=== PATIENT | female | born 1950 | race Caucasian/White ===

== ENCOUNTER 2020-10-13 12:53 | Emergency (ER) | payer MEDICARE, SELFPAY ==
--- NOTE | ~2020-10-13 | CT_ITS ---
EXAMINATION: CT ABDOMEN AND PELVIS WITHOUT CONTRAST CLINICAL INFORMATION: Flank pain, fevers COMPARISON: 07/16/2019 TECHNIQUE: Multidetector volumetric imaging was performed from the superior aspect of the liver through the pubic symphysis. Sagittal and coronal reformatted images were obtained on the technologist's workstation. This CT examination was performed using dose optimization techniques as appropriate, variously including the following: *Automated exposure control *Adjustment of mA and/or kV according to patient size (this includes techniques or standardized protocols for targeted exams where dose is matched to indication/reason for exam; i.e. extremities or head) *Use of iterative reconstruction technique DLP [id number] FINDINGS: The lack of intravenous contrast limits evaluation of the solid visceral organs including the liver, spleen, pancreas, and kidneys. LUNG BASES: Trace bilateral pleural effusions. Bibasilar atelectasis. Normal heart size. Small circumferential pericardial effusion. Findings are similar to the prior study. LIVER, GALLBLADDER, AND BILIARY TREE: Limited non-contrast evaluation is normal. No gross focal hepatic lesion. Normal liver size and contour. No gross biliary ductal dilation. The gallbladder is unremarkable with no evidence of radiopaque gallstones, gallbladder wall thickening, or obvious pericholecystic inflammatory changes. PANCREAS: Limited non-contrast evaluation is normal. No poly-pancreatic fluid. SPLEEN: Limited non-contrast evaluation is normal. ADRENAL GLANDS: Normal; no adrenal mass. KIDNEYS AND URETERS: There is prominence of the right renal pelvis and right ureter but no calculus seen. No left hydronephrosis or hydroureter. GASTROINTESTINAL TRACT: Small bowel and colon are non-dilated. No bowel wall thickening. No pericolonic inflammatory changes to suggest colitis or diverticulitis. Normal appendix. ABDOMINAL WALL: Small fat-containing umbilical hernia. LYMPH NODES: No pathologically enlarged lymph nodes in the abdomen or pelvis. VASCULAR: Normal caliber abdominal aorta. BLADDER: Unremarkable. PELVIC VISCERA: Normal noncontrast appearance of the uterus and ovaries. OSSEOUS STRUCTURES: No acute or suspicious osseous abnormalities. CT/CT abdomen pelvis wo con IMPRESSION: There is prominence of the right renal pelvis and right ureter. No calculi seen. A recently passed calculus could give this appearance. Recommend clinical correlation. Trace bilateral pleural effusions, bibasilar atelectasis, and small circumferential pericardial effusion are again seen, similar to prior study in 2019.
--- NOTE | ~2020-10-13 | XR_ITS ---
EXAMINATION: XR CHEST CLINICAL INFORMATION: Cough and fever COMPARISON: July 16, 2019 and studies dating back to October 10, 2007 TECHNIQUE: 2 views of the chest were obtained. FINDINGS: No definite acute parenchymal disease, pneumothorax, or pleural effusion. Heart normal size. No unsupportive pulmonary edema. There is some scar seen within the mid left lung. There is some prominence of the right hilum which may be all vascular and is similar in appearance to prior studies however it appears slightly more bulky and possibility of lymphadenopathy is not excluded. CT of the chest would be of help in further evaluation of this finding if clinically indicated. No right paratracheal prominence is seen to suggest lymphadenopathy in this location. XR/XR chest 2V IMPRESSION: No acute parenchymal disease. Prominence of the right hilum as described. This is likely all vascular in nature however right hilar lymphadenopathy not excluded.
[2020-10-13 14:28] VITALS: BP 132/54; PULSE 85; RESP 22; TEMP 39; O2SAT 93; BMI 62.4
--- NOTE | 2020-10-13 14:30 | ED_ITS ---
HPI - Fever General Chief Complaint: Upper Respiratory Symptoms <INOCENCIO Pat Last Filed: 10/13/20 14:33> Stated Complaint: fever, lower back pain <INOCENCIO Pat - Last Filed: 10/13/20 14:33> Time Seen by Provider: 10/13/20 14:22 <INOCENCIO Pat - Last Filed: 10/13/20 14:33> Source: patient <Loretta Meyers DO - Last Filed: 10/13/20 20:01> Mode of arrival: ambulatory <Loretta Meyers DO - Last Filed: 10/13/20 20:01> Limitations: no limitations <Loretta Meyers DO - Last Filed: 10/13/20 20:01> History of Present Illness MD elicited complaint: fever, malaise and weakness <Loretta Meyers DO - Last Filed: 10/13/20 20:01> Pertinent past history: diabetes <Loretta Meyers DO - Last Filed: 10/13/20 20:01> Onset (ago): day(s) (3) <Loretta Meyers DO - Last Filed: 10/13/20 20:01> Exacerbating factors: nothing <Loretta Meyers DO - Last Filed: 10/13/20 20:01> Relieving factors: nothing <Loretta Meyers DO - Last Filed: 10/13/20 20:01> Associated symptoms: chills, rhinorrhea, cough and nausea <Loretta Meyers DO - Last Filed: 10/13/20 20:01> Treatments prior to arrival fever: none <Loretta Meyers DO - Last Filed: 10/13/20 20:01> Related Data Home Medications: Home Medications Medication Instructions Recorded Confirmed citalopram 1 tab PO DAILY 10/13/20 10/13/20 mirtazapine 1 tab PO BEDTIME 10/13/20 10/13/20 quetiapine 1 tab PO BEDTIME 10/13/20 10/13/20 quetiapine 1 tab PO BEDTIME 10/13/20 10/13/20 quetiapine [Seroquel] 1 tab PO BEDTIME 10/13/20 10/13/20 Previous Rx's Medication Instructions Recorded albuterol sulfate 2 puff INHALATION QID PRN #6.7 g 10/13/20 dexamethasone 6 mg PO DAILY 7 Days #7 tab 10/13/20 <INOCENCIO Pat - Last Filed: 10/13/20 14:33> Allergies/Adverse Reactions: Allergies Allergy/AdvReac Type Severity Reaction Status Date / Time lactose [Lactose] Allergy Mild DIARRHEA Verified 10/13/20 14:24 <INOCENCIO Pat - Last Filed: 10/13/20 14:33> Review of Systems Review of Systems: Constitutional : No Weight loss, pos Fever, pos Chills, No Fatigue, No Malaise ENT/Mouth : No sore throat, No Rhinorrhea Eyes: No Eye Pain, No Swelling, No Redness Cardiovascular : No Chest Pain, No SOB, No Dyspnea on Exertion, No Orthopnea, No Edema, No Palpitations Respiratory : pos Cough, No Sputum, No Wheezing Gastrointestinal : pos Nausea, No Vomiting, No Diarrhea, No Constipation, No abdominal Pain, No Hematochezia, No Melena Genitourinary : pos Dysuria, No Urinary Frequency, No Hematuria, Musculoskeletal : No joint pain, No Myalgias, No Joint Swelling Skin : No Skin Lesions, No rash Neuro : No Weakness, No Numbness, No Dizziness, No Headache Psych : No Anxiety/Panic, No Depression Heme/Lymph: No Bruising, No Bleeding,No Lymphadenopathy Endocrine : No Polyuria, No Polydipsia All other systems reviewed and are negative <Loretta Meyers DO - Last Filed: 10/13/20 20:01> [facility] Past Medical History Attestation statement: The following information was validated with the patient. <Loretta Meyers DO - Last Filed: 10/13/20 20:01> Medical History: Medical History (Updated 10/13/20 @ 20:00 by Loretta Meyers DO) Asthma Chronic pain Depression Diabetes Osteoporosis <INOCECNIO Pat - Last Filed: 10/13/20 14:33> Social History Social History: Social History (Updated 10/13/20 @ 17:13 by Loretta Meyers DO) Alcohol intake: never Smoking Status: Never smoker Use of substances other than those prescribed or required for medical reasons: No Advance Directives: No Advance Directives Information Provided: Yes <INOCENCIO Pat - Last Filed: 10/13/20 14:33> Physical Exam Vital Signs: Vital Signs: Last Vital Signs Temp 100.7 F H 10/13/20 18:32 Pulse 88 10/13/20 19:11 Resp 18 10/13/20 19:11 BP 105/79 10/13/20 18:32 Pulse Ox 95 10/13/20 19:11 Body Mass Index 62.4 <INOCENCIO Pat - Last Filed: 10/13/20 14:33> Vital Signs: Last Vital Signs Temp 100.7 F H 10/13/20 18:32 Pulse 88 10/13/20 19:11 Resp 18 10/13/20 19:11 BP 105/79 10/13/20 18:32 Pulse Ox 95 10/13/20 19:11 Body Mass Index 62.4 <Loretta Meyers DO - Last Filed: 10/13/20 20:01> Appearance: Alert. Oriented X3. No acute distress. Eyes: Pupils equal, round and reactive to light. ENT: Pharynx normal. Neck: Normal inspection. Neck supple. CVS: Normal heart rate and rhythm. Pulses normal. Respiratory: No respiratory distress. Breath sounds diminished, mild diffuse end exp wheezes Abdomen: Soft and nontender. Skin: Skin warm and dry. Normal skin color. Normal skin turgor. Extremities: No lower extremity edema. No calf ttp Neuro: Oriented X 3. No motor deficit. No sensory deficit. <Loretta Meyers DO - Last Filed: 10/13/20 20:01> Course Course Course Narrative: Rapid medical examination: 70 y/o female with history of osteoporosis, chronic back pain, depression, diabetes who presents with 3 days of lethargy, low back pain, cough and new onset fevers that started yesterday, 101.8 at home. Poor PO intake with vomiting yesterday. Dysuria in the mornings. s/p 1 COVID vaccine, next due in October. Febrile to 102.2 in Triage, limping gait w/ LBP. Given 650 mg PO Tylenol. Will get CXR, Viral PCR, UA, lactic acid, blood cultures and basic lab workup. Plan per Main ED provider. <INOCENCIO Pat - Last Filed: 10/13/20 14:33> + COVID so far no hypoxia given dexamethasone, no chest pain to suggest PE improved, stable for DC at this time, no hypoxia no pneumonia on exam, unchanged CT scan <Loretta Meyers DO - Last Filed: 10/13/20 20:01> MDM - Fever MDM Narrative Medical decision making narrative: 70 yo female with DM, asthma here with cough fevers, dysuria and low back pain x 3 days, no hypoxia but scant wheezes will need neb, IV dexamethasone, CXR for pneumonia, UA, COVID swab, empiric rocephin possible viral vs pneumonia vs UTI dispo per results and findings. <Loretta Meyers DO - Last Filed: 10/13/20 20:01> Lab Data Result diagrams: : 10/13/20 15:49 10/13/20 15:49 <INOCENCIO Pat - Last Filed: 10/13/20 14:33> Labs: Lab Results 10/13/20 10/13/20 10/13/20 Range/Units 15:49 15:49 15:49 WBC 3.5 L (4.8-10.8) X10*3/uL RBC 4.70 (4.20-5.50) X10*6/uL Hgb 13.9 (12.0-16.0) g/dl Hct 42.2 (37-47) % MCV 89.8 (80-98) fL MCH 29.6 (27.0-33.0) pg MCHC 32.9 (31.0-35.0) g/dl RDW 13.1 (11.0-16.0) % Plt Count 78 L (160-400) X10*3/uL MPV 11.9 (9.4-12.3) fL Immature Gran % (Auto) 0.6 H (0.0-0.4) % Neut % (Auto) 70.7 (45-73) % Lymph % (Auto) 21.9 (20-40) % Hubbard % (Auto) 6.8 (2-11) % Eos % (Auto) 0.0 (0-4) % Baso % (Auto) 0.0 (0-2) % Lymph # (Auto) 0.8 L (1.2-4.9) X10*3/uL Hubbard # (Auto) 0.2 (0.1-1.2) X10*3/uL Eos # (Auto) 0.0 (0.0-0.4) X10*3/uL Baso # (Auto) 0.0 (0.0-0.2) X10*3/uL Abs Immat Gran (auto) 0.02 (0.00-0.03) X10*3/uL Absolute Neuts (auto) 2.5 (2.0-8.3) X10*3/uL Absolute Nucleated RBC 0.000 (0.0-0.012) X10*3/uL Nucleated RBC % (auto) 0.0 (0.0-0.2) /100WBC Smear Tech's Comments VERIFIED Hold Blue Top SEE NOTE Sodium 131 L (135-145) mmol/L Potassium 3.8 (3.3-5.1) mmol/L Chloride 100 (96-108) mmol/L Carbon Dioxide 21 L (22-29) mmol/L Anion Gap 14 (12-20) BUN 20 H (9-16) mg/dL Creatinine 1.13 (0.5-1.4) mg/dL Estim Creat Clear Calc 66.3 Estimated GFR 47 Random Glucose 311 H (60-115) mg/dL Lactic Acid (0.5-2.0) mmol/L Lactic Acid Fup @ 2Hr (0.5-2.0) mmol/L Calcium 8.5 (8.4-10.2) mg/dL Magnesium 1.8 (1.6-2.6) mg/dL Total Bilirubin 0.7 (0.0-1.0) mg/dL Direct Bilirubin 0.3 (0.0-0.5) mg/dL AST 66 H (5-31) U/L ALT 45 H (0-31) U/L Alkaline Phosphatase 114 (39-117) U/L Total Protein 7.2 (6.5-8.0) g/dL Albumin 3.7 (3.5-5.0) g/dL Urine Color Urine Appearance Urine pH (5.0-8.0) Ur Specific [place] (1.005-1.025) Urine Protein (NEG-TRACE) MG/DL Urine Glucose (UA) (NEG) MG/DL Urine Ketones (NEG) MG/DL Urine Blood (NEG) Urine Nitrite (NEG) Ur Leukocyte Esterase (NEG) Coronavirus (PCR) (Negative) Influenza Type A (PCR) (Negative) Influenza Type B (PCR) (Negative) RSV RNA Qual (PCR) (Negative) 10/13/20 10/13/20 10/13/20 Range/Units 15:49 15:49 18:26 WBC (4.8-10.8) X10*3/uL RBC (4.20-5.50) X10*6/uL Hgb (12.0-16.0) g/dl Hct (37-47) % MCV (80-98) fL MCH (27.0-33.0) pg MCHC (31.0-35.0) g/dl RDW (11.0-16.0) % Plt Count (160-400) X10*3/uL MPV (9.4-12.3) fL Immature Gran % (Auto) (0.0-0.4) % Neut % (Auto) (45-73) % Lymph % (Auto) (20-40) % Hubbard % (Auto) (2-11) % Eos % (Auto) (0-4) % Baso % (Auto) (0-2) % Lymph # (Auto) (1.2-4.9) X10*3/uL Hubbard # (Auto) (0.1-1.2) X10*3/uL Eos # (Auto) (0.0-0.4) X10*3/uL Baso # (Auto) (0.0-0.2) X10*3/uL Abs Immat Gran (auto) (0.00-0.03) X10*3/uL Absolute Neuts (auto) (2.0-8.3) X10*3/uL Absolute Nucleated RBC (0.0-0.012) X10*3/uL Nucleated RBC % (auto) (0.0-0.2) /100WBC Smear Tech's Comments Hold Blue Top Sodium (135-145) mmol/L Potassium (3.3-5.1) mmol/L Chloride (96-108) mmol/L Carbon Dioxide (22-29) mmol/L Anion Gap (12-20) BUN (9-16) mg/dL Creatinine (0.5-1.4) mg/dL Estim Creat Clear Calc Estimated GFR Random Glucose (60-115) mg/dL Lactic Acid 2.4 H* (0.5-2.0) mmol/L Lactic Acid Fup @ 2Hr 1.9 (0.5-2.0) mmol/L Calcium (8.4-10.2) mg/dL Magnesium (1.6-2.6) mg/dL Total Bilirubin (0.0-1.0) mg/dL Direct Bilirubin (0.0-0.5) mg/dL AST (5-31) U/L ALT (0-31) U/L Alkaline Phosphatase (39-117) U/L Total Protein (6.5-8.0) g/dL Albumin (3.5-5.0) g/dL Urine Color Urine Appearance Urine pH (5.0-8.0) Ur Specific [place] (1.005-1.025) Urine Protein (NEG-TRACE) MG/DL Urine Glucose (UA) (NEG) MG/DL Urine Ketones (NEG) MG/DL Urine Blood (NEG) Urine Nitrite (NEG) Ur Leukocyte Esterase (NEG) Coronavirus (PCR) POSITIVE A (Negative) Influenza Type A (PCR) NEGATIVE (Negative) Influenza Type B (PCR) NEGATIVE (Negative) RSV RNA Qual (PCR) NEGATIVE (Negative) 10/13/20 Range/Units 19:26 WBC (4.8-10.8) X10*3/uL RBC (4.20-5.50) X10*6/uL Hgb (12.0-16.0) g/dl Hct (37-47) % MCV (80-98) fL MCH (27.0-33.0) pg MCHC (31.0-35.0) g/dl RDW (11.0-16.0) % Plt Count (160-400) X10*3/uL MPV (9.4-12.3) fL Immature Gran % (Auto) (0.0-0.4) % Neut % (Auto) (45-73) % Lymph % (Auto) (20-40) % Hubbard % (Auto) (2-11) % Eos % (Auto) (0-4) % Baso % (Auto) (0-2) % Lymph # (Auto) (1.2-4.9) X10*3/uL Hubbard # (Auto) (0.1-1.2) X10*3/uL Eos # (Auto) (0.0-0.4) X10*3/uL Baso # (Auto) (0.0-0.2) X10*3/uL Abs Immat Gran (auto) (0.00-0.03) X10*3/uL Absolute Neuts (auto) (2.0-8.3) X10*3/uL Absolute Nucleated RBC (0.0-0.012) X10*3/uL Nucleated RBC % (auto) (0.0-0.2) /100WBC Smear Tech's Comments Hold Blue Top Sodium (135-145) mmol/L Potassium (3.3-5.1) mmol/L Chloride (96-108) mmol/L Carbon Dioxide (22-29) mmol/L Anion Gap (12-20) BUN (9-16) mg/dL Creatinine (0.5-1.4) mg/dL Estim Creat Clear Calc Estimated GFR Random Glucose (60-115) mg/dL Lactic Acid (0.5-2.0) mmol/L Lactic Acid Fup @ 2Hr (0.5-2.0) mmol/L Calcium (8.4-10.2) mg/dL Magnesium (1.6-2.6) mg/dL Total Bilirubin (0.0-1.0) mg/dL Direct Bilirubin (0.0-0.5) mg/dL AST (5-31) U/L ALT (0-31) U/L Alkaline Phosphatase (39-117) U/L Total Protein (6.5-8.0) g/dL Albumin (3.5-5.0) g/dL Urine Color YELLOW Urine Appearance CLEAR Urine pH 6.0 (5.0-8.0) Ur Specific [place] <= 1.005 (1.005-1.025) Urine Protein NEG (NEG-TRACE) MG/DL Urine Glucose (UA) >=1000 H (NEG) MG/DL Urine Ketones NEG (NEG) MG/DL Urine Blood TRACE (NEG) Urine Nitrite NEG (NEG) Ur Leukocyte Esterase TRACE H (NEG) Coronavirus (PCR) (Negative) Influenza Type A (PCR) (Negative) Influenza Type B (PCR) (Negative) RSV RNA Qual (PCR) (Negative) <INOCENCIO Pat - Last Filed: 10/13/20 14:33> Lab Results 10/13/20 10/13/20 10/13/20 Range/Units 15:49 15:49 15:49 WBC 3.5 L (4.8-10.8) X10*3/uL RBC 4.70 (4.20-5.50) X10*6/uL Hgb 13.9 (12.0-16.0) g/dl Hct 42.2 (37-47) % MCV 89.8 (80-98) fL MCH 29.6 (27.0-33.0) pg MCHC 32.9 (31.0-35.0) g/dl RDW 13.1 (11.0-16.0) % Plt Count 78 L (160-400) X10*3/uL MPV 11.9 (9.4-12.3) fL Immature Gran % (Auto) 0.6 H (0.0-0.4) % Neut % (Auto) 70.7 (45-73) % Lymph % (Auto) 21.9 (20-40) % Hubbard % (Auto) 6.8 (2-11) % Eos % (Auto) 0.0 (0-4) % Baso % (Auto) 0.0 (0-2) % Lymph # (Auto) 0.8 L (1.2-4.9) X10*3/uL Hubbard # (Auto) 0.2 (0.1-1.2) X10*3/uL Eos # (Auto) 0.0 (0.0-0.4) X10*3/uL Baso # (Auto) 0.0 (0.0-0.2) X10*3/uL Abs Immat Gran (auto) 0.02 (0.00-0.03) X10*3/uL Absolute Neuts (auto) 2.5 (2.0-8.3) X10*3/uL Absolute Nucleated RBC 0.000 (0.0-0.012) X10*3/uL Nucleated RBC % (auto) 0.0 (0.0-0.2) /100WBC Smear Tech's Comments VERIFIED Hold Blue Top SEE NOTE Sodium 131 L (135-145) mmol/L Potassium 3.8 (3.3-5.1) mmol/L Chloride 100 (96-108) mmol/L Carbon Dioxide 21 L (22-29) mmol/L Anion Gap 14 (12-20) BUN 20 H (9-16) mg/dL Creatinine 1.13 (0.5-1.4) mg/dL Estim Creat Clear Calc 66.3 Estimated GFR 47 Random Glucose 311 H (60-115) mg/dL Lactic Acid (0.5-2.0) mmol/L Lactic Acid Fup @ 2Hr (0.5-2.0) mmol/L Calcium 8.5 (8.4-10.2) mg/dL Magnesium 1.8 (1.6-2.6) mg/dL Total Bilirubin 0.7 (0.0-1.0) mg/dL Direct Bilirubin 0.3 (0.0-0.5) mg/dL AST 66 H (5-31) U/L ALT 45 H (0-31) U/L Alkaline Phosphatase 114 (39-117) U/L Total Protein 7.2 (6.5-8.0) g/dL Albumin 3.7 (3.5-5.0) g/dL Urine Color Urine Appearance Urine pH (5.0-8.0) Ur Specific [place] (1.005-1.025) Urine Protein (NEG-TRACE) MG/DL Urine Glucose (UA) (NEG) MG/DL Urine Ketones (NEG) MG/DL Urine Blood (NEG) Urine Nitrite (NEG) Ur Leukocyte Esterase (NEG) Coronavirus (PCR) (Negative) Influenza Type A (PCR) (Negative) Influenza Type B (PCR) (Negative) RSV RNA Qual (PCR) (Negative) 10/13/20 10/13/20 10/13/20 Range/Units 15:49 15:49 18:26 WBC (4.8-10.8) X10*3/uL RBC (4.20-5.50) X10*6/uL Hgb (12.0-16.0) g/dl Hct (37-47) % MCV (80-98) fL MCH (27.0-33.0) pg MCHC (31.0-35.0) g/dl RDW (11.0-16.0) % Plt Count (160-400) X10*3/uL MPV (9.4-12.3) fL Immature Gran % (Auto) (0.0-0.4) % Neut % (Auto) (45-73) % Lymph % (Auto) (20-40) % Hubbard % (Auto) (2-11) % Eos % (Auto) (0-4) % Baso % (Auto) (0-2) % Lymph # (Auto) (1.2-4.9) X10*3/uL [place] # (Auto) (0.1-1.2) X10*3/uL Eos # (Auto) (0.0-0.4) X10*3/uL Baso # (Auto) (0.0-0.2) X10*3/uL Abs Immat Gran (auto) (0.00-0.03) X10*3/uL Absolute Neuts (auto) (2.0-8.3) X10*3/uL Absolute Nucleated RBC (0.0-0.012) X10*3/uL Nucleated RBC % (auto) (0.0-0.2) /100WBC Smear Tech's Comments Hold Blue Top Sodium (135-145) mmol/L Potassium (3.3-5.1) mmol/L Chloride (96-108) mmol/L Carbon Dioxide (22-29) mmol/L Anion Gap (12-20) BUN (9-16) mg/dL Creatinine (0.5-1.4) mg/dL Estim Creat Clear Calc Estimated GFR Random Glucose (60-115) mg/dL Lactic Acid 2.4 H* (0.5-2.0) mmol/L Lactic Acid Fup @ 2Hr 1.9 (0.5-2.0) mmol/L Calcium (8.4-10.2) mg/dL Magnesium (1.6-2.6) mg/dL Total Bilirubin (0.0-1.0) mg/dL Direct Bilirubin (0.0-0.5) mg/dL AST (5-31) U/L ALT (0-31) U/L Alkaline Phosphatase (39-117) U/L Total Protein (6.5-8.0) g/dL Albumin (3.5-5.0) g/dL Urine Color Urine Appearance Urine pH (5.0-8.0) Ur Specific [place] (1.005-1.025) Urine Protein (NEG-TRACE) MG/DL Urine Glucose (UA) (NEG) MG/DL Urine Ketones (NEG) MG/DL Urine Blood (NEG) Urine Nitrite (NEG) Ur Leukocyte Esterase (NEG) Coronavirus (PCR) POSITIVE A (Negative) Influenza Type A (PCR) NEGATIVE (Negative) Influenza Type B (PCR) NEGATIVE (Negative) RSV RNA Qual (PCR) NEGATIVE (Negative) 10/13/20 Range/Units 19:26 WBC (4.8-10.8) X10*3/uL RBC (4.20-5.50) X10*6/uL Hgb (12.0-16.0) g/dl Hct (37-47) % MCV (80-98) fL MCH (27.0-33.0) pg MCHC (31.0-35.0) g/dl RDW (11.0-16.0) % Plt Count (160-400) X10*3/uL MPV (9.4-12.3) fL Immature Gran % (Auto) (0.0-0.4) % Neut % (Auto) (45-73) % Lymph % (Auto) (20-40) % [place] % (Auto) (2-11) % Eos % (Auto) (0-4) % Baso % (Auto) (0-2) % Lymph # (Auto) (1.2-4.9) X10*3/uL [place] # (Auto) (0.1-1.2) X10*3/uL Eos # (Auto) (0.0-0.4) X10*3/uL Baso # (Auto) (0.0-0.2) X10*3/uL Abs Immat Gran (auto) (0.00-0.03) X10*3/uL Absolute Neuts (auto) (2.0-8.3) X10*3/uL Absolute Nucleated RBC (0.0-0.012) X10*3/uL Nucleated RBC % (auto) (0.0-0.2) /100WBC Smear Tech's Comments Hold Blue Top Sodium (135-145) mmol/L Potassium (3.3-5.1) mmol/L Chloride (96-108) mmol/L Carbon Dioxide (22-29) mmol/L Anion Gap (12-20) BUN (9-16) mg/dL Creatinine (0.5-1.4) mg/dL Estim Creat Clear Calc Estimated GFR Random Glucose (60-115) mg/dL Lactic Acid (0.5-2.0) mmol/L Lactic Acid Fup @ 2Hr (0.5-2.0) mmol/L Calcium (8.4-10.2) mg/dL Magnesium (1.6-2.6) mg/dL Total Bilirubin (0.0-1.0) mg/dL Direct Bilirubin (0.0-0.5) mg/dL AST (5-31) U/L ALT (0-31) U/L Alkaline Phosphatase (39-117) U/L Total Protein (6.5-8.0) g/dL Albumin (3.5-5.0) g/dL Urine Color YELLOW Urine Appearance CLEAR Urine pH 6.0 (5.0-8.0) Ur Specific [place] <= 1.005 (1.005-1.025) Urine Protein NEG (NEG-TRACE) MG/DL Urine Glucose (UA) >=1000 H (NEG) MG/DL Urine Ketones NEG (NEG) MG/DL Urine Blood TRACE (NEG) Urine Nitrite NEG (NEG) Ur Leukocyte Esterase TRACE H (NEG) Coronavirus (PCR) (Negative) Influenza Type A (PCR) (Negative) Influenza Type B (PCR) (Negative) RSV RNA Qual (PCR) (Negative) <Loretta Meyers DO - Last Filed: 10/13/20 20:01> Discharge Plan Discharge Clinical Impression: Acidosis, lactic, COVID-19 Fever Qualifiers: Fever type: due to other condition Qualified Code(s): R50.81 - Fever presenting with conditions classified elsewhere <INOCENCIO Pat - Last Filed: 10/13/20 14:33> Patient Disposition: Home, Self-Care <INOCENCIO Pat - Last Filed: 10/13/20 14:33> Instructions: Fever in Adults (ED), COVID-19 (Coronavirus Disease 2019) (ED) <INOCENCIO Pat - Last Filed: 10/13/20 14:33> Additional Instructions: return to ED for any worsening symptoms or concerns <INOCENCIO Pat - Last Filed: 10/13/20 14:33> Prescriptions: New dexamethasone 6 mg tablet 6 mg PO DAILY 7 Days Qty: 7 RF: 0 albuterol sulfate 90 mcg/actuation HFA aerosol inhaler 2 puff inhalation QID PRN (Reason: shortness of breath or wheezing) Qty: 6.7 RF: 0 No Action quetiapine [Seroquel] 100 mg tablet 1 tab PO BEDTIME RF: 0 quetiapine 100 mg tablet 1 tab PO BEDTIME RF: 0 citalopram 20 mg tablet 1 tab PO DAILY RF: 0 mirtazapine 30 mg tablet 1 tab PO BEDTIME RF: 0 quetiapine 400 mg tablet 1 tab PO BEDTIME RF: 0 <INOCENCIO Pat - Last Filed: 10/13/20 14:33>
[2020-10-13 15:56] LABS: Hemoglobin 13.9 g/dl (12.0-16.0); MANUAL DIFF FLAG SCAN; PLT CLUMP 1; SCAN SMEAR FLAG 1
[2020-10-13 15:58] LABS: Hematocrit 42.2 % (37-47); Imm Gran Abs Auto 0.02 X10*3/uL (0.00-0.03); Imm Gran Pct Auto 0.6 % (0.0-0.4); Lymphocytes Absolute Auto 0.8 X10*3/uL (1.2-4.9); Lymphocytes Percent Auto 21.9 % (20-40); Mean Corpuscular HGB Conc 32.9 g/dl (31.0-35.0); Mean Corpuscular Hemoglobin 29.6 pg (27.0-33.0); Mean Corpuscular Volume 89.8 fL (80-98); Mean Platelet Volume 11.9 fL (9.4-12.3); Monocytes Absolute Auto 0.2 X10*3/uL (0.1-1.2); Monocytes Percent Auto 6.8 % (2-11); Neutrophils Absolute Auto 2.5 X10*3/uL (2.0-8.3); Neutrophils Percent Auto 70.7 % (45-73); Red Cell Distribution Width 13.1 % (11.0-16.0); White Blood Count 3.5 X10*3/uL (4.8-10.8)
[2020-10-13 16:16] LABS: Platelet Count 78 X10*3/uL (160-400)
[2020-10-13 16:17] LABS: SLIDE REVIEW VERIFIED
[2020-10-13 16:22] LABS: Alanine Aminotransferase 45 U/L (0-31); Albumin Level 3.7 g/dL (3.5-5.0); Alkaline Phosphatase 114 U/L (39-117); Anion Gap 14 (12-20); Aspartate Amino Transferase 66 U/L (5-31); Bilirubin Direct 0.3 mg/dL (0.0-0.5); Bilirubin Total 0.7 mg/dL (0.0-1.0); Blood Urea Nitrogen 20 mg/dL (9-16); Calcium 8.5 mg/dL (8.4-10.2); Carbon Dioxide 21 mmol/L (22-29); Chloride 100 mmol/L (96-108); Creatinine Clr Calc Pharmacy 66.3; Estimated Glomerular Filt Rate 47; Glucose Random 311 mg/dL (60-115); Magnesium 1.8 mg/dL (1.6-2.6); Potassium 3.8 mmol/L (3.3-5.1); Sodium 131 mmol/L (135-145); Total Protein 7.2 g/dL (6.5-8.0)
[2020-10-13 16:25] LABS: Lactic Acid 2.4 mmol/L (0.5-2.0)
[2020-10-13 17:11] VITALS: BP 115/51; PULSE 79; RESP 20; TEMP 39.2; O2SAT 94
[2020-10-13] MEDS: Ibuprofen 600 MG TABLET PO (17:16)
[2020-10-13] MEDS: 0.9 % Sodium Chloride 1,000 ML 999 ML IVCONT (17:17)
[2020-10-13] MEDS: dexAMETHasone sod phosphate 4 MG/ML VIAL 6 MG IVPUSH (17:19)
[2020-10-13] MEDS: cefTRIAXone sodium 1 GM in 0.9 % Sodium Chloride 50 ML IV (17:20)
[2020-10-13] MEDS: Albuterol Sulfate (0.083%) 2.5 MG/3 ML VIAL.NEB INHALE (17:21)
[2020-10-13 17:22] VITALS: PULSE 81; O2SAT 95
[2020-10-13 17:36] LABS: Influenza A PCR NEGATIVE (Negative); Influenza B PCR NEGATIVE (Negative); Resp Syncy Virus RNA Qual PCR NEGATIVE (Negative); SARS COV2 PCR INHOUSE POSITIVE (Negative)
[2020-10-13 17:53] LABS: Reflex Lactate? Lactic Acid Added
[2020-10-13 18:32] VITALS: BP 105/79; PULSE 94; RESP 18; TEMP 38.2; O2SAT 99
[2020-10-13 18:53] LABS: ~Lactic Acid-LAB USE ONLY 1.9 mmol/L (0.5-2.0)
[2020-10-13 19:11] VITALS: PULSE 88; RESP 18; O2SAT 95
--- NOTE | 2020-10-13 19:11 | PC.NURSE ---
pt up to bedside commode
[2020-10-13 19:49] LABS: Glucose Urine UA >=1000 MG/DL (NEG); Leukocyte Esterase Urine TRACE (NEG); Nitrite Urine NEG (NEG); Specific Gravity - Urine <= 1.005 (1.005-1.025); UACC Culture Trigger YES; Urine Blood TRACE (NEG); Urine Ketones NEG (NEG); Urine Protein NEG (NEG-TRACE)
[2020-10-13 19:52] LABS: Appearance Urine CLEAR; Color Urine YELLOW
[2020-10-13 19:59] LABS: Bacteria Urine 2+ /LPF; RBC Urine 0-2 /HPF (0); Squamous Epithelial Cell Urine 2+ /LPF
[2020-10-13] MEDS: 0.9 % Sodium Chloride 500 ML IV (20:03)
--- NOTE | 2020-10-13 20:12 | PC.NURSE ---
discharge instructions given primary contact with patient permission. grand daughter will grain picker patient upon d/c/
--- NOTE | 2020-10-14 18:45 | PC.NURSE ---
LAB CALLED WITH POSITIVE BLOOD CULTURE ANEROBIC BC, GM+ COCCI IN CLUSTERS. REPORTED TO KAYLIE ARGUETA NP.
== END 2020-10-13 20:49 | disposition home or self-care (01) ==
PROVIDERS: Physician Assistant; Emergency Provider Emergency Medicine; PCP Internal Medicine
DX: U07.1 COVID-19 (principal); R50.81 Fever presenting with conditions classified elsewhere; E11.9 Type 2 diabetes mellitus without complications; J34.89 Other specified disorders of nose and nasal sinuses; M79.10 Myalgia, unspecified site; E87.2 Acidosis; Z79.899 Other long term (current) drug therapy
CPT/HCPCS: 0241U; 36415; 71046; 74176; 80048; 80076; 81001; 81003; 83605; 83735; 85025; 87040; 87086; 87147; 87205; 96361; 96365; 96375; 99285; J0696; J1100

== ENCOUNTER 2020-10-16 11:57 | Inpatient (IN) | payer MEDICARE, SELFPAY ==
[2020-10-16] VITALS (8 sets, daily range): BP systolic 108–140; BP diastolic 51–70; PULSE 71–112; RESP 20–30; TEMP 36.7–39.9; O2SAT 87–98; BMI 28.5
--- NOTE | ~2020-10-16 | XR_ITS ---
EXAMINATION: XR CHEST CLINICAL INFORMATION: Central line placement COMPARISON: Previous chest x-rays most recent from earlier the same day TECHNIQUE: Frontal view of the chest was obtained. FINDINGS: There is a new left jugular line with tip projecting over the cavoatrial junction/right atrium. There is a right jugular line with tip projecting over the SVC. There is an endotracheal tube with tip 5 cm above the yolanda. There is a nasogastric tube projects over stomach. The cardiac and mediastinal contours are stable. There is bilateral diffuse airspace disease, greatest in the left lower lobe does not appear appreciably changed from earlier exam. There is no pleural effusion or pneumothorax. There are mild degenerative changes of the spine. XR/XR chest 1V IMPRESSION: New left jugular line projects over cavoatrial junction/right atrium. Other support line and tubes are stable. No change in diffuse bilateral airspace disease.
--- NOTE | ~2020-10-16 | XR_ITS ---
EXAMINATION: XR CHEST CLINICAL INFORMATION: Line placement COMPARISON: Chest 10/28/2020 TECHNIQUE: Frontal view of the chest was obtained. FINDINGS: There is a large artifact from the backboard projecting over the mid and lower chest. Both lungs are expanded with diffuse patchy opacities with air bronchogram in the left lower lobe suggestive of large consolidation. The endotracheal tube is 3.7 cm above the yolanda. Enteric tube tip is below the diaphragm. There is a left jugular central catheter with its tip in the right atrium. A right jugular catheter has been replaced with a jugular sheath with its tip in the mid SVC. Heart size and pulmonary vascularity is normal. No gross bony abnormality seen. XR/XR chest 1V IMPRESSION: Diffuse bilateral airspace disease. Support lines and catheters are stable.
--- NOTE | ~2020-10-16 | XR_ITS ---
EXAMINATION: XR CHEST CLINICAL INFORMATION: Placement of intubation. COMPARISON: CTA chest the TECHNIQUE: Frontal view of the chest was obtained. FINDINGS: The right central venous catheter tip overlies the right atrium. There is an endotracheal tube with its tip in the right bronchus and needs to be withdrawn by at least 4 cm. Enteric tube tip is below the diaphragms stomach. The heart size is mildly enlarged. There are air bronchograms in the left lower lobe retrocardiac area. In addition there patchy opacities in both lungs. No gross bony abnormality seen. XR/XR chest 1V IMPRESSION: Endotracheal tube tip is in the right bronchus and needs be withdrawn by 4 cm. The right jugular central catheter tip overlies the right atrium. Enteric tube tip is below the diaphragm the stomach. Diffuse patchy infiltrates in both lungs are stable. Results were called to Dr. Olson in the ICU immediately by phone at 2:53 PM
--- NOTE | ~2020-10-16 | XR_ITS ---
EXAMINATION: XR CHEST CLINICAL INFORMATION: Covid follow-up COMPARISON: Chest x-ray October 18, 2020 TECHNIQUE: Frontal view of the chest was obtained. FINDINGS: The trachea to terminate approximately 5.5 cm above the level of yolanda. Enteric tube terminates well below the diaphragm. Right-sided jugular catheter in expected orientation, terminating within the distal SVC. The cardiac silhouette is at the upper limits of normal in size. Patchy bilateral airspace disease is again noted, however, appears slightly less prominent than prior imaging. There remains some retrocardiac opacity although this also appears less prominent today. No appreciable pleural effusion. No pneumothorax. XR/XR chest 1V IMPRESSION: -Support apparatus in expected orientation. -Persistent but improved patchy bilateral airspace disease.
--- NOTE | ~2020-10-16 | CT_ITS ---
EXAMINATION: CT ANGIOGRAM OF THE CHEST WITH AND WITHOUT CONTRAST (CT PULMONARY ANGIOGRAM FOR PE) CLINICAL INFORMATION: Hypoxia. Abnormal chest x-ray. COMPARISON: Chest x-ray 10/16/2020 TECHNIQUE: Prior to contrast administration, noncontrast localization images were obtained. Subsequently, multidetector volumetric imaging was performed from the thoracic inlet to below the diaphragms following the administration of 61 mL Omnipaque 350 intravenous contrast. No contrast reaction reported Sagittal, coronal, and MIP oblique sagittal reformatted images were obtained on the CT workstation, uploaded to PACS, and reviewed. This CT examination was performed using dose optimization techniques as appropriate, variously including the following: *Automated exposure control *Adjustment of mA and/or kV according to patient size (this includes techniques or standardized protocols for targeted exams where dose is matched to indication/reason for exam; i.e. extremities or head) *Use of iterative reconstruction technique Total exam dose-length product 1066 mGy-cm FINDINGS: QUALITY OF STUDY/CONTRAST BOLUS: Satisfactory. PULMONARY ARTERIES: No central or segmental pulmonary emboli. THORACIC AORTA: No aneurysm or dissection. LUNG: Multifocal airspace disease. There are multifocal peripheral groundglass opacities in the upper lobes bilateral. There is dense consolidation of the dependent right and left lung bases with air bronchograms. PLEURA: No pleural effusion or pneumothorax. MEDIASTINUM: Heart size is mildly enlarged. No pericardial effusion. As the calcifications of thoracic aortic arch. No aneurysm or dissection of aorta. No evidence of septal bowing or right heart strain. CHEST WALL/AXILLA: No axillary or internal mammary lymphadenopathy. OSSEOUS STRUCTURES: No acute or suspicious osseous abnormality. UPPER ABDOMEN: Unremarkable. No reflux of contrast into the hepatic veins to suggest elevated right heart pressures. CT/CT angio chest PE protocol IMPRESSION: 1. No evidence of pulmonary embolism. 2. Multifocal bilateral airspace disease. Inflammatory or infectious etiology would be more likely than a cardiogenic etiology given the distribution of the airspace disease. Imaging features can be seen with COVID-19 pneumonia. Although these features are nonspecific and can be occur with a variety of infectious and noninfectious processes. VTE: negative
--- NOTE | ~2020-10-16 | XR_ITS ---
EXAMINATION: XR CHEST CLINICAL INFORMATION: Cough. Shortness of breath. COMPARISON: Previous chest x-ray most recent 10/13/2020 TECHNIQUE: Frontal view of the chest was obtained. FINDINGS: The cardiac silhouette is enlarged. There is some pulmonary venous redistribution. There is increasing bilateral perihilar and right upper lobe airspace disease. Differential would include pneumonia and pulmonary edema. There is no pleural effusion appreciated. There is no pneumothorax. There are degenerative changes of the spine. XR/XR chest 1V IMPRESSION: Enlarged cardiac silhouette. Pulmonary venous redistribution and perihilar and right upper lobe airspace disease. Differential would include pneumonia and pulmonary edema. Clinical correlation recommended.
--- NOTE | ~2020-10-16 | CT_ITS ---
EXAMINATION: CT HEAD WITHOUT CONTRAST CLINICAL INFORMATION: Thrombocytopenia. COMPARISON: CT head from 02/01/2019. TECHNIQUE: Contiguous axial imaging was performed from the skull base to vertex without intravenous administration of contrast. This CT examination was performed using dose optimization techniques as appropriate, variously including the following: *Automated exposure control. *Adjustment of mA and/or kV according to patient size (this includes techniques or standardized protocols for targeted exams where dose is matched to indication/reason for exam; i.e. extremities or head). *Use of iterative reconstruction technique. DLP: 1066 mGy-cm FINDINGS: There is no evidence of acute intracranial hemorrhage or edematous territorial infarction. There is no abnormal attenuation within the brain parenchyma. Goldberg-white matter differentiation is preserved. Proportional prominence of the ventricles and sulcal spaces. No evidence for obstructive hydrocephalus. No abnormal mass effect or midline shift. No extra-axial fluid collections. No acute soft tissue or osseous abnormalities. Mild mucosal thickening of the paranasal sinuses. The mastoid air cells and middle ear cavities are clear. Mild to moderate degenerative arthropathy of the temporal mandibular joints. CT/CT head/brain wo con IMPRESSION: 1. No evidence of acute intracranial hemorrhage or edematous territorial infarction. 2. Mild underlying microangiopathy and generalized cerebral volume loss.
--- NOTE | ~2020-10-16 | US_ITS ---
EXAMINATION: US VENOUS ULTRASOUND WITH DOPPLER LOWER EXTREMITY, BILATERAL CLINICAL INFORMATION: Bilateral edema COMPARISON: None TECHNIQUE: Ultrasound of the deep veins is performed from the hip to the calf with compression sonography and color and pulse Doppler assessment. Spectral analysis with color-flow imaging is performed. FINDINGS: RIGHT: There is normal venous compression and respiratory variation and augmented flow. The visualized common femoral vein, superficial femoral vein, profunda femoral vein, popliteal vein, and the trifurcation region shows no evidence of deep venous thrombosis. There is no significant popliteal fossa cyst. Incidental pulsatile venous flow LEFT: There is normal venous compression and respiratory variation and augmented flow. The visualized common femoral vein, superficial femoral vein, profunda femoral vein, popliteal vein, and the trifurcation region shows no evidence of deep venous thrombosis. There is no significant popliteal fossa cyst. Incidental pulsatile venous flow If the patient's symptoms persist, followup ultrasound in 5 days 7 days might be of value to exclude proximal propagation from a non-visualized calf vein. US/US venous duplex LE BI IMPRESSION: No DVT demonstrated in the bilateral lower extremity. Incidental pulsatile flow seen within the lower extremity veins which could be seen in the setting of right-sided heart dysfunction.
--- NOTE | 2020-10-16 12:55 | ECG_ITS ---
Test Reason : SOB Blood Pressure : / mmHG Vent. Rate : 097 BPM Atrial Rate : 097 BPM P-R Int : 148 ms QRS Dur : 090 ms QT Int : 362 ms P-R-T Axes : 030 -20 008 degrees QTc Int : 459 ms Normal sinus rhythm Nonspecific ST and T wave abnormality Borderline ECG When compared with ECG of 16-JUL-2019 09:42, No significant change was found Referred By: Nita Ramirez Electronically Signed By:ALFREDO CHAO
--- NOTE | 2020-10-16 13:00 | ED_ITS ---
HPI - General Adult General Chief complaint: General Medical <Khalida Martinez NP - Last Filed: 10/16/20 17:08> Stated complaint: +COVID,DIARRHEA,LETHARGY,SOB 89%RA,97% ON NRB <Khalida Martinez NP - Last Filed: 10/16/20 17:08> Time Seen by Provider: 10/16/20 12:46 <Khalida Martinez NP - Last Filed: 10/16/20 17:08> Source: patient, family and EMS <Khalida Martinez NP - Last Filed: 10/16/20 17:08> Mode of arrival: EMS <Khalida Martinez NP - Last Filed: 10/16/20 17:08> Limitations: altered mental status <Khalida Martinez NP - Last Filed: 10/16/20 17:08> History of Present Illness HPI narrative: 70-year-old female with a past medical history of asthma, depression, diabetes, osteoporosis here with complaints of weakness, fever, diarrhea, shortness of breath and confusion. Per family the patient started to have symptoms of COVID on October 10. She was seen here October 13 and diagnosed with COVID-19. She has been home however yesterday she started to get more weak having increasing shortness of breath and confusion per family who live with her. First COVID vaccine 10/02. Per EMS on arrival the patient had oxygen saturations in the 80s on room air. <Khalida Martinez NP - Last Filed: 10/16/20 17:08> Related Data Home medications: Home Medications Medication Instructions Recorded Confirmed citalopram 1 tab PO DAILY 10/13/20 10/16/20 mirtazapine 1 tab PO BEDTIME 10/13/20 10/16/20 quetiapine 1 tab PO BEDTIME 10/13/20 10/16/20 quetiapine 1 tab PO BEDTIME 10/13/20 10/16/20 Previous Rx's Medication Instructions Recorded albuterol sulfate 2 puff INHALATION QID PRN #6.7 g 10/13/20 dexamethasone 6 mg PO DAILY 7 Days #7 tab 10/13/20 <Khalida Martinez NP - Last Filed: 10/16/20 17:08> Allergies/adverse reactions: Allergies Allergy/AdvReac Type Severity Reaction Status Date / Time lactose [Lactose] Allergy Mild DIARRHEA Verified 10/13/20 14:24 <Khalida Martinez NP - Last Filed: 10/16/20 17:08> Review of Systems Review of Systems: Yes Unobtainable due to mental status (Limited due to confusion) <Khalida Martinez NP - Last Filed: 10/16/20 17:08> Neurologic: Denies Abnormal speech present and Reports confusion <Khalida Martinez NP - Last Filed: 10/16/20 17:08> Psychiatric: Psychiatric: Reports confusion <Khalida Martinez NP - Last Filed: 10/16/20 17:08> [facility] Past Medical History Attestation statement: The following information was validated with the patient. <Khalida Martinez NP - Last Filed: 10/16/20 17:08> Source: old records reviewed and nursing notes reviewed <Khalida Martinez NP - Last Filed: 10/16/20 17:08> Medical History: Medical History (Updated 10/29/20 @ 18:15 by INOCENCIO Gupta) Asthma Chronic pain Depression Diabetes Hepatic steatosis Osteoporosis <Khalida Martinez NP - Last Filed: 10/16/20 17:08> Social History Social History: Social History Household Members: Children Housing: House Do you presently have visiting nurse or other home services: No Alcohol intake: never Patient Tobacco Use Status: Never used Tobacco Advance Directives Date on File: 10/17/20 service: No Current occupational status: retired <Khalida Martinez NP - Last Filed: 10/16/20 17:08> Physical Exam Vital Signs: Vital Signs: Last Vital Signs Temp 95.5 F L 11/01/20 01:47 Pulse 70 11/01/20 01:47 Resp 26 H 11/01/20 01:47 BP 98/30 L 11/01/20 01:47 Pulse Ox 97 11/01/20 01:47 Body Mass Index 28.5 <Khalida Martinez NP - Last Filed: 10/16/20 17:08> Vital Signs: Last Vital Signs Temp 95.5 F L 11/01/20 01:47 Pulse 70 11/01/20 01:47 Resp 26 H 11/01/20 01:47 BP 98/30 L 11/01/20 01:47 Pulse Ox 97 11/01/20 01:47 Body Mass Index 28.5 <Sameer Garcia MD - Last Filed: 11/20/20 16:50> Const: General: alert and confusion <Khalida Martinez NP - Last Filed: 10/16/20 17:08> Orientation/consciousness: oriented to person and confusion <Khalida Martinez NP - Last Filed: 10/16/20 17:08> Limitations: altered mental status <Khalida Martinez NP - Last Filed: 10/16/20 17:08> HENMT: Head: Yes normal to inspection <Khalida Martinez NP - Last Filed: 10/16/20 17:08> Ears: hearing grossly normal bilaterally <Khalida Martinez NP - Last Filed: 10/16/20 17:08> General nose exam: Normal external nose present <Khalida Martinez NP - Last Filed: 10/16/20 17:08> Face and sinus: Yes normal facial exam <Khalida Martinez NP - Last Filed: 10/16/20 17:08> Mouth: Normal oral and palatal mucosa present <Khalida Martinez NP - Last Filed: 10/16/20 17:08> Throat: Yes posterior oropharynx normal <Khalida Martinez NP - Last Filed: 10/16/20 17:08> Eyes: General: appearance normal, both eyes and all related structures <Khalida Martinez NP - Last Filed: 10/16/20 17:08> Pupils: Equal, round and reactive pupils present <Khalida Martinez NP - Last Filed: 10/16/20 17:08> Neck: Neck: Yes normal visual inspection, Yes full ROM and Yes no lymphadenopathy <Khalida Martinez NP - Last Filed: 10/16/20 17:08> Chest: Chest palpation & inspection: normal inspection of the chest <Khalida Martinez NP - Last Filed: 10/16/20 17:08> Resp: Other: Patient has tachypnea with a rate of 35 Accessory muscle use Speaking 1-2 word <Khalida Martinez NP - Last Filed: 10/16/20 17:08> Cardio: Rate: regular rate <Khalida Martinez NP - Last Filed: 10/16/20 17:08> Rhythm: regular rhythm <Khalida Martinez NP - Last Filed: 10/16/20 17:08> Peripheral pulses: Peripheral pulses 2+ throughout <Khalida Martinez NP - Last Filed: 10/16/20 17:08> GI: Inspection: Yes normal to inspection <Khalida Martinez NP - Last Filed: 10/16/20 17:08> Palpation (GI): Soft to palpation and nontender <Khalida Martinez NP - Last Filed: 10/16/20 17:08> Auscultation: normal bowel sounds <Khalida Martinez NP - Last Filed: 10/16/20 17:08> Rectal Exam - Female: normal sphincter tone (Brown stool) <Khalida Martinez NP - Last Filed: 10/16/20 17:08> Back/Spine/Pelvis: Thoracic/Lumbar Spine: thoracic and lumbar spine normal to inspection <Khalida Martinez NP - Last Filed: 10/16/20 17:08> Skin: General skin exam: no rashes or lesions noted <Khalida Martinez NP - Last Filed: 10/16/20 17:08> Neuro: Other: Follows simple commands <Khalida Martinez NP - Last Filed: 10/16/20 17:08> General: oriented to person, moves all extremities, normal sensation to monofilament, confusion and Unable to assess gait <Khalida Martinez NP - Last Filed: 10/16/20 17:08> Cranial nerves: Yes Equal, round and reactive pupils present <Khalida Martinez NP - Last Filed: 10/16/20 17:08> Speech: No Abnormal speech present <Khalida Martinez NP - Last Filed: 10/16/20 17:08> Gait exam (Neuro): Unable to assess gait <Khalida Martinez NP - Last Filed: 10/16/20 17:08> Extrem: General: Yes normal to inspection, Yes no pedal edema and Yes no calf tenderness <Khalida Martinez NP - Last Filed: 10/16/20 17:08> Course Course Course Narrative: 70-year-old female known COVID positive here with confusion, weakness, respiratory distress and hypoxia. Will need labs, ABG, chest x-ray, EKG. Called and spoke to next of kin, daughter regan Streeter [phone]. No advance directives and place. Does which patient to be full code. Fever, tachypnea, hypoxia from a viral infection and not from a bacterial infection. Of note, + blood culture from 10/13 gram + cocci in clusters. Second negative. Likely skin contaminant. Plan for repeat. 1345-chest x-ray concerning for pneumonia versus pulmonary vascular congestion. Add on BNP. Labs are pending. At this time infection is suspected. Antibiotics ordered. 1455-thrombocytopenia acute on chronic. Due to altered mental status will check CT head. Likely secondary to metabolic encephalopathy. CT chest to rule out PE also ordered. 1600-patient is currently requiring 15 L of oxygen with a non-rebreather with oxygen saturation 98%. Respiratory rate 24. Pending images. Discussed patient with Dr. Olson from ICU. Patient does not require ICU admit. 1630-did discuss patient with Dr. De La Torre in a period at this time requesting images to be resulted prior to admission. CT pending. 1645-Discussed patient with Dr French. Will sign out to [place] [facility] pending imaging, repeat troponin but accepted admission. 1700-Sign out to [place] [facility] pending imaging, repeat troponin. <Khalida Martinez NP - Last Filed: 10/16/20 17:08> I have reviewed the chart <Sameer Garcia MD - Last Filed: 11/20/20 16:50> Medical Decision Making Medical Records Medical records reviewed: Yes I reviewed the patient's medical records. <Khalida Martinez NP - Last Filed: 10/16/20 17:08> Lab Data Lab results reviewed: Yes I reviewed the patient's lab results. <Khalida Martinez NP - Last Filed: 10/16/20 17:08> Result diagrams: : 10/31/20 05:22 10/31/20 18:11 <Khalida Martinez NP - Last Filed: 10/16/20 17:08> Labs: Lab Results 10/16/20 10/16/20 10/16/20 Range/Units 13:26 14:04 14:06 WBC 4.5 L (4.8-10.8) X10*3/uL RBC 4.02 L (4.20-5.50) X10*6/uL Hgb 11.8 L (12.0-16.0) g/dl Hct 35.4 L (37-47) % MCV 88.1 (80-98) fL MCH 29.4 (27.0-33.0) pg MCHC 33.3 (31.0-35.0) g/dl RDW 13.3 (11.0-16.0) % Plt Count 58 L D (160-400) X10*3/uL MPV 12.3 (9.4-12.3) fL Immature Gran % (Auto) 0.7 H (0.0-0.4) % Neut % (Auto) 84.1 H (45-73) % Lymph % (Auto) 11.6 L (20-40) % Dare % (Auto) 3.6 (2-11) % Eos % (Auto) 0.0 (0-4) % Baso % (Auto) 0.0 (0-2) % Lymph # (Auto) 0.5 L (1.2-4.9) X10*3/uL Dare # (Auto) 0.2 (0.1-1.2) X10*3/uL Eos # (Auto) 0.0 (0.0-0.4) X10*3/uL Baso # (Auto) 0.0 (0.0-0.2) X10*3/uL Abs Immat Gran (auto) 0.03 (0.00-0.03) X10*3/uL Absolute Neuts (auto) 3.8 (2.0-8.3) X10*3/uL Absolute Nucleated RBC 0.000 (0.0-0.012) X10*3/uL Nucleated RBC % (auto) 0.0 (0.0-0.2) /100WBC Smear Tech's Comments VERIFIED PT (10.8-13.0) SEC INR (0.9-1.1) D-Dimer NG/ML O2 Saturation 98.0 % ABG pH at Pt Temp 7.44 (7.35-7.45) ABG pH (Temp Correct) 7.42 (7.35-7.45) ABG pCO2 at Pt Temp 28 L (32-45) mmHg ABG pCO2 (Temp Corrct 30 L (32-45) mmHg ABG pO2 at Pt Temp 94 (83-108) mmHg ABG pO2 (Temp Correct 102 (83-108) ABG HCO3 19 L (22-26) mmol/L ABG Base Excess (Actual) -3.3 mmol/L Sodium (135-145) mmol/L Potassium (3.3-5.1) mmol/L Chloride (96-108) mmol/L Carbon Dioxide (22-29) mmol/L Anion Gap (12-20) BUN (9-16) mg/dL Creatinine (0.5-1.4) mg/dL Estim Creat Clear Calc Estimated GFR Random Glucose (60-115) mg/dL Lactic Acid (0.5-2.0) mmol/L Calcium (8.4-10.2) mg/dL Magnesium (1.6-2.6) mg/dL Ferritin (10-250) ng/mL Total Bilirubin (0.0-1.0) mg/dL Direct Bilirubin (0.0-0.5) mg/dL AST (5-31) U/L ALT (0-31) U/L Alkaline Phosphatase (39-117) U/L Lactate Dehydrogenase (122-220) U/L Troponin I High Sens (<3.5-17.0) ng/L C-Reactive Protein (< or = 0.50) mg/dL B-Natriuretic Peptide (<100) pg/mL Total Protein (6.5-8.0) g/dL Albumin (3.5-5.0) g/dL Procalcitonin ng/mL Urine Color YELLOW Urine Appearance HAZY Urine pH 6.0 (5.0-8.0) Ur Specific [place] 1.025 (1.005-1.025) Urine Protein 2+ H (NEG-TRACE) MG/DL Urine Glucose (UA) 500 H (NEG) MG/DL Urine Ketones 40 (NEG) MG/DL Urine Blood 1+ H (NEG) Urine Nitrite NEG (NEG) Ur Leukocyte Esterase NEG (NEG) Urine RBC 1-4 (0) /HPF Urine WBC 0-2 (0-4) /HPF Ur Squamous Epith Cells TRACE /LPF Urine Bacteria NONE /LPF Urine Mucus TRACE /LPF Acetaminophen (<30) mcg/mL 10/16/20 10/16/20 10/16/20 Range/Units 14:06 14:06 14:06 WBC (4.8-10.8) X10*3/uL RBC (4.20-5.50) X10*6/uL Hgb (12.0-16.0) g/dl Hct (37-47) % MCV (80-98) fL MCH (27.0-33.0) pg MCHC (31.0-35.0) g/dl RDW (11.0-16.0) % Plt Count (160-400) X10*3/uL MPV (9.4-12.3) fL Immature Gran % (Auto) (0.0-0.4) % Neut % (Auto) (45-73) % Lymph % (Auto) (20-40) % Dare % (Auto) (2-11) % Eos % (Auto) (0-4) % Baso % (Auto) (0-2) % Lymph # (Auto) (1.2-4.9) X10*3/uL Dare # (Auto) (0.1-1.2) X10*3/uL Eos # (Auto) (0.0-0.4) X10*3/uL Baso # (Auto) (0.0-0.2) X10*3/uL Abs Immat Gran (auto) (0.00-0.03) X10*3/uL Absolute Neuts (auto) (2.0-8.3) X10*3/uL Absolute Nucleated RBC (0.0-0.012) X10*3/uL Nucleated RBC % (auto) (0.0-0.2) /100WBC Smear Tech's Comments PT 16.9 H (10.8-13.0) SEC INR 1.4 H (0.9-1.1) D-Dimer 390 NG/ML O2 Saturation % ABG pH at Pt Temp (7.35-7.45) ABG pH (Temp Correct) (7.35-7.45) ABG pCO2 at Pt Temp (32-45) mmHg ABG pCO2 (Temp Corrct (32-45) mmHg ABG pO2 at Pt Temp (83-108) mmHg ABG pO2 (Temp Correct (83-108) ABG HCO3 (22-26) mmol/L ABG Base Excess (Actual) mmol/L Sodium 133 L (135-145) mmol/L Potassium 3.5 (3.3-5.1) mmol/L Chloride 104 (96-108) mmol/L Carbon Dioxide 19 L (22-29) mmol/L Anion Gap 14 (12-20) BUN 19 H (9-16) mg/dL Creatinine 0.82 (0.5-1.4) mg/dL Estim Creat Clear Calc 58.0 Estimated GFR > 60 Random Glucose 294 H (60-115) mg/dL Lactic Acid 1.6 (0.5-2.0) mmol/L Calcium 7.6 L D (8.4-10.2) mg/dL Magnesium (1.6-2.6) mg/dL Ferritin (10-250) ng/mL Total Bilirubin 0.4 (0.0-1.0) mg/dL Direct Bilirubin 0.4 (0.0-0.5) mg/dL AST 55 H (5-31) U/L ALT 38 H (0-31) U/L Alkaline Phosphatase 84 D (39-117) U/L Lactate Dehydrogenase (122-220) U/L Troponin I High Sens (<3.5-17.0) ng/L C-Reactive Protein 17.15 H (< or = 0.50) mg/dL B-Natriuretic Peptide (<100) pg/mL Total Protein 5.7 L D (6.5-8.0) g/dL Albumin 2.9 L D (3.5-5.0) g/dL Procalcitonin ng/mL Urine Color Urine Appearance Urine pH (5.0-8.0) Ur Specific [place] (1.005-1.025) Urine Protein (NEG-TRACE) MG/DL Urine Glucose (UA) (NEG) MG/DL Urine Ketones (NEG) MG/DL Urine Blood (NEG) Urine Nitrite (NEG) Ur Leukocyte Esterase (NEG) Urine RBC (0) /HPF Urine WBC (0-4) /HPF Ur Squamous Epith Cells /LPF Urine Bacteria /LPF Urine Mucus /LPF Acetaminophen (<30) mcg/mL 10/16/20 10/16/20 10/16/20 Range/Units 14:06 14:06 14:06 WBC (4.8-10.8) X10*3/uL RBC (4.20-5.50) X10*6/uL Hgb (12.0-16.0) g/dl Hct (37-47) % MCV (80-98) fL MCH (27.0-33.0) pg MCHC (31.0-35.0) g/dl RDW (11.0-16.0) % Plt Count (160-400) X10*3/uL MPV (9.4-12.3) fL Immature Gran % (Auto) (0.0-0.4) % Neut % (Auto) (45-73) % Lymph % (Auto) (20-40) % Dare % (Auto) (2-11) % Eos % (Auto) (0-4) % Baso % (Auto) (0-2) % Lymph # (Auto) (1.2-4.9) X10*3/uL Dare # (Auto) (0.1-1.2) X10*3/uL Eos # (Auto) (0.0-0.4) X10*3/uL Baso # (Auto) (0.0-0.2) X10*3/uL Abs Immat Gran (auto) (0.00-0.03) X10*3/uL Absolute Neuts (auto) (2.0-8.3) X10*3/uL Absolute Nucleated RBC (0.0-0.012) X10*3/uL Nucleated RBC % (auto) (0.0-0.2) /100WBC Smear Tech's Comments PT (10.8-13.0) SEC INR (0.9-1.1) D-Dimer NG/ML O2 Saturation % ABG pH at Pt Temp (7.35-7.45) ABG pH (Temp Correct) (7.35-7.45) ABG pCO2 at Pt Temp (32-45) mmHg ABG pCO2 (Temp Corrct (32-45) mmHg ABG pO2 at Pt Temp (83-108) mmHg ABG pO2 (Temp Correct (83-108) ABG HCO3 (22-26) mmol/L ABG Base Excess (Actual) mmol/L Sodium (135-145) mmol/L Potassium (3.3-5.1) mmol/L Chloride (96-108) mmol/L Carbon Dioxide (22-29) mmol/L Anion Gap (12-20) BUN (9-16) mg/dL Creatinine (0.5-1.4) mg/dL Estim Creat Clear Calc Estimated GFR Random Glucose (60-115) mg/dL Lactic Acid (0.5-2.0) mmol/L Calcium (8.4-10.2) mg/dL Magnesium 1.7 (1.6-2.6) mg/dL Ferritin 646 H (10-250) ng/mL Total Bilirubin (0.0-1.0) mg/dL Direct Bilirubin (0.0-0.5) mg/dL AST (5-31) U/L ALT (0-31) U/L Alkaline Phosphatase (39-117) U/L Lactate Dehydrogenase 334 H (122-220) U/L Troponin I High Sens 37.0 H* (<3.5-17.0) ng/L C-Reactive Protein (< or = 0.50) mg/dL B-Natriuretic Peptide 76 (<100) pg/mL Total Protein (6.5-8.0) g/dL Albumin (3.5-5.0) g/dL Procalcitonin 2.39 ng/mL Urine Color Urine Appearance Urine pH (5.0-8.0) Ur Specific [place] (1.005-1.025) Urine Protein (NEG-TRACE) MG/DL Urine Glucose (UA) (NEG) MG/DL Urine Ketones (NEG) MG/DL Urine Blood (NEG) Urine Nitrite (NEG) Ur Leukocyte Esterase (NEG) Urine RBC (0) /HPF Urine WBC (0-4) /HPF Ur Squamous Epith Cells /LPF Urine Bacteria /LPF Urine Mucus /LPF Acetaminophen (<30) mcg/mL 10/16/20 10/16/20 Range/Units 14:06 17:08 WBC (4.8-10.8) X10*3/uL RBC (4.20-5.50) X10*6/uL Hgb (12.0-16.0) g/dl Hct (37-47) % MCV (80-98) fL MCH (27.0-33.0) pg MCHC (31.0-35.0) g/dl RDW (11.0-16.0) % Plt Count (160-400) X10*3/uL MPV (9.4-12.3) fL Immature Gran % (Auto) (0.0-0.4) % Neut % (Auto) (45-73) % Lymph % (Auto) (20-40) % Dare % (Auto) (2-11) % Eos % (Auto) (0-4) % Baso % (Auto) (0-2) % Lymph # (Auto) (1.2-4.9) X10*3/uL Dare # (Auto) (0.1-1.2) X10*3/uL Eos # (Auto) (0.0-0.4) X10*3/uL Baso # (Auto) (0.0-0.2) X10*3/uL Abs Immat Gran (auto) (0.00-0.03) X10*3/uL Absolute Neuts (auto) (2.0-8.3) X10*3/uL Absolute Nucleated RBC (0.0-0.012) X10*3/uL Nucleated RBC % (auto) (0.0-0.2) /100WBC Smear Tech's Comments PT (10.8-13.0) SEC INR (0.9-1.1) D-Dimer NG/ML O2 Saturation % ABG pH at Pt Temp (7.35-7.45) ABG pH (Temp Correct) (7.35-7.45) ABG pCO2 at Pt Temp (32-45) mmHg ABG pCO2 (Temp Corrct (32-45) mmHg ABG pO2 at Pt Temp (83-108) mmHg ABG pO2 (Temp Correct (83-108) ABG HCO3 (22-26) mmol/L ABG Base Excess (Actual) mmol/L Sodium (135-145) mmol/L Potassium (3.3-5.1) mmol/L Chloride (96-108) mmol/L Carbon Dioxide (22-29) mmol/L Anion Gap (12-20) BUN (9-16) mg/dL Creatinine (0.5-1.4) mg/dL Estim Creat Clear Calc Estimated GFR Random Glucose (60-115) mg/dL Lactic Acid (0.5-2.0) mmol/L Calcium (8.4-10.2) mg/dL Magnesium (1.6-2.6) mg/dL Ferritin (10-250) ng/mL Total Bilirubin (0.0-1.0) mg/dL Direct Bilirubin (0.0-0.5) mg/dL AST (5-31) U/L ALT (0-31) U/L Alkaline Phosphatase (39-117) U/L Lactate Dehydrogenase (122-220) U/L Troponin I High Sens 34.6 H* (<3.5-17.0) ng/L C-Reactive Protein (< or = 0.50) mg/dL B-Natriuretic Peptide (<100) pg/mL Total Protein (6.5-8.0) g/dL Albumin (3.5-5.0) g/dL Procalcitonin ng/mL Urine Color Urine Appearance Urine pH (5.0-8.0) Ur Specific [place] (1.005-1.025) Urine Protein (NEG-TRACE) MG/DL Urine Glucose (UA) (NEG) MG/DL Urine Ketones (NEG) MG/DL Urine Blood (NEG) Urine Nitrite (NEG) Ur Leukocyte Esterase (NEG) Urine RBC (0) /HPF Urine WBC (0-4) /HPF Ur Squamous Epith Cells /LPF Urine Bacteria /LPF Urine Mucus /LPF Acetaminophen 12 (<30) mcg/mL <Khalida Martinez NP - Last Filed: 10/16/20 17:08> Lab Results 10/16/20 10/16/20 10/16/20 Range/Units 13:26 14:04 14:06 WBC 4.5 L (4.8-10.8) X10*3/uL RBC 4.02 L (4.20-5.50) X10*6/uL Hgb 11.8 L (12.0-16.0) g/dl Hct 35.4 L (37-47) % MCV 88.1 (80-98) fL MCH 29.4 (27.0-33.0) pg MCHC 33.3 (31.0-35.0) g/dl RDW 13.3 (11.0-16.0) % Plt Count 58 L D (160-400) X10*3/uL MPV 12.3 (9.4-12.3) fL Immature Gran % (Auto) 0.7 H (0.0-0.4) % Neut % (Auto) 84.1 H (45-73) % Lymph % (Auto) 11.6 L (20-40) % Dare % (Auto) 3.6 (2-11) % Eos % (Auto) 0.0 (0-4) % Baso % (Auto) 0.0 (0-2) % Lymph # (Auto) 0.5 L (1.2-4.9) X10*3/uL Dare # (Auto) 0.2 (0.1-1.2) X10*3/uL Eos # (Auto) 0.0 (0.0-0.4) X10*3/uL Baso # (Auto) 0.0 (0.0-0.2) X10*3/uL Abs Immat Gran (auto) 0.03 (0.00-0.03) X10*3/uL Absolute Neuts (auto) 3.8 (2.0-8.3) X10*3/uL Absolute Nucleated RBC 0.000 (0.0-0.012) X10*3/uL Nucleated RBC % (auto) 0.0 (0.0-0.2) /100WBC Smear Tech's Comments VERIFIED PT (10.8-13.0) SEC INR (0.9-1.1) D-Dimer NG/ML O2 Saturation 98.0 % ABG pH at Pt Temp 7.44 (7.35-7.45) ABG pH (Temp Correct) 7.42 (7.35-7.45) ABG pCO2 at Pt Temp 28 L (32-45) mmHg ABG pCO2 (Temp Corrct 30 L (32-45) mmHg ABG pO2 at Pt Temp 94 (83-108) mmHg ABG pO2 (Temp Correct 102 (83-108) ABG HCO3 19 L (22-26) mmol/L ABG Base Excess (Actual) -3.3 mmol/L Sodium (135-145) mmol/L Potassium (3.3-5.1) mmol/L Chloride (96-108) mmol/L Carbon Dioxide (22-29) mmol/L Anion Gap (12-20) BUN (9-16) mg/dL Creatinine (0.5-1.4) mg/dL Estim Creat Clear Calc Estimated GFR Random Glucose (60-115) mg/dL Lactic Acid (0.5-2.0) mmol/L Calcium (8.4-10.2) mg/dL Magnesium (1.6-2.6) mg/dL Ferritin (10-250) ng/mL Total Bilirubin (0.0-1.0) mg/dL Direct Bilirubin (0.0-0.5) mg/dL AST (5-31) U/L ALT (0-31) U/L Alkaline Phosphatase (39-117) U/L Lactate Dehydrogenase (122-220) U/L Troponin I High Sens (<3.5-17.0) ng/L C-Reactive Protein (< or = 0.50) mg/dL B-Natriuretic Peptide (<100) pg/mL Total Protein (6.5-8.0) g/dL Albumin (3.5-5.0) g/dL Procalcitonin ng/mL Urine Color YELLOW Urine Appearance HAZY Urine pH 6.0 (5.0-8.0) Ur Specific [place] 1.025 (1.005-1.025) Urine Protein 2+ H (NEG-TRACE) MG/DL Urine Glucose (UA) 500 H (NEG) MG/DL Urine Ketones 40 (NEG) MG/DL Urine Blood 1+ H (NEG) Urine Nitrite NEG (NEG) Ur Leukocyte Esterase NEG (NEG) Urine RBC 1-4 (0) /HPF Urine WBC 0-2 (0-4) /HPF Ur Squamous Epith Cells TRACE /LPF Urine Bacteria NONE /LPF Urine Mucus TRACE /LPF Acetaminophen (<30) mcg/mL 10/16/20 10/16/20 10/16/20 Range/Units 14:06 14:06 14:06 WBC (4.8-10.8) X10*3/uL RBC (4.20-5.50) X10*6/uL Hgb (12.0-16.0) g/dl Hct (37-47) % MCV (80-98) fL MCH (27.0-33.0) pg MCHC (31.0-35.0) g/dl RDW (11.0-16.0) % Plt Count (160-400) X10*3/uL MPV (9.4-12.3) fL Immature Gran % (Auto) (0.0-0.4) % Neut % (Auto) (45-73) % Lymph % (Auto) (20-40) % Dare % (Auto) (2-11) % Eos % (Auto) (0-4) % Baso % (Auto) (0-2) % Lymph # (Auto) (1.2-4.9) X10*3/uL Dare # (Auto) (0.1-1.2) X10*3/uL Eos # (Auto) (0.0-0.4) X10*3/uL Baso # (Auto) (0.0-0.2) X10*3/uL Abs Immat Gran (auto) (0.00-0.03) X10*3/uL Absolute Neuts (auto) (2.0-8.3) X10*3/uL Absolute Nucleated RBC (0.0-0.012) X10*3/uL Nucleated RBC % (auto) (0.0-0.2) /100WBC Smear Tech's Comments PT 16.9 H (10.8-13.0) SEC INR 1.4 H (0.9-1.1) D-Dimer 390 NG/ML O2 Saturation % ABG pH at Pt Temp (7.35-7.45) ABG pH (Temp Correct) (7.35-7.45) ABG pCO2 at Pt Temp (32-45) mmHg ABG pCO2 (Temp Corrct (32-45) mmHg ABG pO2 at Pt Temp (83-108) mmHg ABG pO2 (Temp Correct (83-108) ABG HCO3 (22-26) mmol/L ABG Base Excess (Actual) mmol/L Sodium 133 L (135-145) mmol/L Potassium 3.5 (3.3-5.1) mmol/L Chloride 104 (96-108) mmol/L Carbon Dioxide 19 L (22-29) mmol/L Anion Gap 14 (12-20) BUN 19 H (9-16) mg/dL Creatinine 0.82 (0.5-1.4) mg/dL Estim Creat Clear Calc 58.0 Estimated GFR > 60 Random Glucose 294 H (60-115) mg/dL Lactic Acid 1.6 (0.5-2.0) mmol/L Calcium 7.6 L D (8.4-10.2) mg/dL Magnesium (1.6-2.6) mg/dL Ferritin (10-250) ng/mL Total Bilirubin 0.4 (0.0-1.0) mg/dL Direct Bilirubin 0.4 (0.0-0.5) mg/dL AST 55 H (5-31) U/L ALT 38 H (0-31) U/L Alkaline Phosphatase 84 D (39-117) U/L Lactate Dehydrogenase (122-220) U/L Troponin I High Sens (<3.5-17.0) ng/L C-Reactive Protein 17.15 H (< or = 0.50) mg/dL B-Natriuretic Peptide (<100) pg/mL Total Protein 5.7 L D (6.5-8.0) g/dL Albumin 2.9 L D (3.5-5.0) g/dL Procalcitonin ng/mL Urine Color Urine Appearance Urine pH (5.0-8.0) Ur Specific [place] (1.005-1.025) Urine Protein (NEG-TRACE) MG/DL Urine Glucose (UA) (NEG) MG/DL Urine Ketones (NEG) MG/DL Urine Blood (NEG) Urine Nitrite (NEG) Ur Leukocyte Esterase (NEG) Urine RBC (0) /HPF Urine WBC (0-4) /HPF Ur Squamous Epith Cells /LPF Urine Bacteria /LPF Urine Mucus /LPF Acetaminophen (<30) mcg/mL 10/16/20 10/16/20 10/16/20 Range/Units 14:06 14:06 14:06 WBC (4.8-10.8) X10*3/uL RBC (4.20-5.50) X10*6/uL Hgb (12.0-16.0) g/dl Hct (37-47) % MCV (80-98) fL MCH (27.0-33.0) pg MCHC (31.0-35.0) g/dl RDW (11.0-16.0) % Plt Count (160-400) X10*3/uL MPV (9.4-12.3) fL Immature Gran % (Auto) (0.0-0.4) % Neut % (Auto) (45-73) % Lymph % (Auto) (20-40) % Dare % (Auto) (2-11) % Eos % (Auto) (0-4) % Baso % (Auto) (0-2) % Lymph # (Auto) (1.2-4.9) X10*3/uL Dare # (Auto) (0.1-1.2) X10*3/uL Eos # (Auto) (0.0-0.4) X10*3/uL Baso # (Auto) (0.0-0.2) X10*3/uL Abs Immat Gran (auto) (0.00-0.03) X10*3/uL Absolute Neuts (auto) (2.0-8.3) X10*3/uL Absolute Nucleated RBC (0.0-0.012) X10*3/uL Nucleated RBC % (auto) (0.0-0.2) /100WBC Smear Tech's Comments PT (10.8-13.0) SEC INR (0.9-1.1) D-Dimer NG/ML O2 Saturation % ABG pH at Pt Temp (7.35-7.45) ABG pH (Temp Correct) (7.35-7.45) ABG pCO2 at Pt Temp (32-45) mmHg ABG pCO2 (Temp Corrct (32-45) mmHg ABG pO2 at Pt Temp (83-108) mmHg ABG pO2 (Temp Correct (83-108) ABG HCO3 (22-26) mmol/L ABG Base Excess (Actual) mmol/L Sodium (135-145) mmol/L Potassium (3.3-5.1) mmol/L Chloride (96-108) mmol/L Carbon Dioxide (22-29) mmol/L Anion Gap (12-20) BUN (9-16) mg/dL Creatinine (0.5-1.4) mg/dL Estim Creat Clear Calc Estimated GFR Random Glucose (60-115) mg/dL Lactic Acid (0.5-2.0) mmol/L Calcium (8.4-10.2) mg/dL Magnesium 1.7 (1.6-2.6) mg/dL Ferritin 646 H (10-250) ng/mL Total Bilirubin (0.0-1.0) mg/dL Direct Bilirubin (0.0-0.5) mg/dL AST (5-31) U/L ALT (0-31) U/L Alkaline Phosphatase (39-117) U/L Lactate Dehydrogenase 334 H (122-220) U/L Troponin I High Sens 37.0 H* (<3.5-17.0) ng/L C-Reactive Protein (< or = 0.50) mg/dL B-Natriuretic Peptide 76 (<100) pg/mL Total Protein (6.5-8.0) g/dL Albumin (3.5-5.0) g/dL Procalcitonin 2.39 ng/mL Urine Color Urine Appearance Urine pH (5.0-8.0) Ur Specific [place] (1.005-1.025) Urine Protein (NEG-TRACE) MG/DL Urine Glucose (UA) (NEG) MG/DL Urine Ketones (NEG) MG/DL Urine Blood (NEG) Urine Nitrite (NEG) Ur Leukocyte Esterase (NEG) Urine RBC (0) /HPF Urine WBC (0-4) /HPF Ur Squamous Epith Cells /LPF Urine Bacteria /LPF Urine Mucus /LPF Acetaminophen (<30) mcg/mL 10/16/20 10/16/20 Range/Units 14:06 17:08 WBC (4.8-10.8) X10*3/uL RBC (4.20-5.50) X10*6/uL Hgb (12.0-16.0) g/dl Hct (37-47) % MCV (80-98) fL MCH (27.0-33.0) pg MCHC (31.0-35.0) g/dl RDW (11.0-16.0) % Plt Count (160-400) X10*3/uL MPV (9.4-12.3) fL Immature Gran % (Auto) (0.0-0.4) % Neut % (Auto) (45-73) % Lymph % (Auto) (20-40) % Dare % (Auto) (2-11) % Eos % (Auto) (0-4) % Baso % (Auto) (0-2) % Lymph # (Auto) (1.2-4.9) X10*3/uL Dare # (Auto) (0.1-1.2) X10*3/uL Eos # (Auto) (0.0-0.4) X10*3/uL Baso # (Auto) (0.0-0.2) X10*3/uL Abs Immat Gran (auto) (0.00-0.03) X10*3/uL Absolute Neuts (auto) (2.0-8.3) X10*3/uL Absolute Nucleated RBC (0.0-0.012) X10*3/uL Nucleated RBC % (auto) (0.0-0.2) /100WBC Smear Tech's Comments PT (10.8-13.0) SEC INR (0.9-1.1) D-Dimer NG/ML O2 Saturation % ABG pH at Pt Temp (7.35-7.45) ABG pH (Temp Correct) (7.35-7.45) ABG pCO2 at Pt Temp (32-45) mmHg ABG pCO2 (Temp Corrct (32-45) mmHg ABG pO2 at Pt Temp (83-108) mmHg ABG pO2 (Temp Correct (83-108) ABG HCO3 (22-26) mmol/L ABG Base Excess (Actual) mmol/L Sodium (135-145) mmol/L Potassium (3.3-5.1) mmol/L Chloride (96-108) mmol/L Carbon Dioxide (22-29) mmol/L Anion Gap (12-20) BUN (9-16) mg/dL Creatinine (0.5-1.4) mg/dL Estim Creat Clear Calc Estimated GFR Random Glucose (60-115) mg/dL Lactic Acid (0.5-2.0) mmol/L Calcium (8.4-10.2) mg/dL Magnesium (1.6-2.6) mg/dL Ferritin (10-250) ng/mL Total Bilirubin (0.0-1.0) mg/dL Direct Bilirubin (0.0-0.5) mg/dL AST (5-31) U/L ALT (0-31) U/L Alkaline Phosphatase (39-117) U/L Lactate Dehydrogenase (122-220) U/L Troponin I High Sens 34.6 H* (<3.5-17.0) ng/L C-Reactive Protein (< or = 0.50) mg/dL B-Natriuretic Peptide (<100) pg/mL Total Protein (6.5-8.0) g/dL Albumin (3.5-5.0) g/dL Procalcitonin ng/mL Urine Color Urine Appearance Urine pH (5.0-8.0) Ur Specific [place] (1.005-1.025) Urine Protein (NEG-TRACE) MG/DL Urine Glucose (UA) (NEG) MG/DL Urine Ketones (NEG) MG/DL Urine Blood (NEG) Urine Nitrite (NEG) Ur Leukocyte Esterase (NEG) Urine RBC (0) /HPF Urine WBC (0-4) /HPF Ur Squamous Epith Cells /LPF Urine Bacteria /LPF Urine Mucus /LPF Acetaminophen 12 (<30) mcg/mL <Sameer Garcia MD - Last Filed: 11/20/20 16:50> Imaging Data Chest x-ray: Attestation: I personally reviewed and interpreted this imaging study as follows: <Khalida Martinez NP - Last Filed: 10/16/20 17:08> Radiologist's impression: [address] [id number] ReportSig kevin Patient: Erum Streeter#: [id number]: [id number]:[id number]/Sex: 70 / FADM Date: 10/16/20Loc: [email or web address].EDAttending Dr: Ordering Physician: KHALIDA MARTINEZ NP Date of Service: 10/16/20 Procedure(s): XR chest 1V Accession Number(s): [id number] cc: KHALIDA MARTINEZ NP~ EXAMINATION: XR CHEST CLINICAL INFORMATION: Cough. Shortness of breath. COMPARISON: Previous chest x-ray most recent 10/13/2020 TECHNIQUE: Frontal view of the chest was obtained. FINDINGS: The cardiac silhouette is enlarged. There is some pulmonary venous redistribution. There is increasing bilateral perihilar and right upper lobe airspace disease. Differential would include pneumonia and pulmonary edema. There is no pleural effusion appreciated. There is no pneumothorax. There are degenerative changes of the spine. XR/XR chest 1V IMPRESSION: Enlarged cardiac silhouette. Pulmonary venous redistribution and perihilar and right upper lobe airspace disease. Differential would include pneumonia and pulmonary edema. Clinical correlation recommended. <Khalida Martinez NP - Last Filed: 10/16/20 17:08> ECG Data Attestation: I personally reviewed and interpreted this ECG as follows: <Khalida Martinez NP - Last Filed: 10/16/20 17:08> Interpretation: NSR with rate 97, normal pr, normal qrs, normal qtc <Khalida Martinez NP - Last Filed: 10/16/20 17:08> Discharge Plan Discharge Clinical Impression: COVID-19, Hypoxia, Thrombocytopenia, Altered mental status <Kahlida Martinez NP - Last Filed: 10/16/20 17:08> Patient Disposition: Admitted As Inpatient <Khalida Martinez NP - Last Filed: 10/16/20 17:08> Discharge Date/Time: 10/16/20 20:45 <Khalida Martinez NP - Last Filed: 10/16/20 17:08>
[2020-10-16] MEDS: Acetaminophen 325 MG TABLET 650 MG PO (13:06)
[2020-10-16] MEDS: dexAMETHasone sod phosphate 4 MG/ML VIAL 6 MG IVPUSH (13:06)
[2020-10-16] MEDS: Albuterol/Iprat 2.5/0.5MG 3 ML AMPUL.NEB INHALE (13:22)
[2020-10-16 13:33] LABS: ABG Base Excess -3.3 mmol/L; ABG HCO3 19 mmol/L (22-26); ABG pCO2 28 mmHg (32-45); ABG pCO2 TC 30 mmHg (32-45); ABG pH 7.44 (7.35-7.45); ABG pH TC 7.42 (7.35-7.45); ABG pO2 94 mmHg (83-108); ABG pO2 TC 102 (83-108)
[2020-10-16 13:34] LABS: ABG Refer to POC result
--- NOTE | 2020-10-16 14:14 | HE.PHANOTE ---
Pharmacy Consult ? Medication Reconciliation Pharmacy has completed the medication reconciliation and there were no significant medication issues requiring provider attention. Yolis Garcia, PharmD [phone]
[2020-10-16 14:15] LABS: Hematocrit 35.4 % (37-47); Hemoglobin 11.8 g/dl (12.0-16.0); Imm Gran Abs Auto 0.03 X10*3/uL (0.00-0.03); Imm Gran Pct Auto 0.7 % (0.0-0.4); Lymphocytes Absolute Auto 0.5 X10*3/uL (1.2-4.9); Lymphocytes Percent Auto 11.6 % (20-40); MANUAL DIFF FLAG SCAN; Mean Corpuscular HGB Conc 33.3 g/dl (31.0-35.0); Mean Corpuscular Hemoglobin 29.4 pg (27.0-33.0); Mean Corpuscular Volume 88.1 fL (80-98); Mean Platelet Volume 12.3 fL (9.4-12.3); Monocytes Absolute Auto 0.2 X10*3/uL (0.1-1.2); Monocytes Percent Auto 3.6 % (2-11); Neutrophils Absolute Auto 3.8 X10*3/uL (2.0-8.3); Neutrophils Percent Auto 84.1 % (45-73); Red Blood Count 4.02 X10*6/uL (4.20-5.50); Red Cell Distribution Width 13.3 % (11.0-16.0); SCAN SMEAR FLAG 1; White Blood Count 4.5 X10*3/uL (4.8-10.8)
[2020-10-16] MEDS: cefTRIAXone sodium 1 GM in 0.9 % Sodium Chloride 50 ML IV (14:17)
[2020-10-16 14:18] LABS: Platelet Count 58 X10*3/uL (160-400)
[2020-10-16 14:18] LABS: Appearance Urine HAZY; Color Urine YELLOW; Glucose Urine UA 500 MG/DL (NEG); Leukocyte Esterase Urine NEG (NEG); Nitrite Urine NEG (NEG); Specific Gravity - Urine 1.025 (1.005-1.025); Urine Blood 1+ (NEG); Urine Ketones 40 MG/DL (NEG); Urine Protein 2+ MG/DL (NEG-TRACE)
[2020-10-16 14:21] LABS: INTERNATIONAL NORM RATIO 1.4 (0.9-1.1); Prothrombin Time 16.9 SEC (10.8-13.0)
[2020-10-16 14:24] LABS: D Dimer 390 NG/ML
[2020-10-16 14:28] LABS: Mucus Urine TRACE /LPF; Squamous Epithelial Cell Urine TRACE /LPF; WBC Urine 0-2 /HPF (0-4)
[2020-10-16 14:40] LABS: SLIDE REVIEW VERIFIED
[2020-10-16 14:49] LABS: Lactic Acid 1.6 mmol/L (0.5-2.0)
[2020-10-16 14:53] LABS: Lactate Dehydrogenase 334 U/L (122-220); Magnesium 1.7 mg/dL (1.6-2.6)
[2020-10-16 14:54] LABS: Acetaminophen LAB 12 mcg/mL (<30); Alanine Aminotransferase 38 U/L (0-31); Albumin Level 2.9 g/dL (3.5-5.0); Alkaline Phosphatase 84 U/L (39-117); Anion Gap 14 (12-20); Aspartate Amino Transferase 55 U/L (5-31); Bilirubin Direct 0.4 mg/dL (0.0-0.5); Bilirubin Total 0.4 mg/dL (0.0-1.0); Blood Urea Nitrogen 19 mg/dL (9-16); C Reactive Protein 17.15 mg/dL (< or = 0.50); Calcium 7.6 mg/dL (8.4-10.2); Carbon Dioxide 19 mmol/L (22-29); Chloride 104 mmol/L (96-108); Estimated Glomerular Filt Rate > 60; Glucose Random 294 mg/dL (60-115); Potassium 3.5 mmol/L (3.3-5.1); Sodium 133 mmol/L (135-145); Total Protein 5.7 g/dL (6.5-8.0)
[2020-10-16 14:58] LABS: B Type Natriuretic Peptide 76 pg/mL (<100)
[2020-10-16] MEDS: Azithromycin 500 MG in 0.9 % Sodium Chloride 250 ML 125 MG IV (15:00)
[2020-10-16 15:10] LABS: Procalcitonin 2.39 ng/mL
[2020-10-16 15:15] LABS: Ferritin 646 ng/mL (10-250)
[2020-10-16 18:04] LABS: Troponin-I High Sensitivity 34.6 ng/L (<3.5-17.0)
--- NOTE | 2020-10-16 18:06 | PM.IMHP ---
History of Present Illness Date of Service: 10/16/20 Chief Complaint: Altered mental status and shortness of breath 70-year-old female was brought in for shortness of breath and altered mental status. History is obtained from family and medical chart as patient is not answering questions at this time. Patient was diagnosed with COVID on 10/13/2020 to the ED with fever, shortness of breath, cough for 3 days prior to that presentation, she had received 1 dose of COVID vaccine earlier this month, at that time patient was not hypoxic and was discharged home. On day of presentation, patient's granddaughter noted that patient needs significantly more short of breath and was more confused therefore called EMS. EMS noted patient was hypoxic in the 80s, patient was brought to the ED and started on non-rebreather and saturation returned to the 90s, ABG did not show any CO2 retention. CT head was unremarkable, CTA without PE, lung parenchyma consistent with COVID. Review of Systems Review of Systems: Constitutional: fever, Chills Eyes: denies blurry vision ENT: denies sore throat CVS: denies chest pain Respiratory: dyspnea GI: abdominal pain : denies dysuria MSK: denies neck pain Skin: denies rash Neuro: denies specific motor weakness Psych: denies suicidal ideation Endocrine: denies heat/cold intoleratnce Hematologic: denies easy bleeding Allergy: denies hives [facility] Medical History (Updated 10/16/20 @ 18:10 by Yariel French MD) Asthma Chronic pain Depression Diabetes Hepatic steatosis Osteoporosis Family history: reviewed and not pertinent Social History Alcohol intake: never Advance Directives: Yes Advance Directives Information Provided: Yes Advance Directives on File: No Meds Allergies Allergy/AdvReac Type Severity Reaction Status Date / Time lactose [Lactose] Allergy Mild DIARRHEA Verified 10/13/20 14:24 Active Medications: Current Medications Generic Name Dose Route Start Last Admin Trade Name Freq PRN Reason Stop Dose Admin Pharmacy Consult 1 each 10/16/20 14:03 Consult Rx Perform Med Rec MISCELLANE ONCE PRN Consult order Home Medications Medication Instructions Recorded Confirmed Last Taken Type citalopram 1 tab PO DAILY 10/13/20 10/16/20 Unknown History mirtazapine 1 tab PO BEDTIME 10/13/20 10/16/20 Unknown History quetiapine 1 tab PO BEDTIME 10/13/20 10/16/20 Unknown History quetiapine 1 tab PO BEDTIME 10/13/20 10/16/20 Unknown History Physical Exam Vital Signs and Narrative: Vital Signs: Last Vital Signs Temp 98.9 F 10/16/20 15:13 Pulse 95 10/16/20 15:13 Resp 26 H 10/16/20 15:13 BP 115/59 L 10/16/20 15:13 Pulse Ox 98 10/16/20 15:13 Body Mass Index 28.5 General: Ill-appearing, tachypneic, not answering questions HEENT: atraumatic Neck: normal to visual inspection CVS: S1, S2, RRR Resp: crackles Chest: non tender GI: soft, non tender, non distended : no CVA tenderness Skin: no rashes Extremities: no edema Neuro: not following commands, moving all extremities Psych: impaired insight Results Labs CBC and Chem 7: 10/16/20 14:06 10/16/20 14:06 Labs: Laboratory Results - last 24 hr 10/16/20 10/16/20 10/16/20 13:26 14:04 14:06 MCV 88.1 MCH 29.4 MCHC 33.3 RDW 13.3 Plt Count 58 L D MPV 12.3 Immature Gran % (Auto) 0.7 H Neut % (Auto) 84.1 H Lymph % (Auto) 11.6 L [place] % (Auto) 3.6 Eos % (Auto) 0.0 Baso % (Auto) 0.0 Lymph # (Auto) 0.5 L [place] # (Auto) 0.2 Eos # (Auto) 0.0 Baso # (Auto) 0.0 Abs Immat Gran (auto) 0.03 Absolute Neuts (auto) 3.8 Absolute Nucleated RBC 0.000 Nucleated RBC % (auto) 0.0 Smear Tech's Comments VERIFIED PT INR D-Dimer O2 Saturation 98.0 ABG pH at Pt Temp 7.44 ABG pH (Temp Correct) 7.42 ABG pCO2 at Pt Temp 28 L ABG pCO2 (Temp Corrct 30 L ABG pO2 at Pt Temp 94 ABG pO2 (Temp Correct 102 ABG HCO3 19 L ABG Base Excess (Actual) -3.3 Anion Gap Estim Creat Clear Calc Estimated GFR Random Glucose Lactic Acid Calcium Magnesium Ferritin Total Bilirubin Direct Bilirubin AST ALT Alkaline Phosphatase Lactate Dehydrogenase Troponin I High Sens C-Reactive Protein B-Natriuretic Peptide Total Protein Albumin Procalcitonin Urine Color YELLOW Urine Appearance HAZY Urine pH 6.0 Ur Specific [place] 1.025 Urine Protein 2+ H Urine Glucose (UA) 500 H Urine Ketones 40 Urine Blood 1+ H Urine Nitrite NEG Ur Leukocyte Esterase NEG Urine RBC 1-4 Urine WBC 0-2 Ur Squamous Epith Cells TRACE Urine Bacteria NONE Urine Mucus TRACE Acetaminophen 10/16/20 10/16/20 10/16/20 14:06 14:06 14:06 MCV MCH MCHC RDW Plt Count MPV Immature Gran % (Auto) Neut % (Auto) Lymph % (Auto) [place] % (Auto) Eos % (Auto) Baso % (Auto) Lymph # (Auto) [place] # (Auto) Eos # (Auto) Baso # (Auto) Abs Immat Gran (auto) Absolute Neuts (auto) Absolute Nucleated RBC Nucleated RBC % (auto) Smear Tech's Comments PT 16.9 H INR 1.4 H D-Dimer 390 O2 Saturation ABG pH at Pt Temp ABG pH (Temp Correct) ABG pCO2 at Pt Temp ABG pCO2 (Temp Corrct ABG pO2 at Pt Temp ABG pO2 (Temp Correct ABG HCO3 ABG Base Excess (Actual) Anion Gap 14 Estim Creat Clear Calc 58.0 Estimated GFR > 60 Random Glucose 294 H Lactic Acid 1.6 Calcium 7.6 L D Magnesium Ferritin Total Bilirubin 0.4 Direct Bilirubin 0.4 AST 55 H ALT 38 H Alkaline Phosphatase 84 D Lactate Dehydrogenase Troponin I High Sens C-Reactive Protein 17.15 H B-Natriuretic Peptide Total Protein 5.7 L D Albumin 2.9 L D Procalcitonin Urine Color Urine Appearance Urine pH Ur Specific [place] Urine Protein Urine Glucose (UA) Urine Ketones Urine Blood Urine Nitrite Ur Leukocyte Esterase Urine RBC Urine WBC Ur Squamous Epith Cells Urine Bacteria Urine Mucus Acetaminophen 10/16/20 10/16/20 10/16/20 14:06 14:06 14:06 MCV MCH MCHC RDW Plt Count MPV Immature Gran % (Auto) Neut % (Auto) Lymph % (Auto) [place] % (Auto) Eos % (Auto) Baso % (Auto) Lymph # (Auto) [place] # (Auto) Eos # (Auto) Baso # (Auto) Abs Immat Gran (auto) Absolute Neuts (auto) Absolute Nucleated RBC Nucleated RBC % (auto) Smear Tech's Comments PT INR D-Dimer O2 Saturation ABG pH at Pt Temp ABG pH (Temp Correct) ABG pCO2 at Pt Temp ABG pCO2 (Temp Corrct ABG pO2 at Pt Temp ABG pO2 (Temp Correct ABG HCO3 ABG Base Excess (Actual) Anion Gap Estim Creat Clear Calc Estimated GFR Random Glucose Lactic Acid Calcium Magnesium 1.7 Ferritin 646 H Total Bilirubin Direct Bilirubin AST ALT Alkaline Phosphatase Lactate Dehydrogenase 334 H Troponin I High Sens 37.0 H* C-Reactive Protein B-Natriuretic Peptide 76 Total Protein Albumin Procalcitonin 2.39 Urine Color Urine Appearance Urine pH Ur Specific [place] Urine Protein Urine Glucose (UA) Urine Ketones Urine Blood Urine Nitrite Ur Leukocyte Esterase Urine RBC Urine WBC Ur Squamous Epith Cells Urine Bacteria Urine Mucus Acetaminophen 10/16/20 10/16/20 14:06 17:08 MCV MCH MCHC RDW Plt Count MPV Immature Gran % (Auto) Neut % (Auto) Lymph % (Auto) [place] % (Auto) Eos % (Auto) Baso % (Auto) Lymph # (Auto) [place] # (Auto) Eos # (Auto) Baso # (Auto) Abs Immat Gran (auto) Absolute Neuts (auto) Absolute Nucleated RBC Nucleated RBC % (auto) Smear Tech's Comments PT INR D-Dimer O2 Saturation ABG pH at Pt Temp ABG pH (Temp Correct) ABG pCO2 at Pt Temp ABG pCO2 (Temp Corrct ABG pO2 at Pt Temp ABG pO2 (Temp Correct ABG HCO3 ABG Base Excess (Actual) Anion Gap Estim Creat Clear Calc Estimated GFR Random Glucose Lactic Acid Calcium Magnesium Ferritin Total Bilirubin Direct Bilirubin AST ALT Alkaline Phosphatase Lactate Dehydrogenase Troponin I High Sens 34.6 H* C-Reactive Protein B-Natriuretic Peptide Total Protein Albumin Procalcitonin Urine Color Urine Appearance Urine pH Ur Specific [place] Urine Protein Urine Glucose (UA) Urine Ketones Urine Blood Urine Nitrite Ur Leukocyte Esterase Urine RBC Urine WBC Ur Squamous Epith Cells Urine Bacteria Urine Mucus Acetaminophen 12 Imaging Radiologist's Impressions: Impressions Chest X-Ray 10/16/20 12:55 IMPRESSION: Enlarged cardiac silhouette. Pulmonary venous redistribution and perihilar and right upper lobe airspace disease. Differential would include pneumonia and pulmonary edema. Clinical correlation recommended. Head CT 10/16/20 14:55 IMPRESSION: 1. No evidence of acute intracranial hemorrhage or edematous territorial infarction. 2. Mild underlying microangiopathy and generalized cerebral volume loss. Assessment and Plan (1) Acute respiratory failure with hypoxia: Status: Acute 70-year-old female with COVID diagnosed 10/13/2020, presented with shortness of breath and altered mental status acute hypoxic respiratory failure and metabolic encephalopathy secondary to COVID pneumonia Decadron wean O2 as tolerated monitor prognostic labs diabetes insulin depression/anxiety will hold off on sedatives hepatic steatosis likely ASIF outpatient follow-up full code
[2020-10-16 20:02] LABS: COVID-19 Test Positive (Negative)
[2020-10-16] MEDS: Enoxaparin Sodium 40 MG/0.4 ML SYRINGE SUBCUT (20:03)
[2020-10-16 20:48] LABS: Glucose, Whole Blood 274 mg/dL (60-115)
[2020-10-16] MEDS: Insulin Glargine,Hum.rec.anlog 100 UNIT/ML 10 ML VIAL 10 UNIT SUBCUT (21:18)
[2020-10-16] MEDS: Insulin Lispro 100 UNIT/ML 3 ML VIAL SUBCUT (21:18)
[2020-10-16] MEDS: 0.9 % Sodium Chloride Flush 3 ML SYRINGE IVFLUSH (21:19)
[2020-10-17] VITALS (9 sets, daily range): BP systolic 111–131; BP diastolic 54–60; PULSE 86–103; RESP 16–40; TEMP 36.8–38.9; O2SAT 85–94
[2020-10-17 07:44] LABS: Glucose, Whole Blood 203 mg/dL (60-115)
[2020-10-17] MEDS: Insulin Lispro 100 UNIT/ML 3 ML VIAL SUBCUT ×4 (08:00→20:46)
[2020-10-17] MEDS: dexAMETHasone sod phosphate 4 MG/ML VIAL 6 MG IVPUSH (08:00)
[2020-10-17] MEDS: 0.9 % Sodium Chloride Flush 3 ML SYRINGE IVFLUSH ×3 (08:00→20:46)
--- NOTE | 2020-10-17 09:06 | MHC.CM.PN ---
Patient is Covid (+) and here with AMS; CM spoke with Granddaughter/HCP/[facility]/Alexandra @ [phone]. Patient lives with 2 Sons and a Granddaughter,on the second floor of a 2 family house and she has a cane but often does not use it.Patient receives 2 hours/day M-F of [facility] services and the goal is to return home and resume these services. CM has initiated and will follow for dc planning. Patient does NOT use O2 at home and PCP is Dr. Jose Angel Hsu. IMM addressed with Alexandra and the original will be mailed out certified letter to her and a copy has been placed on the chart.
--- NOTE | 2020-10-17 09:59 | P.CDIC_ITS ---
CDI Concurrent Query Service Date: 10/17/20 Documentation Clarification: Please clarify if you are treating a proba ble/suspected/likely or confirmed: Viral Sepsis, present on admission No Viral Sepsis Provider Response: Other Other Diagnosis: viral sepsis PLEASE DO NOT DELETE/MODIFY EXISTING CONTENT Additional information is needed in order to code to the highest accuracy and appropriate Severity of Illness (SOI). Please clarify the information noted below in your progress notes and discharge summary. Risk Factors/Clinical Indicators/Treatments 70 year old female admitted with positive COVID, Acute Respiratory Failure with Hypoxia, Metabolic Encephalopathy, COVID Pneumonia T103.8, P 101, R 35, BP 115/59, SAT 89% room air WBC 4.5 CDS: Joanne Monterroso RN Contact Number: [phone] Please Review the information above and exercise your independent professional judgment in responding to the query. If you concur, pleas document in the PROGRESS NOTES and DISCHARGE SUMMARY. If you do not agree with the query, please document in the query above. THIS QUERY IS PART OF THE PERMANENT MEDICAL RECORD
[2020-10-17 10:19] LABS: Hematocrit 40.7 % (37-47); Hemoglobin 13.5 g/dl (12.0-16.0); Mean Corpuscular HGB Conc 33.2 g/dl (31.0-35.0); Mean Corpuscular Hemoglobin 29.5 pg (27.0-33.0); Mean Corpuscular Volume 89.1 fL (80-98); Mean Platelet Volume 12.6 fL (9.4-12.3); Red Blood Count 4.57 X10*6/uL (4.20-5.50); Red Cell Distribution Width 13.5 % (11.0-16.0); White Blood Count 6.7 X10*3/uL (4.8-10.8)
[2020-10-17 10:20] LABS: Platelet Count 80 X10*3/uL (160-400)
[2020-10-17 10:26] LABS: INTERNATIONAL NORM RATIO 1.3 (0.9-1.1); Prothrombin Time 14.9 SEC (10.8-13.0)
[2020-10-17 10:29] LABS: D Dimer 500 NG/ML
--- NOTE | 2020-10-17 10:44 | HO.PM.IMPN ---
Subjective Subjective Date of Service: 10/17/20 Interval History: more alert today, still sob Cardiovascular Cardiovascular: Reports no additional cardiovascular complaints Gastrointestinal Gastrointestinal: Reports no additional gastrointestinal complaints Physical Exam Vital Signs: Vital Signs: Last Vital Signs Temp 99.3 F 10/17/20 07:45 Pulse 98 10/17/20 07:45 Resp 26 H 10/17/20 07:45 BP 129/60 10/17/20 07:45 Pulse Ox 93 10/17/20 07:45 Body Mass Index 28.5 General: Alert, dyspneic Resp: Crackles CVS: S1,S2,RRR GI: soft, non tender, non distended Neuro: motor grossly intact Psych: appropriate affect Objective Data Current Medications Generic Name Dose Route Start Last Admin Trade Name Freq PRN Reason Stop Dose Admin Albuterol Sulfate 2 puff 10/16/20 19:36 Albuterol Sulfate 90 Mcg 8 Gm Inhaler INHALE QID PRN shortness of breath or wheezing Dexamethasone Sodium Phosphate 6 mg 10/17/20 09:00 10/17/20 08:00 Dexamethasone Sod Phosphate 4 Mg/Ml Vial IVPUSH 6 mg DAILY SHRUTHI Administration Enoxaparin Sodium 40 mg 10/16/20 20:00 10/16/20 20:03 Enoxaparin Sodium 40 Mg/0.4 Ml Syringe SUBCUT 40 mg Q24H SHRUTHI Administration Insulin Glargine 10 unit 10/16/20 21:00 10/16/20 21:18 Insulin Glargine,Hum.Rec.Anlog 100 Unit/Ml 10 Ml Vial SUBCUT 10 unit BEDTIME SHRUTHI Administration Insulin Human Lispro 0 unit 10/16/20 21:00 10/17/20 08:00 Insulin Lispro 100 Unit/Ml 3 Ml Vial SUBCUT 4 unit QIDACHS [facility] Administration Protocol Pharmacy Consult 1 each 10/16/20 14:03 Consult Rx Perform Med Rec MISCELLANE ONCE PRN Consult order Sodium Chloride 3 ml 10/17/20 00:00 10/17/20 08:00 0.9 % Sodium Chloride Flush 3 Ml Syringe IVFLUSH 3 ml QSHIFT [facility] Administration Labs CBC & Chem 7: 10/17/20 09:46 10/16/20 14:06 Assessment and Plan (1) Hepatic steatosis: Status: Acute (2) Metabolic encephalopathy: Status: Acute Assessment and Plan: 70-year-old female with COVID diagnosed 10/13/2020, presented with shortness of breath and altered mental status viral sepsis poa, acute hypoxic respiratory failure, and metabolic encephalopathy secondary to COVID pneumonia encephalopathy better today Decadron day 07/03 wean O2 as tolerated monitor prognostic labs diabetes insulin depression/anxiety holding off on sedatives (seroquel, remeron) hepatic steatosis likely ASIF outpatient follow-up full code
[2020-10-17 10:48] LABS: C Reactive Protein 24.73 mg/dL (< or = 0.50); Lactate Dehydrogenase 427 U/L (122-220)
[2020-10-17 10:50] LABS: Anion Gap 14 (12-20); Blood Urea Nitrogen 20 mg/dL (9-16); Calcium 7.8 mg/dL (8.4-10.2); Carbon Dioxide 22 mmol/L (22-29); Chloride 106 mmol/L (96-108); Creatinine Clr Calc Pharmacy 63.3; Estimated Glomerular Filt Rate > 60; Glucose Random 211 mg/dL (60-115); Potassium 3.1 mmol/L (3.3-5.1); Sodium 139 mmol/L (135-145)
[2020-10-17 11:35] LABS: Glucose, Whole Blood 204 mg/dL (60-115)
[2020-10-17] MEDS: Acetaminophen 325 MG TABLET 650 MG PO (11:38)
[2020-10-17 16:05] LABS: Glucose, Whole Blood 220 mg/dL (60-115)
[2020-10-17] MEDS: guaiFEN/Codeine SF 200/20/10ML 10 ML LIQUID 5 ML PO ×2 (16:28→23:36)
--- NOTE | 2020-10-17 17:34 | PC.NURSE ---
Addendum entered by Hailey Short RN 10/17/20 19:13: Patel removed at [id number], DTV [id number], passed on to next RN Addendum entered by Hailey Short RN 10/17/20 18:35: Pt on high flow and NRB, proned pt as much as tolerated, satting 88-92%. MD aware. Pt granddaughter updated of increase o2 requirements Original Note: Pt continually desatting and having coughing fits, o2 sats in mid 80s, cough syrup given per emar. some effectiveness, Respiratory called, recommends high flow, notified MD. High flow applied, pt sats up to 87-89% will continue to monitor.
[2020-10-17 20:14] LABS: Glucose, Whole Blood 257 mg/dL (60-115)
[2020-10-17] MEDS: Enoxaparin Sodium 40 MG/0.4 ML SYRINGE SUBCUT (20:45)
[2020-10-17] MEDS: Insulin Glargine,Hum.rec.anlog 100 UNIT/ML 10 ML VIAL 10 UNIT SUBCUT (20:46)
[2020-10-18] VITALS (21 sets, daily range): BP systolic 105–149; BP diastolic 44–92; PULSE 55–110; RESP 18–24; TEMP 36.3–37.3; O2SAT 77–98
[2020-10-18 07:23] LABS: Glucose, Whole Blood 213 mg/dL (60-115)
[2020-10-18] MEDS: Insulin Lispro 100 UNIT/ML 3 ML VIAL SUBCUT ×2 (08:51→14:07)
[2020-10-18] MEDS: dexAMETHasone sod phosphate 4 MG/ML VIAL 6 MG IVPUSH (08:52)
[2020-10-18] MEDS: 0.9 % Sodium Chloride Flush 3 ML SYRINGE IVFLUSH ×2 (08:53→16:05)
--- NOTE | 2020-10-18 11:06 | HO.PM.IMPN ---
Subjective Subjective Date of Service: 10/18/20 Interval History: sob, sleepy Cardiovascular Cardiovascular: Reports no additional cardiovascular complaints Gastrointestinal Gastrointestinal: Reports no additional gastrointestinal complaints Physical Exam Vital Signs: Vital Signs: Last Vital Signs Temp 97.3 F 10/18/20 07:44 Pulse 95 10/18/20 07:44 Resp 22 H 10/18/20 07:54 BP 149/69 H 10/18/20 07:44 Pulse Ox 91 L 10/18/20 07:44 Body Mass Index 28.5 General: lethargic, ill appearing Resp: Crackles CVS: S1,S2,RRR GI: soft, non tender, non distended Neuro: motor grossly intact Psych: impaired insight Objective Data Current Medications Generic Name Dose Route Start Last Admin Trade Name Freq PRN Reason Stop Dose Admin Acetaminophen 650 mg 10/17/20 11:27 10/17/20 11:38 Acetaminophen 325 Mg Tablet PO 650 mg Q4H PRN Administration Fever Albuterol Sulfate 2 puff 10/16/20 19:36 Albuterol Sulfate 90 Mcg 8 Gm Inhaler INHALE QID PRN shortness of breath or wheezing Dexamethasone Sodium Phosphate 6 mg 10/17/20 09:00 10/18/20 08:52 Dexamethasone Sod Phosphate 4 Mg/Ml Vial IVPUSH 6 mg DAILY SHRUTHI Administration Enoxaparin Sodium 40 mg 10/16/20 20:00 10/17/20 20:45 Enoxaparin Sodium 40 Mg/0.4 Ml Syringe SUBCUT 40 mg Q24H SHRUTHI Administration Guaifenesin/Codeine Phosphate 5 ml 10/17/20 15:52 10/17/20 23:36 Guaifen/Codeine Sf 200/20/10ml 10 Ml Liquid PO 5 ml Q6H PRN Administration Cough Insulin Glargine 10 unit 10/16/20 21:00 10/17/20 20:46 Insulin Glargine,Hum.Rec.Anlog 100 Unit/Ml 10 Ml Vial SUBCUT 10 unit BEDTIME SHRUTHI Administration Insulin Human Lispro 0 unit 10/16/20 21:00 10/18/20 08:51 Insulin Lispro 100 Unit/Ml 3 Ml Vial SUBCUT 4 unit QIDACHS SHRUTHI Administration Protocol Pharmacy Consult 1 each 10/16/20 14:03 Consult Rx Perform Med Rec MISCELLANE ONCE PRN Consult order Sodium Chloride 3 ml 10/17/20 00:00 10/18/20 08:53 0.9 % Sodium Chloride Flush 3 Ml Syringe IVFLUSH 3 ml QSHIFT SHRUTHI Administration Labs CBC & Chem 7: 10/17/20 09:46 10/17/20 09:46 Microbiology Microbiology Results: Microbiology 10/16/20 14:09 Blood - Venous Blood Culture - Preliminary No growth after 24 hours. 10/16/20 14:06 Blood - Venous Blood Culture - Preliminary No growth after 24 hours. 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
[2020-10-18 11:44] LABS: Glucose, Whole Blood 281 mg/dL (60-115)
[2020-10-18] MEDS: Rocuronium Bromide 50 MG/5 ML VIAL 35 MG IVPUSH ×2 (12:16→13:06)
[2020-10-18] MEDS: propofoL 1,000 MG/100 ML VIAL 21.23 MG IVCONT ×3 (12:20→20:40)
[2020-10-18] MEDS: Midazolam HCl/PF 2 MG/2 ML VIAL 5 MG IVPUSH (13:04)
[2020-10-18 14:07] LABS: Glucose, Whole Blood 265 mg/dL (60-115)
[2020-10-18] MEDS: Midazolam HCl/PF 2 MG/2 ML VIAL 3 MG IVPUSH (14:15)
--- NOTE | 2020-10-18 15:19 | P.CONCC_ITS ---
History of Present Illness Data of Consult Service Date: 10/18/20 Requesting physician: Yariel French Primary Care Provider: Yo Hsu MD HPI Reason for consult: Hypoxemic respiratory failure 70-year-old female became sick with with COVID positive test within 5 days of the 1st 5 is a vaccine and was admitted on day 8 because of marked dyspnea and worsening hypoxemic respiratory failure and today on maximum support between nasal high-flow and 100% non-rebreather oxygen saturations were falling into the low 80s which and she was breathing at maximum voluntary ventilation and brought down and intubated easily but oxygen saturations in the supine position were intractably low so she ultimately was prone with at 97% oxygen saturation and this was done with rocuronium and propofol influence and a central line was placed in the right internal jugular and it is in the right atrium Review of Systems Review of Systems: Yes Unobtainable due to mental status PMFSH Past Medical History Medical History (Updated 10/19/20 @ 10:27 by Crow Olson MD) Asthma Chronic pain Depression Diabetes Hepatic steatosis Osteoporosis Family History Family history: reviewed and not pertinent Social History Social History Household Members: Children Housing: House Do you presently have visiting nurse or other home services: No Alcohol intake: never Patient Tobacco Use Status: Never used Tobacco Use of substances other than those prescribed or required for medical reasons: No Currently Displaying Signs/Symptoms of Drug Intoxication Withdrawal: No Have you been hit, kicked, punched, or otherwise hurt by someone within the past year? If so, by whom?: No Do you feel safe in your current relationship?: No Is there a partner from a previous relationship who is making you feel unsafe now?: No Are you made to feel afraid or neglected: No Spiritual Healthcare Practices: n/a Hinduism Healthcare Practices: n/a Cultural Healthcare Practices: n/a Advance Directives: Yes Advance Directives Information Provided: Yes Advance Directives on File: No Advance Directives Date on File: 10/17/20 Do you have thoughts of harming others: None Do you have a plan to hurt others: No Plan Recently lost weight without trying: No Nutrition Risks: No Nutritional Risk Patient : No : No Poor oral hygiene: No service: No Current occupational status: retired [employer] Allergies Allergy/AdvReac Type Severity Reaction Status Date / Time lactose [Lactose] Allergy Mild DIARRHEA Verified 10/13/20 14:24 Active Medications: Current Medications Generic Name Dose Route Start Last Admin Trade Name Freq PRN Reason Stop Dose Admin Acetaminophen 650 mg 10/17/20 11:27 10/17/20 11:38 Acetaminophen 325 Mg Tablet PO 650 mg Q4H PRN Administration Fever Chlorhexidine Gluconate 15 ml 10/18/20 15:15 Chlorhexidine Gluc Oral Rinse 15 Ml Mouthwash BUCCAL TID SHRUTHI Dexamethasone Sodium Phosphate 6 mg 10/17/20 09:00 10/18/20 08:52 Dexamethasone Sod Phosphate 4 Mg/Ml Vial IVPUSH 6 mg DAILY SHRUTHI Administration Enoxaparin Sodium 40 mg 10/16/20 20:00 10/17/20 20:45 Enoxaparin Sodium 40 Mg/0.4 Ml Syringe SUBCUT 40 mg Q24H SHRUTHI Administration Propofol 1,000 mg in 100 mls @ 0 mls/hr 10/18/20 15:15 Diprivan IVCONT .Q0M [facility] Protocol Per Protocol Midazolam HCl 50 mg in 50 mls @ 2 mls/hr 10/18/20 15:15 Versed IVCONT .Q24H SHRUTHI 2 MG/HR Pantoprazole Sodium 40 mg 10/18/20 16:30 Pantoprazole Sodium 40 Mg/10 Ml Vial IVPUSH BID@0630,1630 [facility] Pharmacy Consult 1 each 10/16/20 14:03 Consult Rx Perform Med Rec MISCELLANE ONCE PRN Consult order Rocuronium [place] 35 mg 10/18/20 15:15 Rocuronium [place] 50 Mg/5 Ml Vial IVPUSH Q1H PRN Ventilator synchrony Sodium Chloride 3 ml 10/17/20 00:00 10/18/20 08:53 0.9 % Sodium Chloride Flush 3 Ml Syringe IVFLUSH 3 ml QSHIFT SHRUTHI Administration Home Medications Medication Instructions Recorded Confirmed Last Taken Type citalopram 1 tab PO DAILY 10/13/20 10/16/20 Unknown History mirtazapine 1 tab PO BEDTIME 10/13/20 10/16/20 Unknown History quetiapine 1 tab PO BEDTIME 10/13/20 10/16/20 Unknown History quetiapine 1 tab PO BEDTIME 10/13/20 10/16/20 Unknown History Physical Exam Vital Signs: Vital Signs: Last Vital Signs Temp 97.3 F 10/18/20 07:44 Pulse 110 H 10/18/20 14:00 Resp 20 10/18/20 14:00 BP 137/92 H 10/18/20 14:00 Pulse Ox 77 L 10/18/20 14:00 Body Mass Index 28.5 Presented in respiratory distress but conscious with good cognitive function and nonfocal Cardiac exam with normal S1 normal S2 no gallops murmurs Chest with scattered bilateral rales Abdomen benign with no organomegaly good bowel sounds Results Labs CBC & Chem 7: 10/19/20 05:10 10/19/20 05:10 Microbiology Microbiology Results: Microbiology 10/16/20 14:09 Blood - Venous Blood Culture - Preliminary No growth after 24 hours. 10/16/20 14:06 Blood - Venous Blood Culture - Preliminary No growth after 24 hours. Assessment and Plan (1) Hepatic steatosis: Status: Acute (2) Metabolic encephalopathy: Status: Acute (3) Acute respiratory failure with hypoxia: Status: Acute (4) Depression: Status: Acute (5) Diabetes: Status: Acute (6) COVID-19: Status: Acute (7) Acute respiratory distress syndrome (ARDS) due to 2019-nCoV: Status: Acute So she is now intubated with central line access OG tube is in place and will await the repeat of her D-dimer and she needs to be prone and in order to maintain an oxygen saturations in the 90s and we would probably prone for at le ast 24 maybe up to 36 hours
--- NOTE | 2020-10-18 15:21 | W.PM.CCHP ---
Procedures Date of Service Date of Service: 10/18/20 Intubation Intubation Comments: Intractable hypoxemic respiratory failure with COVID-19 pneumonitis Intubated with a 7.5 ET tube utilizing glide scope guidance with good visualization of the vocal cords without complication initially placed in the right mainstem and pulled back to the yolanda positive end-tidal CO2 response and chest x-ray indicating no complication Consent for Procedure: Emergent-no informed consent obtained Time out performed: Yes Sedative: propofol Paralytic: rocuronium Laryngoscope: fiber optic video scope ET tube size: 7.5 ET tube uncuffed: No Tube secured depth (cm): 21 Tube secured location: lips Tube placement confirmation: visualized tube passing through cords, equal breath sounds bilaterally, no breath sounds over epigastrium and confirmation by capnometry Patient tolerated procedure: well and no complications Intubation complications: none
--- NOTE | 2020-10-18 15:23 | W.PM.CCHP ---
Procedures Date of Service Date of Service: 10/18/20 Central Line Placement Right IJ: Central Line Comments: After sterile preparation and draping and utilizing ultrasound guidance a 616 cm triple-lumen central venous pressure catheter was placed via the right internal jugular vein without complication After entry into the vein use day at passed the guidewire down to the right atrium over that the triple-lumen catheter and confirmed placement in the right atrium by x-ray and there was no pneumothorax no complication Consent for Procedure: Emergent-no informed consent obtained Time out performed: Yes Sterile Technique Used: Yes Patient placed on monitor/pulse ox: Yes prep: mask, gown and gloves Central line prep: Chlorhexidine scrub Local anesthesia used: lidocaine 1% Ultrasound used for placement: Yes Central line lumen inserted: triple Post procedure: sutured in place, good blood return, all ports aspirated, flushed, capped and sterile dressing applied Post procedure x-ray: tip of catheter in good position and no pneumothorax seen Patient tolerated procedure: well and no complications Complications: none
[2020-10-18] MEDS: Pantoprazole Sodium 40 MG/10 ML VIAL IVPUSH (15:41)
[2020-10-18] MEDS: Chlorhexidine Gluc Oral Rinse 15 ML MOUTHWASH BUCCAL ×2 (15:41→20:40)
[2020-10-18] MEDS: Midazolam HCl/NS 50 MG/50 ML PLAST..BAG IVCONT ×3 (15:51→20:41)
[2020-10-18] MEDS: KCl 20 mEq in 5% Dex/0.45% Sod 20 MEQ/1,000 ML IV.SOLN 80 MEQ IVCONT (15:51)
[2020-10-18] MEDS: Insulin Regular/NS 100 UNIT/100 ML PLAST..BAG IVCONT (16:04)
[2020-10-18 16:06] LABS: Glucose, Whole Blood 295 mg/dL (60-115)
[2020-10-18 17:05] LABS: Glucose, Whole Blood 333 mg/dL (60-115)
[2020-10-18 18:11] LABS: Glucose, Whole Blood 328 mg/dL (60-115)
--- NOTE | 2020-10-18 18:19 | PC.NURSE ---
Pt arrived to unit for emergent intubation d/t increasing oxygen requirements. Was maxed out on high flow. Given Propofol and Doe for intubation. Placed on propofol drip at 50mcg/kg. MD decided to place central line. Attempted on Left IJ but after failed attempts d/t size of vein, unable. Successful in the right IJ. Patel placed per MD. Chest x ray verified for placement and OK to use from MD Olson. Patient not adequately sedated on propfol, added Versed drip. MD decicion to prone patient as sats were 79-80%. Sating 97% after proned. Repositioning patient frequently, skin charted. Macerated perineum related to diarrhea on IMC.
[2020-10-18 19:25] LABS: Glucose, Whole Blood 275 mg/dL (60-115)
[2020-10-18 20:20] LABS: Glucose, Whole Blood 249 mg/dL (60-115)
[2020-10-18] MEDS: Enoxaparin Sodium 40 MG/0.4 ML SYRINGE SUBCUT (20:40)
[2020-10-18 21:35] LABS: Glucose, Whole Blood 248 mg/dL (60-115)
[2020-10-18 22:28] LABS: Glucose, Whole Blood 219 mg/dL (60-115)
[2020-10-18 23:21] LABS: Glucose, Whole Blood 216 mg/dL (60-115)
[2020-10-19] VITALS (30 sets, daily range): BP systolic 102–150; BP diastolic 42–69; PULSE 50–94; RESP 18–28; TEMP 36.1–36.6; O2SAT 94–100
[2020-10-19 00:24] LABS: Glucose, Whole Blood 201 mg/dL (60-115)
[2020-10-19] MEDS: DOPamine HCL/D5W 400 MG/250 ML PLAST..BAG 7.96 MG IVCONT (01:43)
[2020-10-19] MEDS: 0.9 % Sodium Chloride Flush 3 ML SYRINGE IVFLUSH ×3 (01:43→15:03)
[2020-10-19] MEDS: propofoL 1,000 MG/100 ML VIAL 8.49 MG IVCONT ×2 (01:58→17:05)
[2020-10-19] MEDS: Rocuronium Bromide 50 MG/5 ML VIAL 35 MG IVPUSH (01:59)
--- NOTE | 2020-10-19 02:02 | PC.NURSE ---
PT HAS EXPERIENCED EMERGENCE FROM SEDATION D/T PROPOFOL BEING TEMPORARILY HELD D/T BRADYCARDIA- PT EXHIBITING DISCORDANT BREATHING PATTERN. VERSED INFUSION INCREASED TO 6 MG/HR. ECG HAS SHOWN A SLOWING BRADYCARDIA WITH HR DROPPING INTO THE 30S BPM. DOPAMINE INFUSION IMPLEMENTED WITH IMMEDIATE INCREASED OF HR INTO THE 60S BPM. LEVOPHED HAS BEEN TURNED OFF. ONCE BRADYCARDIA RESOLVED PROPOFOL RESTARTED AT 20MCG/KG/HR BUT HAS QUICKLY INCREASED TO 30MCG/KG/MIN FOR VENTILATORY MANAGEMENT. DESPITE RESUMPTION OF PROPOFOL AND INCREASED VERSED PTS SAO2 DROPPING INTO THE 87 RANGE. ROCURONIUM 35 MG IVP GIVEN WITH IMMEDIATE IMPROVEMENT OF VENTILATION. AT THIS MOMENT B/P 116/43 ECG SR APICAL HR 60 BPM SAO2 98%.
[2020-10-19 02:03] LABS: Glucose, Whole Blood 189 mg/dL (60-115)
[2020-10-19 04:03] LABS: Glucose, Whole Blood 153 mg/dL (60-115)
[2020-10-19] MEDS: KCl 20 mEq in 5% Dex/0.45% Sod 20 MEQ/1,000 ML IV.SOLN 80 MEQ IVCONT ×2 (05:32→15:28)
[2020-10-19 05:35] LABS: VBG Base Excess 1.3 mmol/L; VBG HCO3 25 mmol/L (22-26); VBG pCO2 38 mmHg; VBG pH 7.42 (7.32-7.43); VBG pO2 57 mmHg
[2020-10-19 05:55] LABS: Basophils Percent Auto 0.1 % (0-2); MANUAL DIFF FLAG SCAN; PLT CLUMP 1; SCAN SMEAR FLAG 1
[2020-10-19 05:57] LABS: Hematocrit 38.1 % (37-47); Hemoglobin 12.5 g/dl (12.0-16.0); Imm Gran Pct Auto 1.2 % (0.0-0.4); Lymphocytes Absolute Auto 1.1 X10*3/uL (1.2-4.9); Lymphocytes Percent Auto 12.8 % (20-40); Mean Corpuscular HGB Conc 32.8 g/dl (31.0-35.0); Mean Corpuscular Hemoglobin 28.8 pg (27.0-33.0); Mean Corpuscular Volume 87.8 fL (80-98); Mean Platelet Volume 11.5 fL (9.4-12.3); Monocytes Absolute Auto 0.4 X10*3/uL (0.1-1.2); Neutrophils Absolute Auto 6.8 X10*3/uL (2.0-8.3); Neutrophils Percent Auto 80.9 % (45-73); Platelet Count 144 X10*3/uL (160-400); Red Blood Count 4.34 X10*6/uL (4.20-5.50); Red Cell Distribution Width 13.4 % (11.0-16.0); White Blood Count 8.4 X10*3/uL (4.8-10.8)
[2020-10-19 06:03] LABS: INTERNATIONAL NORM RATIO 1.2 (0.9-1.1); Prothrombin Time 13.8 SEC (10.8-13.0)
[2020-10-19 06:04] LABS: Partial Thromboplastin Time 29.6 SEC (24.1-38.0)
[2020-10-19 06:12] LABS: D Dimer 1877 NG/ML
[2020-10-19] MEDS: Insulin Regular/NS 100 UNIT/100 ML PLAST..BAG 6.5 UNIT IVCONT (06:12)
[2020-10-19] MEDS: Midazolam HCl/NS 50 MG/50 ML PLAST..BAG 6 MG IVCONT ×3 (06:13→20:37)
[2020-10-19] MEDS: Pantoprazole Sodium 40 MG/10 ML VIAL IVPUSH ×2 (06:13→15:30)
[2020-10-19 06:24] LABS: SLIDE REVIEW VERIFIED
[2020-10-19 06:27] LABS: Anion Gap 11 (12-20); Blood Urea Nitrogen 26 mg/dL (9-16); C Reactive Protein 17.27 mg/dL (< or = 0.50); Carbon Dioxide 25 mmol/L (22-29); Chloride 109 mmol/L (96-108); Creatinine Clr Calc Pharmacy 69.9; Estimated Glomerular Filt Rate > 60; Glucose Random 130 mg/dL (60-115); Lactate Dehydrogenase 638 U/L (122-220); Magnesium 2.9 mg/dL (1.6-2.6); Phosphorus 1.3 mg/dL (2.7-4.5); Potassium 3.1 mmol/L (3.3-5.1); Sodium 142 mmol/L (135-145)
[2020-10-19 06:46] LABS: Ferritin 1115 ng/mL (10-250)
[2020-10-19 06:52] LABS: Venous Blood Gas Refer to POC result
[2020-10-19 07:56] LABS: Glucose, Whole Blood 140 mg/dL (60-115)
[2020-10-19] MEDS: Chlorhexidine Gluc Oral Rinse 15 ML MOUTHWASH BUCCAL ×2 (08:31→15:02)
[2020-10-19] MEDS: dexAMETHasone sod phosphate 4 MG/ML VIAL 6 MG IVPUSH (08:31)
[2020-10-19] MEDS: propofoL 1,000 MG/100 ML VIAL 12.74 MG IVCONT (08:55)
[2020-10-19 09:46] LABS: Glucose, Whole Blood 152 mg/dL (60-115)
[2020-10-19 10:27] LABS: Glucose, Whole Blood 173 mg/dL (60-115)
--- NOTE | 2020-10-19 10:29 | P.PNCC_ITS ---
Subjective Subjective Date of Service: 10/19/20 Critical Care Time (minutes): 35 Comment: 70-year-old female type 2 diabetic with ARDS due to COVID-19 pneumonitis and acute hypoxic respiratory failure intubated in prone position with oxygen saturations at 97% remains in stable sinus bradycardia with systolic pressure 140 respiratory rate 22 and minute ventilatory requirements under 11 L but today's D-dimer is significantly increased always makes me worry near 0 about a diffuse endothelial itis and embolic issue so I am going to actually stop the DVT prophylaxis with enoxaparin and switch her to fondaparinux full- dose Physical Exam Vital Signs: Vital Signs: Last Vital Signs Temp 97.3 F 10/19/20 09:34 Pulse 55 10/19/20 10:00 Resp 22 H 10/19/20 10:00 BP 137/62 10/19/20 10:00 Pulse Ox 97 10/19/20 10:00 Body Mass Index 28.5 Const: Other: Sedated and intubated Skin color is normal Good bilateral carotid upstrokes no neck vein distension no gallops Chest with scattered bilateral rales but no adventitious sounds Abdomen soft no organomegaly Objective Data Labs CBC & Chem 7: 10/19/20 05:10 10/19/20 05:10 Labs: Laboratory Results - last 24 hr 10/18/20 10/18/20 10/18/20 11:20 14:02 15:52 WBC RBC Hgb Hct MCV MCH MCHC RDW Plt Count MPV Immature Gran % (Auto) Neut % (Auto) Lymph % (Auto) [place] % (Auto) Eos % (Auto) Baso % (Auto) Lymph # (Auto) [place] # (Auto) Eos # (Auto) Baso # (Auto) Abs Immat Gran (auto) Absolute Neuts (auto) Absolute Nucleated RBC Nucleated RBC % (auto) Smear Tech's Comments PT INR APTT D-Dimer VBG pH VBG pCO2 VBG pO2 VBG HCO3 VBG O2 Saturation VBG Base Excess Sodium Potassium Chloride Carbon Dioxide Anion Gap BUN Creatinine Estim Creat Clear Calc Estimated GFR POC Glucose 281 H 265 H 295 H Random Glucose Calcium Phosphorus Magnesium Ferritin Lactate Dehydrogenase C-Reactive Protein 10/18/20 10/18/20 10/18/20 16:59 18:07 19:18 WBC RBC Hgb Hct MCV MCH MCHC RDW Plt Count MPV Immature Gran % (Auto) Neut % (Auto) Lymph % (Auto) [place] % (Auto) Eos % (Auto) Baso % (Auto) Lymph # (Auto) [place] # (Auto) Eos # (Auto) Baso # (Auto) Abs Immat Gran (auto) Absolute Neuts (auto) Absolute Nucleated RBC Nucleated RBC % (auto) Smear Tech's Comments PT INR APTT D-Dimer VBG pH VBG pCO2 VBG pO2 VBG HCO3 VBG O2 Saturation VBG Base Excess Sodium Potassium Chloride Carbon Dioxide Anion Gap BUN Creatinine Estim Creat Clear Calc Estimated GFR POC Glucose 333 H 328 H 275 H Random Glucose Calcium Phosphorus Magnesium Ferritin Lactate Dehydrogenase C-Reactive Protein 10/18/20 10/18/20 10/18/20 20:16 21:29 22:23 WBC RBC Hgb Hct MCV MCH MCHC RDW Plt Count MPV Immature Gran % (Auto) Neut % (Auto) Lymph % (Auto) [place] % (Auto) Eos % (Auto) Baso % (Auto) Lymph # (Auto) [place] # (Auto) Eos # (Auto) Baso # (Auto) Abs Immat Gran (auto) Absolute Neuts (auto) Absolute Nucleated RBC Nucleated RBC % (auto) Smear Tech's Comments PT INR APTT D-Dimer VBG pH VBG pCO2 VBG pO2 VBG HCO3 VBG O2 Saturation VBG Base Excess Sodium Potassium Chloride Carbon Dioxide Anion Gap BUN Creatinine Estim Creat Clear Calc Estimated GFR POC Glucose 249 H 248 H 219 H Random Glucose Calcium Phosphorus Magnesium Ferritin Lactate Dehydrogenase C-Reactive Protein 10/18/20 10/19/20 10/19/20 23:16 00:19 01:55 WBC RBC Hgb Hct MCV MCH MCHC RDW Plt Count MPV Immature Gran % (Auto) Neut % (Auto) Lymph % (Auto) [place] % (Auto) Eos % (Auto) Baso % (Auto) Lymph # (Auto) [place] # (Auto) Eos # (Auto) Baso # (Auto) Abs Immat Gran (auto) Absolute Neuts (auto) Absolute Nucleated RBC Nucleated RBC % (auto) Smear Tech's Comments PT INR APTT D-Dimer VBG pH VBG pCO2 VBG pO2 VBG HCO3 VBG O2 Saturation VBG Base Excess Sodium Potassium Chloride Carbon Dioxide Anion Gap BUN Creatinine Estim Creat Clear Calc Estimated GFR POC Glucose 216 H 201 H 189 H Random Glucose Calcium Phosphorus Magnesium Ferritin Lactate Dehydrogenase C-Reactive Protein 10/19/20 10/19/20 10/19/20 03:59 05:10 05:10 WBC 8.4 RBC 4.34 Hgb 12.5 Hct 38.1 MCV 87.8 MCH 28.8 MCHC 32.8 RDW 13.4 Plt Count 144 L D MPV 11.5 Immature Gran % (Auto) 1.2 H Neut % (Auto) 80.9 H Lymph % (Auto) 12.8 L [place] % (Auto) 5.0 Eos % (Auto) 0.0 Baso % (Auto) 0.1 Lymph # (Auto) 1.1 L [place] # (Auto) 0.4 Eos # (Auto) 0.0 Baso # (Auto) 0.0 Abs Immat Gran (auto) 0.10 H Absolute Neuts (auto) 6.8 Absolute Nucleated RBC 0.000 Nucleated RBC % (auto) 0.0 Smear Tech's Comments VERIFIED PT 13.8 H INR 1.2 H APTT 29.6 D-Dimer 1877 VBG pH VBG pCO2 VBG pO2 VBG HCO3 VBG O2 Saturation VBG Base Excess Sodium Potassium Chloride Carbon Dioxide Anion Gap BUN Creatinine Estim Creat Clear Calc Estimated GFR POC Glucose 153 H Random Glucose Calcium Phosphorus Magnesium Ferritin Lactate Dehydrogenase C-Reactive Protein 10/19/20 10/19/20 10/19/20 05:10 05:28 07:53 WBC RBC Hgb Hct MCV MCH MCHC RDW Plt Count MPV Immature Gran % (Auto) Neut % (Auto) Lymph % (Auto) [place] % (Auto) Eos % (Auto) Baso % (Auto) Lymph # (Auto) [place] # (Auto) Eos # (Auto) Baso # (Auto) Abs Immat Gran (auto) Absolute Neuts (auto) Absolute Nucleated RBC Nucleated RBC % (auto) Smear Tech's Comments PT INR APTT D-Dimer VBG pH 7.42 VBG pCO2 38 VBG pO2 57 VBG HCO3 25 VBG O2 Saturation 87.0 VBG Base Excess 1.3 Sodium 142 Potassium 3.1 L Chloride 109 H Carbon Dioxide 25 Anion Gap 11 L BUN 26 H Creatinine 0.68 Estim Creat Clear Calc 69.9 Estimated GFR > 60 POC Glucose 140 H Random Glucose 130 H D Calcium 8.0 L Phosphorus 1.3 L Magnesium 2.9 H Ferritin 1115 H Lactate Dehydrogenase 638 H C-Reactive Protein 17.27 H 10/19/20 10/19/20 09:30 10:22 WBC RBC Hgb Hct MCV MCH MCHC RDW Plt Count MPV Immature Gran % (Auto) Neut % (Auto) Lymph % (Auto) [place] % (Auto) Eos % (Auto) Baso % (Auto) Lymph # (Auto) [place] # (Auto) Eos # (Auto) Baso # (Auto) Abs Immat Gran (auto) Absolute Neuts (auto) Absolute Nucleated RBC Nucleated RBC % (auto) Smear Tech's Comments PT INR APTT D-Dimer VBG pH VBG pCO2 VBG pO2 VBG HCO3 VBG O2 Saturation VBG Base Excess Sodium Potassium Chloride Carbon Dioxide Anion Gap BUN Creatinine Estim Creat Clear Calc Estimated GFR POC Glucose 152 H 173 H Random Glucose Calcium Phosphorus Magnesium Ferritin Lactate Dehydrogenase C-Reactive Protein Microbiology Microbiology Results: Microbiology 10/16/20 14:09 Blood - Venous Blood Culture - Preliminary No growth after 48 hours. 10/16/20 14:06 Blood - Venous Blood Culture - Preliminary No growth after 48 hours. Progress Note: A&P Assessment and plan (1) Hypokalemia: Status: Acute (2) Hypophosphatemia: Status: Acute (3) Acute respiratory distress syndrome (ARDS) due to 2019-nCoV: Status: Acute (4) Hepatic steatosis: Status: Acute (5) Metabolic encephalopathy: Status: Acute (6) Acute respiratory failure with hypoxia: Status: Acute (7) Depression: Status: Acute (8) Diabetes: Status: Acute (9) COVID-19: Status: Acute Assessment and Plan: Continue in prone position with ventilatory support weaning FiO2 as admitted and we will replace with potassium phosphate
[2020-10-19] MEDS: Fondaparinux Sodium 7.5 MG/0.6 ML SYRINGE SUBCUT (11:23)
[2020-10-19 11:56] LABS: Glucose, Whole Blood 202 mg/dL (60-115)
[2020-10-19 13:05] LABS: Glucose, Whole Blood 200 mg/dL (60-115)
[2020-10-19 14:32] LABS: Glucose, Whole Blood 194 mg/dL (60-115)
[2020-10-19] MEDS: DOPamine HCL/D5W 400 MG/250 ML PLAST..BAG 13.27 MG IVCONT (15:03)
[2020-10-19 16:09] LABS: Glucose, Whole Blood 195 mg/dL (60-115)
[2020-10-19 16:55] LABS: Glucose, Whole Blood 208 mg/dL (60-115)
[2020-10-19 18:14] LABS: Glucose, Whole Blood 191 mg/dL (60-115)
[2020-10-19 19:02] LABS: Glucose, Whole Blood 212 mg/dL (60-115)
[2020-10-19 20:14] LABS: Glucose, Whole Blood 189 mg/dL (60-115)
[2020-10-19 21:19] LABS: Glucose, Whole Blood 200 mg/dL (60-115)
[2020-10-19 22:06] LABS: Glucose, Whole Blood 156 mg/dL (60-115)
[2020-10-20] VITALS (30 sets, daily range): BP systolic 100–138; BP diastolic 48–65; PULSE 55–86; RESP 20–31; TEMP 36.5–37.4; O2SAT 95–98
[2020-10-20 00:12] LABS: Glucose, Whole Blood 150 mg/dL (60-115)
[2020-10-20] MEDS: Rocuronium Bromide 50 MG/5 ML VIAL 35 MG IVPUSH (00:33)
[2020-10-20] MEDS: DOPamine HCL/D5W 400 MG/250 ML PLAST..BAG 13.27 MG IVCONT (01:44)
[2020-10-20] MEDS: propofoL 1,000 MG/100 ML VIAL 8.49 MG IVCONT ×2 (01:45→20:04)
[2020-10-20] MEDS: 0.9 % Sodium Chloride Flush 3 ML SYRINGE IVFLUSH ×4 (01:57→20:05)
[2020-10-20] MEDS: Midazolam HCl/NS 50 MG/50 ML PLAST..BAG 6 MG IVCONT ×2 (03:05→10:38)
[2020-10-20 03:29] LABS: Glucose, Whole Blood 113 mg/dL (60-115)
[2020-10-20 04:07] LABS: Glucose, Whole Blood 131 mg/dL (60-115)
[2020-10-20] MEDS: KCl 20 mEq in 5% Dex/0.45% Sod 20 MEQ/1,000 ML IV.SOLN 80 MEQ IVCONT ×2 (04:16→16:11)
[2020-10-20] MEDS: Insulin Regular/NS 100 UNIT/100 ML PLAST..BAG IVCONT (04:16)
[2020-10-20 05:21] LABS: VBG Base Excess -0.7 mmol/L; VBG HCO3 23 mmol/L (22-26); VBG pCO2 37 mmHg; VBG pO2 62 mmHg
[2020-10-20 05:24] LABS: Venous Blood Gas Refer to POC result
[2020-10-20 05:55] LABS: Glucose, Whole Blood 123 mg/dL (60-115)
[2020-10-20 06:21] LABS: Anion Gap 11 (12-20); Blood Urea Nitrogen 19 mg/dL (9-16); C Reactive Protein 7.07 mg/dL (< or = 0.50); Calcium 7.3 mg/dL (8.4-10.2); Carbon Dioxide 24 mmol/L (22-29); Chloride 112 mmol/L (96-108); Creatinine Clr Calc Pharmacy 80.6; Estimated Glomerular Filt Rate > 60; Glucose Random 130 mg/dL (60-115); Lactate Dehydrogenase 555 U/L (122-220); Magnesium 2.6 mg/dL (1.6-2.6); Phosphorus 1.7 mg/dL (2.7-4.5); Potassium 3.5 mmol/L (3.3-5.1); Sodium 143 mmol/L (135-145)
[2020-10-20 06:23] LABS: Basophils Percent Auto 0.1 % (0-2); Eosinophils Percent Auto 0.1 % (0-4); Hemoglobin 12.3 g/dl (12.0-16.0); Imm Gran Abs Auto 0.15 X10*3/uL (0.00-0.03); Imm Gran Pct Auto 1.6 % (0.0-0.4); Lymphocytes Absolute Auto 1.1 X10*3/uL (1.2-4.9); Lymphocytes Percent Auto 11.5 % (20-40); MANUAL DIFF FLAG SCAN; Mean Corpuscular HGB Conc 32.4 g/dl (31.0-35.0); Mean Corpuscular Hemoglobin 28.9 pg (27.0-33.0); Mean Corpuscular Volume 89.4 fL (80-98); Mean Platelet Volume 11.6 fL (9.4-12.3); Monocytes Absolute Auto 0.4 X10*3/uL (0.1-1.2); Monocytes Percent Auto 4.2 % (2-11); Neutrophils Percent Auto 82.5 % (45-73); Platelet Count 158 X10*3/uL (160-400); Red Blood Count 4.25 X10*6/uL (4.20-5.50); Red Cell Distribution Width 13.5 % (11.0-16.0); SCAN SMEAR FLAG 1; White Blood Count 9.6 X10*3/uL (4.8-10.8)
[2020-10-20 06:32] LABS: INTERNATIONAL NORM RATIO 1.1 (0.9-1.1); Prothrombin Time 13.4 SEC (10.8-13.0)
[2020-10-20 06:33] LABS: Partial Thromboplastin Time 29.1 SEC (24.1-38.0)
[2020-10-20 06:35] LABS: Ferritin 662 ng/mL (10-250)
[2020-10-20 06:39] LABS: SLIDE REVIEW VERIFIED
[2020-10-20 07:00] LABS: D Dimer 1780 NG/ML
[2020-10-20 07:55] LABS: Glucose, Whole Blood 104 mg/dL (60-115)
[2020-10-20] MEDS: dexAMETHasone sod phosphate 4 MG/ML VIAL 6 MG IVPUSH (09:03)
[2020-10-20] MEDS: Chlorhexidine Gluc Oral Rinse 15 ML MOUTHWASH BUCCAL ×3 (09:07→20:04)
[2020-10-20] MEDS: Pantoprazole Sodium 40 MG/10 ML VIAL IVPUSH ×2 (09:07→16:12)
[2020-10-20] MEDS: propofoL 1,000 MG/100 ML VIAL 12.74 MG IVCONT (10:00)
[2020-10-20 10:15] LABS: Glucose, Whole Blood 113 mg/dL (60-115)
[2020-10-20 12:04] LABS: Glucose, Whole Blood 165 mg/dL (60-115)
--- NOTE | 2020-10-20 14:56 | PM.CCPN ---
Subjective Subjective Date of Service: 10/20/20 Critical Care Time (minutes): 35 Comment: 70-year-old female with bilateral COVID-19 pneumonitis and ARDS requiring intubation for acute hypoxic respiratory failure and failure of maximum noninvasive therapy Underlying type 2 diabetic and just spent 36 hours to 40 hours in the prone position very successfully and we were safely able to return her to a supine position and an FiO2 of 60% and maintaining saturations of 97-98% Physical Exam Vital Signs: Vital Signs: Last Vital Signs Temp 99.0 F 10/20/20 14:47 Pulse 62 10/20/20 14:47 Resp 24 H 10/20/20 14:47 BP 123/54 L 10/20/20 14:47 Pulse Ox 96 10/20/20 14:47 Body Mass Index 28.5 Const: Other: Sedated and intubated but she did awaken briefly but maintained her sedation so we did not evaluate cognitive function today Cardiovascular with CVP measurement of 5-6 sinus rhythm no gallops no murmurs Chest with scattered coarse bilateral rales but no adventitious sounds Abdomen benign no significant NG drainage Skin intact no significant edema Objective Data Labs CBC & Chem 7: 10/20/20 05:03 10/20/20 05:03 Labs: Laboratory Results - last 24 hr 10/19/20 10/19/20 10/19/20 16:04 16:50 18:10 WBC RBC Hgb Hct MCV MCH MCHC RDW Plt Count MPV Immature Gran % (Auto) Neut % (Auto) Lymph % (Auto) [place] % (Auto) Eos % (Auto) Baso % (Auto) Lymph # (Auto) [place] # (Auto) Eos # (Auto) Baso # (Auto) Abs Immat Gran (auto) Absolute Neuts (auto) Absolute Nucleated RBC Nucleated RBC % (auto) Smear Tech's Comments PT INR APTT D-Dimer VBG pH VBG pCO2 VBG pO2 VBG HCO3 VBG O2 Saturation VBG Base Excess Sodium Potassium Chloride Carbon Dioxide Anion Gap BUN Creatinine Estim Creat Clear Calc Estimated GFR POC Glucose 195 H 208 H 191 H Random Glucose Calcium Phosphorus Magnesium Ferritin Lactate Dehydrogenase C-Reactive Protein 10/19/20 10/19/20 10/19/20 18:57 20:04 21:14 WBC RBC Hgb Hct MCV MCH MCHC RDW Plt Count MPV Immature Gran % (Auto) Neut % (Auto) Lymph % (Auto) [place] % (Auto) Eos % (Auto) Baso % (Auto) Lymph # (Auto) [place] # (Auto) Eos # (Auto) Baso # (Auto) Abs Immat Gran (auto) Absolute Neuts (auto) Absolute Nucleated RBC Nucleated RBC % (auto) Smear Tech's Comments PT INR APTT D-Dimer VBG pH VBG pCO2 VBG pO2 VBG HCO3 VBG O2 Saturation VBG Base Excess Sodium Potassium Chloride Carbon Dioxide Anion Gap BUN Creatinine Estim Creat Clear Calc Estimated GFR POC Glucose 212 H 189 H 200 H Random Glucose Calcium Phosphorus Magnesium Ferritin Lactate Dehydrogenase C-Reactive Protein 10/19/20 10/20/20 10/20/20 22:02 00:07 02:14 WBC RBC Hgb Hct MCV MCH MCHC RDW Plt Count MPV Immature Gran % (Auto) Neut % (Auto) Lymph % (Auto) [place] % (Auto) Eos % (Auto) Baso % (Auto) Lymph # (Auto) [place] # (Auto) Eos # (Auto) Baso # (Auto) Abs Immat Gran (auto) Absolute Neuts (auto) Absolute Nucleated RBC Nucleated RBC % (auto) Smear Tech's Comments PT INR APTT D-Dimer VBG pH VBG pCO2 VBG pO2 VBG HCO3 VBG O2 Saturation VBG Base Excess Sodium Potassium Chloride Carbon Dioxide Anion Gap BUN Creatinine Estim Creat Clear Calc Estimated GFR POC Glucose 156 H 150 H 113 Random Glucose Calcium Phosphorus Magnesium Ferritin Lactate Dehydrogenase C-Reactive Protein 10/20/20 10/20/20 10/20/20 04:02 05:03 05:03 WBC 9.6 RBC 4.25 Hgb 12.3 Hct 38.0 MCV 89.4 MCH 28.9 MCHC 32.4 RDW 13.5 Plt Count 158 L MPV 11.6 Immature Gran % (Auto) 1.6 H Neut % (Auto) 82.5 H Lymph % (Auto) 11.5 L [place] % (Auto) 4.2 Eos % (Auto) 0.1 Baso % (Auto) 0.1 Lymph # (Auto) 1.1 L [place] # (Auto) 0.4 Eos # (Auto) 0.0 Baso # (Auto) 0.0 Abs Immat Gran (auto) 0.15 H Absolute Neuts (auto) 8.0 Absolute Nucleated RBC 0.000 Nucleated RBC % (auto) 0.0 Smear Tech's Comments VERIFIED PT 13.4 H INR 1.1 APTT 29.1 D-Dimer 1780 VBG pH VBG pCO2 VBG pO2 VBG HCO3 VBG O2 Saturation VBG Base Excess Sodium Potassium Chloride Carbon Dioxide Anion Gap BUN Creatinine Estim Creat Clear Calc Estimated GFR POC Glucose 131 H Random Glucose Calcium Phosphorus Magnesium Ferritin Lactate Dehydrogenase C-Reactive Protein 10/20/20 10/20/20 10/20/20 05:03 05:15 05:46 WBC RBC Hgb Hct MCV MCH MCHC RDW Plt Count MPV Immature Gran % (Auto) Neut % (Auto) Lymph % (Auto) [place] % (Auto) Eos % (Auto) Baso % (Auto) Lymph # (Auto) [place] # (Auto) Eos # (Auto) Baso # (Auto) Abs Immat Gran (auto) Absolute Neuts (auto) Absolute Nucleated RBC Nucleated RBC % (auto) Smear Tech's Comments PT INR APTT D-Dimer VBG pH 7.40 VBG pCO2 37 VBG pO2 62 VBG HCO3 23 VBG O2 Saturation 89.0 VBG Base Excess -0.7 Sodium 143 Potassium 3.5 Chloride 112 H Carbon Dioxide 24 Anion Gap 11 L BUN 19 H Creatinine 0.59 Estim Creat Clear Calc 80.6 Estimated GFR > 60 POC Glucose 123 H Random Glucose 130 H Calcium 7.3 L D Phosphorus 1.7 L Magnesium 2.6 Ferritin 662 H Lactate Dehydrogenase 555 H C-Reactive Protein 7.07 H 10/20/20 10/20/20 10/20/20 07:50 10:02 11:56 WBC RBC Hgb Hct MCV MCH MCHC RDW Plt Count MPV Immature Gran % (Auto) Neut % (Auto) Lymph % (Auto) [place] % (Auto) Eos % (Auto) Baso % (Auto) Lymph # (Auto) [place] # (Auto) Eos # (Auto) Baso # (Auto) Abs Immat Gran (auto) Absolute Neuts (auto) Absolute Nucleated RBC Nucleated RBC % (auto) Smear Tech's Comments PT INR APTT D-Dimer VBG pH VBG pCO2 VBG pO2 VBG HCO3 VBG O2 Saturation VBG Base Excess Sodium Potassium Chloride Carbon Dioxide Anion Gap BUN Creatinine Estim Creat Clear Calc Estimated GFR POC Glucose 104 113 165 H Random Glucose Calcium Phosphorus Magnesium Ferritin Lactate Dehydrogenase C-Reactive Protein Microbiology Microbiology Results: Microbiology 10/16/20 14:09 Blood - Venous Blood Culture - Preliminary No growth after 48 hours. 10/16/20 14:06 Blood - Venous Blood Culture - Preliminary No growth after 48 hours. Progress Note: A&P Assessment and plan (1) Hypophosphatemia: Status: Acute (2) Hypokalemia: Status: Acute (3) Acute respiratory distress syndrome (ARDS) due to 2019-nCoV: Status: Acute (4) Hepatic steatosis: Status: Acute (5) Metabolic encephalopathy: Status: Acute (6) Osteoporosis: Status: Acute (7) Acute respiratory failure with hypoxia: Status: Acute (8) Depression: Status: Acute (9) Diabetes: Status: Acute (10) COVID-19: Status: Acute Assessment and Plan: So she was comfortably returned to the supine position with good maintenance of saturations minute ventilatory requirements at the 10-10.5 liters/minute FiO2 60% and doing comfortably well and at this point I will start feedings and 1 she is capable of being weaned below 50% possible pressure support trial
[2020-10-20 16:11] LABS: Glucose, Whole Blood 198 mg/dL (60-115)
[2020-10-20] MEDS: Fondaparinux Sodium 7.5 MG/0.6 ML SYRINGE SUBCUT (16:11)
[2020-10-20 16:36] LABS: Glucose, Whole Blood 213 mg/dL (60-115)
[2020-10-20 18:10] LABS: Glucose, Whole Blood 235 mg/dL (60-115)
[2020-10-20] MEDS: Midazolam HCl/NS 50 MG/50 ML PLAST..BAG IVCONT (18:19)
[2020-10-20] MEDS: DOPamine HCL/D5W 400 MG/250 ML PLAST..BAG 7.96 MG IVCONT (18:21)
--- NOTE | 2020-10-20 19:08 | PC.NURSE ---
ASSUMED CARE AT 07:00. PATIENT WAS SEDATED ON 8 OF VERSED AND 30 OF PROPOFOL AT START OF SHIFT; PROPOFOL WAS UPTITIRATED TO 50 DURING UNPRONING AT 9:15; WHICH WAS DONE WITHOUT ISSUE; PATIENT DOES BECOME DYSYNCHRONOUS OFTEN, BUT ABLE TO TITIRATE SEDATION AND PROVIDE ORAL CARE/INLINE SUCTIONING TO GOOD EFFECT. ORAL SECRETIONS THICK AND WHITISH, AND INLINE SUCTIONING WITH LARGE AMOUNT OF THICK WHITE SECRETIONS LOWERED OVER COURSE OF SHIFT. #7.5 ETT 22 CM CANDACE, AC SETTINGS 20; 450; 10; MINUTE VOLUMES ABOUT 12; TIDAL VOLUMES ABOUT 460'S-480'S, RR 27 AT TIMES WITH SEDATION IN USE; FIO2 WAS TITRATED FROM 40% PRONED TO 60% UN-PRONED; SPO2 MOSTLY IN MID-90'S, DROPS TO 86-88% WITH REPOSITINING AND SOMEWHAT FREQUENT BUCKING OF THE VENTILATOR, AND 100% FIO2 GIVEN FOR 2 MINUTE INTERVALS WITH GOOD EFFECT. PATIENT WAS SOMEWHAT BRADYCARDIC THIS MORNING, WITH HR SINUS BRADYCARDIA IN 50'S AND DIPPED TO 49; MD AWARE, AND PROPFOL SEDATION HOLIDAY WAS DONE AT 10:45 UNTIL 12:15, BUT PATIENT BECAME TACHYPNEIC RR 32, AND DYSYNCHRONOUS, AND PROPOFOL RESTARTED AT 15, AND UP TO 20 NOW; VERSED WAS TITRATED DOWN TO 5, PER MD AND ALSO BECAUSE QTC IS PROLONGED 466 MS THIS LATE MORNING. PATIENT ON INSULIN GTT, TITIRATED PER MD WITH POC Q2 HOURS. 450 CCS OF BLACK-COLORED THIN STOMACH CONTENTS WERE EMPTIED FROM THE SUCTION CANNISTER CONNECTED TO OGT, AND 200 OF THIS WERE CHARTED, PRIOR CHARTING REFLECTED 250 CCS. TUBE FEEDS WERE STARTED TODAY AT 17:00, GLUCERNA AT 20 CC/HOUR, NO RESIDUAL. SKIN WITH BRAWNY DISCOLORATION TO BILATERAL LOWER EXTREMITIES, PERINEAL MACERATION; SOME SLIGHT DISCOLORATION BLANCHABLE TO RIGHT LOWER LIP, SCATTERED BRUISING TO BILATERAL ARMS.
[2020-10-20 20:35] LABS: Glucose, Whole Blood 221 mg/dL (60-115)
[2020-10-20 22:17] LABS: Glucose, Whole Blood 169 mg/dL (60-115)
[2020-10-21] VITALS (32 sets, daily range): BP systolic 98–147; BP diastolic 44–70; PULSE 34–95; RESP 20–41; TEMP 36.4–37.6; O2SAT 88–98; BMI 28.5
[2020-10-21 00:23] LABS: Glucose, Whole Blood 172 mg/dL (60-115)
[2020-10-21] MEDS: Rocuronium Bromide 50 MG/5 ML VIAL 35 MG IVPUSH ×2 (00:47→05:55)
--- NOTE | 2020-10-21 00:52 | PC.NURSE ---
Addendum entered by Melony Wakefield RN 10/21/20 04:25: QTC 541 @ 0000, 588 @ 0400. Versed gtt turned off. Original Note: P- After turning patient to clean bm, patient became dysynchronous with vent. Increased RR, increased peak pressures, desatting, low volumes. I- PA and RT at bedside. Sedation increased. Patient bagged and suctioned. PRN rocoronium IVP. TF and insulin gtt on hold d/t paralytic admin. Vent settings switched from ACVC to ACPC . Patient repositioned to other side. E- Patient now synchrnous with vent pcv rate 20, inspiratory pressure 22, peep 10, fio2 60%. Peak pressures 30-34, etco2 32-34.
[2020-10-21 02:11] LABS: Glucose, Whole Blood 172 mg/dL (60-115)
[2020-10-21] MEDS: KCl 20 mEq in 5% Dex/0.45% Sod 20 MEQ/1,000 ML IV.SOLN 80 MEQ IVCONT (02:52)
[2020-10-21] MEDS: propofoL 1,000 MG/100 ML VIAL 12.74 MG IVCONT ×2 (02:52→06:17)
[2020-10-21 04:24] LABS: Glucose, Whole Blood 218 mg/dL (60-115)
[2020-10-21] MEDS: Albuterol/Iprat 2.5/0.5MG 3 ML AMPUL.NEB INHALE (04:39)
[2020-10-21 05:20] LABS: MANUAL DIFF FLAG NO
[2020-10-21 05:26] LABS: Basophils Percent Auto 0.1 % (0-2); Eosinophils Absolute Auto 0.1 X10*3/uL (0.0-0.4); Eosinophils Percent Auto 0.6 % (0-4); Hematocrit 36.4 % (37-47); Hemoglobin 11.9 g/dl (12.0-16.0); Imm Gran Abs Auto 0.17 X10*3/uL (0.00-0.03); Imm Gran Pct Auto 1.6 % (0.0-0.4); Lymphocytes Absolute Auto 1.1 X10*3/uL (1.2-4.9); Lymphocytes Percent Auto 10.9 % (20-40); Mean Corpuscular HGB Conc 32.7 g/dl (31.0-35.0); Mean Corpuscular Hemoglobin 29.5 pg (27.0-33.0); Mean Corpuscular Volume 90.1 fL (80-98); Mean Platelet Volume 11.5 fL (9.4-12.3); Monocytes Absolute Auto 0.3 X10*3/uL (0.1-1.2); Monocytes Percent Auto 2.8 % (2-11); Neutrophils Absolute Auto 8.8 X10*3/uL (2.0-8.3); Platelet Count 146 X10*3/uL (160-400); Red Blood Count 4.04 X10*6/uL (4.20-5.50); Red Cell Distribution Width 13.5 % (11.0-16.0); White Blood Count 10.4 X10*3/uL (4.8-10.8)
[2020-10-21 05:27] LABS: Venous Blood Gas Refer to POC result
[2020-10-21 05:27] LABS: VBG Base Excess -3.9 mmol/L; VBG HCO3 20 mmol/L (22-26); VBG pCO2 36 mmHg; VBG pH 7.36 (7.32-7.43); VBG pO2 219 mmHg
[2020-10-21 05:32] LABS: INTERNATIONAL NORM RATIO 1.2 (0.9-1.1); Prothrombin Time 14.2 SEC (10.8-13.0)
[2020-10-21 05:34] LABS: Partial Thromboplastin Time 28.5 SEC (24.1-38.0)
[2020-10-21 05:44] LABS: D Dimer 2029 NG/ML
[2020-10-21 05:48] LABS: Anion Gap 11 (12-20); Blood Urea Nitrogen 20 mg/dL (9-16); Calcium 7.1 mg/dL (8.4-10.2); Carbon Dioxide 23 mmol/L (22-29); Chloride 110 mmol/L (96-108); Creatinine Clr Calc Pharmacy 70.9; Estimated Glomerular Filt Rate > 60; Glucose Random 237 mg/dL (60-115); Lactate Dehydrogenase 494 U/L (122-220); Magnesium 2.3 mg/dL (1.6-2.6); Phosphorus 1.7 mg/dL (2.7-4.5); Potassium 4.1 mmol/L (3.3-5.1); Sodium 140 mmol/L (135-145)
[2020-10-21] MEDS: Pantoprazole Sodium 40 MG/10 ML VIAL IVPUSH ×2 (05:54→15:54)
[2020-10-21 06:08] LABS: Ferritin 692 ng/mL (10-250)
[2020-10-21 06:12] LABS: Glucose, Whole Blood 192 mg/dL (60-115)
[2020-10-21] MEDS: 0.9 % Sodium Chloride Flush 3 ML SYRINGE IVFLUSH ×2 (07:31→17:32)
[2020-10-21] MEDS: Chlorhexidine Gluc Oral Rinse 15 ML MOUTHWASH BUCCAL ×3 (07:31→20:19)
[2020-10-21] MEDS: dexAMETHasone sod phosphate 4 MG/ML VIAL 6 MG IVPUSH (07:31)
[2020-10-21] MEDS: fentaNYL citrate/NS 1,000 MCG/100 ML PLAST..BAG 10 MCG IVCONT (08:38)
[2020-10-21 08:59] LABS: Glucose, Whole Blood 197 mg/dL (60-115)
[2020-10-21] MEDS: Albumin Human 25 % 100 ML IV ×3 (09:15→20:19)
[2020-10-21] MEDS: Calcium Gluconate/NaCl,Iso-Osm 2 GM/100 ML PLAST..BAG IV (09:15)
[2020-10-21] MEDS: Furosemide 20 MG/2 ML VIAL IVPUSH (09:16)
[2020-10-21 09:53] LABS: Glucose, Whole Blood 240 mg/dL (60-115)
[2020-10-21] MEDS: Insulin Regular/NS 100 UNIT/100 ML PLAST..BAG IVCONT (10:50)
[2020-10-21] MEDS: Fondaparinux Sodium 7.5 MG/0.6 ML SYRINGE SUBCUT (10:51)
[2020-10-21] MEDS: Potassium Phosphate 30 MMOL in 0.9 % Sodium Chloride 500 ML 85 MMOL IV (10:51)
[2020-10-21 12:06] LABS: Glucose, Whole Blood 312 mg/dL (60-115)
[2020-10-21 12:06] LABS: Glucose, Whole Blood 289 mg/dL (60-115)
--- NOTE | 2020-10-21 12:42 | PM.CCPN ---
Subjective Subjective Date of Service: 10/21/20 Interval History: 70-year-old lady with underlying history of asthma, diabetes mellitus admitted on 10/16/2020 with dyspnea and confusion on the background of COVID-19, initially symptomatic around 10/10/2020. Hospital course was significant for progressive hypoxemia requiring transfer to intensive care unit and intubation with ventilatory support on 10/18/2020. No events overnight. Critical Care Time (minutes): 60 Physical Exam Vital Signs: Vital Signs: Last Vital Signs Temp 98.1 F 10/21/20 12:00 Pulse 65 10/21/20 12:00 Resp 21 H 10/21/20 12:00 BP 119/54 L 10/21/20 12:00 Pulse Ox 94 10/21/20 12:00 Body Mass Index 28.5 Const: General: no acute distress and other (Sedated on the vent) Eyes: Sclerae: sclerae normal EOM: EOMs intact bilaterally Neck: Neck: Yes no lymphadenopathy, Yes trachea midline and Yes supple Resp: Auscultation: crackles (Diffuse bilateral) Cardio: Rate: regular rate Rhythm: regular rhythm Heart sounds: no gallops, no murmurs and no rubs GI: Palpation (GI): Soft to palpation and Other GI palpation findings present ( Nontender) Auscultation: normal bowel sounds Extrem: General: Yes no pedal edema (1+ bilateral), No clubbing and No cyanosis Objective Data Labs CBC & Chem 7: 10/21/20 05:10 10/21/20 05:10 Labs: Laboratory Results - last 24 hr 10/20/20 10/20/20 10/20/20 14:17 16:22 18:07 WBC RBC Hgb Hct MCV MCH MCHC RDW Plt Count MPV Immature Gran % (Auto) Neut % (Auto) Lymph % (Auto) [place] % (Auto) Eos % (Auto) Baso % (Auto) Lymph # (Auto) [place] # (Auto) Eos # (Auto) Baso # (Auto) Abs Immat Gran (auto) Absolute Neuts (auto) Absolute Nucleated RBC Nucleated RBC % (auto) PT INR APTT D-Dimer VBG pH VBG pCO2 VBG pO2 VBG HCO3 VBG O2 Saturation VBG Base Excess Sodium Potassium Chloride Carbon Dioxide Anion Gap BUN Creatinine Estim Creat Clear Calc Estimated GFR POC Glucose 198 H 213 H 235 H Random Glucose Calcium Phosphorus Magnesium Ferritin Lactate Dehydrogenase C-Reactive Protein 10/20/20 10/20/20 10/21/20 20:29 22:09 00:09 WBC RBC Hgb Hct MCV MCH MCHC RDW Plt Count MPV Immature Gran % (Auto) Neut % (Auto) Lymph % (Auto) [place] % (Auto) Eos % (Auto) Baso % (Auto) Lymph # (Auto) [place] # (Auto) Eos # (Auto) Baso # (Auto) Abs Immat Gran (auto) Absolute Neuts (auto) Absolute Nucleated RBC Nucleated RBC % (auto) PT INR APTT D-Dimer VBG pH VBG pCO2 VBG pO2 VBG HCO3 VBG O2 Saturation VBG Base Excess Sodium Potassium Chloride Carbon Dioxide Anion Gap BUN Creatinine Estim Creat Clear Calc Estimated GFR POC Glucose 221 H 169 H 172 H Random Glucose Calcium Phosphorus Magnesium Ferritin Lactate Dehydrogenase C-Reactive Protein 10/21/20 10/21/20 10/21/20 02:05 04:15 05:10 WBC 10.4 RBC 4.04 L Hgb 11.9 L Hct 36.4 L MCV 90.1 MCH 29.5 MCHC 32.7 RDW 13.5 Plt Count 146 L MPV 11.5 Immature Gran % (Auto) 1.6 H Neut % (Auto) 84.0 H Lymph % (Auto) 10.9 L [place] % (Auto) 2.8 Eos % (Auto) 0.6 Baso % (Auto) 0.1 Lymph # (Auto) 1.1 L [place] # (Auto) 0.3 Eos # (Auto) 0.1 Baso # (Auto) 0.0 Abs Immat Gran (auto) 0.17 H Absolute Neuts (auto) 8.8 H Absolute Nucleated RBC 0.000 Nucleated RBC % (auto) 0.0 PT INR APTT D-Dimer VBG pH VBG pCO2 VBG pO2 VBG HCO3 VBG O2 Saturation VBG Base Excess Sodium Potassium Chloride Carbon Dioxide Anion Gap BUN Creatinine Estim Creat Clear Calc Estimated GFR POC Glucose 172 H 218 H Random Glucose Calcium Phosphorus Magnesium Ferritin Lactate Dehydrogenase C-Reactive Protein 10/21/20 10/21/20 10/21/20 05:10 05:10 05:18 WBC RBC Hgb Hct MCV MCH MCHC RDW Plt Count MPV Immature Gran % (Auto) Neut % (Auto) Lymph % (Auto) [place] % (Auto) Eos % (Auto) Baso % (Auto) Lymph # (Auto) [place] # (Auto) Eos # (Auto) Baso # (Auto) Abs Immat Gran (auto) Absolute Neuts (auto) Absolute Nucleated RBC Nucleated RBC % (auto) PT 14.2 H INR 1.2 H APTT 28.5 D-Dimer 2029 VBG pH 7.36 VBG pCO2 36 VBG pO2 219 VBG HCO3 20 L VBG O2 Saturation 99.0 VBG Base Excess -3.9 Sodium 140 Potassium 4.1 Chloride 110 H Carbon Dioxide 23 Anion Gap 11 L BUN 20 H Creatinine 0.67 Estim Creat Clear Calc 70.9 Estimated GFR > 60 POC Glucose Random Glucose 237 H D Calcium 7.1 L Phosphorus 1.7 L Magnesium 2.3 Ferritin 692 H Lactate Dehydrogenase 494 H C-Reactive Protein 5.90 H 10/21/20 10/21/20 10/21/20 05:56 07:48 09:20 WBC RBC Hgb Hct MCV MCH MCHC RDW Plt Count MPV Immature Gran % (Auto) Neut % (Auto) Lymph % (Auto) [place] % (Auto) Eos % (Auto) Baso % (Auto) Lymph # (Auto) [place] # (Auto) Eos # (Auto) Baso # (Auto) Abs Immat Gran (auto) Absolute Neuts (auto) Absolute Nucleated RBC Nucleated RBC % (auto) PT INR APTT D-Dimer VBG pH VBG pCO2 VBG pO2 VBG HCO3 VBG O2 Saturation VBG Base Excess Sodium Potassium Chloride Carbon Dioxide Anion Gap BUN Creatinine Estim Creat Clear Calc Estimated GFR POC Glucose 192 H 197 H 240 H Random Glucose Calcium Phosphorus Magnesium Ferritin Lactate Dehydrogenase C-Reactive Protein 10/21/20 10/21/20 11:10 11:49 WBC RBC Hgb Hct MCV MCH MCHC RDW Plt Count MPV Immature Gran % (Auto) Neut % (Auto) Lymph % (Auto) [place] % (Auto) Eos % (Auto) Baso % (Auto) Lymph # (Auto) [place] # (Auto) Eos # (Auto) Baso # (Auto) Abs Immat Gran (auto) Absolute Neuts (auto) Absolute Nucleated RBC Nucleated RBC % (auto) PT INR APTT D-Dimer VBG pH VBG pCO2 VBG pO2 VBG HCO3 VBG O2 Saturation VBG Base Excess Sodium Potassium Chloride Carbon Dioxide Anion Gap BUN Creatinine Estim Creat Clear Calc Estimated GFR POC Glucose 312 H 289 H Random Glucose Calcium Phosphorus Magnesium Ferritin Lactate Dehydrogenase C-Reactive Protein Microbiology Microbiology Results: Microbiology 10/16/20 14:09 Blood - Venous Blood Culture - Preliminary No growth after 48 hours. 10/16/20 14:06 Blood - Venous Blood Culture - Preliminary No growth after 48 hours. Progress Note: A&P Assessment and plan (1) Acute respiratory distress syndrome (ARDS) due to 2019-nCoV: Status: Acute Assessment and Plan: Assessment: 70-year-old lady with underlying asthma and diabetes mellitus admitted with acute hypoxic respiratory failure secondary to COVID-19 ARDS, now requiring ventilatory support. Plan: Neuro: No acute issues. Cardiac: No acute issues. Pulmonary: Acute hypoxic respiratory failure secondary to COVID-19 ARDS requiring ventilatory support. Continue to titrate off ventilatory support as tolerated. Underlying asthma. Renal: No acute issues. Endo: No acute issues. Underlying diabetes mellitus. GI: No acute issues. ID: COVID 19, now on dexamethasone. Heme/Onc: No acute issues. Psych: No acute issues. Miscellaneous: No acute issues. Prophylaxis: Fondaparinux, ppi Diet: Tube feeds Critical care time spent: 60 minutes (2) Acute respiratory failure with hypoxia: Status: Acute (3) Diabetes: Status: Acute (4) Asthma: Status: Acute
[2020-10-21 13:08] LABS: Glucose, Whole Blood 281 mg/dL (60-115)
[2020-10-21 14:27] LABS: Glucose, Whole Blood 230 mg/dL (60-115)
--- NOTE | 2020-10-21 14:46 | MHC.CLN ---
F/U PT RECEIVED PARALYTIC AND TF WERE ON HOLD; CURRENTLY TF GLUCERNA RUNNING AT 10CC/HR PROVIDES 240KCALS, 10G PROTEIN, 205CC FREE WATER RECOMMEND CHANGING FORMULA TO PROMOTE AT MAX GOAL RATE 55CC/HR WITH 120CC FREE WATER FLUSHES Q SHIFT TO PROVIDE 1320KCALS (1600KCALS WITH SEDATION; 28KCALS/KG BASED ON CMW), 83G PROTEIN (1.4G/KG), 1467CC TOTAL WATER FROM FORMULA AND FLUSHES (26CC/KG) MONITOR TOLERANCE, RESIDUALS AND LYTES SEE ALSO CLINICAL NUTRITION ASSESSMENT
[2020-10-21] MEDS: DOPamine HCL/D5W 400 MG/250 ML PLAST..BAG 5.31 MG IVCONT (15:54)
[2020-10-21] MEDS: propofoL 1,000 MG/100 ML VIAL 10.61 MG IVCONT ×2 (15:56→20:19)
[2020-10-21 17:15] LABS: Glucose, Whole Blood 183 mg/dL (60-115)
[2020-10-21 17:15] LABS: Glucose, Whole Blood 189 mg/dL (60-115)
[2020-10-21] MEDS: fentaNYL citrate/NS 1,000 MCG/100 ML PLAST..BAG 7.5 MCG IVCONT (17:34)
--- NOTE | 2020-10-21 19:38 | PC.NURSE ---
ASSUMED CARE AT 0700. PATIENT WAS INITIALLY SEDATED ON PROPOFOL ONLY, WITH PRN ROCURONIUM AVAILABLE, AND AFTER BEING REPOSITIONED HIGHER IN BED WITH RT, HAD RR 45, THOUGH SPO2 WAS MAINTAINED 97%. MD WAS NOTIFIED AND FENTANYL GTT STARTED AND TITRATED WITH GOOD EFFECT, INITIALLY WAS UP TO 100, NOW 75; PROPOFOL WAS TITIRATED DOWN TO 25. 2 GM CAGLU WAS GIVEN PER EMAR FOR LOW SERUM CA. PATIENT WAS GIVEN 30 MMOL FOR LOW K. PATIENT AFEBRILE. PATIENT CONTINUES ON PC SETTINGS; #7.5 ETT IS 20 CM CANDACE, DISCUSSED WITH RT; PATIENT WITH RATE 20; INSPIRATORY PRESSURE 22; FIO2 50% (TITRATED DOWN FROM 60% WITH SPO2 MAINTAINED 91-94%); AND PEEP 8 (TITIRATED DOWN FROM 10); MINUTE VOLUEMS ABOUT 11-12; TIDAL VOLUMES AROUND 418-450; LS WERE INITIALLY WITH INSPIRATORY RHONCH IN UPPERS AND DIM BASES, NOW WITH VESICULAR UPPERS DIM BASES; STILL WITH OCCASIONAL VENT DYSYNCRHONY, BUT LESS FREQUENTLY. PATIENT WAS GIVEN LASIX 20 MG IV LASIX, AND PUT OUT 1410 CCS OVER THIS 12 HOUR SHIFT. QTC INTERVAL NO LONGER PROLONGED. VERSED OFF, INSULIN TITRATED PER NON-DKA PROTOCOL; DOPAMINE TITRATED TO 2 (OK TO TITRATE TO OFF PER MD). NO BM THIS SHIFT. GLUCERNA RUNNING AT 10 CC/HOUR PER MD, NOT TO UPTITRATE AT THIS TIME PER MD R/T RECENT ROCURONIUM. DISCUSSED NEW DIET ORDER WITH LAST MODEL MAKER, WITH RESPECT TO PATIENT'S HIGH POCS (200-312 TODAY) AND ON INSULIN GTT, OK TO HOLD OFF FOR NOW.
[2020-10-21 20:29] LABS: Glucose, Whole Blood 136 mg/dL (60-115)
[2020-10-21 20:29] LABS: Glucose, Whole Blood 116 mg/dL (60-115)
[2020-10-21 22:00] LABS: Glucose, Whole Blood 117 mg/dL (60-115)
[2020-10-21] MEDS: fentaNYL citrate/NS 1,000 MCG/100 ML PLAST..BAG 15 MCG IVCONT (23:55)
[2020-10-21] MEDS: Acetaminophen 325 MG TABLET 650 MG PO (23:55)
[2020-10-22] VITALS (36 sets, daily range): BP systolic 80–156; BP diastolic 40–71; PULSE 68–104; RESP 19–37; TEMP 37.2–38.5; O2SAT 83–95
[2020-10-22 00:06] LABS: Glucose, Whole Blood 123 mg/dL (60-115)
[2020-10-22] MEDS: Cisatracurium Besylate 20 MG/10 ML VIAL 10 MG IVPUSH (00:48)
[2020-10-22] MEDS: 0.9 % Sodium Chloride Flush 3 ML SYRINGE IVFLUSH ×4 (00:54→23:57)
[2020-10-22 02:09] LABS: Glucose, Whole Blood 115 mg/dL (60-115)
[2020-10-22] MEDS: propofoL 1,000 MG/100 ML VIAL 16.98 MG IVCONT ×2 (02:55→07:58)
[2020-10-22] MEDS: Albumin Human 25 % 100 ML IV (03:00)
[2020-10-22 04:13] LABS: Glucose, Whole Blood 129 mg/dL (60-115)
[2020-10-22 05:12] LABS: VBG Base Excess 0.5 mmol/L; VBG HCO3 24 mmol/L (22-26); VBG pCO2 37 mmHg; VBG pH 7.42 (7.32-7.43); VBG pO2 63 mmHg
[2020-10-22 05:26] LABS: Venous Blood Gas Refer to POC result
[2020-10-22 05:39] LABS: MANUAL DIFF FLAG SCAN; PLT CLUMP 1; SCAN SMEAR FLAG 1
[2020-10-22 05:40] LABS: Eosinophils Absolute Auto 0.1 X10*3/uL (0.0-0.4); Eosinophils Percent Auto 1.6 % (0-4); Hematocrit 29.5 % (37-47); Hemoglobin 9.6 g/dl (12.0-16.0); Imm Gran Abs Auto 0.11 X10*3/uL (0.00-0.03); Imm Gran Pct Auto 1.4 % (0.0-0.4); Lymphocytes Absolute Auto 1.1 X10*3/uL (1.2-4.9); Lymphocytes Percent Auto 13.8 % (20-40); Mean Corpuscular HGB Conc 32.5 g/dl (31.0-35.0); Mean Corpuscular Hemoglobin 29.4 pg (27.0-33.0); Mean Corpuscular Volume 90.2 fL (80-98); Mean Platelet Volume 11.2 fL (9.4-12.3); Monocytes Absolute Auto 0.1 X10*3/uL (0.1-1.2); Monocytes Percent Auto 1.6 % (2-11); Neutrophils Absolute Auto 6.2 X10*3/uL (2.0-8.3); Neutrophils Percent Auto 81.6 % (45-73); Red Blood Count 3.27 X10*6/uL (4.20-5.50); Red Cell Distribution Width 13.8 % (11.0-16.0); White Blood Count 7.6 X10*3/uL (4.8-10.8)
[2020-10-22 06:00] LABS: Platelet Count 114 X10*3/uL (160-400)
[2020-10-22 06:07] LABS: Albumin Level 3.6 g/dL (3.5-5.0); Anion Gap 12 (12-20); Blood Urea Nitrogen 18 mg/dL (9-16); Calcium 7.7 mg/dL (8.4-10.2); Carbon Dioxide 25 mmol/L (22-29); Chloride 109 mmol/L (96-108); Creatinine Clr Calc Pharmacy 73.1; Estimated Glomerular Filt Rate > 60; Glucose Random 130 mg/dL (60-115); Magnesium 2.1 mg/dL (1.6-2.6); Phosphorus 1.5 mg/dL (2.7-4.5); Potassium 3.8 mmol/L (3.3-5.1); Sodium 142 mmol/L (135-145)
--- NOTE | 2020-10-22 06:18 | PC.NURSE ---
P- Approx 0000 patient started desatting after hygeine an repo to right side. I- FUR FEEDER and RT @ bedside. Patient repositioned to supine. Vent settings changed pcv rate 20 inspiratory pressure 22 peep 12 fio2 70%. Sedation increased. IVP nimbex 10 mg given. Tube feed and insulin gtt on hold. E- No further issues with ventilation or oxygenation this shift.
[2020-10-22 06:28] LABS: SLIDE REVIEW VERIFIED
[2020-10-22] MEDS: dexAMETHasone sod phosphate 4 MG/ML VIAL 6 MG IVPUSH (07:27)
[2020-10-22] MEDS: Chlorhexidine Gluc Oral Rinse 15 ML MOUTHWASH BUCCAL ×3 (07:27→19:24)
[2020-10-22] MEDS: fentaNYL citrate/NS 1,000 MCG/100 ML PLAST..BAG 10 MCG IVCONT (07:27)
[2020-10-22 08:02] LABS: Glucose, Whole Blood 149 mg/dL (60-115)
[2020-10-22] MEDS: Potassium Phosphate 30 MMOL in 0.9 % Sodium Chloride 500 ML 85 MMOL IV ×2 (09:10→14:52)
[2020-10-22 10:16] LABS: Glucose, Whole Blood 193 mg/dL (60-115)
[2020-10-22] MEDS: Insulin Regular/NS 100 UNIT/100 ML PLAST..BAG IVCONT (11:35)
[2020-10-22] MEDS: propofoL 1,000 MG/100 ML VIAL 21.23 MG IVCONT (12:05)
[2020-10-22 12:22] LABS: Glucose, Whole Blood 194 mg/dL (60-115)
[2020-10-22] MEDS: Enoxaparin Sodium 40 MG/0.4 ML SYRINGE SUBCUT (12:44)
--- NOTE | 2020-10-22 13:21 | PM.CCPN ---
Subjective Subjective Date of Service: 10/22/20 Interval History: 70-year-old lady with underlying history of asthma, diabetes mellitus admitted on 10/16/2020 with dyspnea and confusion on the background of COVID-19, initially symptomatic around 10/10/2020. Hospital course was significant for progressive hypoxemia requiring transfer to intensive care unit and intubation with ventilatory support on 10/18/2020. Patient with increased FiO2 requirements overnight, also poorly synchronous with the ventilator requiring several doses of paralytic agent. Critical Care Time (minutes): 60 Physical Exam Vital Signs: Vital Signs: Last Vital Signs Temp 99.3 F 10/22/20 13:00 Pulse 81 10/22/20 13:00 Resp 31 H 10/22/20 13:00 BP 101/43 L 10/22/20 13:00 Pulse Ox 88 L 10/22/20 13:00 Body Mass Index 28.5 Const: General: no acute distress and other (Sedated underwent) Eyes: Sclerae: sclerae normal EOM: EOMs intact bilaterally Neck: Neck: Yes no lymphadenopathy, Yes trachea midline and Yes supple Resp: Auscultation: crackles (Diffuse bilateral) Cardio: Rate: regular rate Rhythm: regular rhythm Heart sounds: no gallops, no murmurs and no rubs GI: Palpation (GI): Soft to palpation and Other GI palpation findings present ( Nontender) Auscultation: normal bowel sounds Extrem: General: No clubbing, No cyanosis and Yes pedal edema (Trace bilateral) Objective Data Labs CBC & Chem 7: 10/22/20 05:05 10/22/20 05:05 Labs: Laboratory Results - last 24 hr 10/21/20 10/21/20 10/21/20 14:10 16:04 16:58 WBC RBC Hgb Hct MCV MCH MCHC RDW Plt Count MPV Immature Gran % (Auto) Neut % (Auto) Lymph % (Auto) [place] % (Auto) Eos % (Auto) Baso % (Auto) Lymph # (Auto) [place] # (Auto) Eos # (Auto) Baso # (Auto) Abs Immat Gran (auto) Absolute Neuts (auto) Absolute Nucleated RBC Nucleated RBC % (auto) Smear Tech's Comments VBG pH VBG pCO2 VBG pO2 VBG HCO3 VBG O2 Saturation VBG Base Excess Sodium Potassium Chloride Carbon Dioxide Anion Gap BUN Creatinine Estim Creat Clear Calc Estimated GFR POC Glucose 230 H 189 H 183 H Random Glucose Calcium Phosphorus Magnesium Albumin 10/21/20 10/21/20 10/21/20 19:27 20:21 21:49 WBC RBC Hgb Hct MCV MCH MCHC RDW Plt Count MPV Immature Gran % (Auto) Neut % (Auto) Lymph % (Auto) [place] % (Auto) Eos % (Auto) Baso % (Auto) Lymph # (Auto) [place] # (Auto) Eos # (Auto) Baso # (Auto) Abs Immat Gran (auto) Absolute Neuts (auto) Absolute Nucleated RBC Nucleated RBC % (auto) Smear Tech's Comments VBG pH VBG pCO2 VBG pO2 VBG HCO3 VBG O2 Saturation VBG Base Excess Sodium Potassium Chloride Carbon Dioxide Anion Gap BUN Creatinine Estim Creat Clear Calc Estimated GFR POC Glucose 136 H 116 H 117 H Random Glucose Calcium Phosphorus Magnesium Albumin 10/21/20 10/22/20 10/22/20 23:58 02:05 04:08 WBC RBC Hgb Hct MCV MCH MCHC RDW Plt Count MPV Immature Gran % (Auto) Neut % (Auto) Lymph % (Auto) [place] % (Auto) Eos % (Auto) Baso % (Auto) Lymph # (Auto) [place] # (Auto) Eos # (Auto) Baso # (Auto) Abs Immat Gran (auto) Absolute Neuts (auto) Absolute Nucleated RBC Nucleated RBC % (auto) Smear Tech's Comments VBG pH VBG pCO2 VBG pO2 VBG HCO3 VBG O2 Saturation VBG Base Excess Sodium Potassium Chloride Carbon Dioxide Anion Gap BUN Creatinine Estim Creat Clear Calc Estimated GFR POC Glucose 123 H 115 129 H Random Glucose Calcium Phosphorus Magnesium Albumin 10/22/20 10/22/20 10/22/20 05:05 05:05 05:05 WBC 7.6 RBC 3.27 L Hgb 9.6 L Hct 29.5 L MCV 90.2 MCH 29.4 MCHC 32.5 RDW 13.8 Plt Count 114 L MPV 11.2 Immature Gran % (Auto) 1.4 H Neut % (Auto) 81.6 H Lymph % (Auto) 13.8 L [place] % (Auto) 1.6 L Eos % (Auto) 1.6 Baso % (Auto) 0.0 Lymph # (Auto) 1.1 L [place] # (Auto) 0.1 Eos # (Auto) 0.1 Baso # (Auto) 0.0 Abs Immat Gran (auto) 0.11 H Absolute Neuts (auto) 6.2 Absolute Nucleated RBC 0.000 Nucleated RBC % (auto) 0.0 Smear Tech's Comments VERIFIED VBG pH 7.42 VBG pCO2 37 VBG pO2 63 VBG HCO3 24 VBG O2 Saturation 92.0 VBG Base Excess 0.5 Sodium 142 Potassium 3.8 Chloride 109 H Carbon Dioxide 25 Anion Gap 12 BUN 18 H Creatinine 0.65 Estim Creat Clear Calc 73.1 Estimated GFR > 60 POC Glucose Random Glucose 130 H D Calcium 7.7 L D Phosphorus 1.5 L Magnesium 2.1 Albumin 3.6 D 10/22/20 10/22/20 10/22/20 07:43 10:11 11:38 WBC RBC Hgb Hct MCV MCH MCHC RDW Plt Count MPV Immature Gran % (Auto) Neut % (Auto) Lymph % (Auto) [place] % (Auto) Eos % (Auto) Baso % (Auto) Lymph # (Auto) [place] # (Auto) Eos # (Auto) Baso # (Auto) Abs Immat Gran (auto) Absolute Neuts (auto) Absolute Nucleated RBC Nucleated RBC % (auto) Smear Tech's Comments VBG pH VBG pCO2 VBG pO2 VBG HCO3 VBG O2 Saturation VBG Base Excess Sodium Potassium Chloride Carbon Dioxide Anion Gap BUN Creatinine Estim Creat Clear Calc Estimated GFR POC Glucose 149 H 193 H 194 H Random Glucose Calcium Phosphorus Magnesium Albumin Microbiology Microbiology Results: Microbiology 10/16/20 14:09 Blood - Venous Blood Culture - Final No growth after 5 days. 10/16/20 14:06 Blood - Venous Blood Culture - Final No growth after 5 days. Progress Note: A&P Assessment and plan (1) Asthma: Status: Acute Assessment and Plan: Assessment: 70-year-old lady with underlying asthma and diabetes mellitus admitted with acute hypoxic respiratory failure secondary to COVID-19 ARDS, now requiring ventilatory support. Plan: Neuro: No acute issues. Cardiac: No acute issues. Pulmonary: Acute hypoxic respiratory failure secondary to COVID-19 ARDS requiring ventilatory support. Continue to titrate off ventilatory support as tolerated. Underlying asthma. Renal: No acute issues. Endo: No acute issues. Underlying diabetes mellitus. GI: No acute issues. ID: COVID 19, now on dexamethasone. Heme/Onc: No acute issues. Psych: No acute issues. Miscellaneous: No acute issues. Prophylaxis: Lovenox, ppi Diet: Tube feeds Critical care time spent: 60 minutes (2) Acute respiratory distress syndrome (ARDS) due to 2019-nCoV: Status: Acute (3) Acute respiratory failure with hypoxia: Status: Acute (4) Diabetes: Status: Acute
[2020-10-22 14:02] LABS: Glucose, Whole Blood 239 mg/dL (60-115)
[2020-10-22 14:02] LABS: Glucose, Whole Blood 235 mg/dL (60-115)
[2020-10-22] MEDS: fentaNYL citrate/NS 1,000 MCG/100 ML PLAST..BAG 17.5 MCG IVCONT ×2 (14:52→19:24)
[2020-10-22 15:12] LABS: Glucose, Whole Blood 225 mg/dL (60-115)
[2020-10-22 16:13] LABS: Glucose, Whole Blood 239 mg/dL (60-115)
[2020-10-22 17:00] LABS: Glucose, Whole Blood 218 mg/dL (60-115)
[2020-10-22] MEDS: propofoL 1,000 MG/100 ML VIAL 12.74 MG IVCONT ×2 (17:37→23:58)
[2020-10-22 18:04] LABS: Glucose, Whole Blood 212 mg/dL (60-115)
[2020-10-22 18:50] LABS: Glucose, Whole Blood 218 mg/dL (60-115)
[2020-10-22] MEDS: DOPamine HCL/D5W 400 MG/250 ML PLAST..BAG 26.54 MG IVCONT (19:24)
[2020-10-22 22:29] LABS: Glucose, Whole Blood 169 mg/dL (60-115)
[2020-10-22 22:29] LABS: Glucose, Whole Blood 186 mg/dL (60-115)
[2020-10-22] MEDS: fentaNYL citrate/NS 1,000 MCG/100 ML PLAST..BAG 20 MCG IVCONT (23:58)
[2020-10-23] VITALS (36 sets, daily range): BP systolic 99–141; BP diastolic 43–65; PULSE 68–110; RESP 20–27; TEMP 37.7–38.3; O2SAT 85–96
[2020-10-23] MEDS: Rocuronium Bromide 50 MG/5 ML VIAL 35 MG IVPUSH ×2 (00:43→02:29)
[2020-10-23] MEDS: Albuterol/Iprat 2.5/0.5MG 3 ML AMPUL.NEB INHALE (01:05)
[2020-10-23 01:26] LABS: Glucose, Whole Blood 128 mg/dL (60-115)
[2020-10-23 01:26] LABS: Glucose, Whole Blood 120 mg/dL (60-115)
[2020-10-23] MEDS: Furosemide 40 MG/4 ML VIAL IVPUSH (02:51)
[2020-10-23] MEDS: fentaNYL citrate/NS 1,000 MCG/100 ML PLAST..BAG 20 MCG IVCONT ×4 (04:39→20:19)
[2020-10-23] MEDS: propofoL 1,000 MG/100 ML VIAL 12.74 MG IVCONT ×3 (04:39→18:16)
[2020-10-23 05:22] LABS: VBG Base Excess -1.8 mmol/L; VBG HCO3 24 mmol/L (22-26); VBG pCO2 46 mmHg; VBG pH 7.32 (7.32-7.43); VBG pO2 59 mmHg
[2020-10-23 05:23] LABS: Glucose, Whole Blood 177 mg/dL (60-115)
[2020-10-23 05:23] LABS: Glucose, Whole Blood 139 mg/dL (60-115)
[2020-10-23 05:39] LABS: Basophils Percent Auto 0.1 % (0-2); Imm Gran Abs Auto 0.27 X10*3/uL (0.00-0.03); MANUAL DIFF FLAG SCAN; PLT CLUMP 1; SCAN SMEAR FLAG 1
[2020-10-23 05:40] LABS: Eosinophils Percent Auto 0.3 % (0-4); Hematocrit 31.7 % (37-47); Hemoglobin 9.9 g/dl (12.0-16.0); Lymphocytes Absolute Auto 0.7 X10*3/uL (1.2-4.9); Lymphocytes Percent Auto 4.8 % (20-40); Mean Corpuscular HGB Conc 31.2 g/dl (31.0-35.0); Mean Platelet Volume 11.2 fL (9.4-12.3); Monocytes Absolute Auto 0.2 X10*3/uL (0.1-1.2); Monocytes Percent Auto 1.6 % (2-11); Neutrophils Absolute Auto 12.3 X10*3/uL (2.0-8.3); Neutrophils Percent Auto 91.2 % (45-73); Platelet Count 123 X10*3/uL (160-400); Red Blood Count 3.41 X10*6/uL (4.20-5.50); Red Cell Distribution Width 14.3 % (11.0-16.0); White Blood Count 13.5 X10*3/uL (4.8-10.8)
[2020-10-23 06:00] LABS: SLIDE REVIEW VERIFIED
[2020-10-23 06:14] LABS: Albumin Level 3.2 g/dL (3.5-5.0); Anion Gap 16 (12-20); Blood Urea Nitrogen 24 mg/dL (9-16); Calcium 7.4 mg/dL (8.4-10.2); Carbon Dioxide 23 mmol/L (22-29); Chloride 107 mmol/L (96-108); Creatinine Clr Calc Pharmacy 54.6; Estimated Glomerular Filt Rate > 60; Glucose Random 191 mg/dL (60-115); Phosphorus 4.5 mg/dL (2.7-4.5); Potassium 4.9 mmol/L (3.3-5.1); Sodium 141 mmol/L (135-145)
--- NOTE | 2020-10-23 06:31 | PC.NURSE ---
CARE ASSUMED 23:15...REMAINS TUBED/VENTED...HS= PCV MODE: AC 20 IP 22 FIO2 100% PEEP 10 PROPOFOL 30 MCG/KG & FENTANYL 200 MCG/HR....SEDATE BUT TACHYPNEIC AT HS..RR 24-28....GRIMACES AT TIMES...SAO2 88-89% THEN TRENDING DOWN TO 84-85%....SUCTIONED SCANT BLOOD TINGED SECRETIONS...LUNGS WITH FINE DIFFUSE CRACKLES ...RORCURONIUM 35MG IV PER JUL...ELEVATED ETCO2 POST PARALYTIC AND REMAINED SAO2 86-87%...AC INCREASED TO 22/IP TO 24/PEEP TO 12CM...SAO2 IMPROVED TO 93-94%...PEEP WEANED BACK TO 10CM....DOPAMINE DRIP WEANED FROM 8 TO 2 MCG/KG/MIN...2ND EPISODE OF DESATURATION...LASIX 40 MG IV AND 2ND DOSE RORCURONIUM GIVEN...DIURESED APPROX 1000ml POST-LASIX...HR DECREASED FROM 100'S-110'S TO 80'S AT PRESENT..INSULIN DRIP PER JUL
[2020-10-23 07:01] LABS: Venous Blood Gas Refer to POC result
[2020-10-23 07:08] LABS: Glucose, Whole Blood 175 mg/dL (60-115)
[2020-10-23] MEDS: 0.9 % Sodium Chloride Flush 3 ML SYRINGE IVFLUSH ×3 (07:53→23:15)
[2020-10-23] MEDS: Chlorhexidine Gluc Oral Rinse 15 ML MOUTHWASH BUCCAL ×3 (07:53→23:15)
[2020-10-23] MEDS: dexAMETHasone sod phosphate 4 MG/ML VIAL 6 MG IVPUSH (07:53)
[2020-10-23 08:14] LABS: Glucose, Whole Blood 161 mg/dL (60-115)
[2020-10-23] MEDS: Furosemide 20 MG/2 ML VIAL IVPUSH ×2 (09:41→18:08)
[2020-10-23] MEDS: Insulin Glargine,Hum.rec.anlog 100 UNIT/ML 10 ML VIAL 10 UNIT SUBCUT (09:44)
[2020-10-23 09:54] LABS: Glucose, Whole Blood 183 mg/dL (60-115)
--- NOTE | 2020-10-23 11:03 | MHC.CLN ---
F/U PT RECEIVED PARALYTIC AND TF WAS ON HOLD; RECOMMEND PROMOTE AT MAX GOAL RATE 55CC/HR WITH 120CC FREE WATER FLUSHES Q SHIFT TO PROVIDE 1320KCALS (1656KCALS WITH SEDATION; 29KCALS/KG BASED ON CMW), 83G PROTEIN (1.4G/KG), 1467CC TOTAL WATER FROM FORMULA AND FLUSHES (26CC/KG) MONITOR TOLERANCE, RESIDUALS AND LYTES
[2020-10-23] MEDS: Enoxaparin Sodium 40 MG/0.4 ML SYRINGE SUBCUT (11:34)
[2020-10-23] MEDS: DOPamine HCL/D5W 400 MG/250 ML PLAST..BAG 15.92 MG IVCONT (11:34)
[2020-10-23] MEDS: Insulin Lispro 100 UNIT/ML 3 ML VIAL SUBCUT ×2 (11:39→18:08)
[2020-10-23 11:50] LABS: Glucose, Whole Blood 243 mg/dL (60-115)
--- NOTE | 2020-10-23 13:18 | PM.CCPN ---
Subjective Subjective Date of Service: 10/23/20 Interval History: 70-year-old lady with underlying history of asthma, diabetes mellitus admitted on 10/16/2020 with dyspnea and confusion on the background of COVID-19, initially symptomatic around 10/10/2020. Hospital course was significant for progressive hypoxemia requiring transfer to intensive care unit and intubation with ventilatory support on 10/18/2020. Patient continue with fluctuating 5 O2 requirements intermittently requiring paralytic boluses. Critical Care Time (minutes): 60 Physical Exam Vital Signs: Vital Signs: Last Vital Signs Temp 100.2 F 10/23/20 13:00 Pulse 75 10/23/20 13:00 Resp 22 H 10/23/20 13:00 BP 115/51 L 10/23/20 13:00 Pulse Ox 94 10/23/20 13:00 Body Mass Index 28.5 Const: General: no acute distress and other (Sedated on the vent) Eyes: Sclerae: sclerae normal EOM: EOMs intact bilaterally Neck: Neck: Yes no lymphadenopathy, Yes trachea midline and Yes supple Resp: Effort & Inspection: normal respiratory effort and no respiratory distress Auscultation: clear to auscultation bilaterally Cardio: Rate: regular rate Rhythm: regular rhythm Heart sounds: no gallops, no murmurs and no rubs GI: Palpation (GI): Soft to palpation and Other GI palpation findings present ( Nontender) Auscultation: normal bowel sounds Extrem: General: No clubbing, No cyanosis and Yes pedal edema (1+ bilateral) Objective Data Labs CBC & Chem 7: 10/23/20 05:18 10/23/20 05:18 Labs: Laboratory Results - last 24 hr 10/22/20 10/22/20 10/22/20 12:56 13:56 14:56 WBC RBC Hgb Hct MCV MCH MCHC RDW Plt Count MPV Immature Gran % (Auto) Neut % (Auto) Lymph % (Auto) [place] % (Auto) Eos % (Auto) Baso % (Auto) Lymph # (Auto) [place] # (Auto) Eos # (Auto) Baso # (Auto) Abs Immat Gran (auto) Absolute Neuts (auto) Absolute Nucleated RBC Nucleated RBC % (auto) Smear Tech's Comments VBG pH VBG pCO2 VBG pO2 VBG HCO3 VBG O2 Saturation VBG Base Excess Sodium Potassium Chloride Carbon Dioxide Anion Gap BUN Creatinine Estim Creat Clear Calc Estimated GFR POC Glucose 235 H 239 H 225 H Random Glucose Calcium Phosphorus Magnesium Albumin 10/22/20 10/22/20 10/22/20 16:07 16:55 17:47 WBC RBC Hgb Hct MCV MCH MCHC RDW Plt Count MPV Immature Gran % (Auto) Neut % (Auto) Lymph % (Auto) [place] % (Auto) Eos % (Auto) Baso % (Auto) Lymph # (Auto) [place] # (Auto) Eos # (Auto) Baso # (Auto) Abs Immat Gran (auto) Absolute Neuts (auto) Absolute Nucleated RBC Nucleated RBC % (auto) Smear Tech's Comments VBG pH VBG pCO2 VBG pO2 VBG HCO3 VBG O2 Saturation VBG Base Excess Sodium Potassium Chloride Carbon Dioxide Anion Gap BUN Creatinine Estim Creat Clear Calc Estimated GFR POC Glucose 239 H 218 H 212 H Random Glucose Calcium Phosphorus Magnesium Albumin 10/22/20 10/22/20 10/22/20 18:45 21:14 22:00 WBC RBC Hgb Hct MCV MCH MCHC RDW Plt Count MPV Immature Gran % (Auto) Neut % (Auto) Lymph % (Auto) [place] % (Auto) Eos % (Auto) Baso % (Auto) Lymph # (Auto) [place] # (Auto) Eos # (Auto) Baso # (Auto) Abs Immat Gran (auto) Absolute Neuts (auto) Absolute Nucleated RBC Nucleated RBC % (auto) Smear Tech's Comments VBG pH VBG pCO2 VBG pO2 VBG HCO3 VBG O2 Saturation VBG Base Excess Sodium Potassium Chloride Carbon Dioxide Anion Gap BUN Creatinine Estim Creat Clear Calc Estimated GFR POC Glucose 218 H 169 H 186 H Random Glucose Calcium Phosphorus Magnesium Albumin 10/23/20 10/23/20 10/23/20 00:09 01:12 02:54 WBC RBC Hgb Hct MCV MCH MCHC RDW Plt Count MPV Immature Gran % (Auto) Neut % (Auto) Lymph % (Auto) [place] % (Auto) Eos % (Auto) Baso % (Auto) Lymph # (Auto) [place] # (Auto) Eos # (Auto) Baso # (Auto) Abs Immat Gran (auto) Absolute Neuts (auto) Absolute Nucleated RBC Nucleated RBC % (auto) Smear Tech's Comments VBG pH VBG pCO2 VBG pO2 VBG HCO3 VBG O2 Saturation VBG Base Excess Sodium Potassium Chloride Carbon Dioxide Anion Gap BUN Creatinine Estim Creat Clear Calc Estimated GFR POC Glucose 120 H 128 H 139 H Random Glucose Calcium Phosphorus Magnesium Albumin 10/23/20 10/23/20 10/23/20 04:47 05:16 05:18 WBC 13.5 H RBC 3.41 L Hgb 9.9 L Hct 31.7 L MCV 93.0 MCH 29.0 MCHC 31.2 RDW 14.3 Plt Count 123 L MPV 11.2 Immature Gran % (Auto) 2.0 H Neut % (Auto) 91.2 H Lymph % (Auto) 4.8 L [place] % (Auto) 1.6 L Eos % (Auto) 0.3 Baso % (Auto) 0.1 Lymph # (Auto) 0.7 L [place] # (Auto) 0.2 Eos # (Auto) 0.0 Baso # (Auto) 0.0 Abs Immat Gran (auto) 0.27 H Absolute Neuts (auto) 12.3 H Absolute Nucleated RBC 0.000 Nucleated RBC % (auto) 0.0 Smear Tech's Comments VERIFIED VBG pH 7.32 VBG pCO2 46 VBG pO2 59 VBG HCO3 24 VBG O2 Saturation 88.0 VBG Base Excess -1.8 Sodium Potassium Chloride Carbon Dioxide Anion Gap BUN Creatinine Estim Creat Clear Calc Estimated GFR POC Glucose 177 H Random Glucose Calcium Phosphorus Magnesium Albumin 10/23/20 10/23/20 10/23/20 05:18 06:02 08:00 WBC RBC Hgb Hct MCV MCH MCHC RDW Plt Count MPV Immature Gran % (Auto) Neut % (Auto) Lymph % (Auto) [place] % (Auto) Eos % (Auto) Baso % (Auto) Lymph # (Auto) [place] # (Auto) Eos # (Auto) Baso # (Auto) Abs Immat Gran (auto) Absolute Neuts (auto) Absolute Nucleated RBC Nucleated RBC % (auto) Smear Tech's Comments VBG pH VBG pCO2 VBG pO2 VBG HCO3 VBG O2 Saturation VBG Base Excess Sodium 141 Potassium 4.9 D Chloride 107 Carbon Dioxide 23 Anion Gap 16 BUN 24 H Creatinine 0.87 Estim Creat Clear Calc 54.6 Estimated GFR > 60 POC Glucose 175 H 161 H Random Glucose 191 H D Calcium 7.4 L Phosphorus 4.5 Magnesium 2.0 Albumin 3.2 L 10/23/20 10/23/20 09:42 11:37 WBC RBC Hgb Hct MCV MCH MCHC RDW Plt Count MPV Immature Gran % (Auto) Neut % (Auto) Lymph % (Auto) [place] % (Auto) Eos % (Auto) Baso % (Auto) Lymph # (Auto) [place] # (Auto) Eos # (Auto) Baso # (Auto) Abs Immat Gran (auto) Absolute Neuts (auto) Absolute Nucleated RBC Nucleated RBC % (auto) Smear Tech's Comments VBG pH VBG pCO2 VBG pO2 VBG HCO3 VBG O2 Saturation VBG Base Excess Sodium Potassium Chloride Carbon Dioxide Anion Gap BUN Creatinine Estim Creat Clear Calc Estimated GFR POC Glucose 183 H 243 H Random Glucose Calcium Phosphorus Magnesium Albumin Microbiology Microbiology Results: Microbiology 10/16/20 14:09 Blood - Venous Blood Culture - Final No growth after 5 days. 10/16/20 14:06 Blood - Venous Blood Culture - Final No growth after 5 days. Progress Note: A&P Assessment and plan (1) Asthma: Status: Acute Assessment and Plan: Assessment: 70-year-old lady with underlying asthma and diabetes mellitus admitted with acute hypoxic respiratory failure secondary to COVID-19 ARDS, now requiring ventilatory support. Plan: Neuro: No acute issues. Cardiac: No acute issues. Pulmonary: Acute hypoxic respiratory failure secondary to COVID-19 ARDS requiring ventilatory support. Continue to titrate off ventilatory support as tolerated. Underlying asthma. Renal: No acute issues. Endo: No acute issues. Underlying diabetes mellitus. GI: No acute issues. ID: COVID 19, now on dexamethasone. Heme/Onc: No acute issues. Psych: No acute issues. Miscellaneous: No acute issues. Prophylaxis: Lovenox, ppi Diet: Tube feeds Critical care time spent: 60 minutes (2) Acute respiratory distress syndrome (ARDS) due to 2019-nCoV: Status: Acute (3) Acute respiratory failure with hypoxia: Status: Acute (4) Diabetes: Status: Acute
[2020-10-23 18:10] LABS: Glucose, Whole Blood 258 mg/dL (60-115)
[2020-10-24] VITALS (32 sets, daily range): BP systolic 114–153; BP diastolic 46–71; PULSE 64–854; RESP 20–28; TEMP 37.7–38.5; O2SAT 87–93
[2020-10-24 00:01] LABS: Glucose, Whole Blood 140 mg/dL (60-115)
[2020-10-24] MEDS: fentaNYL citrate/NS 1,000 MCG/100 ML PLAST..BAG 20 MCG IVCONT ×6 (00:51→23:08)
[2020-10-24] MEDS: propofoL 1,000 MG/100 ML VIAL 12.74 MG IVCONT ×4 (01:31→19:57)
[2020-10-24 05:35] LABS: VBG Base Excess 1.3 mmol/L; VBG HCO3 26 mmol/L (22-26); VBG pCO2 43 mmHg; VBG pH 7.39 (7.32-7.43); VBG pO2 56 mmHg
[2020-10-24 05:36] LABS: Venous Blood Gas Refer to POC result
[2020-10-24 05:56] LABS: Basophils Percent Auto 0.1 % (0-2); Lymphocytes Absolute Auto 0.6 X10*3/uL (1.2-4.9); MANUAL DIFF FLAG SCAN; PLT CLUMP 1; SCAN SMEAR FLAG 1
[2020-10-24 05:58] LABS: Eosinophils Absolute Auto 0.1 X10*3/uL (0.0-0.4); Eosinophils Percent Auto 0.6 % (0-4); Hematocrit 32.2 % (37-47); Imm Gran Abs Auto 0.18 X10*3/uL (0.00-0.03); Imm Gran Pct Auto 1.7 % (0.0-0.4); Mean Corpuscular HGB Conc 31.1 g/dl (31.0-35.0); Mean Corpuscular Volume 93.3 fL (80-98); Mean Platelet Volume 11.4 fL (9.4-12.3); Monocytes Absolute Auto 0.2 X10*3/uL (0.1-1.2); Monocytes Percent Auto 2.1 % (2-11); Neutrophils Absolute Auto 9.5 X10*3/uL (2.0-8.3); Neutrophils Percent Auto 89.5 % (45-73); Platelet Count 139 X10*3/uL (160-400); Red Blood Count 3.45 X10*6/uL (4.20-5.50); Red Cell Distribution Width 14.4 % (11.0-16.0); White Blood Count 10.6 X10*3/uL (4.8-10.8)
[2020-10-24 06:21] LABS: Albumin Level 3.1 g/dL (3.5-5.0); Anion Gap 14 (12-20); Blood Urea Nitrogen 42 mg/dL (9-16); Calcium 7.7 mg/dL (8.4-10.2); Carbon Dioxide 28 mmol/L (22-29); Chloride 107 mmol/L (96-108); Estimated Glomerular Filt Rate 58; Glucose Random 156 mg/dL (60-115); Magnesium 2.3 mg/dL (1.6-2.6); Phosphorus 3.2 mg/dL (2.7-4.5); Potassium 4.9 mmol/L (3.3-5.1); Sodium 144 mmol/L (135-145)
[2020-10-24 06:31] LABS: SLIDE REVIEW VERIFIED
--- NOTE | 2020-10-24 06:42 | PC.NURSE ---
ogt drained 300 ml of dk bile colored gastric material.
[2020-10-24] MEDS: Furosemide 20 MG/2 ML VIAL IVPUSH ×2 (07:30→17:04)
[2020-10-24] MEDS: 0.9 % Sodium Chloride Flush 3 ML SYRINGE IVFLUSH ×3 (07:30→23:30)
[2020-10-24] MEDS: Chlorhexidine Gluc Oral Rinse 15 ML MOUTHWASH BUCCAL ×3 (07:30→19:57)
[2020-10-24] MEDS: dexAMETHasone sod phosphate 4 MG/ML VIAL 6 MG IVPUSH (07:30)
[2020-10-24] MEDS: Rocuronium Bromide 50 MG/5 ML VIAL 35 MG IVPUSH ×2 (07:30→19:50)
[2020-10-24] MEDS: Insulin Glargine,Hum.rec.anlog 100 UNIT/ML 10 ML VIAL 10 UNIT SUBCUT (07:31)
[2020-10-24] MEDS: DOPamine HCL/D5W 400 MG/250 ML PLAST..BAG 10.61 MG IVCONT (08:08)
[2020-10-24] MEDS: Enoxaparin Sodium 40 MG/0.4 ML SYRINGE SUBCUT (11:38)
[2020-10-24] MEDS: Insulin Lispro 100 UNIT/ML 3 ML VIAL SUBCUT ×3 (11:47→23:30)
[2020-10-24 11:54] LABS: Glucose, Whole Blood 252 mg/dL (60-115)
--- NOTE | 2020-10-24 12:15 | P.PNCC_ITS ---
Subjective Subjective Date of Service: 10/24/20 Interval History: 70-year-old lady with underlying history of asthma, diabetes mellitus admitted on 10/16/2020 with dyspnea and confusion on the background of COVID-19, initially symptomatic around 10/10/2020. Hospital course was significant for progressive hypoxemia requiring transfer to intensive care unit and intubation with ventilatory support on 10/18/2020. No events overnight. No significant clinical changes over the last 24 hours Critical Care Time (minutes): 60 Physical Exam Vital Signs: Vital Signs: Last Vital Signs Temp 100.9 F H 10/24/20 12:00 Pulse 94 10/24/20 12:00 Resp 26 H 10/24/20 12:00 BP 124/58 L 10/24/20 12:00 Pulse Ox 90 L 10/24/20 12:00 Body Mass Index 28.5 Const: General: no acute distress and other (Sedated on the vent) Eyes: Sclerae: sclerae normal EOM: EOMs intact bilaterally Neck: Neck: Yes no lymphadenopathy, Yes trachea midline and Yes supple Resp: Auscultation: crackles (Diffuse bilateral) Cardio: Rate: regular rate Rhythm: regular rhythm Heart sounds: no gallops, no murmurs and no rubs GI: Palpation (GI): Soft to palpation and Other GI palpation findings present ( Nontender) Auscultation: normal bowel sounds Extrem: General: No clubbing, No cyanosis and Yes pedal edema (Trace bilat eral) Objective Data Labs CBC & Chem 7: 10/24/20 05:21 10/24/20 05:25 Labs: Laboratory Results - last 24 hr 10/23/20 10/23/20 10/24/20 18:01 23:54 05:21 WBC 10.6 RBC 3.45 L Hgb 10.0 L Hct 32.2 L MCV 93.3 MCH 29.0 MCHC 31.1 RDW 14.4 Plt Count 139 L MPV 11.4 Immature Gran % (Auto) 1.7 H Neut % (Auto) 89.5 H Lymph % (Auto) 6.0 L [place] % (Auto) 2.1 Eos % (Auto) 0.6 Baso % (Auto) 0.1 Lymph # (Auto) 0.6 L [place] # (Auto) 0.2 Eos # (Auto) 0.1 Baso # (Auto) 0.0 Abs Immat Gran (auto) 0.18 H Absolute Neuts (auto) 9.5 H Absolute Nucleated RBC 0.000 Nucleated RBC % (auto) 0.0 Smear Tech's Comments VERIFIED VBG pH VBG pCO2 VBG pO2 VBG HCO3 VBG O2 Saturation VBG Base Excess Sodium Potassium Chloride Carbon Dioxide Anion Gap BUN Creatinine Estim Creat Clear Calc Estimated GFR POC Glucose 258 H 140 H Random Glucose Calcium Phosphorus Magnesium Albumin 10/24/20 10/24/20 10/24/20 05:25 05:29 11:43 WBC RBC Hgb Hct MCV MCH MCHC RDW Plt Count MPV Immature Gran % (Auto) Neut % (Auto) Lymph % (Auto) [place] % (Auto) Eos % (Auto) Baso % (Auto) Lymph # (Auto) [place] # (Auto) Eos # (Auto) Baso # (Auto) Abs Immat Gran (auto) Absolute Neuts (auto) Absolute Nucleated RBC Nucleated RBC % (auto) Smear Tech's Comments VBG pH 7.39 VBG pCO2 43 VBG pO2 56 VBG HCO3 26 VBG O2 Saturation 85.0 VBG Base Excess 1.3 Sodium 144 Potassium 4.9 Chloride 107 Carbon Dioxide 28 Anion Gap 14 BUN 42 H D Creatinine 0.95 Estim Creat Clear Calc 50.0 Estimated GFR 58 POC Glucose 252 H Random Glucose 156 H Calcium 7.7 L Phosphorus 3.2 Magnesium 2.3 Albumin 3.1 L Microbiology Microbiology Results: Microbiology 10/16/20 14:09 Blood - Venous Blood Culture - Final No growth after 5 days. 10/16/20 14:06 Blood - Venous Blood Culture - Final No growth after 5 days. Progress Note: A&P Assessment and plan (1) Asthma: Status: Acute Assessment and Plan: Assessment: 70-year-old lady with underlying asthma and diabetes mellitus admitted with acute hypoxic respiratory failure secondary to COVID-19 ARDS, now requiring ventilatory support. Plan: Neuro: No acute issues. Cardiac: No acute issues. Pulmonary: Acute hypoxic respiratory failure secondary to COVID-19 ARDS requiring ventilatory support. Continue to titrate off ventilatory support as tolerated. Underlying asthma. Renal: No acute issues. Endo: No acute issues. Underlying diabetes mellitus. GI: No acute issues. ID: COVID 19, now on dexamethasone day 12/31. Heme/Onc: No acute issues. Psych: No acute issues. Miscellaneous: No acute issues. Prophylaxis: Lovenox, ppi Diet: Tube feeds Critical care time spent: 60 minutes (2) Acute respiratory distress syndrome (ARDS) due to 2019-nCoV: Status: Acute (3) Acute respiratory failure with hypoxia: Status: Acute (4) Diabetes: Status: Acute
[2020-10-24] MEDS: Albumin Human 25 % 100 ML IV ×2 (13:40→18:07)
[2020-10-24] MEDS: Acetaminophen 325 MG TABLET 650 MG PO (13:41)
[2020-10-24 17:19] LABS: Glucose, Whole Blood 283 mg/dL (60-115)
[2020-10-24] MEDS: Albuterol/Iprat 2.5/0.5MG 3 ML AMPUL.NEB INHALE (20:06)
[2020-10-24] MEDS: DOPamine HCL/D5W 400 MG/250 ML PLAST..BAG 5.31 MG IVCONT (23:08)
[2020-10-24 23:59] LABS: Glucose, Whole Blood 215 mg/dL (60-115)
[2020-10-25] VITALS (31 sets, daily range): BP systolic 108–140; BP diastolic 42–66; PULSE 78–96; RESP 20–30; TEMP -11.8–39.2; O2SAT 91–96
[2020-10-25] MEDS: Albumin Human 25 % 100 ML IV ×2 (01:13→07:32)
[2020-10-25] MEDS: propofoL 1,000 MG/100 ML VIAL 16.98 MG IVCONT ×2 (01:14→07:35)
[2020-10-25] MEDS: Acetaminophen 325 MG TABLET 650 MG PO ×3 (01:14→20:44)
[2020-10-25] MEDS: fentaNYL citrate/NS 1,000 MCG/100 ML PLAST..BAG 20 MCG IVCONT (04:54)
[2020-10-25 05:39] LABS: VBG Base Excess 3.7 mmol/L; VBG HCO3 28 mmol/L (22-26); VBG pCO2 44 mmHg; VBG pH 7.41 (7.32-7.43); VBG pO2 53 mmHg
[2020-10-25 05:41] LABS: Venous Blood Gas Refer to POC result
[2020-10-25 06:09] LABS: Albumin Level 3.8 g/dL (3.5-5.0); Anion Gap 15 (12-20); Blood Urea Nitrogen 60 mg/dL (9-16); Carbon Dioxide 29 mmol/L (22-29); Chloride 106 mmol/L (96-108); Creatinine Clr Calc Pharmacy 37.1; Estimated Glomerular Filt Rate 41; Glucose Random 184 mg/dL (60-115); Magnesium 2.6 mg/dL (1.6-2.6); Phosphorus 2.8 mg/dL (2.7-4.5); Potassium 5.2 mmol/L (3.3-5.1); Sodium 145 mmol/L (135-145)
[2020-10-25 06:11] LABS: Hematocrit 28.9 % (37-47); Mean Corpuscular HGB Conc 31.1 g/dl (31.0-35.0); Mean Corpuscular Hemoglobin 28.8 pg (27.0-33.0); Mean Corpuscular Volume 92.6 fL (80-98); Mean Platelet Volume 11.1 fL (9.4-12.3); Platelet Count 116 X10*3/uL (160-400); Red Blood Count 3.12 X10*6/uL (4.20-5.50); Red Cell Distribution Width 14.4 % (11.0-16.0); White Blood Count 9.4 X10*3/uL (4.8-10.8)
[2020-10-25] MEDS: Insulin Lispro 100 UNIT/ML 3 ML VIAL SUBCUT ×4 (06:29→23:51)
[2020-10-25 06:33] LABS: Band Neutrophils Percent 8 % (3-5); Lymphocytes Absolute Manual 0.8 X10*3/uL (0.6-4.8); Lymphocytes Percent Manual 8 % (20-40); Neutrophils Absolute Manual 8.6 X10*3/uL (2.2-7.9); Neutrophils Percent Manual 84 % (45-73)
[2020-10-25 06:35] LABS: Platelet Estimate SLIGHTLY DECREASED (NORMAL); Platelet Morphology Comment NORMAL; RBC Morphology NORMAL; Tear Drop Cells 1+ (0-2) /OIF; Toxic Vacuolation PRESENT
[2020-10-25] MEDS: 0.9 % Sodium Chloride Flush 3 ML SYRINGE IVFLUSH ×3 (07:32→20:44)
[2020-10-25] MEDS: Chlorhexidine Gluc Oral Rinse 15 ML MOUTHWASH BUCCAL ×3 (07:33→20:44)
[2020-10-25] MEDS: dexAMETHasone sod phosphate 4 MG/ML VIAL 6 MG IVPUSH (07:34)
[2020-10-25] MEDS: Furosemide 20 MG/2 ML VIAL IVPUSH (07:35)
[2020-10-25] MEDS: Insulin Glargine,Hum.rec.anlog 100 UNIT/ML 10 ML VIAL 10 UNIT SUBCUT (09:00)
--- NOTE | 2020-10-25 09:55 | MHC.CM.PN ---
Pt continues in ICU on 100% FiO2 ventilatory support secondary to COVID. She has begun to to experience elements of renal failure: ? diuretics vs COVID etiology. Diuretics will be d/c'd today to better assess. CM has not reached out to HCP/dtr Alexandra with D/C plan updates as it remains too soon to know what pt will need d/t her tenuous status. 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 This may not be possible if pt requires a high level of skilled care. Per MD, pt continues to have a prolonged recovery from COVID and time will give the indicator of pt needs. CM to follow for changes to original d/c plan
[2020-10-25 11:45] LABS: Glucose, Whole Blood 219 mg/dL (60-115)
[2020-10-25] MEDS: fentaNYL citrate/NS 1,000 MCG/100 ML PLAST..BAG 15 MCG IVCONT ×3 (11:46→22:31)
[2020-10-25] MEDS: cefTRIAXone sodium 1 GM in 0.9 % Sodium Chloride 50 ML IV (11:46)
[2020-10-25] MEDS: Enoxaparin Sodium 40 MG/0.4 ML SYRINGE SUBCUT (11:47)
--- NOTE | 2020-10-25 13:21 | P.PNCC_ITS ---
Subjective Subjective Date of Service: 10/25/20 Interval History: 70-year-old lady with underlying history of asthma, diabetes mellitus admitted on 10/16/2020 with dyspnea and confusion on the background of COVID-19, initially symptomatic around 10/10/2020. Hospital course was significant for progressive hypoxemia requiring transfer to intensive care unit and intubation with ventilatory support on 10/18/2020. No events overnight. Critical Care Time (minutes): 60 Physical Exam Vital Signs: Vital Signs: Last Vital Signs Temp 101.7 F H 10/25/20 12:00 Pulse 91 10/25/20 12:00 Resp 29 H 10/25/20 12:00 BP 139/64 10/25/20 12:00 Pulse Ox 93 10/25/20 12:00 Body Mass Index 28.5 Const: General: no acute distress and other (Sedated on the vent) Eyes: Sclerae: sclerae normal EOM: EOMs intact bilaterally Neck: Neck: Yes no lymphadenopathy, Yes trachea midline and Yes supple Resp: Effort & Inspection: normal respiratory effort and no respiratory distress Auscultation: clear to auscultation bilaterally Cardio: Rate: regular rate Rhythm: regular rhythm Heart sounds: no gallops, no murmurs and no rubs GI: Palpation (GI): Soft to palpation and Other GI palpation findings present ( Nontender) Auscultation: normal bowel sounds Extrem: General: No clubbing, No cyanosis and Yes pedal edema (1+ bilateral) Objective Data Labs CBC & Chem 7: 10/25/20 05:30 10/25/20 05:30 Labs: Laboratory Results - last 24 hr 10/24/20 10/24/20 10/25/20 17:08 23:24 05:30 WBC 9.4 RBC 3.12 L Hgb 9.0 L Hct 28.9 L MCV 92.6 MCH 28.8 MCHC 31.1 RDW 14.4 Plt Count 116 L MPV 11.1 Immature Gran % (Auto) Cancelled Neut % (Auto) Cancelled Lymph % (Auto) Cancelled [place] % (Auto) Cancelled Eos % (Auto) Cancelled Baso % (Auto) Cancelled Lymph # (Auto) Cancelled [place] # (Auto) Cancelled Eos # (Auto) Cancelled Baso # (Auto) Cancelled Abs Immat Gran (auto) Cancelled Absolute Neuts (auto) Cancelled Absolute Nucleated RBC 0.000 Nucleated RBC % (auto) 0.0 Neutrophils % (Manual) 84 H Band Neutrophils % 8 H Lymphocytes % (Manual) 8 L Abs Neuts (Manual) 8.6 H Lymphocytes # (Manual) 0.8 Toxic Vacuolation PRESENT Platelet Estimate SLIGHTLY DECREASED Plt Morphology Comment NORMAL RBC Morphology NORMAL Tear Drop Cells 1+ (0-2) VBG pH VBG pCO2 VBG pO2 VBG HCO3 VBG O2 Saturation VBG Base Excess Sodium Potassium Chloride Carbon Dioxide Anion Gap BUN Creatinine Estim Creat Clear Calc Estimated GFR POC Glucose 283 H 215 H Random Glucose Calcium Phosphorus Magnesium Albumin 10/25/20 10/25/20 10/25/20 05:30 05:33 11:39 WBC RBC Hgb Hct MCV MCH MCHC RDW Plt Count MPV Immature Gran % (Auto) Neut % (Auto) Lymph % (Auto) [place] % (Auto) Eos % (Auto) Baso % (Auto) Lymph # (Auto) [place] # (Auto) Eos # (Auto) Baso # (Auto) Abs Immat Gran (auto) Absolute Neuts (auto) Absolute Nucleated RBC Nucleated RBC % (auto) Neutrophils % (Manual) Band Neutrophils % Lymphocytes % (Manual) Abs Neuts (Manual) Lymphocytes # (Manual) Toxic Vacuolation Platelet Estimate Plt Morphology Comment RBC Morphology Tear Drop Cells VBG pH 7.41 VBG pCO2 44 VBG pO2 53 VBG HCO3 28 H VBG O2 Saturation 83.0 VBG Base Excess 3.7 Sodium 145 Potassium 5.2 H Chloride 106 Carbon Dioxide 29 Anion Gap 15 BUN 60 H Creatinine 1.28 Estim Creat Clear Calc 37.1 Estimated GFR 41 POC Glucose 219 H Random Glucose 184 H Calcium 8.0 L Phosphorus 2.8 Magnesium 2.6 Albumin 3.8 D Microbiology Microbiology Results: Microbiology 10/16/20 14:09 Blood - Venous Blood Culture - Final No growth after 5 days. 10/16/20 14:06 Blood - Venous Blood Culture - Final No growth after 5 days. Progress Note: A&P Assessment and plan (1) Asthma: Status: Acute Assessment and Plan: Assessment: 70-year-old lady with underlying asthma and diabetes mellitus admitted with acute hypoxic respiratory failure secondary to COVID-19 ARDS, now requiring ventilatory support. Plan: Neuro: No acute issues. Cardiac: No acute issues. Pulmonary: Acute hypoxic respiratory failure secondary to COVID-19 ARDS requiring ventilatory support. Continue to titrate off ventilatory support as tolerated. Underlying asthma. Renal: Acute kidney injury, likely secondary to progressive COVID-19. Non oliguric. Continue to monitor renal indices output. Endo: No acute issues. Underlying diabetes mellitus. GI: No acute issues. ID: COVID 19, now on dexamethasone day 12/31. Heme/Onc: No acute issues. Psych: No acute issues. Miscellaneous: No acute issues. Prophylaxis: Lovenox, ppi Diet: Tube feeds Critical care time spent: 60 minutes (2) Acute respiratory distress syndrome (ARDS) due to 2019-nCoV: Status: Acute (3) Acute respiratory failure with hypoxia: Status: Acute (4) Diabetes: Status: Acute (5) Acute kidney injury: Status: Acute
[2020-10-25 18:09] LABS: Glucose, Whole Blood 238 mg/dL (60-115)
[2020-10-25] MEDS: propofoL 1,000 MG/100 ML VIAL 8.49 MG IVCONT ×2 (18:27→22:30)
--- NOTE | 2020-10-25 19:10 | PC.NURSE ---
Assumed care at 07:00. Patient started off day with propofol on hold, seemed to be tolerating this, and so fentanyl was also placed on hold from 07:40 to 0749, when patient was tachypneic, RR 35, and discussed with RT, and therefore restarted the sedation, and titrated to good effect. Patient tolerated turning, desatruated once during full bath, patient tolerated vent, no vent dysynchrony. Patient continued on PC settings, #7.5 ETT, 21 cm kandice, Pi22; Rt 20; fio2 100%; peep 12. SpO2 was 92-3% all day. Oral secretions thick and creamy; inline secretions alvarenga at times. TF was restarted this morning per MD, and this was uptitrated gradually with no residual. 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 Temp was 101.7 tmax, tylenol given per MD, T down to 101.3. Urine is malodorous and cloudy with sediment; md aware, patient medicated with ceftriaxone empirically for malodorous and sedimentous urine. mauricio outputs increased over the course of the day, despite lasix being placed on hold by MD related to increased serum Cre over last 24 hours 0.95 up to 1.28; one liter urine output this shift. Patient noted to have last BM 10/21, lactulose ordered for this evening. HCP updated with respect to patient's current condition.
[2020-10-25] MEDS: Lactulose 20 GM/30 ML SOLUTION 30 GM PO (20:43)
[2020-10-25 23:45] LABS: Glucose, Whole Blood 253 mg/dL (60-115)
[2020-10-26] VITALS (35 sets, daily range): BP systolic 119–155; BP diastolic 43–75; PULSE 81–108; RESP 20–37; TEMP 38.7–39.4; O2SAT 31–95
[2020-10-26] MEDS: fentaNYL citrate/NS 1,000 MCG/100 ML PLAST..BAG 20 MCG IVCONT ×5 (04:50→23:36)
[2020-10-26 05:25] LABS: VBG Base Excess 7.3 mmol/L; VBG HCO3 31 mmol/L (22-26); VBG pCO2 41 mmHg; VBG pH 7.48 (7.32-7.43); VBG pO2 51 mmHg
[2020-10-26 05:40] LABS: Hemoglobin 8.6 g/dl (12.0-16.0); Lymphocytes Percent Auto 6.9 % (20-40); MANUAL DIFF FLAG SCAN; Monocytes Percent Auto 3.8 % (2-11); NRBC Pct Auto 0.2 /100WBC (0.0-0.2); PLT CLUMP 1; Red Cell Distribution Width 14.6 % (11.0-16.0); SCAN SMEAR FLAG 1
[2020-10-26 05:42] LABS: Lymphocytes Absolute Auto 0.7 X10*3/uL (1.2-4.9); Mean Corpuscular HGB Conc 30.7 g/dl (31.0-35.0); Mean Corpuscular Hemoglobin 29.1 pg (27.0-33.0); Mean Corpuscular Volume 94.6 fL (80-98); Mean Platelet Volume 11.5 fL (9.4-12.3); Monocytes Absolute Auto 0.4 X10*3/uL (0.1-1.2); Neutrophils Absolute Auto 8.6 X10*3/uL (2.0-8.3); Neutrophils Percent Auto 88.3 % (45-73); Platelet Count 110 X10*3/uL (160-400); Red Blood Count 2.96 X10*6/uL (4.20-5.50); White Blood Count 9.7 X10*3/uL (4.8-10.8)
[2020-10-26 05:50] LABS: Venous Blood Gas Refer to POC result
[2020-10-26] MEDS: Lactulose 20 GM/30 ML SOLUTION 30 GM PO ×2 (06:00→21:34)
[2020-10-26 06:03] LABS: Albumin Level 3.5 g/dL (3.5-5.0); Anion Gap 16 (12-20); Blood Urea Nitrogen 71 mg/dL (9-16); Calcium 8.3 mg/dL (8.4-10.2); Carbon Dioxide 29 mmol/L (22-29); Chloride 107 mmol/L (96-108); Creatinine Clr Calc Pharmacy 38.3; Estimated Glomerular Filt Rate 43; Glucose Random 342 mg/dL (60-115); Phosphorus 1.7 mg/dL (2.7-4.5); Potassium 5.5 mmol/L (3.3-5.1); Sodium 146 mmol/L (135-145)
[2020-10-26] MEDS: Insulin Lispro 100 UNIT/ML 3 ML VIAL SUBCUT ×4 (06:14→22:48)
[2020-10-26] MEDS: propofoL 1,000 MG/100 ML VIAL 12.74 MG IVCONT ×3 (06:56→19:02)
[2020-10-26] MEDS: dexAMETHasone sod phosphate 4 MG/ML VIAL 6 MG IVPUSH (06:57)
[2020-10-26] MEDS: Chlorhexidine Gluc Oral Rinse 15 ML MOUTHWASH BUCCAL ×3 (06:58→21:35)
[2020-10-26] MEDS: 0.9 % Sodium Chloride Flush 3 ML SYRINGE IVFLUSH ×3 (07:02→21:35)
[2020-10-26 07:19] LABS: SLIDE REVIEW VERIFIED
[2020-10-26] MEDS: Sodium,Potassium Phosphates POWD.PACK 2 PACKET PO (07:54)
[2020-10-26 08:48] LABS: Glucose, Whole Blood 353 mg/dL (60-115)
[2020-10-26] MEDS: Insulin Glargine,Hum.rec.anlog 100 UNIT/ML 10 ML VIAL 15 UNIT SUBCUT (09:04)
[2020-10-26] MEDS: Acetaminophen 325 MG TABLET 650 MG PO ×2 (09:16→18:32)
--- NOTE | 2020-10-26 09:27 | P.PNCC_ITS ---
Subjective Subjective Date of Service: 10/26/20 Interval History: 70-year-old lady with underlying history of asthma, diabetes mellitus admitted on 10/16/2020 with dyspnea and confusion on the background of COVID-19, initially symptomatic around 10/10/2020. Hospital course was significant for progressive hypoxemia requiring transfer to intensive care unit and intubation with ventilatory support on 10/18/2020. No events overnight. Kidney function is slowly deteriorating. Critical Care Time (minutes): 60 Physical Exam Vital Signs: Vital Signs: Last Vital Signs Temp 102.7 F H 10/26/20 09:00 Pulse 108 H 10/26/20 09:24 Resp 36 H 10/26/20 09:24 BP 152/68 H 10/26/20 09:24 Pulse Ox 91 L 10/26/20 09:24 Body Mass Index 28.5 Const: General: no acute distress and other (Sedated on the vent) Eyes: Sclerae: sclerae normal EOM: EOMs intact bilaterally Neck: Neck: Yes no lymphadenopathy, Yes trachea midline and Yes supple Resp: Effort & Inspection: normal respiratory effort and no respiratory dist ress Auscultation: clear to auscultation bilaterally Cardio: Rate: regular rate Rhythm: regular rhythm Heart sounds: no gallops, no murmurs and no rubs GI: Palpation (GI): Soft to palpation and Other GI palpation findings present ( Nontender) Auscultation: normal bowel sounds Extrem: General: No clubbing, No cyanosis and Yes pedal edema (1+ bilateral) Objective Data Labs CBC & Chem 7: 10/26/20 05:18 10/26/20 05:18 Labs: Laboratory Results - last 24 hr 10/25/20 10/25/20 10/25/20 11:39 18:04 23:39 WBC RBC Hgb Hct MCV MCH MCHC RDW Plt Count MPV Immature Gran % (Auto) Neut % (Auto) Lymph % (Auto) [place] % (Auto) Eos % (Auto) Baso % (Auto) Lymph # (Auto) [place] # (Auto) Eos # (Auto) Baso # (Auto) Abs Immat Gran (auto) Absolute Neuts (auto) Absolute Nucleated RBC Nucleated RBC % (auto) Smear Tech's Comments VBG pH VBG pCO2 VBG pO2 VBG HCO3 VBG O2 Saturation VBG Base Excess Sodium Potassium Chloride Carbon Dioxide Anion Gap BUN Creatinine Estim Creat Clear Calc Estimated GFR POC Glucose 219 H 238 H 253 H Random Glucose Calcium Phosphorus Magnesium Albumin 10/26/20 10/26/20 10/26/20 05:18 05:18 05:19 WBC 9.7 RBC 2.96 L Hgb 8.6 L Hct 28.0 L MCV 94.6 MCH 29.1 MCHC 30.7 L RDW 14.6 Plt Count 110 L MPV 11.5 Immature Gran % (Auto) 1.0 H Neut % (Auto) 88.3 H Lymph % (Auto) 6.9 L [place] % (Auto) 3.8 Eos % (Auto) 0.0 Baso % (Auto) 0.0 Lymph # (Auto) 0.7 L [place] # (Auto) 0.4 Eos # (Auto) 0.0 Baso # (Auto) 0.0 Abs Immat Gran (auto) 0.10 H Absolute Neuts (auto) 8.6 H Absolute Nucleated RBC 0.020 H Nucleated RBC % (auto) 0.2 Smear Tech's Comments VERIFIED VBG pH 7.48 H VBG pCO2 41 VBG pO2 51 VBG HCO3 31 H VBG O2 Saturation 82.0 VBG Base Excess 7.3 Sodium 146 H Potassium 5.5 H Chloride 107 Carbon Dioxide 29 Anion Gap 16 BUN 71 H Creatinine 1.24 Estim Creat Clear Calc 38.3 Estimated GFR 43 POC Glucose Random Glucose 342 H D Calcium 8.3 L Phosphorus 1.7 L Magnesium 3.0 H Albumin 3.5 10/26/20 08:44 WBC RBC Hgb Hct MCV MCH MCHC RDW Plt Count MPV Immature Gran % (Auto) Neut % (Auto) Lymph % (Auto) [place] % (Auto) Eos % (Auto) Baso % (Auto) Lymph # (Auto) [place] # (Auto) Eos # (Auto) Baso # (Auto) Abs Immat Gran (auto) Absolute Neuts (auto) Absolute Nucleated RBC Nucleated RBC % (auto) Smear Tech's Comments VBG pH VBG pCO2 VBG pO2 VBG HCO3 VBG O2 Saturation VBG Base Excess Sodium Potassium Chloride Carbon Dioxide Anion Gap BUN Creatinine Estim Creat Clear Calc Estimated GFR POC Glucose 353 H* Random Glucose Calcium Phosphorus Magnesium Albumin Microbiology Microbiology Results: Microbiology 10/16/20 14:09 Blood - Venous Blood Culture - Final No growth after 5 days. 10/16/20 14:06 Blood - Venous Blood Culture - Final No growth after 5 days. Progress Note: A&P Assessment and plan (1) Acute kidney injury: Status: Acute Assessment and Plan: Assessment: 70-year-old lady with underlying asthma and diabetes mellitus admitted with acute hypoxic respiratory failure secondary to COVID-19 ARDS, now requiring ventilatory support. Plan: Neuro: No acute issues. Cardiac: No acute issues. Pulmonary: Acute hypoxic respiratory failure secondary to COVID-19 ARDS requiring ventilatory support. Continue to titrate off ventilatory support as tolerated. Underlying asthma. Renal: Acute kidney injury, likely secondary to progressive COVID-19. Non oliguric. Continue to monitor renal indices output. Endo: No acute issues. Underlying diabetes mellitus. GI: No acute issues. ID: COVID 19, now on dexamethasone day 03/02. Heme/Onc: No acute issues. Psych: No acute issues. Miscellaneous: No acute issues. Prophylaxis: Lovenox, ppi Diet: Tube feeds Critical care time spent: 60 minutes (2) Asthma: Status: Acute (3) Acute respiratory distress syndrome (ARDS) due to 2019-nCoV: Status: Acute (4) Acute respiratory failure with hypoxia: Status: Acute
[2020-10-26] MEDS: cefTRIAXone sodium 1 GM in 0.9 % Sodium Chloride 50 ML IV (10:20)
[2020-10-26 11:30] LABS: Glucose, Whole Blood 376 mg/dL (60-115)
[2020-10-26] MEDS: Enoxaparin Sodium 40 MG/0.4 ML SYRINGE SUBCUT (11:34)
[2020-10-26 18:23] LABS: Glucose, Whole Blood 392 mg/dL (60-115)
[2020-10-26 22:53] LABS: Glucose, Whole Blood 344 mg/dL (60-115)
[2020-10-27] VITALS (30 sets, daily range): BP systolic 98–150; BP diastolic 35–80; PULSE 73–122; RESP 20–38; TEMP 36.9–39.6; O2SAT 88–92
[2020-10-27] MEDS: propofoL 1,000 MG/100 ML VIAL 21.23 MG IVCONT ×4 (02:49→15:39)
[2020-10-27] MEDS: fentaNYL citrate/NS 1,000 MCG/100 ML PLAST..BAG 20 MCG IVCONT ×5 (04:19→23:02)
[2020-10-27] MEDS: Cisatracurium Besylate 20 MG/10 ML VIAL 10 MG IVPUSH (04:33)
--- NOTE | 2020-10-27 05:54 | PC.NURSE ---
P- Increasing RR (35-40), temp (104.2), HR this shift (120's, one run of nonsustained svt as high as 220's). Constant liquid stool. I- COIN DEALER and RT at bedside and updated on patient status. Maxed on fentanyl and propofol. One time dose nimbex with little effect. Packed in ice. Cooling blanket applied. Rectal tube insertion. Repo Q2h and PRN comfort/incontinence. E- Neuros unchanged. Slight decrease in rr (30-35), hr (110's), and temp (102.8). UOP 50-200/hr.
[2020-10-27 05:55] LABS: VBG Base Excess 8.7 mmol/L; VBG HCO3 34 mmol/L (22-26); VBG pCO2 51 mmHg; VBG pH 7.43 (7.32-7.43); VBG pO2 55 mmHg
[2020-10-27] MEDS: Insulin Lispro 100 UNIT/ML 3 ML VIAL SUBCUT ×5 (06:18→22:50)
[2020-10-27 06:26] LABS: Glucose, Whole Blood 386 mg/dL (60-115)
[2020-10-27 06:52] LABS: Hematocrit 31.6 % (37-47); Hemoglobin 9.6 g/dl (12.0-16.0); Mean Corpuscular HGB Conc 30.4 g/dl (31.0-35.0); Mean Corpuscular Hemoglobin 29.4 pg (27.0-33.0); Mean Corpuscular Volume 96.6 fL (80-98); Mean Platelet Volume 11.4 fL (9.4-12.3); NRBC Pct Auto 0.8 /100WBC (0.0-0.2); Platelet Count 178 X10*3/uL (160-400); Red Blood Count 3.27 X10*6/uL (4.20-5.50); Red Cell Distribution Width 14.9 % (11.0-16.0); White Blood Count 18.3 X10*3/uL (4.8-10.8)
[2020-10-27 07:18] LABS: Albumin Level 3.4 g/dL (3.5-5.0); Anion Gap 17 (12-20); Blood Urea Nitrogen 68 mg/dL (9-16); Calcium 8.4 mg/dL (8.4-10.2); Carbon Dioxide 29 mmol/L (22-29); Chloride 114 mmol/L (96-108); Creatinine Clr Calc Pharmacy 33.4; Estimated Glomerular Filt Rate 36; Glucose Random 413 mg/dL (60-115); Magnesium 3.1 mg/dL (1.6-2.6); Phosphorus 2.3 mg/dL (2.7-4.5); Potassium 5.5 mmol/L (3.3-5.1); Sodium 154 mmol/L (135-145)
[2020-10-27] MEDS: Chlorhexidine Gluc Oral Rinse 15 ML MOUTHWASH BUCCAL ×3 (07:42→21:29)
[2020-10-27] MEDS: 0.9 % Sodium Chloride Flush 3 ML SYRINGE IVFLUSH ×3 (07:42→22:51)
[2020-10-27 07:45] LABS: Venous Blood Gas Refer to POC result
[2020-10-27 08:06] LABS: Band Neutrophils Percent 9 % (3-5); Lymphocytes Percent Manual 11 % (20-40); Monocytes Absolute Manual 0.9 X10*3/uL (0.0-1.2); Monocytes Percent Manual 5 % (2-11); Neutrophils Absolute Manual 15.4 X10*3/uL (2.2-7.9); Neutrophils Percent Manual 75 % (45-73); Nucleated Red Blood Cells 1 /100WBC (0-0)
[2020-10-27 08:08] LABS: RBC Morphology NOTED
[2020-10-27 08:10] LABS: Hypochromasia 1+ (5-14) /OIF; Platelet Estimate NORMAL (NORMAL); Platelet Morphology Comment NORMAL; Polychromasia 1+ (0-2) /OIF
[2020-10-27 08:38] LABS: Glucose, Whole Blood 345 mg/dL (60-115)
--- NOTE | 2020-10-27 10:06 | PM.CCPN ---
Subjective Subjective Date of Service: 10/27/20 Interval History: ICU day 10 for acute hypoxic respiratory failure, COVID-19 ARDS, acute renal failure 70-year-old lady with underlying history of asthma, diabetes mellitus admitted on 10/16/2020 with dyspnea and confusion on the background of COVID-19, initially symptomatic around 10/10/2020. Hospital course was significant for progressive hypoxemia requiring transfer to intensive care unit and intubation with ventilatory support on 10/18/2020. Further complicated by developing acute renal failure. No events overnight. Critical Care Time (minutes): 60 Physical Exam Vital Signs: Vital Signs: Last Vital Signs Temp 101.1 F H 10/27/20 08:00 Pulse 98 10/27/20 08:00 Resp 38 H 10/27/20 08:00 BP 124/51 L 10/27/20 08:00 Pulse Ox 89 L 10/27/20 08:00 Body Mass Index 28.5 Const: General: no acute distress and other (Sedated on the vent) Eyes: Sclerae: sclerae normal EOM: EOMs intact bilaterally Neck: Neck: Yes no lymphadenopathy, Yes trachea midline and Yes supple Resp: Auscultation: crackles (Diffuse bilateral) Cardio: Rate: regular rate Rhythm: regular rhythm Heart sounds: no gallops, no murmurs and no rubs GI: Palpation (GI): Soft to palpation and Other GI palpation findings present ( Nontender) Auscultation: normal bowel sounds Extrem: General: No clubbing, No cyanosis and Yes pedal edema (1+ bilateral) Objective Data Labs CBC & Chem 7: 10/27/20 05:49 10/27/20 05:49 Labs: Laboratory Results - last 24 hr 10/26/20 10/26/20 10/26/20 11:26 18:19 22:46 WBC RBC Hgb Hct MCV MCH MCHC RDW Plt Count MPV Immature Gran % (Auto) Neut % (Auto) Lymph % (Auto) [place] % (Auto) Eos % (Auto) Baso % (Auto) Lymph # (Auto) [place] # (Auto) Eos # (Auto) Baso # (Auto) Abs Immat Gran (auto) Absolute Neuts (auto) Absolute Nucleated RBC Nucleated RBC % (auto) Neutrophils % (Manual) Band Neutrophils % Lymphocytes % (Manual) Monocytes % (Manual) Abs Neuts (Manual) Lymphocytes # (Manual) Monocytes # (Manual) Nucleated RBCs Platelet Estimate Plt Morphology Comment RBC Morphology Polychromasia Hypochromasia VBG pH VBG pCO2 VBG pO2 VBG HCO3 VBG O2 Saturation VBG Base Excess Sodium Potassium Chloride Carbon Dioxide Anion Gap BUN Creatinine Estim Creat Clear Calc Estimated GFR POC Glucose 376 H* 392 H* 344 H Random Glucose Calcium Phosphorus Magnesium Albumin 10/27/20 10/27/20 10/27/20 05:48 05:49 05:49 WBC 18.3 H RBC 3.27 L Hgb 9.6 L Hct 31.6 L MCV 96.6 MCH 29.4 MCHC 30.4 L RDW 14.9 Plt Count 178 D MPV 11.4 Immature Gran % (Auto) Cancelled Neut % (Auto) Cancelled Lymph % (Auto) Cancelled [place] % (Auto) Cancelled Eos % (Auto) Cancelled Baso % (Auto) Cancelled Lymph # (Auto) Cancelled [place] # (Auto) Cancelled Eos # (Auto) Cancelled Baso # (Auto) Cancelled Abs Immat Gran (auto) Cancelled Absolute Neuts (auto) Cancelled Absolute Nucleated RBC 0.140 H Nucleated RBC % (auto) 0.8 H Neutrophils % (Manual) 75 H Band Neutrophils % 9 H Lymphocytes % (Manual) 11 L Monocytes % (Manual) 5 Abs Neuts (Manual) 15.4 H Lymphocytes # (Manual) 2.0 Monocytes # (Manual) 0.9 Nucleated RBCs 1 H Platelet Estimate NORMAL Plt Morphology Comment NORMAL RBC Morphology NOTED Polychromasia 1+ (0-2) Hypochromasia 1+ (5-14) VBG pH 7.43 VBG pCO2 51 VBG pO2 55 VBG HCO3 34 H VBG O2 Saturation 83.0 VBG Base Excess 8.7 Sodium 154 H Potassium 5.5 H Chloride 114 H Carbon Dioxide 29 Anion Gap 17 BUN 68 H Creatinine 1.42 H Estim Creat Clear Calc 33.4 Estimated GFR 36 POC Glucose Random Glucose 413 H* Calcium 8.4 Phosphorus 2.3 L Magnesium 3.1 H Albumin 3.4 L 10/27/20 10/27/20 06:19 07:53 WBC RBC Hgb Hct MCV MCH MCHC RDW Plt Count MPV Immature Gran % (Auto) Neut % (Auto) Lymph % (Auto) [place] % (Auto) Eos % (Auto) Baso % (Auto) Lymph # (Auto) [place] # (Auto) Eos # (Auto) Baso # (Auto) Abs Immat Gran (auto) Absolute Neuts (auto) Absolute Nucleated RBC Nucleated RBC % (auto) Neutrophils % (Manual) Band Neutrophils % Lymphocytes % (Manual) Monocytes % (Manual) Abs Neuts (Manual) Lymphocytes # (Manual) Monocytes # (Manual) Nucleated RBCs Platelet Estimate Plt Morphology Comment RBC Morphology Polychromasia Hypochromasia VBG pH VBG pCO2 VBG pO2 VBG HCO3 VBG O2 Saturation VBG Base Excess Sodium Potassium Chloride Carbon Dioxide Anion Gap BUN Creatinine Estim Creat Clear Calc Estimated GFR POC Glucose 386 H* 345 H Random Glucose Calcium Phosphorus Magnesium Albumin Microbiology Microbiology Results: Microbiology 10/16/20 14:09 Blood - Venous Blood Culture - Final No growth after 5 days. 10/16/20 14:06 Blood - Venous Blood Culture - Final No growth after 5 days. Progress Note: A&P Assessment and plan (1) Acute respiratory distress syndrome (ARDS) due to 2019-nCoV: Status: Acute Assessment and Plan: Assessment: 70-year-old lady with underlying asthma and diabetes mellitus admitted with acute hypoxic respiratory failure secondary to COVID-19 ARDS, now requiring ventilatory support. Plan: Neuro: No acute issues. Cardiac: No acute issues. Pulmonary: Acute hypoxic respiratory failure secondary to COVID-19 ARDS requiring ventilatory support. Continue to titrate off ventilatory support as tolerated. Underlying asthma. Renal: Acute kidney injury, likely secondary to progressive COVID-19. Non oliguric. Continue to monitor renal indices output. Endo: No acute issues. Underlying diabetes mellitus. GI: No acute issues. ID: COVID 19, completed dexamethasone. Heme/Onc: No acute issues. Psych: No acute issues. Miscellaneous: No acute issues. Prophylaxis: Lovenox, ppi Diet: Tube feeds Critical care time spent: 60 minutes (2) Acute respiratory failure with hypoxia: Status: Acute (3) Acute kidney injury: Status: Acute (4) Viral sepsis: Status: Acute (5) Diabetes: Status: Acute
[2020-10-27] MEDS: Insulin Glargine,Hum.rec.anlog 100 UNIT/ML 10 ML VIAL 15 UNIT SUBCUT (11:15)
[2020-10-27] MEDS: cefEPime HCl 1 GM in 0.9 % Sodium Chloride 50 ML IV (11:15)
[2020-10-27] MEDS: Enoxaparin Sodium 40 MG/0.4 ML SYRINGE SUBCUT (11:16)
[2020-10-27 11:52] LABS: Glucose, Whole Blood 227 mg/dL (60-115)
[2020-10-27 18:17] LABS: Glucose, Whole Blood 237 mg/dL (60-115)
[2020-10-27] MEDS: propofoL 1,000 MG/100 ML VIAL 19.11 MG IVCONT (21:28)
[2020-10-27] MEDS: Lactulose 20 GM/30 ML SOLUTION 30 GM PO (21:29)
[2020-10-27 23:18] LABS: Glucose, Whole Blood 227 mg/dL (60-115)
[2020-10-28] VITALS (31 sets, daily range): BP systolic 95–137; BP diastolic 34–59; PULSE 72–109; RESP 20–82; TEMP 36.7–38.9; O2SAT 85–92
[2020-10-28] MEDS: propofoL 1,000 MG/100 ML VIAL 19.11 MG IVCONT ×2 (02:18→06:51)
[2020-10-28] MEDS: Albumin Human 25 % 100 ML IV (03:28)
[2020-10-28] MEDS: fentaNYL citrate/NS 1,000 MCG/100 ML PLAST..BAG 20 MCG IVCONT ×5 (03:38→18:31)
--- NOTE | 2020-10-28 03:44 | PC.NURSE ---
pt is sedated under the influences of propofol and fentanyl infusions. there is no eye opening. extremities are flaccid. cough and gag reflexes can be elicited. complexion pale. cooling blanket removed as the pt has returned to normothermia. there are 3 areas of stage 2 break down. areas photographed and reviewed by supervisor sheet manufacturing. pt has had falling sao2 as night has progressed. despite suctioning and returning propofol to 45mcg/kg/min. sao2 steadily at 86%. resp tx evaluating. map has also dropped into the low 50s mmhg. 100 ml 25% albumin infusing. breath sounds coarse with diffuse crackles lower lobes bilat. suctioned for small amounts of thick cream colored phlegm. abdomen large round/semisoft. ogt to feeding pump infusing glucerna at 50ml/hr. goal has been reached. 300 mlof free h20 q 6 hr. u/o 30-40ml/hr. on 2 occasions, mauricio has dumped 300 ml of conc urine. rectal tube in place draining liquid brown stool.
[2020-10-28 05:50] LABS: VBG Base Excess 8.5 mmol/L; VBG HCO3 34 mmol/L (22-26); VBG pCO2 52 mmHg; VBG pH 7.41 (7.32-7.43); VBG pO2 51 mmHg
[2020-10-28 06:00] LABS: Venous Blood Gas Refer to POC result
[2020-10-28] MEDS: Insulin Lispro 100 UNIT/ML 3 ML VIAL SUBCUT (06:02)
[2020-10-28 06:16] LABS: Eosinophils Absolute Auto 0.2 X10*3/uL (0.0-0.4); Eosinophils Percent Auto 1.4 % (0-4); Hemoglobin 8.4 g/dl (12.0-16.0); Imm Gran Pct Auto 2.7 % (0.0-0.4); Mean Corpuscular Volume 99.7 fL (80-98); Mean Platelet Volume 11.8 fL (9.4-12.3); Neutrophils Percent Auto 85.3 % (45-73); PLT CLUMP 1; SCAN SMEAR FLAG 1
[2020-10-28 06:17] LABS: Hematocrit 28.5 % (37-47); Imm Gran Abs Auto 0.33 X10*3/uL (0.00-0.03); Lymphocytes Percent Auto 7.9 % (20-40); Mean Corpuscular HGB Conc 29.5 g/dl (31.0-35.0); Mean Corpuscular Hemoglobin 29.4 pg (27.0-33.0); Monocytes Absolute Auto 0.3 X10*3/uL (0.1-1.2); Monocytes Percent Auto 2.7 % (2-11); NRBC Pct Auto 0.9 /100WBC (0.0-0.2); Neutrophils Absolute Auto 10.3 X10*3/uL (2.0-8.3); Platelet Count 107 X10*3/uL (160-400); Red Blood Count 2.86 X10*6/uL (4.20-5.50)
[2020-10-28 06:23] LABS: MANUAL DIFF FLAG NO
[2020-10-28 06:44] LABS: Alanine Aminotransferase 22 U/L (0-31); Albumin Level 3.3 g/dL (3.5-5.0); Alkaline Phosphatase 83 U/L (39-117); Anion Gap 15 (12-20); Aspartate Amino Transferase 39 U/L (5-31); Bilirubin Total 1.5 mg/dL (0.0-1.0); Blood Urea Nitrogen 71 mg/dL (9-16); Carbon Dioxide 29 mmol/L (22-29); Chloride 114 mmol/L (96-108); Estimated Glomerular Filt Rate 46; Glucose Random 340 mg/dL (60-115); Magnesium 3.1 mg/dL (1.6-2.6); Phosphorus 3.3 mg/dL (2.7-4.5); Potassium 5.6 mmol/L (3.3-5.1); Sodium 152 mmol/L (135-145)
[2020-10-28 06:51] LABS: Glucose, Whole Blood 304 mg/dL (60-115)
[2020-10-28] MEDS: Chlorhexidine Gluc Oral Rinse 15 ML MOUTHWASH BUCCAL ×3 (08:29→21:45)
[2020-10-28] MEDS: Insulin Glargine,Hum.rec.anlog 100 UNIT/ML 10 ML VIAL 15 UNIT SUBCUT (08:29)
[2020-10-28] MEDS: 0.9 % Sodium Chloride Flush 3 ML SYRINGE IVFLUSH ×2 (08:30→17:26)
[2020-10-28] MEDS: cefEPime HCl 1 GM in 0.9 % Sodium Chloride 50 ML IV (10:06)
[2020-10-28] MEDS: Dextrose 5 % 1,000 ML 100 ML IVCONT ×2 (10:06→18:32)
[2020-10-28] MEDS: Sodium Zirconium Cyclosilicate 10 GM POWD.PACK PO ×3 (10:08→21:45)
[2020-10-28] MEDS: Enoxaparin Sodium 40 MG/0.4 ML SYRINGE SUBCUT (11:01)
--- NOTE | 2020-10-28 11:45 | P.PNCC_ITS ---
Subjective Subjective Date of Service: 10/28/20 Interval History: Mrs. Ferdinand mac is admitted to the ICU on October 18 because of acute respiratory failure secondary to COVID pneumonia. The patient is a 70-year-old woman with a past medical history of asthma and diabetes. She received her 1st dose of the COVID vaccine October 05. She was seen in the ED on October 13 complaining of fever and URI symptoms with cough x3 days. Sat was 95% on room air. She tested positive for COVID. CXR was normal. She was given IV dexamethasone and was given a prescription for 6 mg daily x7 days and discharged home. She presented to the ED again on October 16 because of shortness of breath and altered mental status. EMS found her 0 with a sat in the 80s on room air at home. In the ED she was put on a non-rebreather with a sat in the 90s. CXR showed bilat patchy infiltrates c/w COVID. CTA showed no COVID but the lung parenchyma was consistent with moderate COVID. BUN/creat were 19/0.8. DDimer was 1877. She was admitted to Medicine and treated with Decadron. Her oxygenation deteriorated and she was tx to ICU and intubated on October 18. CXR was worse. She required proning to achieve adequate oxygenation. After 36 hrs, she returned supine with Sat high 90?s on 60% FiO2. But since then, her FiO2 requirement has progressively increased and she?s had ventilatory dyssynchrony requiring prn NMB and 100% FiO2. She was trialed on Lasix 10/21- 10/25, but her renal indices and renal ratio estefani. She?s been febrile almost continuously since 10/24. On October 25 she was started on ceftriaxone, which was changed it to cefepime on October 27. She finished her 10 day course of dexamethasone yesterday. Today, the patient is sedated on propofol 45ug and fentanyl 200ug. She?s unresponsive. Tmax 101.1? (now), HR 100, SR. BP 110/59. On the vent set at PCV 20/10, f20, 100%, RR is 33, Vt is 490cc, Ve 15L, PIP 33, ETCO2 35, Sat 88%. Central venous blood gas this morning showed 7.41/52/+8. We reduced the insp pressure to 18, Vt now is 390cc. PER 2-3 mm. No JVD at 30?. Chest is clear to auscultation, with a normal expiratory phase. Regular rate and rhythm, normal- sounding S1 and S2, with no murmur or gallops. The abdomen is benign. She is having black stool which is guaiac positive. She has 1 to 2+ pitting edema, possibly anasarca. We turned the propofol off for 1 hour; after that the patient's respiratory rate picked up and her gag was a little stronger, but she still had no eye opening and no response to stimulation. LABORATORY DATA: As below. Notably, white count is down to 12 today from 18 yesterday. Hemoglobin is 8.4, down from 9.6 yesterday. Sodium is 152, potassium 5.6, bicarb 29, BUN and creatinine up to 71/1.1 (from 68/1.4 yesterday), glucose 340, phosphorus 3.3, t. bili up to 1.5, albumin 3.3. MICROBIOLOGY: Blood cultures from yesterday are pending. Urinalysis today shows 1-4 WBCs. Sputum Gram stain from today shows no polys. IMAGING: Chest x-ray today looks pretty much unchanged from her last film on October 18, with bilateral patchy infiltrates. IMPRESSION: 1. Underlying asthma and diabetes. 2. ARDS due to COVID pneumonia. I am going to start her on Solu-Medrol 80 mg bid, vitamin-D, and low-dose aspirin. Recheck COVID biomarkers tomorrow. 3. Hypoxemic respiratory failure secondary to above. 4. FERNANDA. Likely secondary to progressive COVID-19. Poor prognostic sign. She needs an echo to look at her right heart however. 5. Diabetes mellitus. Point of cares are getting worse. And now we are starting her on Solu-Medrol. So will start her now on an insulin drip. 6. GI: Guaiac-positive stool. Hopefully this is just stress gastritis. I?ll bump her omeprazole up to 40 mg bid. 7. ID: Blood cultures from yest pending. Urine and sputum are negative. Fever is most likely COVID sepsis. 8. Metabolic: Hypernatremia being treated with D5W. Hyperkalemia being treated with resin binder. 9. Neuro: Her respiratory status precludes full neuro assessment which under other circumstances would probably include a CT scan. Prognosis is very grim. I will talk with family. Critical care time (including full chart review, hospital course summary, discussion with Dr. Craven, and multiple visits to the bedside): 130 min. Critical Care Time (minutes): 130 Physical Exam Vital Signs: Vital Signs: Last Vital Signs Temp 100.8 F H 10/28/20 11:00 Pulse 94 10/28/20 11:00 Resp 34 H 10/28/20 11:00 BP 137/52 L 10/28/20 11:00 Pulse Ox 89 L 10/28/20 11:00 Body Mass Index 28.5 Objective Data Labs CBC & Chem 7: 10/28/20 05:32 10/28/20 05:32 Labs: Laboratory Results - last 24 hr 10/27/20 10/27/20 10/27/20 11:23 18:00 22:47 WBC RBC Hgb Hct MCV MCH MCHC RDW Plt Count MPV Immature Gran % (Auto) Neut % (Auto) Lymph % (Auto) [place] % (Auto) Eos % (Auto) Baso % (Auto) Lymph # (Auto) [place] # (Auto) Eos # (Auto) Baso # (Auto) Abs Immat Gran (auto) Absolute Neuts (auto) Absolute Nucleated RBC Nucleated RBC % (auto) VBG pH VBG pCO2 VBG pO2 VBG HCO3 VBG O2 Saturation VBG Base Excess Sodium Potassium Chloride Carbon Dioxide Anion Gap BUN Creatinine Estim Creat Clear Calc Estimated GFR POC Glucose 227 H 237 H 227 H Random Glucose Calcium Phosphorus Magnesium Total Bilirubin AST ALT Alkaline Phosphatase Total Protein Albumin 10/28/20 10/28/20 10/28/20 05:32 05:32 05:43 WBC 12.0 H RBC 2.86 L Hgb 8.4 L Hct 28.5 L MCV 99.7 H MCH 29.4 MCHC 29.5 L RDW 15.0 Plt Count 107 L D MPV 11.8 Immature Gran % (Auto) 2.7 H Neut % (Auto) 85.3 H Lymph % (Auto) 7.9 L [place] % (Auto) 2.7 Eos % (Auto) 1.4 Baso % (Auto) 0.0 Lymph # (Auto) 1.0 L [place] # (Auto) 0.3 Eos # (Auto) 0.2 Baso # (Auto) 0.0 Abs Immat Gran (auto) 0.33 H Absolute Neuts (auto) 10.3 H Absolute Nucleated RBC 0.110 H Nucleated RBC % (auto) 0.9 H VBG pH 7.41 VBG pCO2 52 VBG pO2 51 VBG HCO3 34 H VBG O2 Saturation 82.0 VBG Base Excess 8.5 Sodium 152 H Potassium 5.6 H Chloride 114 H Carbon Dioxide 29 Anion Gap 15 BUN 71 H Creatinine 1.16 Estim Creat Clear Calc 41.0 Estimated GFR 46 POC Glucose Random Glucose 340 H Calcium 8.0 L Phosphorus 3.3 Magnesium 3.1 H Total Bilirubin 1.5 H AST 39 H ALT 22 Alkaline Phosphatase 83 Total Protein 6.0 L Albumin 3.3 L 10/28/20 05:58 WBC RBC Hgb Hct MCV MCH MCHC RDW Plt Count MPV Immature Gran % (Auto) Neut % (Auto) Lymph % (Auto) [place] % (Auto) Eos % (Auto) Baso % (Auto) Lymph # (Auto) [place] # (Auto) Eos # (Auto) Baso # (Auto) Abs Immat Gran (auto) Absolute Neuts (auto) Absolute Nucleated RBC Nucleated RBC % (auto) VBG pH VBG pCO2 VBG pO2 VBG HCO3 VBG O2 Saturation VBG Base Excess Sodium Potassium Chloride Carbon Dioxide Anion Gap BUN Creatinine Estim Creat Clear Calc Estimated GFR POC Glucose 304 H Random Glucose Calcium Phosphorus Magnesium Total Bilirubin AST ALT Alkaline Phosphatase Total Protein Albumin Microbiology Microbiology Results: Microbiology 10/16/20 14:09 Blood - Venous Blood Culture - Final No growth after 5 days. 10/16/20 14:06 Blood - Venous Blood Culture - Final No growth after 5 days. Critical Care Time Critical Care Time (minutes): 120
[2020-10-28 12:17] LABS: Glucose, Whole Blood 376 mg/dL (60-115)
[2020-10-28 12:29] LABS: Glucose Urine UA 100 MG/DL (NEG); Leukocyte Esterase Urine 1+ (NEG); Nitrite Urine NEG (NEG); Specific Gravity - Urine 1.015 (1.005-1.025); UACC Culture Trigger YES; Urine Blood NEG (NEG); Urine Ketones NEG (NEG); Urine Protein TRACE MG/DL (NEG-TRACE)
[2020-10-28 12:31] LABS: Appearance Urine CLOUDY; Color Urine YELLOW
[2020-10-28 12:38] LABS: OBS Int Ctl Valid YES; OBS1 POSITIVE (NEGATIVE)
[2020-10-28 13:06] LABS: Bacteria Urine 1+ /LPF; RBC Urine 0-2 /HPF (0)
[2020-10-28] MEDS: Aspirin 81 MG TAB.CHEW OG-TUBE (13:48)
[2020-10-28] MEDS: propofoL 1,000 MG/100 ML VIAL 14.86 MG IVCONT ×2 (13:49→18:48)
[2020-10-28] MEDS: Cholecalciferol (Vitamin D3) 25 MCG TABLET 50 MCG OG-TUBE (13:50)
[2020-10-28] MEDS: Insulin Regular/NS 100 UNIT/100 ML PLAST..BAG IVCONT (13:52)
[2020-10-28] MEDS: HYDROmorphone HCl 2 MG/ML VIAL IVPUSH (14:00)
[2020-10-28] MEDS: methylPREDNISolone Sod Succ 125 MG/2 ML VIAL 80 MG IVPUSH (14:00)
[2020-10-28 15:10] LABS: Glucose, Whole Blood 360 mg/dL (60-115)
[2020-10-28 19:28] LABS: Glucose, Whole Blood 258 mg/dL (60-115)
--- NOTE | 2020-10-28 19:40 | PC.NURSE ---
[facility] at 07:00. Patient sedate on 45 of propofol and 200 of fentanyle initially, had no gag, and weak cough, pupils appeared fixed until patient was given a sedation holiday from the propofol but not fentanyl per MD directions, and patient then was seen to have a gag, a weak cough, and pupils were sluggishly reactive to light, and patient also overbreathes the vent. Other than this, the patient is essentially unarousable, MD aware. Patient in sinus rhythm all day, with one run of PAT at 13:35 rate of 130's. Patient has normative blood pressures. Patient did have one aerobic blood culture return gram positive cocci in clusters, critical result was related to the MD. Patient TLC is from 10/18; discussed this with MD and patient is now receiving a new line with PA this evening. Patient with elevated serum K, MD aware, and new order for Sodium Zirconium silocilicate; patient also started on insulin gtt both for elevated K and for elevated POCs. 12:00 POC was 376, and MD ordered insulin gtt, which was titrated per MD verbal orders, as opposed to protocol (see titiration order form). Patient is febrile: tmax was 102.4, cooling blanket re-started and temp lowered to 100.4, and back up to 102.1. Patient is on Cefepime for this, and MD aware, but also took sputum cx, which was induced and blood tinged, as well as urine cx. Inline secretions were otherwise scant to none; oral secretions were thick and creamy. Patient also had OB stool taken and was positive for OB, and MD is aware, recently dropping H/H, with hgb of 8.4 todau. Patient is also on ventilator ETT 7.5 is 21 cm kandice, patient has PC settings, rate 20; Pi was titirated down from 22 to 18 by RT per MD to target a tidal volume in high 300's. Patient SpO2 often 86-87% today, MD specified goal of 85% and higher. Patient now seen to be 91%; FiO2 was titrated up from 80-90% this morning, and then 90%-100% in late morning; Patient does overbreathe the ventilator. A propofol holiday was done per MD, and this elicited the aforementioned neurologic findings, but also increased WOB and high respiratory rate about 31-40; also, patient was given 2 mg IV dilaudid per MD, and this was effective for both. Patient had elevated K, MD aware, and new order for D5W 100/hour. Diet well tolerated, increased to 55 cc/hour.
--- NOTE | 2020-10-28 21:28 | W.PM.CCHP ---
Procedures Date of Service Date of Service: 10/28/20 Central Line Placement Left IJ: Consent for Procedure: Emergent-no informed consent obtained Time out performed: Yes Sterile Technique Used: Yes Patient placed on monitor/pulse ox: Yes MD prep: mask, gown and gloves Central line prep: Chlorhexidine scrub Ultrasound used for placement: Yes Central line lumen inserted: triple Post procedure: sutured in place, good blood return, all ports aspirated, flushed, capped and sterile dressing applied Post procedure x-ray: tip of catheter in good position and no pneumothorax seen Patient tolerated procedure: well and no complications Complications: none
[2020-10-28 21:32] LABS: Glucose, Whole Blood 238 mg/dL (60-115)
[2020-10-28] MEDS: vancomycin HCL 1,500 MG in 0.9 % Sodium Chloride 500 ML 333.33 MG IV (21:45)
[2020-10-28] MEDS: Insulin Regular/NS 100 UNIT/100 ML PLAST..BAG 8 UNIT IVCONT (23:40)
[2020-10-29] VITALS (33 sets, daily range): BP systolic 76–139; BP diastolic 37–67; PULSE 65–185; RESP 20–31; TEMP 36–37.5; O2SAT 85–100
[2020-10-29] MEDS: propofoL 1,000 MG/100 ML VIAL 14.86 MG IVCONT ×2 (00:02→07:11)
[2020-10-29] MEDS: fentaNYL citrate/NS 1,000 MCG/100 ML PLAST..BAG 20 MCG IVCONT ×3 (00:03→08:51)
[2020-10-29] MEDS: 0.9 % Sodium Chloride Flush 3 ML SYRINGE IVFLUSH ×3 (00:53→14:28)
[2020-10-29] MEDS: methylPREDNISolone Sod Succ 125 MG/2 ML VIAL 80 MG IVPUSH ×2 (01:57→14:28)
[2020-10-29] MEDS: Albumin Human 25 % 100 ML IV (02:48)
[2020-10-29 04:04] LABS: Glucose, Whole Blood 251 mg/dL (60-115)
[2020-10-29 04:04] LABS: Glucose, Whole Blood 189 mg/dL (60-115)
[2020-10-29] MEDS: Dextrose 5 % 1,000 ML 100 ML IVCONT (04:38)
[2020-10-29 05:48] LABS: VBG Base Excess 2.3 mmol/L; VBG HCO3 30 mmol/L (22-26); VBG pCO2 66 mmHg; VBG pH 7.26 (7.32-7.43); VBG pO2 54 mmHg
[2020-10-29 05:53] LABS: Basophils Percent Auto 0.1 % (0-2); Eosinophils Percent Auto 0.1 % (0-4); Hematocrit 27.8 % (37-47); Hemoglobin 8.1 g/dl (12.0-16.0); Imm Gran Abs Auto 0.38 X10*3/uL (0.00-0.03); Imm Gran Pct Auto 2.4 % (0.0-0.4); Lymphocytes Absolute Auto 0.9 X10*3/uL (1.2-4.9); Lymphocytes Percent Auto 5.5 % (20-40); MANUAL DIFF FLAG SCAN; Mean Corpuscular HGB Conc 29.1 g/dl (31.0-35.0); Mean Corpuscular Volume 99.6 fL (80-98); Mean Platelet Volume 12.1 fL (9.4-12.3); Monocytes Absolute Auto 0.2 X10*3/uL (0.1-1.2); Monocytes Percent Auto 1.5 % (2-11); NRBC Pct Auto 0.5 /100WBC (0.0-0.2); Neutrophils Absolute Auto 14.1 X10*3/uL (2.0-8.3); Neutrophils Percent Auto 90.4 % (45-73); Red Blood Count 2.79 X10*6/uL (4.20-5.50); Red Cell Distribution Width 14.7 % (11.0-16.0); SCAN SMEAR FLAG 1; White Blood Count 15.6 X10*3/uL (4.8-10.8)
[2020-10-29] MEDS: HYDROmorphone HCl 2 MG/ML VIAL IVPUSH (05:59)
[2020-10-29 06:10] LABS: Platelet Count 96 X10*3/uL (160-400)
[2020-10-29 06:11] LABS: SLIDE REVIEW VERIFIED
[2020-10-29 06:12] LABS: Lactic Acid 1.8 mmol/L (0.5-2.0)
[2020-10-29 06:17] LABS: Venous Blood Gas Refer to POC result
[2020-10-29 06:21] LABS: B Type Natriuretic Peptide 980 pg/mL (<100)
[2020-10-29 06:23] LABS: Alanine Aminotransferase 28 U/L (0-31); Albumin Level 3.4 g/dL (3.5-5.0); Alkaline Phosphatase 87 U/L (39-117); Anion Gap 14 (12-20); Aspartate Amino Transferase 57 U/L (5-31); Bilirubin Total 1.6 mg/dL (0.0-1.0); Blood Urea Nitrogen 84 mg/dL (9-16); C Reactive Protein 23.49 mg/dL (< or = 0.50); Calcium 7.3 mg/dL (8.4-10.2); Carbon Dioxide 29 mmol/L (22-29); Chloride 107 mmol/L (96-108); Creatinine Clr Calc Pharmacy 25.1; Estimated Glomerular Filt Rate 26; Glucose Random 207 mg/dL (60-115); Magnesium 3.2 mg/dL (1.6-2.6); Phosphorus 5.6 mg/dL (2.7-4.5); Potassium 5.3 mmol/L (3.3-5.1); Sodium 145 mmol/L (135-145); Total Protein 6.1 g/dL (6.5-8.0)
[2020-10-29 06:29] LABS: INTERNATIONAL NORM RATIO 1.3 (0.9-1.1); Prothrombin Time 15.6 SEC (10.8-13.0)
--- NOTE | 2020-10-29 06:34 | PC.NURSE ---
PT REMAINS ESSENTIALLY UNRESPONSIVE. SHE HAS NO MOTOR WITHDRAWAL RESPONSE TO NOXIOUS STIMULATION OR EYE OPENING. EXTREMITIES FLACCID. STAGE 2 SKIN BREAK DOWN DESCRIBED IN PHOTOGRAPHIC DOCUMENTATION IN CHART. GENERALIZED EDEMA IS APPARENT. HAVE BEEN UNABLE TO WEAN FIO2 ON VENTILATOR BELOW 90% AND IN FACT FIO2 IS CURRENTLY AT 100%. VENOUS GASES SHOW WORSENING RESP ACIDOSIS. DILAUDID 2 MG IV GIVEN IN HOPES OF RESOLVING TACHYPNEA. BREATH SOUNDS COARSE/BIBASILAR CRACKLES AUDIBLE. TRIPLE LUMEN CATHETER SITE CHANGED BY INOCENCIO GARZON WITHOUT INCIDENT. BLOOD CULTURES DRAWN OFF OF NEW LINE PRIOR TO USE. ABX VANCOMYCIN 1500 MG IV POST BLOOD CULTURES. LEVOPHED NEEDED TO BE STARTED OVER NIGHT D/T HYPOTENSION NOT RESPONSIVE TO ALBUMIN. INSULIN DRIP ADJUSTED PER PROVIDER REI PAINTER. MAXWELL CATHETER BECAME OCCLUDED WITH SEDIMENT. USING ASEPTIC TECHNIQUE # 16 FR MAXWELL INSERTED. AT 0700 PT EXPERIENCING SUSTAINED EPISODES OF AFIB WITH RVR. APICAL HR 140-160 BPM. METOPROLOL 5 MG IVP GIVEN WITH RESOLUTION.
[2020-10-29 06:35] LABS: Procalcitonin 12.73 ng/mL
[2020-10-29 06:39] LABS: Ferritin 1238 ng/mL (10-250)
[2020-10-29] MEDS: Metoprolol Tartrate 5 MG/5 ML VIAL IVPUSH ×2 (07:07→09:00)
[2020-10-29 07:08] LABS: D Dimer 3261 NG/ML
[2020-10-29 07:21] LABS: Glucose, Whole Blood 381 mg/dL (60-115)
[2020-10-29 07:21] LABS: Glucose, Whole Blood 360 mg/dL (60-115)
--- NOTE | 2020-10-29 07:30 | CA_ITS ---
Transthoracic Echocardiogram Limited Patient (Last, First, Middle): Vicky Streeter, Gender: Female Date of : 1950 Age: 70 Procedure Date: 10/29/2020 Procedure Type: Transthoracic Echocardiogram Limited Location: ICU Height: 157.48 cm Weight: 70.76 kg BSA: 1.72 m2 Heart Rate: bpm BP: 103 / 46 mmHg Utility Arborist: RANJANA Referring MD: Reagan Shahid MD Accounting Support Specialist: Andrews Antonio MD Symptoms: acute resp renal failure. RV size and volume, Study Quality: Fair ECG Rhythm: Sinus Conclusions: - 1. Normal LV systolic and diastolic function 2. Mildly increased right ventricle size with low normal RV systolic function 3. Normal cardiac valvular Doppler 4. RV systolic pressure, 26 mm plus right atrial pressures 5. No gross pericardial effusion Findings Left Ventricle Normal left ventricular size, thickness, and systolic function. The visually estimated ejection fraction is between 55-60%. Spectral Doppler is indicative of a normal filling pattern. Right Ventricle Mildly increased right ventricular cavity size. There is low normal right ventricular systolic function. Atria The left atrium is normal in size. There is no evidence of interatrial shunt. The right atrium is normal in size. Aortic Valve Normal aortic valve structure and function. There is no aortic valve stenosis. There is no aortic valve regurgitation. Mitral Valve Normal mitral valve structure and function. There is trace mitral valve regurgitation. There is no mitral valve stenosis. Pulmonic Valve The pulmonic valve was not well visualized. Tricuspid Valve Likely normal tricuspid valve structure and function. There is mild tricuspid valve regurgitation. Gradient between RV and RA as measured by TR velocity is 26 mm of mercury. Therefore RV systolic pressure is 26 mm Hg plus RA pressures, that are not able to be calculated on this study. Great Vessels All visible segments of the aorta are normal in size. The pulmonary artery was not well visualized. Venous The inferior vena cava does not collapse with inspiration. Patient on positive-pressure ventilation and therefore accurate estimation of right atrial pressures is not possible Pericardium/Pleural There is no evidence of pericardial effusion. Prior Study Comparison No prior study available for comparison. Measurements 2D Systolic Function EF 4C: 56.70 >55% EF 2C: 54.90 >55% EF BiP: 56.10 >55% Tricuspid Valve TR Pk Dar: 2.56 TR Pk Grad: 26.00 RA Press: 8.00 RVSP: 34.00 Updated in Other Vendor System with Status of Final Andrews Antonio MD electronically signed on 10/29/2020 3:15:56 PM with status of Final
--- NOTE | 2020-10-29 08:49 | MHC.CM.PN ---
pt remains in icu, sedated and vented on 100% fio2. dc plan is uncertain at this time. cm to cont. to follow.
[2020-10-29] MEDS: Insulin Regular/NS 100 UNIT/100 ML PLAST..BAG 7 UNIT IVCONT (08:51)
[2020-10-29] MEDS: Cholecalciferol (Vitamin D3) 25 MCG TABLET 50 MCG OG-TUBE (08:54)
[2020-10-29] MEDS: Aspirin 81 MG TAB.CHEW OG-TUBE (08:54)
[2020-10-29] MEDS: Chlorhexidine Gluc Oral Rinse 15 ML MOUTHWASH BUCCAL ×3 (08:55→20:16)
[2020-10-29] MEDS: Sodium Zirconium Cyclosilicate 10 GM POWD.PACK PO ×3 (08:55→20:16)
[2020-10-29] MEDS: Esmolol HCl/NaCl Iso 2,500 MG/250 ML IV.SOLN 10.61 MG IVCONT (09:00)
[2020-10-29 09:06] LABS: Glucose, Whole Blood 191 mg/dL (60-115)
[2020-10-29] MEDS: vancomycin HCL 750 MG in 0.9 % Sodium Chloride 250 ML 265 MG IV (10:12)
--- NOTE | 2020-10-29 10:20 | P.PNCC_ITS ---
Subjective Subjective Date of Service: 10/29/20 Interval History: Mrs. Streeter was admitted to the ICU on October 18 because of acute respiratory failure secondary to COVID pneumonia. The patient is a 70-year-old woman with a past medical history of asthma and diabetes. She received her 1st dose of the COVID vaccine October 05. She was seen in the ED on October 13 complaining of fever and URI symptoms with cough x3 days. Sat was 95% on room air. She tested positive for COVID. CXR was normal. She was given IV dexamethasone and was given a prescription for 6 mg Decadron daily x7 days and discharged home. She presented to the ED again on October 16 because of shortness of breath and altered mental status. EMS found her with a sat in the 80s on room air at home. In the ED she was put on a non-rebreather with a sat in the 90s. CXR showed bilat patchy infiltrates c/w COVID. CTA showed no pulmon emboli, but the lung parenchyma was consistent with moderate COVID. BUN/creat were 19/0.8. DDimer was 1877. She was admitted to Medicine and treated with Decadron. Her oxygenation deteriorated and she was tx to ICU and intubated on October 18. CXR was worse. She required proning to achieve adequate oxygenation. After 36 hrs, she returned supine with Sat high 90?s on 60% FiO2. But since then, her FiO2 requirement has progressively increased and she?s had ventilatory dyssyn chrony requiring prn NMB and 100% FiO2. She was trialed on Lasix 10/21-10/25, but her renal indices and renal ratio estefani. She?s been febrile almost continuously since 10/24. On October 25 she was started on ceftriaxone, which was changed it to cefepime on October 27. She finished her 10 day course of dexamethasone on October 27. She?s required 100% FiO2 almost continuously for last 24hrs. On propofol 35ug and fentanyl 200ug, she?s unresponsive. She?s been afebrile since last night. Overnight, she had to start on low dose Levophed. This morning she had an episode of Afib w RVR, treated successfully with 5mg metoprolol, and she converted to SR. HR now 60s, SR. BP 100/45 on Levophed 0.1ug. On the vent set at PCV 18/10, f20, 100%, RR is 20, Vt is 300cc, Ve 6L, PIP 28, ETCO2 51, Sat 85%. Central venous blood gas this morning showed 7.26/66/+2. We increased the insp pressure to 22, Vt now is 390cc, and we increased the rate to 26. No JVD at 30?. Chest is clear with a normal expiratory phase. The abdomen is benign. Stool is now dark brown. She has 1 to 2+ pitting edema. We turned the propofol off, and after 2 hours, she remains unresponsive, although she does have some spontaneous eye opening now. LABORATORY DATA: As below. Notably, hemoglobin is down only slightly to 8.1. Sodium is down to 145. potassium down to 5.3 on the resin binder, bicarb unchanged, BUN and creatinine up to 84/1.8, POCs < 200, phosphorus up to 5.6, t. bili up to 1.6, albumin 3.4. D-dimer up to 3200, ferritin up to 1238, CRP up to 23, procalcitonin up to 12. BNP 980 Urine output only 10-15 cc/hr MICROBIOLOGY: Blood cultures from 10/27 growing out Staph in ? bottles. Urinalysis shows 1-4 WBCs. Sputum Gram stain shows no polys, growing out Staph. ECHOCARDIOGRAM done by the tech at the bedside, with interpretation by me. Images: Good. Findings: -top-normal LV wall thickness. Normal LV cavity size and function, EF 50-60%. -slightly increased RV size. -no significant valvular pathology. -1+ TR, with continuous wave Doppler jet measuring 2.6 m/sec, gradient 27mm -IVC minimally dilated (2.06), with minimal insp collapse. Estimated RVSP about 40. IMPRESSION: 1. Underlying asthma and diabetes. 2. ARDS due to COVID pneumonia. Start her yesterday on Solu-Medrol 80 mg bid, vitamin-D, and low-dose aspirin. Biomarkers are much worse. 3. Hypoxemic respiratory failure secondary to above. 4. Right heart failure. Check lower extrem DVT study and trop to r/o PE. 5. FERNANDA. Going into full-on ARF. Likely secondary to progressive COVID-19. Poor prognostic sign. Echo shows that she?s full. And no response to 500 cc bolus. 6. Diabetes mellitus. Now on an insulin drip. 7. GI: Guaiac-positive stool resolved. No major bleed. We bumped her omeprazole to 40mg bid. 8. ID: Single blood culture is positive for Staph at > 24hrs. Most likely a contaminant. Nevertheless, we changed her line and celine new blood cultures, which have not grown anything yet. Started her on vanco. Fever is still most likely COVID sepsis. 9. Metabolic: Hypernatremia being treated with D5W. Hyperkalemia being treated with resin binder. 10. Neuro: Her respiratory status precludes full neuro assessment which under other circumstances would include a CT scan. Prognosis is very grim. Will try to set up a family meeting with the surrogate decis maker tomorrow. Critical care time (including extended d/w case management to identify the HCP/surrogate): 75+ min. Critical Care Time (minutes): 75 Physical Exam Vital Signs: Vital Signs: Last Vital Signs Temp 97.5 F 10/29/20 10:00 Pulse 66 10/29/20 10:00 Resp 26 H 10/29/20 10:00 BP 101/45 L 10/29/20 10:00 Pulse Ox 87 L 10/29/20 10:00 Body Mass Index 28.5 Objective Data Labs CBC & Chem 7: 10/29/20 05:40 10/29/20 05:40 Labs: Laboratory Results - last 24 hr 10/28/20 10/28/20 10/28/20 11:23 11:23 12:04 WBC RBC Hgb Hct MCV MCH MCHC RDW Plt Count MPV Immature Gran % (Auto) Neut % (Auto) Lymph % (Auto) [place] % (Auto) Eos % (Auto) Baso % (Auto) Lymph # (Auto) [place] # (Auto) Eos # (Auto) Baso # (Auto) Abs Immat Gran (auto) Absolute Neuts (auto) Absolute Nucleated RBC Nucleated RBC % (auto) Smear Tech's Comments PT INR D-Dimer VBG pH VBG pCO2 VBG pO2 VBG HCO3 VBG O2 Saturation VBG Base Excess Sodium Potassium Chloride Carbon Dioxide Anion Gap BUN Creatinine Estim Creat Clear Calc Estimated GFR POC Glucose 376 H* Random Glucose Lactic Acid Calcium Phosphorus Magnesium Ferritin Total Bilirubin AST ALT Alkaline Phosphatase C-Reactive Protein B-Natriuretic Peptide Total Protein Albumin Procalcitonin Urine Color YELLOW Urine Appearance CLOUDY Urine pH 6.0 Ur Specific [place] 1.015 Urine Protein TRACE Urine Glucose (UA) 100 H Urine Ketones NEG Urine Blood NEG Urine Nitrite NEG Ur Leukocyte Esterase 1+ H Urine RBC 0-2 Urine WBC 1-4 Ur Squamous Epith Cells NONE Urine Bacteria 1+ Urine Yeast 3+ Stool Occult Blood POSITIVE 10/28/20 10/28/20 10/28/20 12:05 15:03 15:04 WBC RBC Hgb Hct MCV MCH MCHC RDW Plt Count MPV Immature Gran % (Auto) Neut % (Auto) Lymph % (Auto) [place] % (Auto) Eos % (Auto) Baso % (Auto) Lymph # (Auto) [place] # (Auto) Eos # (Auto) Baso # (Auto) Abs Immat Gran (auto) Absolute Neuts (auto) Absolute Nucleated RBC Nucleated RBC % (auto) Smear Tech's Comments PT INR D-Dimer VBG pH VBG pCO2 VBG pO2 VBG HCO3 VBG O2 Saturation VBG Base Excess Sodium Potassium Chloride Carbon Dioxide Anion Gap BUN Creatinine Estim Creat Clear Calc Estimated GFR POC Glucose 360 H* 360 H* 381 H* Random Glucose Lactic Acid Calcium Phosphorus Magnesium Ferritin Total Bilirubin AST ALT Alkaline Phosphatase C-Reactive Protein B-Natriuretic Peptide Total Protein Albumin Procalcitonin Urine Color Urine Appearance Urine pH Ur Specific [place] Urine Protein Urine Glucose (UA) Urine Ketones Urine Blood Urine Nitrite Ur Leukocyte Esterase Urine RBC Urine WBC Ur Squamous Epith Cells Urine Bacteria Urine Yeast Stool Occult Blood 10/28/20 10/28/20 10/29/20 18:29 21:23 00:12 WBC RBC Hgb Hct MCV MCH MCHC RDW Plt Count MPV Immature Gran % (Auto) Neut % (Auto) Lymph % (Auto) [place] % (Auto) Eos % (Auto) Baso % (Auto) Lymph # (Auto) [place] # (Auto) Eos # (Auto) Baso # (Auto) Abs Immat Gran (auto) Absolute Neuts (auto) Absolute Nucleated RBC Nucleated RBC % (auto) Smear Tech's Comments PT INR D-Dimer VBG pH VBG pCO2 VBG pO2 VBG HCO3 VBG O2 Saturation VBG Base Excess Sodium Potassium Chloride Carbon Dioxide Anion Gap BUN Creatinine Estim Creat Clear Calc Estimated GFR POC Glucose 258 H 238 H 251 H Random Glucose Lactic Acid Calcium Phosphorus Magnesium Ferritin Total Bilirubin AST ALT Alkaline Phosphatase C-Reactive Protein B-Natriuretic Peptide Total Protein Albumin Procalcitonin Urine Color Urine Appearance Urine pH Ur Specific [place] Urine Protein Urine Glucose (UA) Urine Ketones Urine Blood Urine Nitrite Ur Leukocyte Esterase Urine RBC Urine WBC Ur Squamous Epith Cells Urine Bacteria Urine Yeast Stool Occult Blood 10/29/20 10/29/20 10/29/20 03:54 05:39 05:40 WBC RBC Hgb Hct MCV MCH MCHC RDW Plt Count MPV Immature Gran % (Auto) Neut % (Auto) Lymph % (Auto) [place] % (Auto) Eos % (Auto) Baso % (Auto) Lymph # (Auto) [place] # (Auto) Eos # (Auto) Baso # (Auto) Abs Immat Gran (auto) Absolute Neuts (auto) Absolute Nucleated RBC Nucleated RBC % (auto) Smear Tech's Comments PT INR D-Dimer VBG pH 7.26 L VBG pCO2 66 VBG pO2 54 VBG HCO3 30 H VBG O2 Saturation 83.0 VBG Base Excess 2.3 Sodium Potassium Chloride Carbon Dioxide Anion Gap BUN Creatinine Estim Creat Clear Calc Estimated GFR POC Glucose 189 H Random Glucose Lactic Acid Calcium Phosphorus Magnesium Ferritin Total Bilirubin AST ALT Alkaline Phosphatase C-Reactive Protein B-Natriuretic Peptide 980 H Total Protein Albumin Procalcitonin Urine Color Urine Appearance Urine pH Ur Specific [place] Urine Protein Urine Glucose (UA) Urine Ketones Urine Blood Urine Nitrite Ur Leukocyte Esterase Urine RBC Urine WBC Ur Squamous Epith Cells Urine Bacteria Urine Yeast Stool Occult Blood 10/29/20 10/29/20 10/29/20 05:40 05:40 05:40 WBC 15.6 H RBC 2.79 L Hgb 8.1 L Hct 27.8 L MCV 99.6 H MCH 29.0 MCHC 29.1 L RDW 14.7 Plt Count 96 L MPV 12.1 Immature Gran % (Auto) 2.4 H Neut % (Auto) 90.4 H Lymph % (Auto) 5.5 L [place] % (Auto) 1.5 L Eos % (Auto) 0.1 Baso % (Auto) 0.1 Lymph # (Auto) 0.9 L [place] # (Auto) 0.2 Eos # (Auto) 0.0 Baso # (Auto) 0.0 Abs Immat Gran (auto) 0.38 H Absolute Neuts (auto) 14.1 H Absolute Nucleated RBC 0.070 H Nucleated RBC % (auto) 0.5 H Smear Tech's Comments VERIFIED PT INR D-Dimer VBG pH VBG pCO2 VBG pO2 VBG HCO3 VBG O2 Saturation VBG Base Excess Sodium 145 Potassium 5.3 H Chloride 107 Carbon Dioxide 29 Anion Gap 14 BUN 84 H* Creatinine 1.89 H Estim Creat Clear Calc 25.1 Estimated GFR 26 POC Glucose Random Glucose 207 H D Lactic Acid 1.8 Calcium 7.3 L D Phosphorus 5.6 H Magnesium 3.2 H Ferritin 1238 H Total Bilirubin 1.6 H AST 57 H ALT 28 Alkaline Phosphatase 87 C-Reactive Protein 23.49 H B-Natriuretic Peptide Total Protein 6.1 L Albumin 3.4 L Procalcitonin Urine Color Urine Appearance Urine pH Ur Specific [place] Urine Protein Urine Glucose (UA) Urine Ketones Urine Blood Urine Nitrite Ur Leukocyte Esterase Urine RBC Urine WBC Ur Squamous Epith Cells Urine Bacteria Urine Yeast Stool Occult Blood 10/29/20 10/29/20 10/29/20 05:40 06:00 08:50 WBC RBC Hgb Hct MCV MCH MCHC RDW Plt Count MPV Immature Gran % (Auto) Neut % (Auto) Lymph % (Auto) [place] % (Auto) Eos % (Auto) Baso % (Auto) Lymph # (Auto) [place] # (Auto) Eos # (Auto) Baso # (Auto) Abs Immat Gran (auto) Absolute Neuts (auto) Absolute Nucleated RBC Nucleated RBC % (auto) Smear Tech's Comments PT 15.6 H INR 1.3 H D-Dimer 3261 VBG pH VBG pCO2 VBG pO2 VBG HCO3 VBG O2 Saturation VBG Base Excess Sodium Potassium Chloride Carbon Dioxide Anion Gap BUN Creatinine Estim Creat Clear Calc Estimated GFR POC Glucose 191 H Random Glucose Lactic Acid Calcium Phosphorus Magnesium Ferritin Total Bilirubin AST ALT Alkaline Phosphatase C-Reactive Protein B-Natriuretic Peptide Total Protein Albumin Procalcitonin 12.73 Urine Color Urine Appearance Urine pH Ur Specific [place] Urine Protein Urine Glucose (UA) Urine Ketones Urine Blood Urine Nitrite Ur Leukocyte Esterase Urine RBC Urine WBC Ur Squamous Epith Cells Urine Bacteria Urine Yeast Stool Occult Blood Microbiology Microbiology Results: Microbiology 10/28/20 00:00 Urine [place] Urine Culture - Preliminary Yeast Gram positive cocci 10/27/20 10:28 Blood - Venous Blood Culture - Preliminary Staphylococcus aureus 10/28/20 11:23 Sputum - Induced Gram Stain - Final 10/27/20 10:28 Blood - Venous Blood Culture - Preliminary No growth after 24 hours. 10/16/20 14:09 Blood - Venous Blood Culture - Final No growth after 5 days. 10/16/20 14:06 Blood - Venous Blood Culture - Final No growth after 5 days. Critical Care Time Critical Care Time (minutes): 90
[2020-10-29] MEDS: Enoxaparin Sodium 40 MG/0.4 ML SYRINGE SUBCUT (10:49)
[2020-10-29] MEDS: cefEPime HCl 1 GM in 0.9 % Sodium Chloride 50 ML IV (10:50)
--- NOTE | 2020-10-29 11:05 | MHC.CLN ---
F/U DISCUSSED PT AT [facility] REQUESTING LOW K+ FORMULA RECOMMEND CHANGING TF FORMULA TO NEPRO: NEPRO AT MAX GOAL RATE OF 30CC/HR WITH 300CC FREE WATER FLUSHES Q 6 HRS TO PROVIDE 1296KCALS (1688KCALS WITH SEDATION; 30KCALS/KG BASED ON CMW), 58G PROTEIN (1.0G/KG), 2142CC TOTAL WATER FROM FORMULA AND FLUSHES (38CC/KG) MONITOR TOLERANCE, RESIDUALS AND LYTES FOLLOWING
[2020-10-29 11:51] LABS: Glucose Urine UA NEG (NEG); Leukocyte Esterase Urine 1+ (NEG); Nitrite Urine NEG (NEG); PH 5.5 (5.0-8.0); Specific Gravity - Urine >= 1.030 (1.005-1.025); UACC Culture Trigger YES; Urine Blood NEG (NEG); Urine Ketones NEG (NEG); Urine Protein 2+ MG/DL (NEG-TRACE)
[2020-10-29 11:56] LABS: Appearance Urine CLOUDY; Color Urine YELLOW
[2020-10-29 12:15] LABS: Bacteria Urine 2+ /LPF; RBC Urine 0-2 /HPF (0); Squamous Epithelial Cell Urine TRACE /LPF
[2020-10-29 13:20] LABS: Glucose, Whole Blood 154 mg/dL (60-115)
[2020-10-29 14:58] LABS: Glucose, Whole Blood 174 mg/dL (60-115)
--- NOTE | 2020-10-29 15:56 | MHC.CM.PN ---
there is no HCP for patient, hence an effort to establish a surrogate decision maker is being made. pt's anju , karly, has been the unofficial service advocate contact for the family and reports being the closest to the patient. in a conversation to she told me she would be comfortable being the surrogate decision maker. i explained to her that the patient's children would have to support her being in this role and that i would being getting confirmation from them by phone. the children c phone number and results from today's contact are as follows: Clarisa (daughter) lives in [place] ph: [phone]. she requested karly to be decision maker; Lisa (daughter) lives in [place] ph: [phone]. she also requested karly to be decision maker; nicholas (son) lives in [place] ph: [phone]. message left ...waiting for return call. ; girish (son) lives in [place] ph: [phone]. spoke c his , left message...waiting for return call. pt also has two sons that live at the same address as patient in [place], neither of them has a cell phone and weren't home. karly is going to explain the decision maker situation to them and get back to [facility] cm office tomorrow. lastly , a second anju who lives c patient, [place] ph: [phone]. is supportive of karly being the decision maker. at this time 3 of the 7 people above have agreed to make karly the decision maker. cm to follow up c remainders as soon as we hear from them or follow up chrissie karly as she has been most helpful in this effort. cm to cont. to follow.
[2020-10-29] MEDS: fentaNYL citrate/NS 1,000 MCG/100 ML PLAST..BAG 10 MCG IVCONT (17:50)
--- NOTE | 2020-10-29 18:10 | HO.WOUNDCONS ---
History of Present Illness Data of Consult Service Date: 10/29/20 Requesting physician: Reagan Shahid Primary Care Provider: Yo Hsu MD [facility] Reason for consult: perirectal wounds Briefly, this is a 70-year-old female who presented to the emergency department after being diagnosed with COVID and having respiratory difficulties. She was admitted with fever and placed on deck a drawn. She has a comorbid history of asthma. Her condition worsened to a are DS and she was intubated. She received cefepime empirically. While in the intensive care unit she in toward prone position for better oxygenation as part of treatment for COVID. She has since been supine since this event with frequent position all changes. She has a rectal tube for stool incontinence. Review of Systems Review of Systems: Yes unobtainable due to endotracheal tube PMFSH Medical History (Updated 10/29/20 @ 18:15 by INOCENCIO Gupta) Asthma Chronic pain Depression Diabetes Hepatic steatosis Osteoporosis Family history: reviewed and not pertinent Social History Household Members: Children Housing: House Do you presently have visiting nurse or other home services: No Alcohol intake: never Patient Tobacco Use Status: Never used Tobacco Use of substances other than those prescribed or required for medical reasons: No Currently Displaying Signs/Symptoms of Drug Intoxication Withdrawal: No Have you been hit, kicked, punched, or otherwise hurt by someone within the past year? If so, by whom?: No Do you feel safe in your current relationship?: No Is there a partner from a previous relationship who is making you feel unsafe now?: No Are you made to feel afraid or neglected: No Spiritual Healthcare Practices: n/a Restoration Healthcare Practices: n/a Cultural Healthcare Practices: n/a Advance Directives: Yes Advance Directives Information Provided: Yes Advance Directives on File: No Advance Directives Date on File: 10/17/20 Do you have thoughts of harming others: None Do you have a plan to hurt others: No Plan Recently lost weight without trying: No Nutrition Risks: No Nutritional Risk Patient : No : No Poor oral hygiene: No service: No Current occupational status: retired Meds Allergies Allergy/AdvReac Type Severity Reaction Status Date / Time lactose [Lactose] Allergy Mild DIARRHEA Verified 10/13/20 14:24 Active Medications: Current Medications Generic Name Dose Route Start Last Admin Trade Name Fareedq PRN Reason Stop Dose Admin Acetaminophen 650 mg 10/17/20 11:27 10/26/20 18:32 Acetaminophen 325 Mg Tablet PO 650 mg Q4H PRN Administration Fever Aspirin 81 mg 10/28/20 12:30 10/29/20 08:54 Aspirin 81 Mg Tab.Chew OG-TUBE 81 mg DAILY SHRUTHI Administration Chlorhexidine Gluconate 15 ml 10/18/20 15:15 10/29/20 14:29 Chlorhexidine Gluc Oral Rinse 15 Ml Mouthwash BUCCAL 15 ml TID SHRUTHI Administration Enoxaparin Sodium 40 mg 10/22/20 11:45 10/29/20 10:49 Enoxaparin Sodium 40 Mg/0.4 Ml Syringe SUBCUT 40 mg Q24H SHRUTHI Administration Hydromorphone HCl 2 mg 10/28/20 13:54 10/29/20 05:59 Hydromorphone Hcl 2 Mg/Ml Vial IVPUSH 2 mg Q1H PRN Administration WOB Propofol 1,000 mg in 100 mls @ 0 mls/hr 10/18/20 15:15 10/29/20 11:20 Diprivan IVCONT 0 mcg/kg/min .Q0M SHRUTHI 0 mls/hr Titration Protocol Per Protocol Fentanyl 1,000 mcg in 100 mls @ 0 mls/hr 10/26/20 09:15 10/29/20 17:50 Sublimaze/Ns IVCONT 100 mcg/hr .Q0M SHRUTHI 10 mls/hr Administration Protocol Per Protocol Cefepime HCl 1 gm/ Sodium 50 mls @ 100 mls/hr 10/27/20 11:00 10/29/20 14:22 Chloride IV Infused Q24H SHRUTHI Infusion Insulin Human Regular 100 unit in 100 mls @ 5 mls/hr 10/28/20 14:00 10/29/20 11:00 Myxredlin IVCONT 4 unit/hr .Q20H SHRUTHI 4 mls/hr Infusion 5 UNIT/HR Norepinephrine Bitartrate 8 mg in 250 mls @ 0 mls/hr 10/29/20 02:45 10/29/20 17:50 Levophed IVCONT 0.1 mcg/kg/min .Q0M SHRUTHI 13.27 mls/hr Administration Protocol Per Protocol Esmolol HCl 2,500 mg in 250 mls @ 0 mls/hr 10/29/20 09:15 Brevibloc/Nacl IVCONT .Q0M SHRUTHI Protocol Per Protocol Vancomycin HCl 750 mg/ Sodium 265 mls @ 265 mls/hr 10/31/20 11:00 Chloride IV Q48H SHRUTHI Methylprednisolone Sodium Succinate 80 mg 10/28/20 13:00 10/29/20 14:28 Methylprednisolone Sod Succ 125 Mg/2 Ml Vial IVPUSH 80 mg Q12H SHRUTHI Administration Omeprazole 40 mg 10/28/20 21:00 10/29/20 08:54 Omeprazole 20 Mg/10 Ml Susp.Recon PO 40 mg BID SHRUTHI Administration Pharmacy Consult 1 each 10/28/20 18:52 Consult Rx Vancomycin Dosing MISCELLANE DAILY PRN Consult order Sodium Chloride 3 ml 10/17/20 00:00 10/29/20 14:28 0.9 % Sodium Chloride Flush 3 Ml Syringe IVFLUSH 3 ml QSHIFT SHRUTHI Administration Sodium Zirconium Cyclosilicate 10 gm 10/28/20 10:00 10/29/20 14:28 Sodium Zirconium Cyclosilicate 10 Gm Powd.Pack PO 10/29/20 21:01 10 gm TID SHRUTHI Administration Sodium Zirconium Cyclosilicate 10 gm 10/30/20 09:00 Sodium Zirconium Cyclosilicate 10 Gm Powd.Pack PO 10/31/20 21:01 TID SHRUTHI Vitamin D 50 mcg 10/28/20 12:30 10/29/20 08:54 Cholecalciferol (Vitamin D3) 25 Mcg Tablet OG-TUBE 50 mcg DAILY SHRUTHI Administration Home Medications Medication Instructions Recorded Confirmed Last Taken Type citalopram 1 tab PO DAILY 10/13/20 10/16/20 Unknown History mirtazapine 1 tab PO BEDTIME 10/13/20 10/16/20 Unknown History quetiapine 1 tab PO BEDTIME 10/13/20 10/16/20 Unknown History quetiapine 1 tab PO BEDTIME 10/13/20 10/16/20 Unknown History Physical Exam Vital Signs and Narrative: Vital Signs: Last Vital Signs Temp 98.1 F 10/29/20 17:51 Pulse 72 10/29/20 17:51 Resp 25 H 10/29/20 17:51 BP 123/47 L 10/29/20 17:51 Pulse Ox 89 L 10/29/20 17:51 Body Mass Index 28.5 Mild edema of the extremities is observed. Close examination of the sacral coccygeal junction shows intact skin. Copious zinc oxide is applied here appropriately. It looks as if some type of antifungal powder is helping the zinc oxide adhere to the intact skin. Full blanching is appreciated in this area. When compared to photographs in the chart where a former foot like opening was seen, this is actually improved, much smaller and nearly healed. Argue bleeds fully epithelialized. With further palpation of the buttocks impaired blanching and discoloration associated with DTI not observed. Rather, we see perirectal maceration and epitelial denuded, in some places into the dermis. This area does not appear to be infected. In fact copious zinc oxide is adherent in these areas is well protecting from maceration. Results Labs CBC and Chem 7: 10/29/20 05:40 10/29/20 05:40 Labs: Laboratory Results - last 24 hr 10/28/20 10/28/20 10/28/20 12:05 15:04 18:29 MCV MCH MCHC RDW Plt Count MPV Immature Gran % (Auto) Neut % (Auto) Lymph % (Auto) [place] % (Auto) Eos % (Auto) Baso % (Auto) Lymph # (Auto) [place] # (Auto) Eos # (Auto) Baso # (Auto) Abs Immat Gran (auto) Absolute Neuts (auto) Absolute Nucleated RBC Nucleated RBC % (auto) Smear Tech's Comments PT INR D-Dimer VBG pH VBG pCO2 VBG pO2 VBG HCO3 VBG O2 Saturation VBG Base Excess Anion Gap Estim Creat Clear Calc Estimated GFR POC Glucose 360 H* 381 H* 258 H Random Glucose Lactic Acid Calcium Phosphorus Magnesium Ferritin Total Bilirubin AST ALT Alkaline Phosphatase C-Reactive Protein B-Natriuretic Peptide Total Protein Albumin Procalcitonin Urine Color Urine Appearance Urine pH Ur Specific [place] Urine Protein Urine Glucose (UA) Urine Ketones Urine Blood Urine Nitrite Ur Leukocyte Esterase Urine RBC Urine WBC Ur Squamous Epith Cells Urine Bacteria Urine Yeast 10/28/20 10/29/20 10/29/20 21:23 00:12 03:54 MCV MCH MCHC RDW Plt Count MPV Immature Gran % (Auto) Neut % (Auto) Lymph % (Auto) [place] % (Auto) Eos % (Auto) Baso % (Auto) Lymph # (Auto) [place] # (Auto) Eos # (Auto) Baso # (Auto) Abs Immat Gran (auto) Absolute Neuts (auto) Absolute Nucleated RBC Nucleated RBC % (auto) Smear Tech's Comments PT INR D-Dimer VBG pH VBG pCO2 VBG pO2 VBG HCO3 VBG O2 Saturation VBG Base Excess Anion Gap Estim Creat Clear Calc Estimated GFR POC Glucose 238 H 251 H 189 H Random Glucose Lactic Acid Calcium Phosphorus Magnesium Ferritin Total Bilirubin AST ALT Alkaline Phosphatase C-Reactive Protein B-Natriuretic Peptide Total Protein Albumin Procalcitonin Urine Color Urine Appearance Urine pH Ur Specific [place] Urine Protein Urine Glucose (UA) Urine Ketones Urine Blood Urine Nitrite Ur Leukocyte Esterase Urine RBC Urine WBC Ur Squamous Epith Cells Urine Bacteria Urine Yeast 10/29/20 10/29/20 10/29/20 05:39 05:40 05:40 MCV 99.6 H MCH 29.0 MCHC 29.1 L RDW 14.7 Plt Count 96 L MPV 12.1 Immature Gran % (Auto) 2.4 H Neut % (Auto) 90.4 H Lymph % (Auto) 5.5 L [place] % (Auto) 1.5 L Eos % (Auto) 0.1 Baso % (Auto) 0.1 Lymph # (Auto) 0.9 L [place] # (Auto) 0.2 Eos # (Auto) 0.0 Baso # (Auto) 0.0 Abs Immat Gran (auto) 0.38 H Absolute Neuts (auto) 14.1 H Absolute Nucleated RBC 0.070 H Nucleated RBC % (auto) 0.5 H Smear Tech's Comments VERIFIED PT INR D-Dimer VBG pH 7.26 L VBG pCO2 66 VBG pO2 54 VBG HCO3 30 H VBG O2 Saturation 83.0 VBG Base Excess 2.3 Anion Gap Estim Creat Clear Calc Estimated GFR POC Glucose Random Glucose Lactic Acid Calcium Phosphorus Magnesium Ferritin Total Bilirubin AST ALT Alkaline Phosphatase C-Reactive Protein B-Natriuretic Peptide 980 H Total Protein Albumin Procalcitonin Urine Color Urine Appearance Urine pH Ur Specific [place] Urine Protein Urine Glucose (UA) Urine Ketones Urine Blood Urine Nitrite Ur Leukocyte Esterase Urine RBC Urine WBC Ur Squamous Epith Cells Urine Bacteria Urine Yeast 10/29/20 10/29/20 10/29/20 05:40 05:40 05:40 MCV MCH MCHC RDW Plt Count MPV Immature Gran % (Auto) Neut % (Auto) Lymph % (Auto) [place] % (Auto) Eos % (Auto) Baso % (Auto) Lymph # (Auto) [place] # (Auto) Eos # (Auto) Baso # (Auto) Abs Immat Gran (auto) Absolute Neuts (auto) Absolute Nucleated RBC Nucleated RBC % (auto) Smear Tech's Comments PT INR D-Dimer VBG pH VBG pCO2 VBG pO2 VBG HCO3 VBG O2 Saturation VBG Base Excess Anion Gap 14 Estim Creat Clear Calc 25.1 Estimated GFR 26 POC Glucose Random Glucose 207 H D Lactic Acid 1.8 Calcium 7.3 L D Phosphorus 5.6 H Magnesium 3.2 H Ferritin 1238 H Total Bilirubin 1.6 H AST 57 H ALT 28 Alkaline Phosphatase 87 C-Reactive Protein 23.49 H B-Natriuretic Peptide Total Protein 6.1 L Albumin 3.4 L Procalcitonin 12.73 Urine Color Urine Appearance Urine pH Ur Specific [place] Urine Protein Urine Glucose (UA) Urine Ketones Urine Blood Urine Nitrite Ur Leukocyte Esterase Urine RBC Urine WBC Ur Squamous Epith Cells Urine Bacteria Urine Yeast 10/29/20 10/29/20 10/29/20 06:00 08:50 11:07 MCV MCH MCHC RDW Plt Count MPV Immature Gran % (Auto) Neut % (Auto) Lymph % (Auto) [place] % (Auto) Eos % (Auto) Baso % (Auto) Lymph # (Auto) [place] # (Auto) Eos # (Auto) Baso # (Auto) Abs Immat Gran (auto) Absolute Neuts (auto) Absolute Nucleated RBC Nucleated RBC % (auto) Smear Tech's Comments PT 15.6 H INR 1.3 H D-Dimer 3261 VBG pH VBG pCO2 VBG pO2 VBG HCO3 VBG O2 Saturation VBG Base Excess Anion Gap Estim Creat Clear Calc Estimated GFR POC Glucose 191 H Random Glucose Lactic Acid Calcium Phosphorus Magnesium Ferritin Total Bilirubin AST ALT Alkaline Phosphatase C-Reactive Protein B-Natriuretic Peptide Total Protein Albumin Procalcitonin Urine Color YELLOW Urine Appearance CLOUDY Urine pH 5.5 Ur Specific [place] >= 1.030 H Urine Protein 2+ H Urine Glucose (UA) NEG Urine Ketones NEG Urine Blood NEG Urine Nitrite NEG Ur Leukocyte Esterase 1+ H Urine RBC 0-2 Urine WBC 1-4 Ur Squamous Epith Cells TRACE Urine Bacteria 2+ Urine Yeast 3+ 10/29/20 10/29/20 13:16 14:47 MCV MCH MCHC RDW Plt Count MPV Immature Gran % (Auto) Neut % (Auto) Lymph % (Auto) [place] % (Auto) Eos % (Auto) Baso % (Auto) Lymph # (Auto) [place] # (Auto) Eos # (Auto) Baso # (Auto) Abs Immat Gran (auto) Absolute Neuts (auto) Absolute Nucleated RBC Nucleated RBC % (auto) Smear Tech's Comments PT INR D-Dimer VBG pH VBG pCO2 VBG pO2 VBG HCO3 VBG O2 Saturation VBG Base Excess Anion Gap Estim Creat Clear Calc Estimated GFR POC Glucose 154 H 174 H Random Glucose Lactic Acid Calcium Phosphorus Magnesium Ferritin Total Bilirubin AST ALT Alkaline Phosphatase C-Reactive Protein B-Natriuretic Peptide Total Protein Albumin Procalcitonin Urine Color Urine Appearance Urine pH Ur Specific [place] Urine Protein Urine Glucose (UA) Urine Ketones Urine Blood Urine Nitrite Ur Leukocyte Esterase Urine RBC Urine WBC Ur Squamous Epith Cells Urine Bacteria Urine Yeast Imaging Radiologist's Impressions: Impressions Chest X-Ray 10/28/20 20:39 IMPRESSION: New left jugular line projects over cavoatrial junction/right atrium. Other support line and tubes are stable. No change in diffuse bilateral airspace disease. Assessment and Plan (1) Unspecified skin changes: Start date: 10/29/20 Status: Acute Perirectal wounds appear to be associated with leakage from the rectal tube and are managed appropriately with zinc oxide and caking agent (antifungal powder). On this examination I am not seeing evidence of deep soft tissue injury, though continued positional changes are recommended to reduce risk. Typical epithelial necrosis associated with COVID is also not appreciated here though it could be present in the macerated perirectal tissue. This is unlikely. Upon weighing continued placement versus removal of the rectal tube, I would be inclined to keep the tube in place because the maceration caused by wet incontinent stool upon the dermis will cause more difficulty in wound management, compared to this small area of denuded skin localized to the perirectal region with mild inflammation. Additionally, the tube now in place as well as associated nearby skin is managed appropriately with zinc oxide and antifungal powder. No further recommendations are offered. Thank you for the courtesy of this consultation.
[2020-10-29 19:00] LABS: Glucose, Whole Blood 161 mg/dL (60-115)
[2020-10-29 19:40] LABS: Troponin-I High Sensitivity 86.3 ng/L (<3.5-17.0)
--- NOTE | 2020-10-29 20:02 | PC.NURSE ---
Assumed care at 07:00. Patient was in a rapid a-fib right at shift change, and this broke into sinus rhythm, but returned at just before 9 am, with rates in 180's-190's, MD notifed and second dose of 5 mg IV lopressor was administered as well as esmolol gtt was started at 25 mcg/kg/min with good effect, and patient retured to sinus rhythm and stayed in sinus all day from 09:14 onwards with rate 60's-80's. Patient had SpO2 of 84% at start of shift, goal is 85% and higher; MD notified and some changes were made to ventilator settings (see below) which also were meant to attend to VBG pH of 7.25 as well as question of unresponsive neurological findings. Patient was initially unresponsive and was not overbreathing ventilator, which was seen as a change, as patient was overbreathing ventilator yesterday. Patient Propofol was turned off at 11:20 am and it has been off since then, patient did start overbreathing the ventilator again soon afterwards with RR of 26-30. Patient pupils were initially unreactive to light, at 2 mm, and they are now reactive to light at 3 mm. Patient seen to open eyes spontaneously in afternoon and evening, and she appeared to close eye in response to light. Patient initially had no gag and a weak cough and she now has a weak gag and a weak cough. Patient still does not track, does not move any extremities. Patient has #7.5 ETT, which was advanced from 21cm to 23 cm kandice per MD by RT; PC settings rate increased from 20 to 26; inspiratory pressure increased from 18 to 22; peep is 12; fio2 is 100%; Te 8 this morning and 11 in evening; goal tidal volume 360-380's; SpO2 was 84% this morning, was 89-91% rest of day; EtCo2 was 53 this morning, MD aware, and evening ETCO2 was 29; patient stacking breaths occasionally; Propofol is off but ok to restart per MD if nursing sees necessary. Patient urine outputs are especially low; total of less than 100 ccs this shift; and 500 cc bolus 1/2 normal saline with 40 ccs urine afterwards, average around 10 cc/hour, mauricio was flushed with 10 ccs h2o to verify patency. US bilat lower extremities this evening with no clots and with pulsatile veins bilaterally; troponins checked this evening. K is high 5.3, Ca is low 7.3 MD aware; BUN 84, Cre 1.89, MD aware; Patient is now afebrile and was off cooling blanket all day. Tolerated repositioning well.
[2020-10-29 23:28] LABS: Troponin-I High Sensitivity 89.6 ng/L (<3.5-17.0)
[2020-10-30] VITALS (35 sets, daily range): BP systolic 103–148; BP diastolic 45–69; PULSE 71–180; RESP 20–42; TEMP 3.4–38.2; O2SAT 82–95
[2020-10-30] MEDS: propofoL 1,000 MG/100 ML VIAL 8.49 MG IVCONT ×3 (00:52→18:01)
[2020-10-30] MEDS: 0.9 % Sodium Chloride Flush 3 ML SYRINGE IVFLUSH ×2 (00:53→15:56)
[2020-10-30] MEDS: methylPREDNISolone Sod Succ 125 MG/2 ML VIAL 80 MG IVPUSH ×2 (00:54→12:40)
[2020-10-30] MEDS: Rocuronium Bromide 50 MG/5 ML VIAL 30 MG IVPUSH (02:00)
[2020-10-30] MEDS: Insulin Regular/NS 100 UNIT/100 ML PLAST..BAG 6 UNIT IVCONT (04:05)
[2020-10-30] MEDS: Esmolol HCl/NaCl Iso 2,500 MG/250 ML IV.SOLN 8.49 MG IVCONT (04:05)
[2020-10-30] MEDS: fentaNYL citrate/NS 1,000 MCG/100 ML PLAST..BAG 10 MCG IVCONT (04:05)
[2020-10-30 05:38] LABS: Glucose, Whole Blood 190 mg/dL (60-115)
[2020-10-30 05:40] LABS: VBG Base Excess -4.2 mmol/L; VBG HCO3 23 mmol/L (22-26); VBG pCO2 54 mmHg; VBG pH 7.23 (7.32-7.43); VBG pO2 35 mmHg
[2020-10-30 05:59] LABS: Hematocrit 29.7 % (37-47); Hemoglobin 8.9 g/dl (12.0-16.0); Mean Corpuscular Hemoglobin 29.1 pg (27.0-33.0); Mean Corpuscular Volume 97.1 fL (80-98); Platelet Count 139 X10*3/uL (160-400); Red Blood Count 3.06 X10*6/uL (4.20-5.50); Red Cell Distribution Width 15.1 % (11.0-16.0); White Blood Count 25.7 X10*3/uL (4.8-10.8)
[2020-10-30 06:05] LABS: Glucose, Whole Blood 193 mg/dL (60-115)
[2020-10-30 06:05] LABS: D Dimer 3849 NG/ML
[2020-10-30 06:20] LABS: Vancomycin Random 20.3 mcg/mL (15-20)
[2020-10-30 06:26] LABS: NRBC Pct Auto 1.1 /100WBC (0.0-0.2)
[2020-10-30 06:31] LABS: Alanine Aminotransferase 37 U/L (0-31); Albumin Level 3.3 g/dL (3.5-5.0); Alkaline Phosphatase 118 U/L (39-117); Anion Gap 20 (12-20); Aspartate Amino Transferase 69 U/L (5-31); B Type Natriuretic Peptide 1364 pg/mL (<100); Blood Urea Nitrogen 111 mg/dL (9-16); C Reactive Protein 17.61 mg/dL (< or = 0.50); Carbon Dioxide 23 mmol/L (22-29); Chloride 102 mmol/L (96-108); Creatinine Clr Calc Pharmacy 17.6; Estimated Glomerular Filt Rate 17; Glucose Random 196 mg/dL (60-115); Potassium 4.5 mmol/L (3.3-5.1); Sodium 140 mmol/L (135-145); Total Protein 6.2 g/dL (6.5-8.0); Troponin-I High Sensitivity 80.2 ng/L (<3.5-17.0)
--- NOTE | 2020-10-30 07:24 | PC.NURSE ---
Assumed care of pt at 1900.? Pt on pressure control vent settings.? Was not on propofol drip at 1900 but was on fentanyl at?100 mcg/hr.? She would open eyes but no tracking noted.? Pupils 3mm and reactive to light.? Resp rate had been around 30/min but then went up to 35-40/min.? Propofol drip was restarted at 20 mcg/kg/min and titrated up to 30 mcg.? This had very little effect on tachypnea and thus pt received rocuronium 30 mg iv.? Resp rate down to 28.? O2 sat 87%.? Kevin Skaggs aware of O2 sat.??Dr Shahid had been notified of lower extremity ultrasound results which was negative for clot. Also notified of Trop 86.3. monitor shows nsr, rate 60's and on esmolol drip which was decreased to 20 mcg (from 25 mcg).? Heart rate is now 70's-80's.? Bp stable on levophed0.1 mcg.
[2020-10-30 07:58] LABS: Band Neutrophils Percent 16 % (3-5); Lymphocytes Absolute Manual 0.5 X10*3/uL (0.6-4.8); Lymphocytes Percent Manual 2 % (20-40); Monocytes Absolute Manual 0.3 X10*3/uL (0.0-1.2); Monocytes Percent Manual 1 % (2-11); Neutrophils Absolute Manual 24.9 X10*3/uL (2.2-7.9); Neutrophils Percent Manual 81 % (45-73); Nucleated Red Blood Cells 2 /100WBC (0-0); RBC Morphology NOTED
[2020-10-30 07:59] LABS: Acanthocytes 1+ (0-2) /OIF; Large Platelet PRESENT; Macrocytosis 1+ (5-14) /OIF; Toxic Vacuolation PRESENT
[2020-10-30 08:00] LABS: Platelet Estimate SLIGHTLY DECREASED (NORMAL); Platelet Morphology Comment NOTE
[2020-10-30 08:26] LABS: Ferritin 1451 ng/mL (10-250)
[2020-10-30] MEDS: Cholecalciferol (Vitamin D3) 25 MCG TABLET 50 MCG OG-TUBE (08:54)
[2020-10-30] MEDS: Chlorhexidine Gluc Oral Rinse 15 ML MOUTHWASH BUCCAL ×3 (08:54→21:32)
[2020-10-30] MEDS: Aspirin 81 MG TAB.CHEW OG-TUBE (08:55)
[2020-10-30] MEDS: Sodium Zirconium Cyclosilicate 10 GM POWD.PACK PO ×3 (08:55→21:32)
[2020-10-30 09:55] LABS: Glucose, Whole Blood 186 mg/dL (60-115)
--- NOTE | 2020-10-30 10:25 | MHC.CLN ---
F/U DISCUSSED PT WITH MD AT ROUNDS PT TOLERATING TF: NEPRO AT MAX GOAL RATE OF 30CC/HR WITH 300CC FREE WATER FLUSHES Q 6 HRS TO PROVIDE 1296KCALS (1688KCALS WITH SEDATION; 30KCALS/KG BASED ON CMW), 58G PROTEIN (1.0G/KG), 2142CC TOTAL WATER FROM FORMULA AND FLUSHES (38CC/KG) RECOMMEND REDUCING FREE WATER FLUSHES TO 240CC Q SHIFT TO PROVIDE 1662CC TOTAL WATER FROM FORMULA AND FLUSHES (29CC/KG) MONITOR TOLERANCE, RESIDUALS AND LYTES (SERUM NA CURRENTLY WNL) FOLLOWING
--- NOTE | 2020-10-30 11:01 | MHC.CM.PN ---
Patient remains intubated/vented in ICU. Patient was admitted on 10/16. Patient is Covid positive. Per Dr Shahid, patient's kidney functioning is worsening. [place] [facility] [place] [facility], [facility] or with [facility] Per Rafael, case specialist, [facility] has also been involved in who should be the appointed sole decision maker. Rafael has spoke with 5 out of the 7 children. The son in [place] and the son in [place] have not returned his telephone calls. However, the other 5 children are agreeable to Alexandra being the primary decision maker. Dr Shahid aware. Continue to monitor for d/c needs.
--- NOTE | 2020-10-30 11:35 | PM.CCPN ---
Subjective Subjective Date of Service: 10/30/20 Interval History: Mrs. Streeter was admitted to the ICU on October 18 because of acute respiratory failure secondary to COVID pneumonia. The patient is a 70-year-old woman with a past medical history of asthma and diabetes. She received her 1st dose of the COVID vaccine October 05. She was seen in the ED on October 13 complaining of fever and URI symptoms with cough x3 days. Sat was 95% on room air. She tested positive for COVID. CXR was normal. She was given IV dexamethasone and was given a prescription for 6 mg Decadron daily x7 days and discharged home. She presented to the ED again on October 16 because of shortness of breath and altered mental status. EMS found her with a sat in the 80s on room air at home. In the ED she was put on a non-rebreather with a sat in the 90s. CXR showed bilat patchy infiltrates c/w COVID. CTA showed no pulmon emboli, but the lung parenchyma was consistent with moderate COVID. BUN/creat were 19/0.8. DDimer was 1877. She was admitted to Medicine and treated with Decadron. Her oxygenation deteriorated and she was tx to ICU and intubated on October 18. CXR was worse. She required proning to achieve adequate oxygenation. After 36 hrs, she returned supine with Sat high 90?s on 60% FiO2. But since then, her FiO2 requirement has progressively increased and she?s had ventilatory dyssynchrony requiring prn NMB and 100% FiO2. She was trialed on Lasix 10/21-10/25, but her renal indices and renal ratio have risen progressively. She?s been febrile almost continuously since 10/24. On October 25 she was started on ceftriaxone, which was changed it to cefepime on October 27. She finished her 10 day course of dexamethasone on October 27. One out of two blood cultures drawn on October 27 was reported positive for MRSA at 32 hours. A new CVL was placed the evening of October 28, the old line was removed, new BC?s were drawn, and the patient was started on Vancomycin. Yesterday morning and the night before, she had episodes of PAfib which responded to bolus metoprolol, so we started her on esmolol. She?s currently well sedated on propofol 20ug, w fentanyl 125ug. She?s unresponsive. We had the propofol off for about 10 hours yesterday and her best neuro response was spontaneous eye opening and grimace to suctioning. We?ve seen no movement of any of her extremities. She?s been afebrile since we started the Vanco on October 28. HR is 90, SR. BP is 103/48 on Levophed 0.1ug and esmolol 50ug. Last night she required a dose of Zemuron for ventilator dysynchrony. She?s required 100% FiO2 for the last 48 hours. Currently on the vent set at PCV 22/12, f26, 100%, RR is 27, Vt is 480cc, Ve 13L, PIP 36, ETCO2 27, Sat 90%. Central venous blood gas this morning showed 7.23/54/-4. No JVD at 30?. Normal expiratory phase. She has 1-2+ pitting edema. LABORATORY DATA: As below. Notably, WBC is up to 25. Sodium is down to 140. potassium down to 4.5 on the resin binder, bicarb 23, BUN and creatinine up to 111/2.7 (from 84/1.8 yest), POCs < 200 on the insulin drip, phosphorus up to 8.0, t. bili up to 2.0. Troponin steady in the 80 range. D-dimer up to 3800, ferritin up to 1451, CRP down to 17. BNP up further to 1364. Urine output averaging about 15 cc/hr. MICROBIOLOGY: Blood cultures from October 28 now also growing out Staph in ? bottles. Urinalysis shows 1-4 WBCs. Sputum Gram stain shows no polys, growing out Staph. IMAGING: Duplex scan of LEs last night was negative for DVT. ECHOCARDIOGRAM done yesterday, interpretation by me. Findings: -top-normal LV wall thickness. Normal LV cavity size and function, EF 50-60%. -slightly increased RV size. -no significant valvular pathology. -1+ TR, with continuous wave Doppler jet measuring 2.6 m/sec, gradient 27mm -IVC minimally dilated (2.06cm), with minimal insp collapse. Estimated RVSP about 40. IMPRESSION: 1. Underlying asthma and diabetes. 2. ARDS due to COVID pneumonia. Original symptom onset day approx. October 10. Biomarkers are much worse compared to admission. Started her October 28 on Solu-Medrol 80 mg bid, vitamin-D, and low-dose aspirin. 3. Hypoxemic respiratory failure secondary to above. 4. Right heart failure. ? r/o PE. Lower extrems negative for DVT. BNP is elevated, c/w RHF. Troponin is unimpressive. For now, we?ll consider PE to have soft ruled out, and I don?t think the indications are adequate to start full anticoagulation. (Not stable enough to go anywhere for CTPA or V/Q scan.) 5. FERNANDA. Going into full-on ARF. Likely secondary to progressive COVID-19. Poor prognostic sign. Echo shows that she?s full. And she had no u/o or BP response to 500 cc fluid bolus. 6. Diabetes mellitus. Now on an insulin drip. 7. GI: Guaiac-positive stool resolved. No major bleed. We bumped her omeprazole to 40mg bid. Most likely was 2? stress gastritis. 8. ID: Now with two positive single blood cultures, the first of which is growing MRSA. At this point, can?t consider it a contaminant. It?s also quite remarkable that her fever resolved almost immediately with the first vanco dose. So we?ll continue the vanco and d/c the cefepime. For now, I?ll ascribe the WBC bump to the steroids that started 36 hrs ago. 9. Metabolic: Hypernatremia treated with D5W, now normalized. D/C D5W and free water flushes. Hyperkalemia being treated with resin binder. 10. Neuro: Her respiratory status precludes CT scan for full neuro assessment. 11. Nutrition: On full dose Nepro. Prognosis is very grim. I?ve set up a family meeting with the surrogate decis maker for 4pm today. ADDENDUM: I met with the surrogate decision maker Alexandra [phone]), along with other members of the family (6 total) in conference, and we had a long discussion. I reviewed the history of the Coronavirus around the world, and the fact that most people who required ventilation did not survive. I made it very clear that Mrs. Streeter?s course has been relentlessly down [place]onogo and she was was unlikely to survive (to the point that a family member asked me to stop saying that). They responded that they wanted us to continue doing whatever is necessary. They did not want to withdraw critical care support. I made arrangements for a family member to visit in the room. From now on, Alexandra will be the surrogate decision maker, per the request of five members of the family that were able to be contacted. There is no, and there will be no ?official? HCP (since the patient is unable to give that information). Critical care time (include mult d/w case management re HCP/surrogate): 100+ min. Critical Care Time (minutes): 100 Physical Exam Vital Signs: Vital Signs: Last Vital Signs Temp 98.1 F 10/30/20 11:00 Pulse 71 10/30/20 11:00 Resp 26 H 10/30/20 11:00 BP 105/49 L 10/30/20 11:00 Pulse Ox 90 L 10/30/20 11:00 Body Mass Index 28.5 Objective Data Labs CBC & Chem 7: 10/31/20 05:22 10/31/20 05:22 Labs: Laboratory Results - last 24 hr 10/29/20 10/29/20 10/29/20 11:07 13:16 14:47 WBC RBC Hgb Hct MCV MCH MCHC RDW Plt Count MPV Immature Gran % (Auto) Neut % (Auto) Lymph % (Auto) [place] % (Auto) Eos % (Auto) Baso % (Auto) Lymph # (Auto) [place] # (Auto) Eos # (Auto) Baso # (Auto) Abs Immat Gran (auto) Absolute Neuts (auto) Absolute Nucleated RBC Nucleated RBC % (auto) Neutrophils % (Manual) Band Neutrophils % Lymphocytes % (Manual) Monocytes % (Manual) Abs Neuts (Manual) Lymphocytes # (Manual) Monocytes # (Manual) Nucleated RBCs Toxic Vacuolation Platelet Estimate Large Platelets Plt Morphology Comment RBC Morphology Macrocytosis Acanthocytes (Spur) Smear Path Review D-Dimer VBG pH VBG pCO2 VBG pO2 VBG HCO3 VBG O2 Saturation VBG Base Excess Sodium Potassium Chloride Carbon Dioxide Anion Gap BUN Creatinine Estim Creat Clear Calc Estimated GFR POC Glucose 154 H 174 H Random Glucose Calcium Phosphorus Ferritin Total Bilirubin AST ALT Alkaline Phosphatase Troponin I High Sens C-Reactive Protein B-Natriuretic Peptide Total Protein Albumin Urine Color YELLOW Urine Appearance CLOUDY Urine pH 5.5 Ur Specific [place] >= 1.030 H Urine Protein 2+ H Urine Glucose (UA) NEG Urine Ketones NEG Urine Blood NEG Urine Nitrite NEG Ur Leukocyte Esterase 1+ H Urine RBC 0-2 Urine WBC 1-4 Ur Squamous Epith Cells TRACE Urine Bacteria 2+ Urine Yeast 3+ Random Vancomycin 10/29/20 10/29/20 10/29/20 18:40 18:52 22:24 WBC RBC Hgb Hct MCV MCH MCHC RDW Plt Count MPV Immature Gran % (Auto) Neut % (Auto) Lymph % (Auto) [place] % (Auto) Eos % (Auto) Baso % (Auto) Lymph # (Auto) [place] # (Auto) Eos # (Auto) Baso # (Auto) Abs Immat Gran (auto) Absolute Neuts (auto) Absolute Nucleated RBC Nucleated RBC % (auto) Neutrophils % (Manual) Band Neutrophils % Lymphocytes % (Manual) Monocytes % (Manual) Abs Neuts (Manual) Lymphocytes # (Manual) Monocytes # (Manual) Nucleated RBCs Toxic Vacuolation Platelet Estimate Large Platelets Plt Morphology Comment RBC Morphology Macrocytosis Acanthocytes (Spur) Smear Path Review D-Dimer VBG pH VBG pCO2 VBG pO2 VBG HCO3 VBG O2 Saturation VBG Base Excess Sodium Potassium Chloride Carbon Dioxide Anion Gap BUN Creatinine Estim Creat Clear Calc Estimated GFR POC Glucose 161 H Random Glucose Calcium Phosphorus Ferritin Total Bilirubin AST ALT Alkaline Phosphatase Troponin I High Sens 86.3 H* D 89.6 H* C-Reactive Protein B-Natriuretic Peptide Total Protein Albumin Urine Color Urine Appearance Urine pH Ur Specific [place] Urine Protein Urine Glucose (UA) Urine Ketones Urine Blood Urine Nitrite Ur Leukocyte Esterase Urine RBC Urine WBC Ur Squamous Epith Cells Urine Bacteria Urine Yeast Random Vancomycin 10/30/20 10/30/20 10/30/20 00:57 05:32 05:35 WBC 25.7 H RBC 3.06 L Hgb 8.9 L Hct 29.7 L MCV 97.1 MCH 29.1 MCHC 30.0 L RDW 15.1 Plt Count 139 L D MPV 13.0 H Immature Gran % (Auto) Cancelled Neut % (Auto) Cancelled Lymph % (Auto) Cancelled [place] % (Auto) Cancelled Eos % (Auto) Cancelled Baso % (Auto) Cancelled Lymph # (Auto) Cancelled [place] # (Auto) Cancelled Eos # (Auto) Cancelled Baso # (Auto) Cancelled Abs Immat Gran (auto) Cancelled Absolute Neuts (auto) Cancelled Absolute Nucleated RBC 0.280 H Nucleated RBC % (auto) 1.1 H Neutrophils % (Manual) 81 H Band Neutrophils % 16 H Lymphocytes % (Manual) 2 L Monocytes % (Manual) 1 L Abs Neuts (Manual) 24.9 H Lymphocytes # (Manual) 0.5 L Monocytes # (Manual) 0.3 Nucleated RBCs 2 H Toxic Vacuolation PRESENT Platelet Estimate SLIGHTLY DECREASED Large Platelets PRESENT Plt Morphology Comment NOTE RBC Morphology NOTED Macrocytosis 1+ (5-14) Acanthocytes (Spur) 1+ (0-2) Smear Path Review SEE NOTE D-Dimer VBG pH 7.23 L VBG pCO2 54 VBG pO2 35 VBG HCO3 23 VBG O2 Saturation 56.0 VBG Base Excess -4.2 Sodium Potassium Chloride Carbon Dioxide Anion Gap BUN Creatinine Estim Creat Clear Calc Estimated GFR POC Glucose 190 H Random Glucose Calcium Phosphorus Ferritin Total Bilirubin AST ALT Alkaline Phosphatase Troponin I High Sens C-Reactive Protein B-Natriuretic Peptide Total Protein Albumin Urine Color Urine Appearance Urine pH Ur Specific [place] Urine Protein Urine Glucose (UA) Urine Ketones Urine Blood Urine Nitrite Ur Leukocyte Esterase Urine RBC Urine WBC Ur Squamous Epith Cells Urine Bacteria Urine Yeast Random Vancomycin 10/30/20 10/30/20 10/30/20 05:35 05:35 05:35 WBC RBC Hgb Hct MCV MCH MCHC RDW Plt Count MPV Immature Gran % (Auto) Neut % (Auto) Lymph % (Auto) [place] % (Auto) Eos % (Auto) Baso % (Auto) Lymph # (Auto) [place] # (Auto) Eos # (Auto) Baso # (Auto) Abs Immat Gran (auto) Absolute Neuts (auto) Absolute Nucleated RBC Nucleated RBC % (auto) Neutrophils % (Manual) Band Neutrophils % Lymphocytes % (Manual) Monocytes % (Manual) Abs Neuts (Manual) Lymphocytes # (Manual) Monocytes # (Manual) Nucleated RBCs Toxic Vacuolation Platelet Estimate Large Platelets Plt Morphology Comment RBC Morphology Macrocytosis Acanthocytes (Spur) Smear Path Review D-Dimer 3849 VBG pH VBG pCO2 VBG pO2 VBG HCO3 VBG O2 Saturation VBG Base Excess Sodium 140 Potassium 4.5 Chloride 102 Carbon Dioxide 23 Anion Gap 20 BUN 111 H* D Creatinine 2.70 H Estim Creat Clear Calc 17.6 Estimated GFR 17 POC Glucose Random Glucose 196 H Calcium 7.0 L Phosphorus 8.0 H Ferritin 1451 H Total Bilirubin 2.0 H AST 69 H ALT 37 H Alkaline Phosphatase 118 H D Troponin I High Sens 80.2 H* C-Reactive Protein 17.61 H B-Natriuretic Peptide 1364 H Total Protein 6.2 L Albumin 3.3 L Urine Color Urine Appearance Urine pH Ur Specific [place] Urine Protein Urine Glucose (UA) Urine Ketones Urine Blood Urine Nitrite Ur Leukocyte Esterase Urine RBC Urine WBC Ur Squamous Epith Cells Urine Bacteria Urine Yeast Random Vancomycin 10/30/20 10/30/20 10/30/20 05:35 06:00 09:50 WBC RBC Hgb Hct MCV MCH MCHC RDW Plt Count MPV Immature Gran % (Auto) Neut % (Auto) Lymph % (Auto) [place] % (Auto) Eos % (Auto) Baso % (Auto) Lymph # (Auto) [place] # (Auto) Eos # (Auto) Baso # (Auto) Abs Immat Gran (auto) Absolute Neuts (auto) Absolute Nucleated RBC Nucleated RBC % (auto) Neutrophils % (Manual) Band Neutrophils % Lymphocytes % (Manual) Monocytes % (Manual) Abs Neuts (Manual) Lymphocytes # (Manual) Monocytes # (Manual) Nucleated RBCs Toxic Vacuolation Platelet Estimate Large Platelets Plt Morphology Comment RBC Morphology Macrocytosis Acanthocytes (Spur) Smear Path Review D-Dimer VBG pH VBG pCO2 VBG pO2 VBG HCO3 VBG O2 Saturation VBG Base Excess Sodium Potassium Chloride Carbon Dioxide Anion Gap BUN Creatinine Estim Creat Clear Calc Estimated GFR POC Glucose 193 H 186 H Random Glucose Calcium Phosphorus Ferritin Total Bilirubin AST ALT Alkaline Phosphatase Troponin I High Sens C-Reactive Protein B-Natriuretic Peptide Total Protein Albumin Urine Color Urine Appearance Urine pH Ur Specific [place] Urine Protein Urine Glucose (UA) Urine Ketones Urine Blood Urine Nitrite Ur Leukocyte Esterase Urine RBC Urine WBC Ur Squamous Epith Cells Urine Bacteria Urine Yeast Random Vancomycin 20.3 H Microbiology Microbiology Results: Microbiology 10/28/20 00:00 Urine [place] Urine Culture - Preliminary Yeast Gram positive cocci 10/28/20 11:23 Sputum - Induced Gram Stain - Final 10/28/20 11:23 Sputum - Induced Sputum Culture - Final Methicillin Res Staph Aureus 10/28/20 20:30 Blood - Venous Blood Culture - Preliminary 10/27/20 10:28 Blood - Venous Blood Culture - Final Methicillin Res Staph Aureus 10/28/20 20:30 Blood - Venous Blood Culture - Preliminary No growth after 24 hours. 10/27/20 10:28 Blood - Venous Blood Culture - Preliminary No growth after 48 hours. 10/16/20 14:09 Blood - Venous Blood Culture - Final No growth after 5 days. 10/16/20 14:06 Blood - Venous Blood Culture - Final No growth after 5 days. Critical Care Time Critical Care Time (minutes): 90
[2020-10-30] MEDS: fentaNYL citrate/NS 1,000 MCG/100 ML PLAST..BAG 12.5 MCG IVCONT ×2 (11:45→18:01)
[2020-10-30] MEDS: Enoxaparin Sodium 40 MG/0.4 ML SYRINGE SUBCUT (12:41)
[2020-10-30 14:21] LABS: Glucose, Whole Blood 144 mg/dL (60-115)
--- NOTE | 2020-10-30 14:22 | PM.CNNEP ---
History of Present Illness Reason for Consult Consult date: 10/30/20 Reason for consult: Oliguric FERNANDA in setting of COVID Requesting physician: Reagan Shahid Chief Complaint Chief complaint: +COVID History of Present Illness Narrative: 70 y/o F adm 2 wks ago with resp dysfucn assoc with covid and has markedly deteroirated now in ICU on 100% O2, pressor with full blown COVID LUNG, Hemodyamic dysfunc/Shock on pressors and Oliguric FERNANDA. Vol asessment as noted by Dr Shahid with high R sided pressures and full iVC and normal LV fun and concern for PE eval and felt not to be the case at this time. Trial of vol challenge yesterday no repsonse. HyperNa and HyperK being treated with meds. Incr TBFOL with edema and R sided card dysfunc on ECHO. PMH signif for Asthma Chronic pain Depression Diabetes Hepatic steatosis Osteoporosis Review of Systems Review of Systems Constitutional: fever, Chills Eyes: denies blurry vision ENT: denies sore throat CVS: denies chest pain Respiratory: dyspnea GI: abdominal pain : denies dysuria MSK: denies neck pain Skin: denies rash Neuro: denies specific motor weakness Psych: denies suicidal ideation Endocrine: denies heat/cold intoleratnce Hematologic: denies easy bleeding Allergy: denies hives Yes unobtainable due to endotracheal tube and Unobtainable due to mental status Cardiovascular: Reports no additional cardiovascular complaints Gastrointestinal: Reports no additional gastrointestinal complaints Denies Abnormal speech present and Reports confusion Psychiatric: Reports confusion PMFSH Past Medical History Medical History (Updated 10/29/20 @ 18:15 by INOCENCIO Gupta) Asthma Chronic pain Depression Diabetes Hepatic steatosis Osteoporosis Family History Family history: reviewed and not pertinent Social History Social History Household Members: Children Housing: House Do you presently have visiting nurse or other home services: No Alcohol intake: never Patient Tobacco Use Status: Never used Tobacco Use of substances other than those prescribed or required for medical reasons: No Currently Displaying Signs/Symptoms of Drug Intoxication Withdrawal: No Have you been hit, kicked, punched, or otherwise hurt by someone within the past year? If so, by whom?: No Do you feel safe in your current relationship?: No Is there a partner from a previous relationship who is making you feel unsafe now?: No Are you made to feel afraid or neglected: No Spiritual Healthcare Practices: n/a Sabianist Healthcare Practices: n/a Cultural Healthcare Practices: n/a Advance Directives: Yes Advance Directives Information Provided: Yes Advance Directives on File: No Advance Directives Date on File: 10/17/20 Do you have thoughts of harming others: None Do you have a plan to hurt others: No Plan Recently lost weight without trying: No Nutrition Risks: No Nutritional Risk Patient : No : No Poor oral hygiene: No service: No Current occupational status: retired [employer] Allergies Allergy/AdvReac Type Severity Reaction Status Date / Time lactose [Lactose] Allergy Mild DIARRHEA Verified 10/13/20 14:24 Active Medications: Current Medications Generic Name Dose Route Start Last Admin Trade Name Freq PRN Reason Stop Dose Admin Acetaminophen 650 mg 10/17/20 11:27 10/26/20 18:32 Acetaminophen 325 Mg Tablet PO 650 mg Q4H PRN Administration Fever Albuterol/Ipratropium 3 ml 10/30/20 06:34 Albuterol/Iprat 2.5/0.5mg 3 Ml Ampul.Neb INHALE RQ4H PRN Wheezing Aspirin 81 mg 10/28/20 12:30 10/30/20 08:55 Aspirin 81 Mg Tab.Chew OG-TUBE 81 mg DAILY SHRUTHI Administration Chlorhexidine Gluconate 15 ml 10/18/20 15:15 10/30/20 08:54 Chlorhexidine Gluc Oral Rinse 15 Ml Mouthwash BUCCAL 15 ml TID SHRUTHI Administration Enoxaparin Sodium 40 mg 10/22/20 11:45 10/30/20 12:41 Enoxaparin Sodium 40 Mg/0.4 Ml Syringe SUBCUT 40 mg Q24H SHRUTHI Administration Hydromorphone HCl 2 mg 10/28/20 13:54 10/29/20 05:59 Hydromorphone Hcl 2 Mg/Ml Vial IVPUSH 2 mg Q1H PRN Administration WOB Propofol 1,000 mg in 100 mls @ 0 mls/hr 10/18/20 15:15 10/30/20 05:56 Diprivan IVCONT 20 mcg/kg/min .Q0M SHRUTHI 8.49 mls/hr Administration Protocol Per Protocol Fentanyl 1,000 mcg in 100 mls @ 0 mls/hr 10/26/20 09:15 10/30/20 11:45 Sublimaze/Ns IVCONT 125 mcg/hr .Q0M SHRUTHI 12.5 mls/hr Administration Protocol Per Protocol Insulin Human Regular 100 unit in 100 mls @ 5 mls/hr 10/28/20 14:00 10/30/20 14:15 Myxredlin IVCONT 4 unit/hr .Q20H SHRUTHI 4 mls/hr Infusion 5 UNIT/HR Norepinephrine Bitartrate 8 mg in 250 mls @ 0 mls/hr 10/29/20 02:45 10/30/20 08:57 Levophed IVCONT 0.1 mcg/kg/min .Q0M SHRUTHI 13.27 mls/hr Administration Protocol Per Protocol Esmolol HCl 2,500 mg in 250 mls @ 0 mls/hr 10/29/20 09:15 10/30/20 09:17 Brevibloc/Nacl IVCONT 50 mcg/kg/min .Q0M SHRUTHI 21.23 mls/hr Titration Protocol Per Protocol Vancomycin HCl 750 mg/ Sodium 265 mls @ 265 mls/hr 10/31/20 11:00 Chloride IV Q48H SHRUTHI Methylprednisolone Sodium Succinate 80 mg 10/28/20 13:00 10/30/20 12:40 Methylprednisolone Sod Succ 125 Mg/2 Ml Vial IVPUSH 80 mg Q12H SHRUTHI Administration Omeprazole 40 mg 10/28/20 21:00 10/30/20 08:54 Omeprazole 20 Mg/10 Ml Susp.Recon PO 40 mg BID SHRUTHI Administration Pharmacy Consult 1 each 10/28/20 18:52 Consult Rx Vancomycin Dosing MISCELLANE DAILY PRN Consult order Sodium Chloride 3 ml 10/17/20 00:00 10/30/20 08:55 0.9 % Sodium Chloride Flush 3 Ml Syringe IVFLUSH Not Given QSHIFT [facility] Sodium Zirconium Cyclosilicate 10 gm 10/30/20 09:00 10/30/20 08:55 Sodium Zirconium Cyclosilicate 10 Gm Powd.Pack PO 10/31/20 21:01 10 gm TID SHRUTHI Administration Vitamin D 50 mcg 10/28/20 12:30 10/30/20 08:54 Cholecalciferol (Vitamin D3) 25 Mcg Tablet OG-TUBE 50 mcg DAILY SHRUTHI Administration Home Medications Medication Instructions Recorded Confirmed Last Taken Type citalopram 1 tab PO DAILY 10/13/20 10/16/20 Unknown History mirtazapine 1 tab PO BEDTIME 10/13/20 10/16/20 Unknown History quetiapine 1 tab PO BEDTIME 10/13/20 10/16/20 Unknown History quetiapine 1 tab PO BEDTIME 10/13/20 10/16/20 Unknown History Physical Exam Vital Signs: Last Vital Signs Temp 98.2 F 10/30/20 14:00 Pulse 75 10/30/20 14:00 Resp 33 H 10/30/20 14:00 BP 108/55 L 10/30/20 14:00 Pulse Ox 88 L 10/30/20 14:00 Body Mass Index 28.5 Const General: no acute distress, alert, confusion and other (Sedated on the vent) Orientation/consciousness: oriented to person and confusion Limitations: altered mental status [facility] Head: Yes normal to inspection Ears: hearing grossly normal bilaterally General nose exam: Normal external nose present Face and sinus: Yes normal facial exam Mouth: Normal oral and palatal mucosa present Throat: Yes posterior oropharynx normal Eyes General: appearance normal, both eyes and all related structures Sclerae: sclerae normal Pupils: Equal, round and reactive pupils present EOM: EOMs intact bilaterally Neck Neck: Yes normal visual inspection, Yes full ROM, Yes no lymphadenopathy, Yes trachea midline and Yes supple Chest Chest palpation & inspection: normal inspection of the chest Resp Effort & Inspection: normal respiratory effort and no respiratory distress Auscultation: clear to auscultation bilaterally and crackles (Diffuse bilateral) Cardio Rate: regular rate Rhythm: regular rhythm Heart sounds: no gallops, no murmurs and no rubs Peripheral pulses: Peripheral pulses 2+ throughout GI Inspection: Yes normal to inspection Palpation (GI): Soft to palpation, nontender and Other GI palpation findings present ( Nontender) Auscultation: normal bowel sounds Rectal Exam - Female: normal sphincter tone (Brown stool) Back/Spine/Pelvis Thoracic/Lumbar Spine: thoracic and lumbar spine normal to inspection Skin General skin exam: no rashes or lesions noted Neuro General: oriented to person, moves all extremities, normal sensation to monofilament, confusion and Unable to assess gait Cranial nerves: Yes Equal, round and reactive pupils present Cognition (Neuro): normal cognition Speech: No Abnormal speech present Gait exam (Neuro): Unable to assess gait Motor exam (neuro): 5 motor strength present throughout Extrem General: Yes normal to inspection, Yes no pedal edema (1+ bilateral), Yes no calf tenderness, No clubbing, No cyanosis and Yes pedal edema (1+ bilateral) Results Lab Results Result Diagrams: 10/30/20 05:35 10/30/20 05:35 Lab results: Chemistry 10/28/20 10/29/20 10/30/20 05:32 05:40 05:35 Sodium 152 H 145 140 Potassium 5.6 H 5.3 H 4.5 Carbon Dioxide 29 29 23 BUN 71 H 84 H* 111 H* D Creatinine 1.16 1.89 H 2.70 H Calcium 8.0 L 7.3 L D 7.0 L Phosphorus 3.3 5.6 H 8.0 H Hematology 10/28/20 10/29/20 10/30/20 05:32 05:40 05:35 WBC 12.0 H 15.6 H 25.7 H Hgb 8.4 L 8.1 L 8.9 L Plt Count 107 L D 96 L 139 L D Urinalysis 10/28/20 10/29/20 11:23 11:07 Urine Color YELLOW YELLOW Urine Appearance CLOUDY CLOUDY Urine pH 6.0 5.5 Ur Specific Lottie 1.015 >= 1.030 H Urine Protein TRACE 2+ H Urine Glucose (UA) 100 H NEG Urine Ketones NEG NEG Urine Blood NEG NEG Urine Nitrite NEG NEG Ur Leukocyte Esterase 1+ H 1+ H Urine RBC 0-2 0-2 Urine WBC 1-4 1-4 Ur Squamous Epith Cells NONE TRACE Assessment and Plan (1) Unspecified skin changes: Status: Acute 1. Oliguric FERNANDA in setting of full blown COVID Lung Shock c/w multifact ATN, multiple small renal thrombotic invovlement and COVID infection and direct renal toxicity unlikley; on vanco and may be contributing to multifact ATN. Main issue is how to optimize renal perfusion and this remains problematic as one can try IVF with crystalloid and colloid but need to watch for worsening capillary pulm leak and worse resp status. Most likely heading for HD in next 24-48 hrs; no CRRT avail so would do reg Intermittent HD when it becomes necessary; unfortunately she is not a ECMO candidate will follow with team Urine studies sent Procedures Date of Service Date of Service: 10/30/20
[2020-10-30 16:22] LABS: Creatinine Urine 60.39 mg/dL; Sodium Urine Random < 20.0 mmol/L; Total Protein Urine Random 68 mg/dL (<12)
[2020-10-30 16:33] LABS: Glucose, Whole Blood 159 mg/dL (60-115)
[2020-10-30] MEDS: Esmolol HCl/NaCl Iso 2,500 MG/250 ML IV.SOLN 21.23 MG IVCONT (18:01)
[2020-10-30] MEDS: Insulin Regular/NS 100 UNIT/100 ML PLAST..BAG IVCONT (18:01)
--- NOTE | 2020-10-30 18:38 | PC.NURSE ---
Afebrile, VSS stable with levophed gttt and esmolol gtt. Pt sedated with fentanyl and propfolol. Weak cough/gag, eyes reactive. Vent settings changed to PC Rate 20, peep 12, IP 15, 100%, scant alvarenga inline secretions. U/0 0-20ml/hr, md aware. Insulin gtt titrate to 4units/hr per MD. Nepro tube feedings at max rate 30ml/hr, free water flushes changed to q8hr 240hr. Repo q2hr, airloss bed, barrier cream applied. Family meeting with .
[2020-10-30 20:42] LABS: Glucose, Whole Blood 155 mg/dL (60-115)
[2020-10-30] MEDS: fentaNYL citrate/NS 1,000 MCG/100 ML PLAST..BAG 20 MCG IVCONT (22:53)
[2020-10-30 23:54] LABS: Glucose, Whole Blood 171 mg/dL (60-115)
[2020-10-31] VITALS (32 sets, daily range): BP systolic 83–132; BP diastolic 30–49; PULSE 30–210; RESP 23–34; TEMP 36–37.9; O2SAT 84–96
[2020-10-31] MEDS: propofoL 1,000 MG/100 ML VIAL 12.74 MG IVCONT ×3 (01:09→15:13)
[2020-10-31] MEDS: methylPREDNISolone Sod Succ 125 MG/2 ML VIAL 80 MG IVPUSH ×2 (01:09→11:55)
[2020-10-31] MEDS: fentaNYL citrate/NS 1,000 MCG/100 ML PLAST..BAG 20 MCG IVCONT ×5 (03:43→22:49)
[2020-10-31 05:08] LABS: Glucose, Whole Blood 173 mg/dL (60-115)
[2020-10-31 05:47] LABS: Venous Blood Gas Refer to POC result
[2020-10-31 05:47] LABS: VBG Base Excess -11.2 mmol/L; VBG HCO3 17 mmol/L (22-26); VBG pCO2 48 mmHg; VBG pO2 61 mmHg
[2020-10-31 05:49] LABS: VBG pH 7.15 (7.32-7.43)
[2020-10-31 06:08] LABS: Vancomycin Random 16.4 mcg/mL (15-20)
[2020-10-31 06:29] LABS: Hemoglobin 8.6 g/dl (12.0-16.0); Mean Platelet Volume 13.1 fL (9.4-12.3); Red Cell Distribution Width 15.1 % (11.0-16.0)
[2020-10-31 06:31] LABS: Hematocrit 29.1 % (37-47); Mean Corpuscular HGB Conc 29.6 g/dl (31.0-35.0); Mean Corpuscular Hemoglobin 29.1 pg (27.0-33.0); Mean Corpuscular Volume 98.3 fL (80-98); Platelet Count 155 X10*3/uL (160-400); Red Blood Count 2.96 X10*6/uL (4.20-5.50); White Blood Count 28.7 X10*3/uL (4.8-10.8)
[2020-10-31 06:32] LABS: NRBC Pct Auto 2.3 /100WBC (0.0-0.2); PLT ABN DIST 1
[2020-10-31 06:45] LABS: Anion Gap 26 (12-20); Calcium 6.9 mg/dL (8.4-10.2); Carbon Dioxide 17 mmol/L (22-29); Chloride 101 mmol/L (96-108); Creatinine Clr Calc Pharmacy 12.9; Estimated Glomerular Filt Rate 12; Glucose Random 175 mg/dL (60-115); Magnesium 2.9 mg/dL (1.6-2.6); Phosphorus 11.5 mg/dL (2.7-4.5); Potassium 4.7 mmol/L (3.3-5.1); Sodium 139 mmol/L (135-145)
[2020-10-31 07:42] LABS: Band Neutrophils Percent 7 % (3-5); Lymphocytes Absolute Manual 0.9 X10*3/uL (0.6-4.8); Lymphocytes Percent Manual 3 % (20-40); Monocytes Absolute Manual 0.3 X10*3/uL (0.0-1.2); Monocytes Percent Manual 1 % (2-11); Myelocytes Absolute 0.9 X10*/uL; Myelocytes Percent 3 %; Neutrophils Absolute Manual 26.7 X10*3/uL (2.2-7.9); Neutrophils Percent Manual 86 % (45-73); Nucleated Red Blood Cells 4 /100WBC (0-0)
[2020-10-31 07:46] LABS: Macrocytosis 1+ (5-14) /OIF; RBC Morphology NOTED
[2020-10-31 07:49] LABS: Acanthocytes 1+ (0-2) /OIF; Platelet Estimate NORMAL (NORMAL); Platelet Morphology Comment NORMAL; Toxic Vacuolation PRESENT
[2020-10-31 08:05] LABS: Glucose, Whole Blood 200 mg/dL (60-115)
[2020-10-31] MEDS: Sodium Zirconium Cyclosilicate 10 GM POWD.PACK PO ×3 (08:34→22:38)
[2020-10-31] MEDS: 0.9 % Sodium Chloride Flush 3 ML SYRINGE IVFLUSH ×2 (08:35→22:33)
[2020-10-31] MEDS: Chlorhexidine Gluc Oral Rinse 15 ML MOUTHWASH BUCCAL ×3 (08:35→22:38)
[2020-10-31] MEDS: Cholecalciferol (Vitamin D3) 25 MCG TABLET 50 MCG OG-TUBE (08:35)
[2020-10-31] MEDS: Aspirin 81 MG TAB.CHEW OG-TUBE (08:35)
[2020-10-31 10:23] LABS: INTERNATIONAL NORM RATIO 1.5 (0.9-1.1); Prothrombin Time 17.7 SEC (10.8-13.0)
[2020-10-31 10:28] LABS: D Dimer 3888 NG/ML
[2020-10-31 11:50] LABS: Glucose, Whole Blood 127 mg/dL (60-115)
[2020-10-31 11:55] LABS: Blood Urea Nitrogen 133 mg/dL (9-16)
[2020-10-31] MEDS: Enoxaparin Sodium 40 MG/0.4 ML SYRINGE SUBCUT (11:55)
--- NOTE | 2020-10-31 13:18 | MHC.CM.PN ---
Patient remains intubated/vented. Per Dr Shahid, poor prognosis for patient. Dr Shahid has been with family in regards to plan of care. Family wants everything done. Continue to monitor for d/c needs.
[2020-10-31 13:59] LABS: Glucose, Whole Blood 83 mg/dL (60-115)
[2020-10-31 14:54] LABS: Glucose, Whole Blood 92 mg/dL (60-115)
[2020-10-31 17:32] LABS: Glucose, Whole Blood 67 mg/dL (60-115)
--- NOTE | 2020-10-31 17:43 | PM.PNNEP ---
Subjective Subjective Date of Service: 10/31/20 Interval history: Seen and examined. Events noted On pressors/vent high O2; uop 100 ml past 8 hrs Physical Exam Vital Signs: Vital Signs: Last Vital Signs Temp 99.3 F 10/31/20 16:55 Pulse 92 10/31/20 16:55 Resp 27 H 10/31/20 16:55 BP 95/30 L 10/31/20 16:55 Pulse Ox 88 L 10/31/20 16:55 Body Mass Index 28.5 on vent BS bilat RR anasarca Const: General: no acute distress, alert, confusion and other (Sedated on the vent) Orientation/consciousness: oriented to person and confusion Limitations: altered mental status HENMT: Head: Yes normal to inspection Ears: hearing grossly normal bilaterally General nose exam: Normal external nose present Face and sinus: Yes normal facial exam Mouth: Normal oral and palatal mucosa present Throat: Yes posterior oropharynx normal Eyes: General: appearance normal, both eyes and all related structures Sclerae: sclerae normal Pupils: Equal, round and reactive pupils present EOM: EOMs intact bilaterally Neck: Neck: Yes normal visual inspection, Yes full ROM, Yes no lymphadenopathy, Yes trachea midline and Yes supple Chest: Chest palpation & inspection: normal inspection of the chest Resp: Effort & Inspection: normal respiratory effort and no respiratory distress Auscultation: clear to auscultation bilaterally and crackles (Diffuse bilateral) Cardio: Rate: regular rate Rhythm: regular rhythm Heart sounds: no gallops, no murmurs and no rubs Peripheral pulses: Peripheral pulses 2+ throughout GI: Inspection: Yes normal to inspection Palpation (GI): Soft to palpation, nontender and Other GI palpation findings present ( Nontender) Auscultation: normal bowel sounds Rectal Exam - Female: normal sphincter tone (Brown stool) Back/Spine/Pelvis: Thoracic/Lumbar Spine: thoracic and lumbar spine normal to inspection Skin: General skin exam: no rashes or lesions noted Neuro: General: oriented to person, moves all extremities, normal sensation to monofilament, confusion and Unable to assess gait Cranial nerves: Yes Equal, round and reactive pupils present Cognition (Neuro): normal cognition Speech: No Abnormal speech present Gait exam (Neuro): Unable to assess gait Motor exam (neuro): 5/5 motor strength present throughout Extrem: General: Yes normal to inspection, Yes no pedal edema (1+ bilateral), Yes no calf tenderness, No clubbing, No cyanosis and Yes pedal edema (1+ bilateral) Objective Data Labs CBC & Chem 7: 10/31/20 05:22 10/31/20 05:22 Labs: Laboratory Results - last 24 hr 10/30/20 10/30/20 10/31/20 20:26 23:32 04:50 WBC RBC Hgb Hct MCV MCH MCHC RDW Plt Count MPV Immature Gran % (Auto) Neut % (Auto) Lymph % (Auto) [place] % (Auto) Eos % (Auto) Baso % (Auto) Lymph # (Auto) [place] # (Auto) Eos # (Auto) Baso # (Auto) Abs Immat Gran (auto) Absolute Neuts (auto) Absolute Nucleated RBC Nucleated RBC % (auto) Neutrophils % (Manual) Band Neutrophils % Lymphocytes % (Manual) Monocytes % (Manual) Myelocytes % Abs Neuts (Manual) Lymphocytes # (Manual) Monocytes # (Manual) Myelocytes # Nucleated RBCs Toxic Vacuolation Platelet Estimate Plt Morphology Comment RBC Morphology Macrocytosis Acanthocytes (Spur) PT INR D-Dimer VBG pH VBG pCO2 VBG pO2 VBG HCO3 VBG O2 Saturation VBG Base Excess Sodium Potassium Chloride Carbon Dioxide Anion Gap BUN Creatinine Estim Creat Clear Calc Estimated GFR POC Glucose 155 H 171 H 173 H Random Glucose Calcium Phosphorus Magnesium Total Creatine Kinase Procalcitonin Random Vancomycin 10/31/20 10/31/20 10/31/20 05:22 05:22 05:22 WBC RBC Hgb Hct MCV MCH MCHC RDW Plt Count MPV Immature Gran % (Auto) Neut % (Auto) Lymph % (Auto) [place] % (Auto) Eos % (Auto) Baso % (Auto) Lymph # (Auto) [place] # (Auto) Eos # (Auto) Baso # (Auto) Abs Immat Gran (auto) Absolute Neuts (auto) Absolute Nucleated RBC Nucleated RBC % (auto) Neutrophils % (Manual) Band Neutrophils % Lymphocytes % (Manual) Monocytes % (Manual) Myelocytes % Abs Neuts (Manual) Lymphocytes # (Manual) Monocytes # (Manual) Myelocytes # Nucleated RBCs Toxic Vacuolation Platelet Estimate Plt Morphology Comment RBC Morphology Macrocytosis Acanthocytes (Spur) PT INR D-Dimer VBG pH VBG pCO2 VBG pO2 VBG HCO3 VBG O2 Saturation VBG Base Excess Sodium 139 Potassium 4.7 Chloride 101 Carbon Dioxide 17 L Anion Gap 26 H BUN 133 H* Creatinine 3.66 H Estim Creat Clear Calc 12.9 Estimated GFR 12 POC Glucose Random Glucose 175 H Calcium 6.9 L Phosphorus 11.5 H Magnesium 2.9 H Total Creatine Kinase 263 H Procalcitonin 11.70 Random Vancomycin 16.4 10/31/20 10/31/20 10/31/20 05:22 05:28 07:58 WBC 28.7 H RBC 2.96 L Hgb 8.6 L Hct 29.1 L MCV 98.3 H MCH 29.1 MCHC 29.6 L RDW 15.1 Plt Count 155 L MPV 13.1 H Immature Gran % (Auto) Cancelled Neut % (Auto) Cancelled Lymph % (Auto) Cancelled [place] % (Auto) Cancelled Eos % (Auto) Cancelled Baso % (Auto) Cancelled Lymph # (Auto) Cancelled [place] # (Auto) Cancelled Eos # (Auto) Cancelled Baso # (Auto) Cancelled Abs Immat Gran (auto) Cancelled Absolute Neuts (auto) Cancelled Absolute Nucleated RBC 0.660 H Nucleated RBC % (auto) 2.3 H Neutrophils % (Manual) 86 H Band Neutrophils % 7 H Lymphocytes % (Manual) 3 L Monocytes % (Manual) 1 L Myelocytes % 3 Abs Neuts (Manual) 26.7 H Lymphocytes # (Manual) 0.9 Monocytes # (Manual) 0.3 Myelocytes # 0.9 Nucleated RBCs 4 H Toxic Vacuolation PRESENT Platelet Estimate NORMAL Plt Morphology Comment NORMAL RBC Morphology NOTED Macrocytosis 1+ (5-14) Acanthocytes (Spur) 1+ (0-2) PT INR D-Dimer VBG pH 7.15 L* VBG pCO2 48 VBG pO2 61 VBG HCO3 17 L VBG O2 Saturation 86.0 VBG Base Excess -11.2 Sodium Potassium Chloride Carbon Dioxide Anion Gap BUN Creatinine Estim Creat Clear Calc Estimated GFR POC Glucose 200 H Random Glucose Calcium Phosphorus Magnesium Total Creatine Kinase Procalcitonin Random Vancomycin 10/31/20 10/31/20 10/31/20 09:50 11:46 13:54 WBC RBC Hgb Hct MCV MCH MCHC RDW Plt Count MPV Immature Gran % (Auto) Neut % (Auto) Lymph % (Auto) [place] % (Auto) Eos % (Auto) Baso % (Auto) Lymph # (Auto) [place] # (Auto) Eos # (Auto) Baso # (Auto) Abs Immat Gran (auto) Absolute Neuts (auto) Absolute Nucleated RBC Nucleated RBC % (auto) Neutrophils % (Manual) Band Neutrophils % Lymphocytes % (Manual) Monocytes % (Manual) Myelocytes % Abs Neuts (Manual) Lymphocytes # (Manual) Monocytes # (Manual) Myelocytes # Nucleated RBCs Toxic Vacuolation Platelet Estimate Plt Morphology Comment RBC Morphology Macrocytosis Acanthocytes (Spur) PT 17.7 H INR 1.5 H D-Dimer 3888 VBG pH VBG pCO2 VBG pO2 VBG HCO3 VBG O2 Saturation VBG Base Excess Sodium Potassium Chloride Carbon Dioxide Anion Gap BUN Creatinine Estim Creat Clear Calc Estimated GFR POC Glucose 127 H 83 Random Glucose Calcium Phosphorus Magnesium Total Creatine Kinase Procalcitonin Random Vancomycin 10/31/20 10/31/20 14:49 17:15 WBC RBC Hgb Hct MCV MCH MCHC RDW Plt Count MPV Immature Gran % (Auto) Neut % (Auto) Lymph % (Auto) [place] % (Auto) Eos % (Auto) Baso % (Auto) Lymph # (Auto) [place] # (Auto) Eos # (Auto) Baso # (Auto) Abs Immat Gran (auto) Absolute Neuts (auto) Absolute Nucleated RBC Nucleated RBC % (auto) Neutrophils % (Manual) Band Neutrophils % Lymphocytes % (Manual) Monocytes % (Manual) Myelocytes % Abs Neuts (Manual) Lymphocytes # (Manual) Monocytes # (Manual) Myelocytes # Nucleated RBCs Toxic Vacuolation Platelet Estimate Plt Morphology Comment RBC Morphology Macrocytosis Acanthocytes (Spur) PT INR D-Dimer VBG pH VBG pCO2 VBG pO2 VBG HCO3 VBG O2 Saturation VBG Base Excess Sodium Potassium Chloride Carbon Dioxide Anion Gap BUN Creatinine Estim Creat Clear Calc Estimated GFR POC Glucose 92 67 Random Glucose Calcium Phosphorus Magnesium Total Creatine Kinase Procalcitonin Random Vancomycin Microbiology Microbiology Results: Microbiology 10/28/20 20:30 Blood - Venous Blood Culture - Final Coag negative Staphylococcus 10/28/20 00:00 Urine [place] Urine Culture - Final Yeast Enterococcus faecalis 10/28/20 20:30 Blood - Venous Blood Culture - Preliminary No growth after 48 hours. 10/28/20 11:23 Sputum - Induced Gram Stain - Final 10/28/20 11:23 Sputum - Induced Sputum Culture - Final Methicillin Res Staph Aureus 10/27/20 10:28 Blood - Venous Blood Culture - Final Methicillin Res Staph Aureus 10/27/20 10:28 Blood - Venous Blood Culture - Preliminary No growth after 48 hours. 10/16/20 14:09 Blood - Venous Blood Culture - Final No growth after 5 days. 10/16/20 14:06 Blood - Venous Blood Culture - Final No growth after 5 days. Assessment & Plan Assessment and plan (1) Unspecified skin changes: Status: Acute Assessment and Plan: 1. Oliguric FERNANDA with signif incr SCr in setting of full blown COVID Lung Shock c/w multifact ATN, multiple small renal thrombotic invovlement and COVID infection and direct renal toxicity unlikley; on vanco and may be contributing to multifact ATN. Main issue is how to optimize renal perfusion and this remains problematic as one can try IVF with crystalloid and colloid but need to watch for worsening capillary pulm leak and worse resp status. No absiolute inc=dication for HD and unlcear how well she will tolerate intermittent HD as we do not have CRRT acvaialble. Most likely heading for HD in next 24-48 hrs; ; unfortunately she is not a ECMO candidate overall prognosis is very poor given the combination of COVID lung severe ARDS with SEPSIS and Oliguric FERNANDA Case D/W Dr Shahid in detail will follow with team Time Spent With Patient Time: Total time spent is greater than 50% in coordination of care (as documented) at patient's floor/unit and/or counseling patient: Procedures Date of Service Date of Service: 10/31/20
[2020-10-31 18:14] LABS: Glucose, Whole Blood 97 mg/dL (60-115)
[2020-10-31 18:17] LABS: VBG Base Excess -18.6 mmol/L; VBG HCO3 14 mmol/L (22-26); VBG pCO2 71 mmHg; VBG pH 6.89 (7.32-7.43); VBG pO2 48 mmHg
--- NOTE | 2020-10-31 18:33 | PM.CCPN ---
Subjective Subjective Date of Service: 10/31/20 Interval History: Mrs. Streeter was admitted to the ICU on October 18 because of acute respiratory failure secondary to COVID pneumonia. The patient is a 70-year-old woman with a past medical history of asthma and diabetes. She received her 1st dose of the COVID vaccine October 05. She was seen in the ED on October 13 complaining of fever and URI symptoms with cough x3 days. Sat was 95% on room air. She tested positive for COVID. CXR was normal. She was given IV dexamethasone and was given a prescription for 6 mg Decadron daily x7 days and discharged home. She presented to the ED again on October 16 because of shortness of breath and altered mental status. EMS found her with a sat in the 80s on room air at home. In the ED she was put on a non-rebreather with a sat in the 90s. CXR showed bilat patchy infiltrates c/w COVID. CTA showed no pulmon emboli, but the lung parenchyma was consistent with moderate COVID. BUN/creat were 19/0.8. DDimer was 1877. She was admitted to Medicine and treated with Decadron. Her oxygenation deteriorated and she was tx to ICU and intubated on October 18. CXR was worse. She required proning to achieve adequate oxygenation. After 36 hrs, she returned supine with Sat high 90?s on 60% FiO2. But since then, her FiO2 requirement has progressively increased and she?s had ventilatory dyssynchrony requiring prn NMB and 100% FiO2. She was trialed on Lasix 10/21-10/25, but her renal indices and renal ratio have risen progressively. She finished her 10 day course of dexamethasone on October 27. She was febrile almost continuously between 10/24-10/28. On October 25 she was started on ceftriaxone, which was changed it to cefepime on October 27. One out of two blood cultures drawn on October 27 was reported positive for MRSA at 32 hours. A new CVL was placed the evening of October 28, the old line was removed, new BC?s were drawn, and the patient was started on Vancomycin. Urinalysis from October 28 was negative. Sputum from October 28 celine MRSA, but the gram stain showed no polys. Repeat blood cultures from October 28 grew coag negative Staph from 1 bottle at 20 hours. Cefepime was d/c?d yesterday. On October 29 and , she had episodes of PAfib which responded to bolus metoprolol, so we started her on esmolol. She?s currently well sedated on propofol 30ug, w fentanyl 200ug. She?s also on Levophed at 0.05ug, and a bicarb drip (3 amps) @ 50cc/hr. Esmolol is off. She?s grimaces to pain. No eye opening, and no extremity movement at all. We had the propofol off for about 10 hours on October 29 and her best neuro response was spontaneous eye opening and grimace to suctioning. We?ve seen no movement of any of her extremities. Low grade temps to 100.2? today. HR is 91, SR. BP is 98/35. She?s required 100% FiO2 for the last 3 days. Currently on the vent set at PCV 18/12, f20, 100%, RR is 28, Vt is 370cc, Ve 10L, PIP 32, ETCO2 37, Sat 87%. Central venous blood gas this morning showed 7.15/48/-11. No JVD at 30?. Normal expiratory phase. Distant, low pitched BS. She has 2+ pitting edema. LABORATORY DATA: As below. Notably, WBC up to 28. BUN/creat up to 133/3.6, potassium 4.7 on TID LoKelma, bicarb down to 17, POC 83 now w the insulin drip off, phosphorus up to 11.5. PCT 11.7. Urine output averaging about 20 cc/hr. IMAGING: Duplex scan of LEs October 29 was negative for DVT. ECHOCARDIOGRAM done October 29, interpretation by me. Findings: -top-normal LV wall thickness. Normal LV cavity size and function, EF 50-60%. -slightly increased RV size. -no significant valvular pathology. -1+ TR, with continuous wave Doppler jet measuring 2.6 m/sec, gradient 27mm -IVC minimally dilated (2.06cm), with minimal insp collapse. Estimated RVSP about 40. IMPRESSION: 1. Underlying asthma and diabetes. 2. ARDS due to COVID pneumonia. Original symptom onset day approx. October 10. Biomarkers are much worse compared to admission. Started her October 28 on Solu-Medrol 80 mg bid, vitamin-D, and low-dose aspirin. No improvement so far. 3. Hypoxemic respiratory failure secondary to above. 4. Right heart failure. ? r/o PE. Lower extrems negative for DVT. BNP is elevated, c/w RHF. Troponin is unimpressive. For now, we?ll consider PE to have soft ruled out, and I don?t think the indications are adequate to start full anticoagulation. (Not stable enough to go anywhere for CTPA or V/Q scan.) 5. FERNANDA. Going into full-on ARF. Likely secondary to progressive COVID-19. Poor prognostic sign. Echo shows that she?s full. And she had no u/o or BP response to 500 cc fluid bolus. 6. Diabetes mellitus. Now on an insulin drip. 7. GI: Guaiac-positive stool resolved. No major bleed. We bumped her omeprazole to 40mg bid. Most likely was 2? stress gastritis. 8. ID: Now with two positive single blood cultures, the first of which is growing MRSA, the second growing coag negative Staff. The second one is likely a contaminant. At this point, can?t consider the first one a contaminant, xiang given that she became afebrile right after starting vancomycin. So we?re continuing the vanco; d/c?d the cefepime yesterday. For now, ascribing the WBC bump to the steroids that we started. 9. Metabolic: Hyperkalemia being treated with resin binder. Metabolic acidosis 2? acute renal failure. 10. Neuro: Her respiratory status precludes CT scan for full neuro assessment. 11. Nutrition: On full dose Nepro. Prognosis is very grim, especially with onset of acute renal failure. I met yesterday afternoon with the surrogate decision maker Alexandra [phone]), along with other members of the family (6 total) in conference, and we had a long discussion. I reviewed the history of the Coronavirus around the world, and the fact that most people who required ventilation did not survive. I made it very clear that Mrs. Streeter?s course has been relentlessly down hill and she was was unlikely to survive (to the point that a family member asked me to stop saying that). They responded that they wanted us to continue doing whatever is necessary. They did not want to withdraw critical care support. I made arrangements for a family member to visit in the room. I will have INOCENCIO Benitez talk to the family tonight. From now on, Alexandra will be the surrogate decision maker, per the request of five members of the family that were able to be contacted. There is no, and there will be no ?official? HCP (since the patient is unable to give that information). Critical care time (include mult d/w case management re HCP/surrogate): 70 min. Critical Care Time (minutes): 70 Physical Exam Vital Signs: Vital Signs: Last Vital Signs Temp 98.8 F 10/31/20 18:00 Pulse 83 10/31/20 18:23 Resp 26 H 10/31/20 18:00 BP 91/38 L 10/31/20 18:00 Pulse Ox 93 10/31/20 18:00 Body Mass Index 28.5 Objective Data Labs CBC & Chem 7: 10/31/20 05:22 10/31/20 05:22 Labs: Laboratory Results - last 24 hr 10/30/20 10/30/20 10/31/20 20:26 23:32 04:50 WBC RBC Hgb Hct MCV MCH MCHC RDW Plt Count MPV Immature Gran % (Auto) Neut % (Auto) Lymph % (Auto) [place] % (Auto) Eos % (Auto) Baso % (Auto) Lymph # (Auto) [place] # (Auto) Eos # (Auto) Baso # (Auto) Abs Immat Gran (auto) Absolute Neuts (auto) Absolute Nucleated RBC Nucleated RBC % (auto) Neutrophils % (Manual) Band Neutrophils % Lymphocytes % (Manual) Monocytes % (Manual) Myelocytes % Abs Neuts (Manual) Lymphocytes # (Manual) Monocytes # (Manual) Myelocytes # Nucleated RBCs Toxic Vacuolation Platelet Estimate Plt Morphology Comment RBC Morphology Macrocytosis Acanthocytes (Spur) PT INR D-Dimer VBG pH VBG pCO2 VBG pO2 VBG HCO3 VBG O2 Saturation VBG Base Excess Sodium Potassium Chloride Carbon Dioxide Anion Gap BUN Creatinine Estim Creat Clear Calc Estimated GFR POC Glucose 155 H 171 H 173 H Random Glucose Calcium Phosphorus Magnesium Total Creatine Kinase Procalcitonin Random Vancomycin 10/31/20 10/31/20 10/31/20 05:22 05:22 05:22 WBC RBC Hgb Hct MCV MCH MCHC RDW Plt Count MPV Immature Gran % (Auto) Neut % (Auto) Lymph % (Auto) [place] % (Auto) Eos % (Auto) Baso % (Auto) Lymph # (Auto) [place] # (Auto) Eos # (Auto) Baso # (Auto) Abs Immat Gran (auto) Absolute Neuts (auto) Absolute Nucleated RBC Nucleated RBC % (auto) Neutrophils % (Manual) Band Neutrophils % Lymphocytes % (Manual) Monocytes % (Manual) Myelocytes % Abs Neuts (Manual) Lymphocytes # (Manual) Monocytes # (Manual) Myelocytes # Nucleated RBCs Toxic Vacuolation Platelet Estimate Plt Morphology Comment RBC Morphology Macrocytosis Acanthocytes (Spur) PT INR D-Dimer VBG pH VBG pCO2 VBG pO2 VBG HCO3 VBG O2 Saturation VBG Base Excess Sodium 139 Potassium 4.7 Chloride 101 Carbon Dioxide 17 L Anion Gap 26 H BUN 133 H* Creatinine 3.66 H Estim Creat Clear Calc 12.9 Estimated GFR 12 POC Glucose Random Glucose 175 H Calcium 6.9 L Phosphorus 11.5 H Magnesium 2.9 H Total Creatine Kinase 263 H Procalcitonin 11.70 Random Vancomycin 16.4 10/31/20 10/31/20 10/31/20 05:22 05:28 07:58 WBC 28.7 H RBC 2.96 L Hgb 8.6 L Hct 29.1 L MCV 98.3 H MCH 29.1 MCHC 29.6 L RDW 15.1 Plt Count 155 L MPV 13.1 H Immature Gran % (Auto) Cancelled Neut % (Auto) Cancelled Lymph % (Auto) Cancelled [place] % (Auto) Cancelled Eos % (Auto) Cancelled Baso % (Auto) Cancelled Lymph # (Auto) Cancelled [place] # (Auto) Cancelled Eos # (Auto) Cancelled Baso # (Auto) Cancelled Abs Immat Gran (auto) Cancelled Absolute Neuts (auto) Cancelled Absolute Nucleated RBC 0.660 H Nucleated RBC % (auto) 2.3 H Neutrophils % (Manual) 86 H Band Neutrophils % 7 H Lymphocytes % (Manual) 3 L Monocytes % (Manual) 1 L Myelocytes % 3 Abs Neuts (Manual) 26.7 H Lymphocytes # (Manual) 0.9 Monocytes # (Manual) 0.3 Myelocytes # 0.9 Nucleated RBCs 4 H Toxic Vacuolation PRESENT Platelet Estimate NORMAL Plt Morphology Comment NORMAL RBC Morphology NOTED Macrocytosis 1+ (5-14) Acanthocytes (Spur) 1+ (0-2) PT INR D-Dimer VBG pH 7.15 L* VBG pCO2 48 VBG pO2 61 VBG HCO3 17 L VBG O2 Saturation 86.0 VBG Base Excess -11.2 Sodium Potassium Chloride Carbon Dioxide Anion Gap BUN Creatinine Estim Creat Clear Calc Estimated GFR POC Glucose 200 H Random Glucose Calcium Phosphorus Magnesium Total Creatine Kinase Procalcitonin Random Vancomycin 10/31/20 10/31/20 10/31/20 09:50 11:46 13:54 WBC RBC Hgb Hct MCV MCH MCHC RDW Plt Count MPV Immature Gran % (Auto) Neut % (Auto) Lymph % (Auto) [place] % (Auto) Eos % (Auto) Baso % (Auto) Lymph # (Auto) [place] # (Auto) Eos # (Auto) Baso # (Auto) Abs Immat Gran (auto) Absolute Neuts (auto) Absolute Nucleated RBC Nucleated RBC % (auto) Neutrophils % (Manual) Band Neutrophils % Lymphocytes % (Manual) Monocytes % (Manual) Myelocytes % Abs Neuts (Manual) Lymphocytes # (Manual) Monocytes # (Manual) Myelocytes # Nucleated RBCs Toxic Vacuolation Platelet Estimate Plt Morphology Comment RBC Morphology Macrocytosis Acanthocytes (Spur) PT 17.7 H INR 1.5 H D-Dimer 3888 VBG pH VBG pCO2 VBG pO2 VBG HCO3 VBG O2 Saturation VBG Base Excess Sodium Potassium Chloride Carbon Dioxide Anion Gap BUN Creatinine Estim Creat Clear Calc Estimated GFR POC Glucose 127 H 83 Random Glucose Calcium Phosphorus Magnesium Total Creatine Kinase Procalcitonin Random Vancomycin 10/31/20 10/31/20 10/31/20 14:49 17:15 18:09 WBC RBC Hgb Hct MCV MCH MCHC RDW Plt Count MPV Immature Gran % (Auto) Neut % (Auto) Lymph % (Auto) [place] % (Auto) Eos % (Auto) Baso % (Auto) Lymph # (Auto) [place] # (Auto) Eos # (Auto) Baso # (Auto) Abs Immat Gran (auto) Absolute Neuts (auto) Absolute Nucleated RBC Nucleated RBC % (auto) Neutrophils % (Manual) Band Neutrophils % Lymphocytes % (Manual) Monocytes % (Manual) Myelocytes % Abs Neuts (Manual) Lymphocytes # (Manual) Monocytes # (Manual) Myelocytes # Nucleated RBCs Toxic Vacuolation Platelet Estimate Plt Morphology Comment RBC Morphology Macrocytosis Acanthocytes (Spur) PT INR D-Dimer VBG pH VBG pCO2 VBG pO2 VBG HCO3 VBG O2 Saturation VBG Base Excess Sodium Potassium Chloride Carbon Dioxide Anion Gap BUN Creatinine Estim Creat Clear Calc Estimated GFR POC Glucose 92 67 97 Random Glucose Calcium Phosphorus Magnesium Total Creatine Kinase Procalcitonin Random Vancomycin 10/31/20 18:09 WBC RBC Hgb Hct MCV MCH MCHC RDW Plt Count MPV Immature Gran % (Auto) Neut % (Auto) Lymph % (Auto) [place] % (Auto) Eos % (Auto) Baso % (Auto) Lymph # (Auto) [place] # (Auto) Eos # (Auto) Baso # (Auto) Abs Immat Gran (auto) Absolute Neuts (auto) Absolute Nucleated RBC Nucleated RBC % (auto) Neutrophils % (Manual) Band Neutrophils % Lymphocytes % (Manual) Monocytes % (Manual) Myelocytes % Abs Neuts (Manual) Lymphocytes # (Manual) Monocytes # (Manual) Myelocytes # Nucleated RBCs Toxic Vacuolation Platelet Estimate Plt Morphology Comment RBC Morphology Macrocytosis Acanthocytes (Spur) PT INR D-Dimer VBG pH 6.89 L* VBG pCO2 71 VBG pO2 48 VBG HCO3 14 L VBG O2 Saturation 64.0 VBG Base Excess -18.6 Sodium Potassium Chloride Carbon Dioxide Anion Gap BUN Creatinine Estim Creat Clear Calc Estimated GFR POC Glucose Random Glucose Calcium Phosphorus Magnesium Total Creatine Kinase Procalcitonin Random Vancomycin Microbiology Microbiology Results: Microbiology 10/28/20 20:30 Blood - Venous Blood Culture - Final Coag negative Staphylococcus 10/28/20 00:00 Urine [place] Urine Culture - Final Yeast Enterococcus faecalis 10/28/20 20:30 Blood - Venous Blood Culture - Preliminary No growth after 48 hours. 10/28/20 11:23 Sputum - Induced Gram Stain - Final 10/28/20 11:23 Sputum - Induced Sputum Culture - Final Methicillin Res Staph Aureus 10/27/20 10:28 Blood - Venous Blood Culture - Final Methicillin Res Staph Aureus 10/27/20 10:28 Blood - Venous Blood Culture - Preliminary No growth after 48 hours. 10/16/20 14:09 Blood - Venous Blood Culture - Final No growth after 5 days. 10/16/20 14:06 Blood - Venous Blood Culture - Final No growth after 5 days. Critical Care Time Critical Care Time (minutes): 60
[2020-10-31] MEDS: Sodium Bicarbonate 8.4% 50 MEQ/50 ML VIAL 100 MEQ IVPUSH (18:43)
[2020-10-31] MEDS: Esmolol HCl/NaCl Iso 2,500 MG/250 ML IV.SOLN 21.23 MG IVCONT (18:44)
[2020-10-31 18:57] LABS: Albumin Level 2.6 g/dL (3.5-5.0)
[2020-10-31 19:12] LABS: Glucose, Whole Blood 78 mg/dL (60-115)
--- NOTE | 2020-10-31 19:19 | PC.NURSE ---
TMAX 100.2, VSS on levophed titrated per EMAR. Sedated on fentanyl, propfol turned off per EMAR. Pupils sluggish, flaccid, grimaces to noxious stimuli. Vent settings changed to PC rate 26,IP 25, PEEP 12, FIO2 1005 to maintain goal TV. Low u/o, nephrology aware. POC at 1700 67, MD aware- 12.5gm of D50. Pt SR in 70s most of shift. at 1800 HR up to 210, esmolo gtt started and titrated per emar, MD at beside. Bicarb given per MD Morin at 30ml/hr, pt tolerating.
[2020-10-31 19:30] LABS: Lactic Acid 10.5 mmol/L (0.5-2.0)
[2020-10-31 19:32] LABS: Anion Gap 33 (12-20); Blood Urea Nitrogen 133 mg/dL (9-16); Calcium 6.9 mg/dL (8.4-10.2); Carbon Dioxide 13 mmol/L (22-29); Chloride 98 mmol/L (96-108); Creatinine Clr Calc Pharmacy 10.5; Estimated Glomerular Filt Rate 10; Glucose Random 85 mg/dL (60-115); Potassium 5.6 mmol/L (3.3-5.1); Sodium 138 mmol/L (135-145)
--- NOTE | 2020-10-31 20:10 | W.PM.DNNEP ---
Subjective Subjective Hemodialysis requested by ICU attending. Chart reviewed. Physical Exam Vital Signs: Vital Signs: Last Vital Signs Temp 98.2 F 10/31/20 20:00 Pulse 149 H 10/31/20 20:00 Resp 23 H 10/31/20 20:00 BP 132/43 L 10/31/20 20:00 Pulse Ox 92 10/31/20 20:00 Body Mass Index 28.5 Assessment & Plan Assessment and plan (1) Acute kidney injury: Status: Acute Assessment and Plan: will initiate HD with blood flow of 250ml/mt and cautiously remove fluids as tolerated. Overall prognosis is grim. Time Spent With Patient Time: Total time spent is greater than 50% in coordination of care (as documented) at patient's floor/unit and/or counseling patient: Procedures Date of Service Date of Service: 10/31/20
[2020-10-31 20:21] LABS: Reflex Lactate? Lactic Acid Added
[2020-10-31 20:55] LABS: Glucose, Whole Blood 58 mg/dL (60-115)
[2020-10-31 21:00] LABS: ~Lactic Acid-LAB USE ONLY 11.2 mmol/L (0.5-2.0)
[2020-10-31 21:13] LABS: Glucose, Whole Blood 130 mg/dL (60-115)
[2020-10-31 21:14] LABS: Venous Blood Gas Refer to POC result
[2020-10-31 21:14] LABS: Troponin-I High Sensitivity 214.1 ng/L (<3.5-17.0)
[2020-10-31 21:36] LABS: Cancel Lactic Acid Canceled
--- NOTE | 2020-10-31 21:42 | W.PM.CCHP ---
Procedures Date of Service Date of Service: 10/31/20 Central Line Placement Left IJ: Consent for Procedure: Emergent-no informed consent obtained Time out performed: Yes Sterile Technique Used: Yes Patient placed on monitor/pulse ox: Yes MD prep: mask, gown and gloves Central line prep: Chlorhexidine scrub Ultrasound used for placement: Yes Central line lumen inserted: triple (HEMODIALYSIS CATH 13 cm ) Post procedure: sutured in place, good blood return, all ports aspirated, flushed, capped and sterile dressing applied Post procedure x-ray: tip of catheter in good position and no pneumothorax seen Patient tolerated procedure: well and no complications Complications: hematoma at puncture site (SMALL )
[2020-10-31 22:18] LABS: D Dimer 5865 NG/ML
[2020-10-31 22:29] LABS: Glucose, Whole Blood 95 mg/dL (60-115)
[2020-10-31] MEDS: Phenylephrine HCL 100 MG in 0.9 % Sodium Chloride 250 ML 5.52 MG IVCONT (22:38)
[2020-10-31 23:05] LABS: PTT Heparin Drip 34.4 SEC (53-77.9)
[2020-10-31] MEDS: Heparin Sodium,Porcine/1/2NS 25,000 UNIT/250 ML IV.SOLN 9.91 UNIT IVCONT (23:27)
[2020-11-01] VITALS: BP 72/43; PULSE 99; RESP 26; O2SAT 93
[2020-11-01 00:13] LABS: Glucose, Whole Blood 63 mg/dL (60-115)
[2020-11-01 00:27] VITALS: BP 104/43; PULSE 72; O2SAT 98
[2020-11-01 01:00] VITALS: BP 100/29; PULSE 71; RESP 26; TEMP 35.3; O2SAT 97
[2020-11-01] MEDS: methylPREDNISolone Sod Succ 125 MG/2 ML VIAL 80 MG IVPUSH (01:19)
[2020-11-01] MEDS: Sodium Bicarbonate 8.4% 50 MEQ/50 ML VIAL IVPUSH (01:21)
[2020-11-01 01:28] LABS: Glucose, Whole Blood 122 mg/dL (60-115)
[2020-11-01 01:47] VITALS: BP 98/30; PULSE 70; RESP 26; TEMP 35.3; O2SAT 97
--- NOTE | 2020-11-01 02:37 | PC.NURSE ---
Addendum entered by Melony Wakefield, RN 11/01/20 03:23: EXTUBATED, GTTS STOPPED 252. PA, RT, AND 4 FAMILY MEMBERS (INCLUDING HCP, [place]) AT BEDSIDE. ASYSTOLE @ 0312. HOME HARRISON. BELONGINGS SENT WITH [place], INCLUDING 2 RINGS AND GLASSES. DECLINED BY NEOB (REF [id number]) Original Note: Approx 2000 Patient in SVT up to 220's. SBP 80's -PA, RT, and turbine mechanic at bedside -6mg IVP adenosine, followed by 12 mg IVP adenosine with no effect. -Esmolol titrated up, Levo maxed, Vasopressin started with good effect -2019 BG 58: 1 amp D50 IVP given -2039 HD Cath inserted right IJ -Patient moved from 262 to 255 for emergent HD -Increasing pressor requirements during HD, quickly maxed on Woo, Levo, and Vasopressin. 1 amp bicarb given. -In and out of SVT 140's-180's: 6mg Adenosine with no effect. -HD terminated after 1 hr d/t patient instability -0000 BG 63: 1 amp D50 given -Family called in by ICU PA, at bedside for end of life conversation -Plan to terminally extubate
[2020-11-01] MEDS: HYDROmorphone HCl 2 MG/ML VIAL IVPUSH (02:53)
--- NOTE | 2020-11-01 02:56 | W.MHC.ACPN ---
Advanced Care Planning Note Advanced Care Planning Note Discussed with: family member(s) Time spent (in minutes): 60 Narrative: I called the patient's daughters to come into the hospital around 12:00 am on 11/01/2020 given that for the past 3 hours the patient has had tachyarrhythmias consistent with SVT with a heart rate as high as 250 she receive several doses of adenosine without any significant improvement initially but subsequently her heart rate slowed down. At bedside echo was done initial wall thickness of the left ventricle along with significant 2.5 to 1 ratio of the RV compared to the LV. There was mitral regurgitation a 1+ and trace tricuspid regurgitation but no wall motion abnormality noted. This made me believe that the patient might half right heart strain although her troponin was not significantly abnormal, her proBNP was a little elevated. This was discussed with Dr. loco and he agreed, this point we decided to take the patient off Lovenox and to put her on heparin drip for the suspicion of underlying pulmonary embolism. In addition the patient's renal function was significantly abnormal and worsened, phone talking to the family members I was able to place a hemodialysis catheter on the right IJ. The patient was started on hemodialysis but decompensated after an hour and 10 minutes of it for which it was stopped. The patient became tachycardic, hypotensive. Patient went back into SVT, adenosine was given a gain, Woo-Synephrine, Levophed and vasopressors were run at the maximal rate and she also received esmolol boluses and ongoing drip. We were able to control her heart rate and stabilize her blood pressure momentarily but this event recurred. 140 am all family members arrived, had a lengthy discussion with them about what was going known and after approximately 1 hour of talking and answering all their questions, they finally agreed to pursue a terminal extubation and MEDIA INTERN measures. Each 1 of the daughters and grandchildren wanted to see the patient which we allowed 1 at the time. At 3:00 a.m. a terminal extubation was performed, the patient received a mg of Dilaudid and subsequently 50 mcg of fentanyl. All drips were stopped and extubation was performed. The patient appeared comfortable, family members requested to be present in to see her through the glass which we allowed. At 3:12 a.m. and there is no heartbeat, no saturation, no poles, no corneal reflex, pupils are dilated. The certificate will be completed. Case was discussed in detail with Dr. Shahid. He is aware of all the above as well as the plan of care for this patient. [facility] time spent with this patient during all the above, family discussions, decision and terminal extubation is 90 minutes Problems Discussed (1) Acute kidney injury:
--- NOTE | 2020-11-01 03:17 | PM.DS ---
DS: Providers Provider Date of Service: 11/01/20 Date of admission: 10/16/20 18:18 Primary care physician: Yo Hsu MD Consults: 10/28/20 22:47 Consult to Wound Care Routine Consulting Provider: Viktoriya Collins Reason for consultation: sacral and buttock DTI Has provider been notified: No 10/30/20 12:18 Consult to Nephrology Routine Consulting Provider: Charli Hatch Reason for consultation: fernanda DS: Diagnosis Discharge Diagnosis (1) Acute kidney injury: Status: Acute DS: Medications Discharge Medications Home Medications: Home Medications Medication Instructions Recorded Confirmed citalopram 1 tab PO DAILY 10/13/20 10/16/20 mirtazapine 1 tab PO BEDTIME 10/13/20 10/16/20 quetiapine 1 tab PO BEDTIME 10/13/20 10/16/20 quetiapine 1 tab PO BEDTIME 10/13/20 10/16/20 Previous Rx's Medication Instructions Recorded albuterol sulfate 2 puff INHALATION QID PRN #6.7 g 10/13/20 dexamethasone 6 mg PO DAILY 7 Days #7 tab 10/13/20 DS: Summary Time Spent with Patient Time attestation: ADMISSION/DISCHARGE DIAGNOSIS: 1. Hypoxic respiratory failure and multi organ failure 2. ARDS due to COVID pneumonia. 3. Hypoxemic respiratory failure secondary to above. 4. Right heart failure/ suspected pulmonary embolism due to right heart strain and significant RV to LV ratio mismatch. 5. FERNANDA which developed into full renal failure requiring dialysis but she only tolerated 1 hour of at 6. Diabetes mellitus. 7. GI: Guaiac-positive stool resolved. 8. ID: Had two positive single blood cultures, the first of which is growing MRSA, the second growing coag negative Staff. The second one is likely a contaminant. At this point, can?t consider the first one a contaminant, xiang given that she became afebrile right after starting vancomycin. So we?re continuing the vanco; d/c?d the cefepime yesterday. However worsening leukocytosis is attributed to steroids 9. Hyperkalemia and metabolic acidosis due to renal failure treated with hemodialysis which she did not tolerate 10. Neuro: Her respiratory status precludes CT scan for full neuro assessment. 11. Nutrition: Poor nutritional status treated with Nepro 12. History of Asthma worsening the above HPI: Mrs. Streeter was admitted to the ICU on October 18 because of acute respiratory failure secondary to COVID pneumonia. The patient is a 70-year-old woman with a past medical history of asthma and diabetes. She received her 1st dose of the COVID vaccine October 05. She was seen in the ED on October 13 complaining of fever and URI symptoms with cough x3 days. Sat was 95% on room air. She tested positive for COVID. CXR was normal. She was given IV dexamethasone and was given a prescription for 6 mg Decadron daily x7 days and discharged home. Please see hospital course below for details prior to this evening. THIS EVENING: I called the patient's daughters to come into the hospital around 12:00 am on 11/01/2020 given that for the past 3 hours the patient has had tachyarrhythmias consistent with SVT with a heart rate as high as 250 she receive several doses of adenosine without any significant improvement initially but subsequently her heart rate slowed down. At bedside echo was done initial wall thickness of the left ventricle along with significant 2.5 to 1 ratio of the RV compared to the LV. There was mitral regurgitation a 1+ and trace tricuspid regurgitation but no wall motion abnormality noted. This made me believe that the patient might half right heart strain although her troponin was not significantly abnormal, her proBNP was a little elevated. This was discussed with Dr. Shahid and he agreed, at this point we decided to take the patient off Lovenox and to put her on heparin drip for the suspicion of underlying pulmonary embolism. In addition the patient's renal function was significantly abnormal and worsened, phone talking to the family members I was able to place a hemodialysis catheter on the right IJ. The patient was started on hemodialysis but decompensated after an hour and 10 minutes of it for which it was stopped. The patient became tachycardic, hypotensive. Patient went back into SVT, adenosine was given a gain, Woo-Synephrine, Levophed and vasopressors were run at the maximal rate and she also received esmolol boluses and ongoing drip. We were able to control her heart rate and stabilize her blood pressure momentarily but this event recurred. 140 am all family members arrived, had a lengthy discussion with them about what was going known and after approximately 1 hour of talking and answering all their questions, they finally agreed to pursue a terminal extubation and [employer] measures. Each 1 of the daughters and grandchildren wanted to see the patient which we allowed 1 at the time. At 3:00 a.m. a terminal extubation was performed, the patient received a mg of Dilaudid and subsequently 50 mcg of fentanyl. All drips were stopped and extubation was performed. The patient appeared comfortable, family members requested to be present in to see her through the glass which we allowed. At 3:12 a.m there is no heartbeat, no saturation, no poles, no corneal reflex, pupils are dilated. Pt was pronounced. HOSPITAL COURSE: She presented to the ED again on October 16 because of shortness of breath and altered mental status. EMS found her with a sat in the 80s on room air at home. In the ED she was put on a non-rebreather with a sat in the 90s. CXR showed bilat patchy infiltrates c/w COVID. CTA showed no pulmon emboli, but the lung parenchyma was consistent with moderate COVID. BUN/creat were 19/0.8. DDimer was 1877. She was admitted to Medicine and treated with Decadron. Her oxygenation deteriorated and she was tx to ICU and intubated on October 18. CXR was worse. She required proning to achieve adequate oxygenation. After 36 hrs, she returned supine with Sat high 90?s on 60% FiO2. But since then, her FiO2 requirement has progressively increased and she?s had ventilatory dyssynchrony requiring prn NMB and 100% FiO2. She was trialed on Lasix 10/21-10/25, but her renal indices and renal ratio have risen progressively. She finished her 10 day course of dexamethasone on October 27. She was febrile almost continuously between 10/24-10/28. On October 25 she was started on ceftriaxone, which was changed it to cefepime on October 27. One out of two blood cultures drawn on October 27 was reported positive for MRSA at 32 hours. A new CVL was placed the evening of October 28, the old line was removed, new BC?s were drawn, and the patient was started on Vancomycin. Urinalysis from October 28 was negative. Sputum from October 28 celine MRSA, but the gram stain showed no polys. Repeat blood cultures from October 28 grew coag negative Staph from 1 bottle at 20 hours. Cefepime was d/c?d yesterday. On October 29 and , she had episodes of PAfib which responded to bolus metoprolol, so we started her on esmolol. She was well sedated on propofol 30ug, w fentanyl 200ug. She?s also on Levophed at 0.05ug, and a bicarb drip (3 amps) @ 50cc/hr. Esmolol is off. She?s grimaces to pain. No eye opening, and no extremity movement at all. We had the propofol off for about 10 hours on October 29 and her best neuro response was spontaneous eye opening and grimace to suctioning. We?ve seen no movement of any of her extremities. Low grade temps to 100.2? today. HR is 91, SR. BP is 98/35. She?s required 100% FiO2 for the last 3 days. Currently on the vent set at PCV 18/12, f20, 100%, RR is 28, Vt is 370cc, Ve 10L, PIP 32, ETCO2 37, Sat 87%. Central venous blood gas this morning showed 7.15/48/-11. No JVD at 30?. Normal expiratory phase. Distant, low pitched BS. She has 2+ pitting edema. LABORATORY DATA: As below. Notably, WBC up to 28. BUN/creat up to 133/3.6, potassium 4.7 on TID LoKelma, bicarb down to 17, POC 83 now w the insulin drip off, phosphorus up to 11.5. PCT 11.7. Urine output averaging about 20 cc/hr. IMAGING: Duplex scan of LEs October 29 was negative for DVT. ECHOCARDIOGRAM done October 29 Findings: -top-normal LV wall thickness. Normal LV cavity size and function, EF 50-60%. -slightly increased RV size. -no significant valvular pathology. -1+ TR, with continuous wave Doppler jet measuring 2.6 m/sec, gradient 27mm -IVC minimally dilated (2.06cm), with minimal insp collapse. Estimated RVSP about 40. Total time spent providing and/or coordinating discharge services: 45 min Discharge coordination time: Greater than 30 minutes Quality: Stroke Does the patient have a stroke diagnosis?: No Physical Exam Vital Signs: Vital Signs: Last Vital Signs Temp 95.5 F L 11/01/20 01:47 Pulse 70 11/01/20 01:47 Resp 26 H 11/01/20 01:47 BP 98/30 L 11/01/20 01:47 Pulse Ox 97 11/01/20 01:47 Body Mass Index 28.5 DS: Data Data Completed and Pending Labs on day of discharge: Laboratory Results - last 24 hr 10/31/20 10/31/20 10/31/20 04:50 05:22 05:22 WBC RBC Hgb Hct MCV MCH MCHC RDW Plt Count MPV Immature Gran % (Auto) Neut % (Auto) Lymph % (Auto) [place] % (Auto) Eos % (Auto) Baso % (Auto) Lymph # (Auto) [place] # (Auto) Eos # (Auto) Baso # (Auto) Abs Immat Gran (auto) Absolute Neuts (auto) Absolute Nucleated RBC Nucleated RBC % (auto) Neutrophils % (Manual) Band Neutrophils % Lymphocytes % (Manual) Monocytes % (Manual) Myelocytes % Abs Neuts (Manual) Lymphocytes # (Manual) Monocytes # (Manual) Myelocytes # Nucleated RBCs Toxic Vacuolation Platelet Estimate Plt Morphology Comment RBC Morphology Macrocytosis Acanthocytes (Spur) PT INR PTT (Heparin Protocol) D-Dimer VBG pH VBG pCO2 VBG pO2 VBG HCO3 VBG O2 Saturation VBG Base Excess Sodium Potassium Chloride Carbon Dioxide Anion Gap BUN Creatinine Estim Creat Clear Calc Estimated GFR POC Glucose 173 H Random Glucose Lactic Acid Lactic Acid Fup @ 2Hr Calcium Phosphorus Magnesium Total Creatine Kinase Troponin I High Sens Albumin Procalcitonin 11.70 Random Vancomycin 16.4 10/31/20 10/31/20 10/31/20 05:22 05:22 05:28 WBC 28.7 H RBC 2.96 L Hgb 8.6 L Hct 29.1 L MCV 98.3 H MCH 29.1 MCHC 29.6 L RDW 15.1 Plt Count 155 L MPV 13.1 H Immature Gran % (Auto) Cancelled Neut % (Auto) Cancelled Lymph % (Auto) Cancelled [place] % (Auto) Cancelled Eos % (Auto) Cancelled Baso % (Auto) Cancelled Lymph # (Auto) Cancelled [place] # (Auto) Cancelled Eos # (Auto) Cancelled Baso # (Auto) Cancelled Abs Immat Gran (auto) Cancelled Absolute Neuts (auto) Cancelled Absolute Nucleated RBC 0.660 H Nucleated RBC % (auto) 2.3 H Neutrophils % (Manual) 86 H Band Neutrophils % 7 H Lymphocytes % (Manual) 3 L Monocytes % (Manual) 1 L Myelocytes % 3 Abs Neuts (Manual) 26.7 H Lymphocytes # (Manual) 0.9 Monocytes # (Manual) 0.3 Myelocytes # 0.9 Nucleated RBCs 4 H Toxic Vacuolation PRESENT Platelet Estimate NORMAL Plt Morphology Comment NORMAL RBC Morphology NOTED Macrocytosis 1+ (5-14) Acanthocytes (Spur) 1+ (0-2) PT INR PTT (Heparin Protocol) D-Dimer VBG pH 7.15 L* VBG pCO2 48 VBG pO2 61 VBG HCO3 17 L VBG O2 Saturation 86.0 VBG Base Excess -11.2 Sodium 139 Potassium 4.7 Chloride 101 Carbon Dioxide 17 L Anion Gap 26 H BUN 133 H* Creatinine 3.66 H Estim Creat Clear Calc 12.9 Estimated GFR 12 POC Glucose Random Glucose 175 H Lactic Acid Lactic Acid Fup @ 2Hr Calcium 6.9 L Phosphorus 11.5 H Magnesium 2.9 H Total Creatine Kinase 263 H Troponin I High Sens Albumin Procalcitonin Random Vancomycin 10/31/20 10/31/20 10/31/20 07:58 09:50 11:46 WBC RBC Hgb Hct MCV MCH MCHC RDW Plt Count MPV Immature Gran % (Auto) Neut % (Auto) Lymph % (Auto) [place] % (Auto) Eos % (Auto) Baso % (Auto) Lymph # (Auto) [place] # (Auto) Eos # (Auto) Baso # (Auto) Abs Immat Gran (auto) Absolute Neuts (auto) Absolute Nucleated RBC Nucleated RBC % (auto) Neutrophils % (Manual) Band Neutrophils % Lymphocytes % (Manual) Monocytes % (Manual) Myelocytes % Abs Neuts (Manual) Lymphocytes # (Manual) Monocytes # (Manual) Myelocytes # Nucleated RBCs Toxic Vacuolation Platelet Estimate Plt Morphology Comment RBC Morphology Macrocytosis Acanthocytes (Spur) PT 17.7 H INR 1.5 H PTT (Heparin Protocol) D-Dimer 3888 VBG pH VBG pCO2 VBG pO2 VBG HCO3 VBG O2 Saturation VBG Base Excess Sodium Potassium Chloride Carbon Dioxide Anion Gap BUN Creatinine Estim Creat Clear Calc Estimated GFR POC Glucose 200 H 127 H Random Glucose Lactic Acid Lactic Acid Fup @ 2Hr Calcium Phosphorus Magnesium Total Creatine Kinase Troponin I High Sens Albumin Procalcitonin Random Vancomycin 10/31/20 10/31/20 10/31/20 13:54 14:49 17:15 WBC RBC Hgb Hct MCV MCH MCHC RDW Plt Count MPV Immature Gran % (Auto) Neut % (Auto) Lymph % (Auto) [place] % (Auto) Eos % (Auto) Baso % (Auto) Lymph # (Auto) [place] # (Auto) Eos # (Auto) Baso # (Auto) Abs Immat Gran (auto) Absolute Neuts (auto) Absolute Nucleated RBC Nucleated RBC % (auto) Neutrophils % (Manual) Band Neutrophils % Lymphocytes % (Manual) Monocytes % (Manual) Myelocytes % Abs Neuts (Manual) Lymphocytes # (Manual) Monocytes # (Manual) Myelocytes # Nucleated RBCs Toxic Vacuolation Platelet Estimate Plt Morphology Comment RBC Morphology Macrocytosis Acanthocytes (Spur) PT INR PTT (Heparin Protocol) D-Dimer VBG pH VBG pCO2 VBG pO2 VBG HCO3 VBG O2 Saturation VBG Base Excess Sodium Potassium Chloride Carbon Dioxide Anion Gap BUN Creatinine Estim Creat Clear Calc Estimated GFR POC Glucose 83 92 67 Random Glucose Lactic Acid Lactic Acid Fup @ 2Hr Calcium Phosphorus Magnesium Total Creatine Kinase Troponin I High Sens Albumin Procalcitonin Random Vancomycin 10/31/20 10/31/20 10/31/20 18:09 18:09 18:11 WBC RBC Hgb Hct MCV MCH MCHC RDW Plt Count MPV Immature Gran % (Auto) Neut % (Auto) Lymph % (Auto) [place] % (Auto) Eos % (Auto) Baso % (Auto) Lymph # (Auto) [place] # (Auto) Eos # (Auto) Baso # (Auto) Abs Immat Gran (auto) Absolute Neuts (auto) Absolute Nucleated RBC Nucleated RBC % (auto) Neutrophils % (Manual) Band Neutrophils % Lymphocytes % (Manual) Monocytes % (Manual) Myelocytes % Abs Neuts (Manual) Lymphocytes # (Manual) Monocytes # (Manual) Myelocytes # Nucleated RBCs Toxic Vacuolation Platelet Estimate Plt Morphology Comment RBC Morphology Macrocytosis Acanthocytes (Spur) PT INR PTT (Heparin Protocol) D-Dimer VBG pH 6.89 L* VBG pCO2 71 VBG pO2 48 VBG HCO3 14 L VBG O2 Saturation 64.0 VBG Base Excess -18.6 Sodium Potassium Chloride Carbon Dioxide Anion Gap BUN Creatinine Estim Creat Clear Calc Estimated GFR POC Glucose 97 Random Glucose Lactic Acid 10.5 H* Lactic Acid Fup @ 2Hr Calcium Phosphorus Magnesium Total Creatine Kinase Troponin I High Sens Albumin Procalcitonin Random Vancomycin 10/31/20 10/31/20 10/31/20 18:11 18:11 19:08 WBC RBC Hgb Hct MCV MCH MCHC RDW Plt Count MPV Immature Gran % (Auto) Neut % (Auto) Lymph % (Auto) [place] % (Auto) Eos % (Auto) Baso % (Auto) Lymph # (Auto) [place] # (Auto) Eos # (Auto) Baso # (Auto) Abs Immat Gran (auto) Absolute Neuts (auto) Absolute Nucleated RBC Nucleated RBC % (auto) Neutrophils % (Manual) Band Neutrophils % Lymphocytes % (Manual) Monocytes % (Manual) Myelocytes % Abs Neuts (Manual) Lymphocytes # (Manual) Monocytes # (Manual) Myelocytes # Nucleated RBCs Toxic Vacuolation Platelet Estimate Plt Morphology Comment RBC Morphology Macrocytosis Acanthocytes (Spur) PT INR PTT (Heparin Protocol) D-Dimer VBG pH VBG pCO2 VBG pO2 VBG HCO3 VBG O2 Saturation VBG Base Excess Sodium 138 Potassium 5.6 H Chloride 98 Carbon Dioxide 13 L Anion Gap 33 H BUN 133 H* Creatinine 4.54 H* Estim Creat Clear Calc 10.5 Estimated GFR 10 POC Glucose 78 Random Glucose 85 D Lactic Acid Lactic Acid Fup @ 2Hr Calcium 6.9 L Phosphorus Magnesium Total Creatine Kinase Troponin I High Sens Albumin 2.6 L D Procalcitonin Random Vancomycin 10/31/20 10/31/20 10/31/20 20:17 20:27 20:27 WBC RBC Hgb Hct MCV MCH MCHC RDW Plt Count MPV Immature Gran % (Auto) Neut % (Auto) Lymph % (Auto) [place] % (Auto) Eos % (Auto) Baso % (Auto) Lymph # (Auto) [place] # (Auto) Eos # (Auto) Baso # (Auto) Abs Immat Gran (auto) Absolute Neuts (auto) Absolute Nucleated RBC Nucleated RBC % (auto) Neutrophils % (Manual) Band Neutrophils % Lymphocytes % (Manual) Monocytes % (Manual) Myelocytes % Abs Neuts (Manual) Lymphocytes # (Manual) Monocytes # (Manual) Myelocytes # Nucleated RBCs Toxic Vacuolation Platelet Estimate Plt Morphology Comment RBC Morphology Macrocytosis Acanthocytes (Spur) PT INR PTT (Heparin Protocol) D-Dimer VBG pH VBG pCO2 VBG pO2 VBG HCO3 VBG O2 Saturation VBG Base Excess Sodium Potassium Chloride Carbon Dioxide Anion Gap BUN Creatinine Estim Creat Clear Calc Estimated GFR POC Glucose 58 L* Random Glucose Lactic Acid Lactic Acid Fup @ 2Hr 11.2 H* Calcium Phosphorus Magnesium Total Creatine Kinase Troponin I High Sens 214.1 H* D Albumin Procalcitonin Random Vancomycin 10/31/20 10/31/20 10/31/20 21:10 21:11 22:26 WBC RBC Hgb Hct MCV MCH MCHC RDW Plt Count MPV Immature Gran % (Auto) Neut % (Auto) Lymph % (Auto) [place] % (Auto) Eos % (Auto) Baso % (Auto) Lymph # (Auto) [place] # (Auto) Eos # (Auto) Baso # (Auto) Abs Immat Gran (auto) Absolute Neuts (auto) Absolute Nucleated RBC Nucleated RBC % (auto) Neutrophils % (Manual) Band Neutrophils % Lymphocytes % (Manual) Monocytes % (Manual) Myelocytes % Abs Neuts (Manual) Lymphocytes # (Manual) Monocytes # (Manual) Myelocytes # Nucleated RBCs Toxic Vacuolation Platelet Estimate Plt Morphology Comment RBC Morphology Macrocytosis Acanthocytes (Spur) PT INR PTT (Heparin Protocol) D-Dimer 5865 VBG pH VBG pCO2 VBG pO2 VBG HCO3 VBG O2 Saturation VBG Base Excess Sodium Potassium Chloride Carbon Dioxide Anion Gap BUN Creatinine Estim Creat Clear Calc Estimated GFR POC Glucose 130 H 95 Random Glucose Lactic Acid Lactic Acid Fup @ 2Hr Calcium Phosphorus Magnesium Total Creatine Kinase Troponin I High Sens Albumin Procalcitonin Random Vancomycin 10/31/20 11/01/20 11/01/20 22:38 00:08 01:25 WBC RBC Hgb Hct MCV MCH MCHC RDW Plt Count MPV Immature Gran % (Auto) Neut % (Auto) Lymph % (Auto) [place] % (Auto) Eos % (Auto) Baso % (Auto) Lymph # (Auto) [place] # (Auto) Eos # (Auto) Baso # (Auto) Abs Immat Gran (auto) Absolute Neuts (auto) Absolute Nucleated RBC Nucleated RBC % (auto) Neutrophils % (Manual) Band Neutrophils % Lymphocytes % (Manual) Monocytes % (Manual) Myelocytes % Abs Neuts (Manual) Lymphocytes # (Manual) Monocytes # (Manual) Myelocytes # Nucleated RBCs Toxic Vacuolation Platelet Estimate Plt Morphology Comment RBC Morphology Macrocytosis Acanthocytes (Spur) PT INR PTT (Heparin Protocol) 34.4 L D-Dimer VBG pH VBG pCO2 VBG pO2 VBG HCO3 VBG O2 Saturation VBG Base Excess Sodium Potassium Chloride Carbon Dioxide Anion Gap BUN Creatinine Estim Creat Clear Calc Estimated GFR POC Glucose 63 122 H Random Glucose Lactic Acid Lactic Acid Fup @ 2Hr Calcium Phosphorus Magnesium Total Creatine Kinase Troponin I High Sens Albumin Procalcitonin Random Vancomycin Preliminary micro results at discharge 10/28/20 20:30 Blood Culture - Preliminary Blood - Venous No growth after 48 hours. 10/27/20 10:28 Blood Culture - Preliminary Blood - Venous No growth after 48 hours. Discharge Plan Discharge Date/Time: 11/01/20 03:11 Patient Disposition: Referrals: Yo Hsu MD [Primary Care Provider] - 1 Week Discharge Medications: No Action quetiapine 100 mg tablet 1 tab PO BEDTIME RF: 0 citalopram 20 mg tablet 1 tab PO DAILY RF: 0 mirtazapine 30 mg tablet 1 tab PO BEDTIME RF: 0 quetiapine 400 mg tablet 1 tab PO BEDTIME RF: 0 dexamethasone 6 mg tablet 6 mg PO DAILY 7 Days Qty: 7 RF: 0 albuterol sulfate 90 mcg/actuation HFA aerosol inhaler 2 puff inhalation QID PRN (Reason: shortness of breath or wheezing) Qty: 6.7 RF: 0 Discharge Orders: Discharge Order (Routine); Ordered 11/01/20 Ordered By: Giles Benitez Discharge Date/Time: 11/01/20 03:12
[2020-11-01 07:38] LABS: Glucose, Whole Blood 112 mg/dL (60-115)
== END 2020-11-01 03:12 | disposition expired | DRG 870 ==
LOC: HO.ED 16:36 → HO.EDOVER 18:32 → HO.IMC 18:34 → HO.ICU 10-18 11:48
PROVIDERS: Internal Medicine; Internal Medicine Cardiovascular Disease; Internal Medicine Nephrology; Internal Medicine Pulmonary Disease; Nurse Practitioner Family; Physician Assistant; Physician Assistant Medical; Admitting Provider Internal Medicine; Emergency Provider Emergency Medicine; PCP Internal Medicine; Visit Provider Anesthesiology
DX: A41.89 Other specified sepsis (principal); U07.1 COVID-19; J80 Acute respiratory distress syndrome; J12.82 Pneumonia due to coronavirus disease 2019; G93.41 Metabolic encephalopathy; N17.0 Acute kidney failure with tubular necrosis; I47.1 Supraventricular tachycardia; J45.909 Unspecified asthma, uncomplicated; D69.6 Thrombocytopenia, unspecified; R19.5 Other fecal abnormalities; E11.9 Type 2 diabetes mellitus without complications; I48.0 Paroxysmal atrial fibrillation; F41.9 Anxiety disorder, unspecified; F32.9 Major depressive disorder, single episode, unspecified; K75.81 Nonalcoholic steatohepatitis (NASH); Z79.899 Other long term (current) drug therapy
CPT/HCPCS: 0241U; 36415; 70450; 71045; 71046; 71275; 74176; 80048; 80053; 80076; 80143; 80202; 81001; 81003; 82040; 82272; 82550; 82728; 82947; 83605; 83615; 83735; 83880; 84100; 84145; 84156; 84300; 84484; 85007; 85025; 85027; 85379; 85610; 85730; 86140; 87040; 87070; 87086; 87088; 87147; 87186; 87205; 87635; 90999; 93005; 93308; 93970; 94002; 94003; 94640; 94799; 96361; 96365; 96375; 99284; 99285; C1758; J0153; J0171; J0282; J0456; J0610; J0692; J0696; J1100; J1170; J1265; J1650; J1652; J1940; J2250; J2370; J2930; J3010; J3370; P9047